=== PATIENT | female | born 1935 | race Caucasian/White ===

== ENCOUNTER 2018-08-05 08:24 | Observation (INO) ==
[2018-08-05] MEDS ORDERED: NITROGLYCERIN 2% OINT 1 INCH/GM PACK TOP STA (09:47)
[2018-08-05] MEDS ORDERED: ONDANSETRON 4 MG/2 ML VIAL IV PRN (09:47)
[2018-08-05] MEDS ORDERED: MORPHINE 4 MG/1 ML VIAL IV PRN (09:47)
[2018-08-05] MEDS ORDERED: ALUM/MAG/SIMETH/LIDO VISC 1:1 30 ML BOTTLE PO STA (09:47)
[2018-08-05] MEDS ORDERED: ENOXAPARIN 100 MG/ML SYRINGE SUBCUT STA (09:47)
[2018-08-05] MEDS ORDERED: METOPROLOL TARTRATE 5 MG/5 ML VIAL IV STA (09:47)
[2018-08-05] MEDS ORDERED: ASPIRIN 325 MG TABLET PO STA (09:47)
[2018-08-05] MEDS ORDERED: ENOXAPARIN 60 MG/0.6 ML SYRINGE ONE (10:07)
[2018-08-05 10:21] LABS: INR 0.9; Partial Thromboplastin Time 23.4 SECS (0-40)
[2018-08-05 10:30] LABS: Basophils # 0.1 10*3/uL (0.0-0.2); Basophils % 1.1 % (0.0-0.8); Eosinophils # 0.1 10*3/uL (0.0-0.87); Eosinophils % 0.8 % (0.00-10.9); Hematocrit 42.7 VOL% (35.7-47.0); Hemoglobin 12.9 GM/DL (12.0-16.0); Immature Granulocytes % 0.4 %; Immature Granulocytes Absolute 0.04 #; Lymphocytes # 1.8 10*3/uL (1.4-4.0); Lymphocytes % 18.1 % (21.3-54.2); Mean Corpuscular HGB Conc 30.2 GM/DL (32-36); Mean Corpuscular Hemoglobin 25 PG (27-34); Mean Corpuscular Volume 83.2 FL (87-102); Monocytes # 1.3 10*3/uL (0.11-0.8); Monocytes % 12.8 % (1.7-12.7); Neutrophils # 6.6 10*3/uL (1.4-7.4); Neutrophils % 66.8 % (38.7-73.9); Platelet Count 386 T/CUMM (130-400); Red Blood Count 5.13 MC/CUMM (3.8-5.5); Red Cell Distribution Width 16.2 % (9.3-17.3); White Blood Count 9.9 T/CUMM (4-12)
[2018-08-05 10:37] LABS: Alanine Aminotransferase 29 U/L (13-56); Albumin 3.7 G/DL (3.4-5.0); Alkaline Phosphatase 83 U/L (45-117); Aspartate Amino Transferase 23 U/L (0-37); Bilirubin,Total < 0.39 MG/DL (0.2-1.0); Blood Urea Nitrogen 16 MG/DL (7-18); Calcium 9.8 MG/DL (8.5-10.1); Glucose 116 MG/DL (74-106); Osmolality,Calculated 282.3 MOS/KG (273-304); Sodium 141 MMOL/L (136-145); Total Protein 7.6 G/DL (6.4-8.3)
[2018-08-05] MEDS ORDERED: ACETAMINOPHEN 325 MG TABLET ONE (11:59)
[2018-08-05] MEDS ORDERED: ACETAMINOPHEN 325 MG TABLET PO ONE (12:01)
[2018-08-05] MEDS ORDERED: MAGNESIUM SULF RIDER 4 GM in PREMIX 1 EACH IV PRN (12:26)
[2018-08-05] MEDS ORDERED: guaiFENesin/DM ER 600-30 MG TABLET PO PRN (12:26)
[2018-08-05] MEDS ORDERED: BISACODYL 5 MG TABLET PO PRN (12:26)
[2018-08-05] MEDS ORDERED: ZALEPLON 5 MG CAPSULE PO PRN (12:26)
[2018-08-05] MEDS ORDERED: MAGNESIUM SULF RIDER 2 GM in PREMIX 1 EACH IV PRN (12:26)
[2018-08-05] MEDS ORDERED: POTASSIUM CHLORIDE 20 MEQ TABLET PO PRN (12:26)
[2018-08-05] MEDS ORDERED: diphenhydrAMINE CAP 25 MG CAPSULE PO PRN (12:26)
[2018-08-05] MEDS ORDERED: DOCUSATE SODIUM 100 MG CAPSULE PO PRN (12:26)
[2018-08-05] MEDS ORDERED: PANTOPRAZOLE 40 MG TABLET PO SCH (12:30)
[2018-08-05] MEDS ORDERED: NITROGLYCERIN SL 0.4 MG TABLET SL PRN (13:02)
[2018-08-05] MEDS ORDERED: MECLIZINE 25 MG TABLET PO PRN (13:02)
[2018-08-05] MEDS ORDERED: CETIRIZINE 10 MG TABLET PO PRN (13:02)
[2018-08-05 14:05] LABS: Troponin I 0.069 NG/ML (0.00-0.045)
[2018-08-05 16:45] LABS: Troponin I 0.068 NG/ML (0.00-0.045)
[2018-08-05] MEDS: PYRIDOSTIGMINE 60 MG TABLET PO SCH ×2 (17:16→21:18)
[2018-08-05] MEDS: ATENOLOL 25 MG TABLET PO SCH (21:13)
[2018-08-05] MEDS: CARBIDOPA/LEVODOPA 25-100 MG TABLET PO SCH (21:14)
[2018-08-05] MEDS: TOPIRAMATE 100 MG TABLET PO SCH (21:14)
[2018-08-05] MEDS: predniSONE 5 MG TABLET PO SCH (21:14)
[2018-08-05] MEDS: PITAVASTATIN 2 MG TABLET PO SCH (21:14)
[2018-08-05] MEDS: AMITRIPTYLINE 75 MG TABLET PO SCH (21:14)
[2018-08-05] MEDS: TIMOLOL 0.25% OPH SOLN 5 ML BOTTLE BOTH EYES SCH (21:15)
[2018-08-05] MEDS: PANTOPRAZOLE 40 MG TABLET PO SCH (21:18)
[2018-08-06 04:43] LABS: Osmolality,Calculated 278.7 MOS/KG (273-304); Potassium 4.1 MMOL/L (3.5-5.1); Risk Ratio 5.19; VLDL CHOLESTEROL 30.8 MG/DL
[2018-08-06 05:12] LABS: Basophils # 0.1 10*3/uL (0.0-0.2); Basophils % 0.7 % (0.0-0.8); Eosinophils # 0.1 10*3/uL (0.0-0.87); Eosinophils % 1.2 % (0.00-10.9); Hematocrit 35.9 VOL% (35.7-47.0); Hemoglobin 10.6 GM/DL (12.0-16.0); Immature Granulocytes % 0.4 %; Immature Granulocytes Absolute 0.03 #; Lymphocytes # 1.1 10*3/uL (1.4-4.0); Lymphocytes % 16.2 % (21.3-54.2); Mean Corpuscular HGB Conc 29.5 GM/DL (32-36); Mean Corpuscular Hemoglobin 25 PG (27-34); Mean Corpuscular Volume 84.9 FL (87-102); Mean Platelet Volume 10.9 FL (9.6-12.0); Monocytes # 0.7 10*3/uL (0.11-0.8); Monocytes % 10.6 % (1.7-12.7); Neutrophils # 4.8 10*3/uL (1.4-7.4); Neutrophils % 70.9 % (38.7-73.9); Platelet Count 290 T/CUMM (130-400); Red Blood Count 4.23 MC/CUMM (3.8-5.5); White Blood Count 6.8 T/CUMM (4-12)
[2018-08-06] MEDS: CYANOCOBALAMIN 500 MCG TABLET PO SCH (08:50)
[2018-08-06] MEDS: ASPIRIN EC 81 MG TABLET PO SCH (08:51)
[2018-08-06] MEDS: ENOXAPARIN 40 MG/0.4 ML SYRINGE SUBCUT SCH (08:51)
[2018-08-06] MEDS: TOPIRAMATE 100 MG TABLET PO SCH ×2 (08:51→21:07)
[2018-08-06] MEDS: PANTOPRAZOLE 40 MG TABLET PO SCH ×2 (08:51→21:07)
[2018-08-06] MEDS: predniSONE 5 MG TABLET PO SCH ×2 (08:51→21:10)
[2018-08-06] MEDS: ATENOLOL 25 MG TABLET PO SCH ×2 (08:51→21:07)
[2018-08-06] MEDS: PYRIDOSTIGMINE 60 MG TABLET PO SCH ×3 (08:51→21:07)
[2018-08-06] MEDS ORDERED: ASPIRIN 325 MG TABLET PO ONE (15:11)
[2018-08-06] MEDS ORDERED: POTASSIUM CHLORIDE RIDER 10 MEQ in PREMIX 1 EACH IV PRN (15:11)
[2018-08-06] MEDS: CARBIDOPA/LEVODOPA 25-100 MG TABLET PO SCH (21:07)
[2018-08-06] MEDS: TIMOLOL 0.25% OPH SOLN 5 ML BOTTLE BOTH EYES SCH (21:07)
[2018-08-06] MEDS: PITAVASTATIN 2 MG TABLET PO SCH (21:10)
[2018-08-06] MEDS: AMITRIPTYLINE 75 MG TABLET PO SCH (21:13)
[2018-08-07 04:50] LABS: Calcium 8.7 MG/DL (8.5-10.1); Osmolality,Calculated 282.3 MOS/KG (273-304); Potassium 3.7 MMOL/L (3.5-5.1)
[2018-08-07 05:54] LABS: Basophils # 0.1 10*3/uL (0.0-0.2); Eosinophils # 0.2 10*3/uL (0.0-0.87); Eosinophils % 3.5 % (0.00-10.9); Hematocrit 35.6 VOL% (35.7-47.0); Hemoglobin 10.6 GM/DL (12.0-16.0); Immature Granulocytes % 0.5 %; Immature Granulocytes Absolute 0.03 #; Lymphocytes # 1.5 10*3/uL (1.4-4.0); Lymphocytes % 24.9 % (21.3-54.2); Mean Corpuscular HGB Conc 29.8 GM/DL (32-36); Mean Corpuscular Hemoglobin 25 PG (27-34); Mean Platelet Volume 10.6 FL (9.6-12.0); Monocytes # 0.7 10*3/uL (0.11-0.8); Monocytes % 11.9 % (1.7-12.7); Neutrophils # 3.5 10*3/uL (1.4-7.4); Neutrophils % 58.2 % (38.7-73.9); Platelet Count 281 T/CUMM (130-400); Red Blood Count 4.19 MC/CUMM (3.8-5.5); Red Cell Distribution Width 16.1 % (9.3-17.3)
[2018-08-07] MEDS ORDERED: DIAZEPAM 5 MG TABLET PO ONE (06:00)
[2018-08-07] MEDS ORDERED: diphenhydrAMINE CAP 25 MG CAPSULE PO ONE (06:00)
[2018-08-07] MEDS: CYANOCOBALAMIN 500 MCG TABLET PO SCH ×2 (07:41→09:56)
[2018-08-07] MEDS: PYRIDOSTIGMINE 60 MG TABLET PO SCH ×4 (07:42→20:41)
[2018-08-07] MEDS: ASPIRIN EC 81 MG TABLET PO SCH ×2 (07:42→09:55)
[2018-08-07] MEDS: PANTOPRAZOLE 40 MG TABLET PO SCH ×3 (07:42→20:41)
[2018-08-07] MEDS: ATENOLOL 25 MG TABLET PO SCH ×3 (07:42→20:42)
[2018-08-07] MEDS: TOPIRAMATE 100 MG TABLET PO SCH ×3 (07:42→20:42)
[2018-08-07] MEDS: SODIUM CHLORIDE 0.9% 1,000 ML IV SCH ×2 (07:43→15:11)
[2018-08-07] MEDS: ENOXAPARIN 40 MG/0.4 ML SYRINGE SUBCUT SCH ×2 (07:43→12:37)
[2018-08-07] MEDS ORDERED: LIDOCAINE 1% 20 ML VIAL ONE (08:04)
[2018-08-07] MEDS ORDERED: MIDAZOLAM 2 MG/2 ML VIAL ONE (08:31)
[2018-08-07] MEDS ORDERED: fentaNYL 100 MCG/2 ML VIAL ONE (08:31)
[2018-08-07] MEDS ORDERED: ENOXAPARIN 60 MG/0.6 ML SYRINGE ONE (08:56)
[2018-08-07] MEDS ORDERED: TIROFIBAN 5,000 MCG/100 ML PREMIX IV ONE (08:59)
[2018-08-07] MEDS ORDERED: TIROFIBAN 5,000 MCG/100 ML PREMIX IV SCH (09:06)
[2018-08-07] MEDS ORDERED: TICAGRELOR 90 MG TABLET ONE (09:30)
[2018-08-07] MEDS ORDERED: BENZONATATE 100 MG CAPSULE PO PRN (10:08)
[2018-08-07] MEDS: predniSONE 5 MG TABLET PO SCH ×2 (10:34→20:41)
[2018-08-07] MEDS: CARBIDOPA/LEVODOPA 25-100 MG TABLET PO SCH (20:41)
[2018-08-07] MEDS: TICAGRELOR 90 MG TABLET PO SCH (20:41)
[2018-08-07] MEDS: AMITRIPTYLINE 75 MG TABLET PO SCH (20:42)
[2018-08-07] MEDS: TIMOLOL 0.25% OPH SOLN 5 ML BOTTLE BOTH EYES SCH (20:42)
[2018-08-07] MEDS: PITAVASTATIN 2 MG TABLET PO SCH (23:30)
[2018-08-08] MEDS: SODIUM CHLORIDE 0.9% 1,000 ML IV SCH ×2 (00:14→06:34)
[2018-08-08 03:58] LABS: Basophils % 0.5 % (0.0-0.8); Eosinophils # 0.2 10*3/uL (0.0-0.87); Eosinophils % 1.9 % (0.00-10.9); Hematocrit 31.5 VOL% (35.7-47.0); Hemoglobin 9.2 GM/DL (12.0-16.0); Immature Granulocytes % 0.6 %; Immature Granulocytes Absolute 0.05 #; Lymphocytes # 0.9 10*3/uL (1.4-4.0); Lymphocytes % 11.4 % (21.3-54.2); Mean Corpuscular HGB Conc 29.2 GM/DL (32-36); Mean Corpuscular Hemoglobin 25 PG (27-34); Mean Corpuscular Volume 85.8 FL (87-102); Mean Platelet Volume 10.5 FL (9.6-12.0); Monocytes # 0.6 10*3/uL (0.11-0.8); Monocytes % 7.6 % (1.7-12.7); Neutrophils # 6.2 10*3/uL (1.4-7.4); Platelet Count 243 T/CUMM (130-400); Red Blood Count 3.67 MC/CUMM (3.8-5.5); White Blood Count 7.9 T/CUMM (4-12)
[2018-08-08 04:02] LABS: Calcium 8.2 MG/DL (8.5-10.1); Osmolality,Calculated 286.8 MOS/KG (273-304); Potassium 3.7 MMOL/L (3.5-5.1)
[2018-08-08 04:11] LABS: Blood Urea Nitrogen 12 MG/DL (7-18); Glucose 112 MG/DL (74-106); Osmolality,Calculated 286.8 MOS/KG (273-304); Potassium 4.1 MMOL/L (3.5-5.1); Sodium 144 MMOL/L (136-145)
[2018-08-08 04:14] LABS: Troponin I 0.299 NG/ML (0.00-0.045)
[2018-08-08 04:36] LABS: Platelet Estimate Adequate; Polychromasia Few
[2018-08-08 08:03] VITALS: BP 136/71
[2018-08-08] MEDS: CYANOCOBALAMIN 500 MCG TABLET PO SCH (08:12)
[2018-08-08] MEDS: predniSONE 5 MG TABLET PO SCH (08:13)
[2018-08-08] MEDS: ASPIRIN EC 81 MG TABLET PO SCH (08:13)
[2018-08-08] MEDS: PANTOPRAZOLE 40 MG TABLET PO SCH (08:13)
[2018-08-08] MEDS: PYRIDOSTIGMINE 60 MG TABLET PO SCH (08:13)
[2018-08-08] MEDS: TICAGRELOR 90 MG TABLET PO SCH (08:13)
[2018-08-08] MEDS: TOPIRAMATE 100 MG TABLET PO SCH (08:13)
[2018-08-08] MEDS: ATENOLOL 25 MG TABLET PO SCH (08:13)
== END 2018-08-08 10:52 | disposition home or self-care (01) ==
LOC: N.EDINP 08:24 → N.ED 08:24 → N.TELES 14:50
PROVIDERS: ADMIT Internal Medicine Cardiovascular Disease; ATTEND Internal Medicine Cardiovascular Disease
PROC: CLCCHCL (ICD-10-PCS; 2018-08-07 09:15)

== ENCOUNTER 2019-03-07 21:31 | Inpatient (IN) ==
[2019-03-07 23:29] LABS: Basophils # 0.1 10*3/uL (0.0-0.2); Basophils % 1.3 % (0.0-0.8); Eosinophils # 0.2 10*3/uL (0.0-0.87); Eosinophils % 2.4 % (0.00-10.9); Hemoglobin 10.6 GM/DL (12.0-16.0); Immature Granulocytes % 0.4 %; Immature Granulocytes Absolute 0.03 #; Lymphocytes # 2.6 10*3/uL (1.4-4.0); Lymphocytes % 34.2 % (21.3-54.2); Mean Corpuscular HGB Conc 28.6 GM/DL (32-36); Mean Corpuscular Volume 80.4 FL (87-102); Mean Platelet Volume 10.2 FL (9.6-12.0); Monocytes % 11.8 % (1.7-12.7); Neutrophils % 49.9 % (38.7-73.9); Platelet Count 354 T/CUMM (130-400); Red Cell Distribution Width 15.9 % (9.3-17.3); White Blood Count 7.6 T/CUMM (4-12)
[2019-03-07 23:52] LABS: Alanine Aminotransferase 17 U/L (13-56); Albumin 3.6 G/DL (3.4-5.0); Alkaline Phosphatase 98 U/L (45-117); Aspartate Amino Transferase 13 U/L (0-37); Bilirubin,Total < 0.39 MG/DL (0.2-1.0); Blood Urea Nitrogen 22 MG/DL (7-18); Calcium 9.3 MG/DL (8.5-10.1); Glucose 114 MG/DL (74-106); Osmolality,Calculated 286.1 MOS/KG (273-304); Total Protein 7.5 G/DL (6.4-8.3)
[2019-03-08] MEDS ORDERED: ENOXAPARIN 30 MG/0.3 ML SYRINGE SUBCUT STA (00:28)
[2019-03-08] MEDS ORDERED: ASPIRIN CHEW 81 MG TABLET PO STA (00:29)
[2019-03-08] MEDS ORDERED: ENOXAPARIN 40 MG/0.4 ML SYRINGE ONE (00:40)
[2019-03-08] MEDS ORDERED: MAGNESIUM SULF RIDER 4 GM in PREMIX 1 EACH IV PRN ×2 (02:40→05:37)
[2019-03-08] MEDS ORDERED: MAGNESIUM SULF RIDER 2 GM in PREMIX 1 EACH IV PRN (02:40)
[2019-03-08] MEDS ORDERED: POTASSIUM CHLORIDE 20 MEQ TABLET PO PRN ×3 (02:40→05:32)
[2019-03-08] MEDS ORDERED: DOCUSATE SODIUM 100 MG CAPSULE PO PRN (02:40)
[2019-03-08] MEDS ORDERED: CETIRIZINE 10 MG TABLET PO PRN (03:23)
[2019-03-08] MEDS: ACETAMINOPHEN 325 MG TABLET PO PRN ×3 (04:08→21:40)
[2019-03-08 05:20] LABS: Osmolality,Calculated 287.8 MOS/KG (273-304); Risk Ratio 3.56; VLDL CHOLESTEROL 43.2 MG/DL
[2019-03-08 05:26] LABS: Basophils # 0.1 10*3/uL (0.0-0.2); Basophils % 1.4 % (0.0-0.8); Eosinophils # 0.2 10*3/uL (0.0-0.87); Eosinophils % 2.6 % (0.00-10.9); Hematocrit 34.4 VOL% (35.7-47.0); Hemoglobin 9.9 GM/DL (12.0-16.0); Immature Granulocytes % 0.4 %; Immature Granulocytes Absolute 0.03 #; Lymphocytes # 2.1 10*3/uL (1.4-4.0); Lymphocytes % 29.5 % (21.3-54.2); Mean Corpuscular HGB Conc 28.8 GM/DL (32-36); Mean Corpuscular Volume 80.4 FL (87-102); Mean Platelet Volume 10.2 FL (9.6-12.0); Monocytes % 12.5 % (1.7-12.7); Neutrophils % 53.6 % (38.7-73.9); Platelet Count 320 T/CUMM (130-400); Red Blood Count 4.28 MC/CUMM (3.8-5.5); Red Cell Distribution Width 15.9 % (9.3-17.3)
[2019-03-08] MEDS ORDERED: ENOXAPARIN 30 MG/0.3 ML SYRINGE SUBCUT ONE (05:35)
[2019-03-08 05:56] LABS: Anisocytosis 1+; Platelet Estimate Adequate
[2019-03-08] MEDS ORDERED: TICAGRELOR 90 MG TABLET PO ONE (09:21)
[2019-03-08] MEDS ORDERED: DIAZEPAM 5 MG TABLET PO ONE (09:22)
[2019-03-08] MEDS ORDERED: diphenhydrAMINE CAP 25 MG CAPSULE PO ONE (09:22)
[2019-03-08] MEDS ORDERED: diphenhydrAMINE CAP 50 MG CAPSULE ONE (09:34)
[2019-03-08] MEDS ORDERED: HEPARIN/NACL 0.9% 2 UNITS/ML 1,000 ML IV ONE (09:48)
[2019-03-08] MEDS ORDERED: LIDOCAINE 1% 20 ML VIAL ONE (09:48)
[2019-03-08] MEDS ORDERED: fentaNYL 100 MCG/2 ML VIAL ONE (09:48)
[2019-03-08] MEDS ORDERED: MIDAZOLAM 2 MG/2 ML VIAL ONE ×2 (09:48→10:34)
[2019-03-08] MEDS ORDERED: ENOXAPARIN 60 MG/0.6 ML SYRINGE ONE (10:18)
[2019-03-08] MEDS: PYRIDOSTIGMINE 60 MG TABLET PO SCH ×3 (12:14→21:07)
[2019-03-08] MEDS: TICAGRELOR 90 MG TABLET PO SCH ×2 (12:14→21:07)
[2019-03-08] MEDS: ASPIRIN EC 81 MG TABLET PO SCH (12:14)
[2019-03-08] MEDS: PANTOPRAZOLE 40 MG TABLET PO SCH (12:15)
[2019-03-08] MEDS: SODIUM CHLORIDE 0.9% 1,000 ML IV SCH ×3 (12:15→22:44)
[2019-03-08] MEDS: ATENOLOL 25 MG TABLET PO SCH ×2 (12:15→21:07)
[2019-03-08] MEDS: predniSONE 5 MG TABLET PO SCH ×2 (12:15→21:06)
[2019-03-08] MEDS: TOPIRAMATE 100 MG TABLET PO SCH ×2 (12:18→21:06)
[2019-03-08] MEDS ORDERED: ALUM/MAG/SIMETH/LIDO VISC 1:1 30 ML BOTTLE PO ONE (12:46)
[2019-03-08 13:43] LABS: Apearance,Urine CLEAR (Clear); Bilirubin,Urine Negative (Negative); Blood, Urine Negative (Negative); Glucose,Urine (UA) Negative (Negative); Ketones,Urine Negative (Negative); Nitrite,Urine Negative (Negative); Protein,Urine Negative; RBC,Urine <1 /HPF (0-4); Squamous Epithelial Cell,Urine Occasional /HPF (0-10); Urine Color Straw (Yellow); Urine Specific Gravity 1.014 (1.001-1.035); Urine Urobilinogen < 2.0 EU/DL (0.2-1.0); WBC,Urine <1 /HPF (0-6)
[2019-03-08] MEDS ORDERED: ENOXAPARIN 60 MG/0.6 ML SYRINGE SUBCUT SCH (14:00)
[2019-03-08] MEDS: PITAVASTATIN 2 MG TABLET PO SCH (21:04)
[2019-03-08] MEDS: TIMOLOL 0.25% OPH SOLN 5 ML BOTTLE BOTH EYES SCH (21:04)
[2019-03-08] MEDS: CARBIDOPA/LEVODOPA 25-100 MG TABLET PO SCH (21:05)
[2019-03-08] MEDS: ONDANSETRON 4 MG/2 ML VIAL IV PRN (22:45)
[2019-03-09] MEDS: ACETAMINOPHEN 325 MG TABLET PO PRN ×2 (01:42→14:32)
[2019-03-09 05:54] LABS: Basophils # 0.1 10*3/uL (0.0-0.2); Basophils % 0.8 % (0.0-0.8); Eosinophils # 0.1 10*3/uL (0.0-0.87); Eosinophils % 1.5 % (0.00-10.9); Hematocrit 35.6 VOL% (35.7-47.0); Hemoglobin 10.3 GM/DL (12.0-16.0); Immature Granulocytes % 0.3 %; Immature Granulocytes Absolute 0.02 #; Lymphocytes # 1.1 10*3/uL (1.4-4.0); Mean Corpuscular HGB Conc 28.9 GM/DL (32-36); Mean Corpuscular Volume 81.1 FL (87-102); Mean Platelet Volume 10.4 FL (9.6-12.0); Monocytes % 13.7 % (1.7-12.7); Neutrophils % 68.7 % (38.7-73.9); Platelet Count 337 T/CUMM (130-400); Red Blood Count 4.39 MC/CUMM (3.8-5.5); Red Cell Distribution Width 15.8 % (9.3-17.3); White Blood Count 7.4 T/CUMM (4-12)
[2019-03-09 06:17] LABS: Calcium 8.3 MG/DL (8.5-10.1)
[2019-03-09] MEDS: TOPIRAMATE 100 MG TABLET PO SCH ×2 (08:52→21:21)
[2019-03-09] MEDS: PYRIDOSTIGMINE 60 MG TABLET PO SCH ×3 (08:52→21:20)
[2019-03-09] MEDS: PANTOPRAZOLE 40 MG TABLET PO SCH (08:52)
[2019-03-09] MEDS: LOSARTAN 25 MG TABLET PO SCH (08:52)
[2019-03-09] MEDS: TICAGRELOR 90 MG TABLET PO SCH ×2 (08:52→21:22)
[2019-03-09] MEDS: ATENOLOL 25 MG TABLET PO SCH ×2 (08:52→21:21)
[2019-03-09] MEDS: predniSONE 5 MG TABLET PO SCH ×2 (08:52→21:22)
[2019-03-09] MEDS: ASPIRIN EC 81 MG TABLET PO SCH (08:52)
[2019-03-09] MEDS: SODIUM CHLORIDE 0.9% 1,000 ML IV SCH (08:53)
[2019-03-09] MEDS ORDERED: traMADol 50 MG TABLET PO PRN (08:59)
[2019-03-09] MEDS: ONDANSETRON 4 MG/2 ML VIAL IV PRN ×3 (10:14→23:31)
[2019-03-09] MEDS: BUTALBITAL/ACETAMIN/CAFFEINE 50-325-40 MG TABLET PO PRN ×2 (14:35→23:31)
[2019-03-09] MEDS: TIMOLOL 0.25% OPH SOLN 5 ML BOTTLE BOTH EYES SCH (21:18)
[2019-03-09] MEDS: PITAVASTATIN 2 MG TABLET PO SCH (21:20)
[2019-03-09] MEDS: CARBIDOPA/LEVODOPA 25-100 MG TABLET PO SCH (21:20)
[2019-03-10] MEDS: LOPERAMIDE 2 MG CAPSULE PO PRN ×2 (05:39→09:35)
[2019-03-10 05:57] LABS: Calcium 9.1 MG/DL (8.5-10.1); Osmolality,Calculated 285.8 MOS/KG (273-304)
[2019-03-10 06:00] LABS: Basophils % 0.4 % (0.0-0.8); Eosinophils # 0.1 10*3/uL (0.0-0.87); Eosinophils % 0.6 % (0.00-10.9); Hematocrit 34.2 VOL% (35.7-47.0); Hemoglobin 10.1 GM/DL (12.0-16.0); Immature Granulocytes % 0.4 %; Immature Granulocytes Absolute 0.05 #; Lymphocytes # 1.2 10*3/uL (1.4-4.0); Lymphocytes % 10.2 % (21.3-54.2); Mean Corpuscular HGB Conc 29.5 GM/DL (32-36); Mean Corpuscular Volume 80.7 FL (87-102); Mean Platelet Volume 10.6 FL (9.6-12.0); Monocytes % 10.3 % (1.7-12.7); Neutrophils % 78.1 % (38.7-73.9); Platelet Count 333 T/CUMM (130-400); Red Blood Count 4.24 MC/CUMM (3.8-5.5); White Blood Count 11.2 T/CUMM (4-12)
[2019-03-10 06:06] LABS: Hypochromasia 1+; Ovalocytes Slight; Platelet Estimate Adequate
[2019-03-10] MEDS: PYRIDOSTIGMINE 60 MG TABLET PO SCH ×2 (09:34→15:15)
[2019-03-10] MEDS: ATENOLOL 25 MG TABLET PO SCH (09:34)
[2019-03-10] MEDS: LOSARTAN 25 MG TABLET PO SCH (09:34)
[2019-03-10] MEDS: TICAGRELOR 90 MG TABLET PO SCH (09:35)
[2019-03-10] MEDS: ASPIRIN EC 81 MG TABLET PO SCH (09:35)
[2019-03-10] MEDS: PANTOPRAZOLE 40 MG TABLET PO SCH (09:35)
[2019-03-10] MEDS: TOPIRAMATE 100 MG TABLET PO SCH (09:35)
[2019-03-10] MEDS: predniSONE 5 MG TABLET PO SCH (09:35)
[2019-03-10] MEDS: BUTALBITAL/ACETAMIN/CAFFEINE 50-325-40 MG TABLET PO PRN (11:35)
[2019-03-10 11:44] VITALS: BP 128/67
== END 2019-03-10 16:00 | disposition home or self-care (01) | DRG 247 ==
LOC: N.EDINP 21:31 → N.ED 21:31 → N.TELES 03-08 02:33 → SUATTDRO 03-08 08:23
PROVIDERS: ADMIT Internal Medicine Nephrology; ATTEND Internal Medicine
PROC: CLCCHCL (ICD-10-PCS; 2019-03-08 10:15)

== ENCOUNTER 2019-06-24 14:08 | Observation (INO) ==
[2019-06-24] MEDS ORDERED: ACETAMINOPHEN 500 MG TABLET ONE (15:04)
[2019-06-24 15:24] LABS: Albumin 3.1 G/DL (3.4-5.0); Bilirubin,Total 0.6 MG/DL (0.2-1.0); Calcium 9.1 MG/DL (8.5-10.1); Osmolality,Calculated 272.8 MOS/KG (273-304)
[2019-06-24 15:33] LABS: INR 0.9; PT Patient Result 10.2 SECS (9.6-12.2)
[2019-06-24] MEDS ORDERED: ACETAMINOPHEN 500 MG TABLET PO STA (15:53)
[2019-06-24 16:00] LABS: Basophils # 0.1 10*3/uL (0.0-0.2); Basophils % 1.4 % (0.0-0.8); Eosinophils # 0.1 10*3/uL (0.0-0.87); Eosinophils % 1.8 % (0.00-10.9); Immature Granulocytes % 0.3 %; Immature Granulocytes Absolute 0.02 #; Lymphocytes # 2.4 10*3/uL (1.4-4.0); Lymphocytes % 39.3 % (21.3-54.2); Mean Corpuscular HGB Conc 28.7 GM/DL (32-36); Mean Corpuscular Volume 77.7 FL (87-102); Mean Platelet Volume 10.3 FL (9.6-12.0); Monocytes % 11.6 % (1.7-12.7); Neutrophils % 45.6 % (38.7-73.9); Platelet Count 513 T/CUMM (130-400); Red Blood Count 4.67 MC/CUMM (3.8-5.5); Red Cell Distribution Width 17.2 % (9.3-17.3); White Blood Count 6.2 T/CUMM (4-12)
[2019-06-24 16:05] LABS: Hemoglobin 10.4 GM/DL (12.0-16.0)
[2019-06-24 16:06] LABS: Hematocrit 36.3 VOL% (35.7-47.0)
[2019-06-24 16:27] LABS: Apearance,Urine CLEAR (Clear); Bilirubin,Urine Negative (Negative); Blood, Urine Negative (Negative); Glucose,Urine (UA) Negative (Negative); Ketones,Urine 5 mg/dL (Negative); Mucus,Urine Occasional /LPF (Occasional); Nitrite,Urine Negative (Negative); Protein,Urine Negative; RBC,Urine 3 /HPF (0-4); Urine Color Yellow (Yellow); Urine Urobilinogen < 2.0 EU/DL (0.2-1.0); WBC,Urine <1 /HPF (0-6)
[2019-06-24] MEDS ORDERED: ONDANSETRON 4 MG/2 ML VIAL IV PRN (16:35)
[2019-06-24] MEDS ORDERED: NITROGLYCERIN SL 0.4 MG TABLET SL PRN (19:46)
[2019-06-24] MEDS: BUTALBITAL/ACETAMIN/CAFFEINE 50-325-40 MG TABLET PO PRN (21:24)
[2019-06-24] MEDS: SIMVASTATIN 40 MG TABLET PO SCH (21:24)
[2019-06-24] MEDS: TICAGRELOR 90 MG TABLET PO SCH (21:24)
[2019-06-24] MEDS: TOPIRAMATE 100 MG TABLET PO SCH (21:24)
[2019-06-24] MEDS: DOCUSATE SODIUM 100 MG CAPSULE PO SCH (21:24)
[2019-06-24] MEDS: PYRIDOSTIGMINE 60 MG TABLET PO SCH (21:24)
[2019-06-24] MEDS: ATENOLOL 25 MG TABLET PO SCH (21:25)
[2019-06-24] MEDS: traZODone 50 MG TABLET PO SCH (21:25)
[2019-06-24] MEDS: TIMOLOL 0.25% OPH SOLN 5 ML BOTTLE BOTH EYES SCH (21:25)
[2019-06-25] MEDS: LOSARTAN 25 MG TABLET PO SCH (08:52)
[2019-06-25] MEDS: ATENOLOL 25 MG TABLET PO SCH ×2 (08:53→20:34)
[2019-06-25] MEDS: CYANOCOBALAMIN 500 MCG TABLET PO SCH (08:53)
[2019-06-25] MEDS: PYRIDOSTIGMINE 60 MG TABLET PO SCH ×3 (08:53→20:34)
[2019-06-25] MEDS: PANTOPRAZOLE 40 MG TABLET PO SCH (08:53)
[2019-06-25] MEDS: ASPIRIN EC 81 MG TABLET PO SCH (08:54)
[2019-06-25] MEDS: TOPIRAMATE 100 MG TABLET PO SCH ×2 (08:54→20:34)
[2019-06-25] MEDS: TICAGRELOR 90 MG TABLET PO SCH ×2 (08:54→20:34)
[2019-06-25] MEDS: BUTALBITAL/ACETAMIN/CAFFEINE 50-325-40 MG TABLET PO PRN (09:01)
[2019-06-25] MEDS: DOCUSATE SODIUM 100 MG CAPSULE PO SCH ×2 (09:02→20:35)
[2019-06-25] MEDS: ACETAMINOPHEN 325 MG TABLET PO PRN ×2 (11:14→19:30)
[2019-06-25] MEDS: SIMVASTATIN 40 MG TABLET PO SCH (20:34)
[2019-06-25] MEDS: traZODone 50 MG TABLET PO SCH (20:34)
[2019-06-25] MEDS: TIMOLOL 0.25% OPH SOLN 5 ML BOTTLE BOTH EYES SCH (20:34)
[2019-06-26 08:01] VITALS: BP 119/61
[2019-06-26] MEDS: ATENOLOL 25 MG TABLET PO SCH (09:02)
[2019-06-26] MEDS: ACETAMINOPHEN 325 MG TABLET PO PRN (09:03)
[2019-06-26] MEDS: TICAGRELOR 90 MG TABLET PO SCH (09:05)
[2019-06-26] MEDS: PANTOPRAZOLE 40 MG TABLET PO SCH (09:05)
[2019-06-26] MEDS: CYANOCOBALAMIN 500 MCG TABLET PO SCH (09:05)
[2019-06-26] MEDS: TOPIRAMATE 100 MG TABLET PO SCH (09:06)
[2019-06-26] MEDS: PYRIDOSTIGMINE 60 MG TABLET PO SCH (09:06)
[2019-06-26] MEDS: ASPIRIN EC 81 MG TABLET PO SCH (09:06)
[2019-06-26] MEDS: LOSARTAN 25 MG TABLET PO SCH (09:07)
[2019-06-26] MEDS: DOCUSATE SODIUM 100 MG CAPSULE PO SCH (09:07)
== END 2019-06-26 10:31 | disposition home or self-care (01) ==
LOC: N.ED 14:08 → N.EDINP 14:08 → N.4E 17:19
PROVIDERS: ADMIT Family Medicine; ATTEND Family Medicine

== ENCOUNTER 2019-07-19 08:54 | Inpatient (IN) ==
[2019-07-19] MEDS ORDERED: ASPIRIN 325 MG TABLET PO STA (09:29)
[2019-07-19] MEDS ORDERED: NITROGLYCERIN SL 0.4 MG TABLET SL PRN ×2 (09:29→19:08)
[2019-07-19 11:00] LABS: Basophils # 0.1 10*3/uL (0.0-0.2); Basophils % 1.6 % (0.0-0.8); Eosinophils # 0.4 10*3/uL (0.0-0.87); Eosinophils % 5.8 % (0.00-10.9); Hematocrit 33.3 VOL% (35.7-47.0); Hemoglobin 9.6 GM/DL (12.0-16.0); Immature Granulocytes % 0.5 %; Immature Granulocytes Absolute 0.04 #; Lymphocytes # 1.4 10*3/uL (1.4-4.0); Lymphocytes % 18.7 % (21.3-54.2); Mean Corpuscular HGB Conc 28.8 GM/DL (32-36); Mean Corpuscular Volume 78.4 FL (87-102); Mean Platelet Volume 10.4 FL (9.6-12.0); Monocytes % 12.8 % (1.7-12.7); Neutrophils % 60.6 % (38.7-73.9); Platelet Count 361 T/CUMM (130-400); Red Blood Count 4.25 MC/CUMM (3.8-5.5); Red Cell Distribution Width 17.2 % (9.3-17.3); White Blood Count 7.6 T/CUMM (4-12)
[2019-07-19 11:01] LABS: Calcium 9.1 MG/DL (8.5-10.1); Osmolality,Calculated 279.4 MOS/KG (273-304)
[2019-07-19 11:24] LABS: Hypochromasia 1+; Ovalocytes Slight; Platelet Estimate Adequate
[2019-07-19 11:25] LABS: Microcytosis Slight
[2019-07-19] MEDS ORDERED: ONDANSETRON 4 MG/2 ML VIAL IV PRN (12:04)
[2019-07-19] MEDS ORDERED: MAGNESIUM SULF RIDER 4 GM in PREMIX 1 EACH IV PRN (12:04)
[2019-07-19] MEDS ORDERED: MAGNESIUM SULF RIDER 2 GM in PREMIX 1 EACH IV PRN (12:04)
[2019-07-19] MEDS ORDERED: MORPHINE 4 MG/1 ML VIAL IV PRN (12:04)
[2019-07-19] MEDS ORDERED: ACETAMINOPHEN 500 MG TABLET PO STA (12:10)
[2019-07-19] MEDS ORDERED: ACETAMINOPHEN 500 MG TABLET ONE (12:11)
[2019-07-19] MEDS: SODIUM CHLORIDE 0.45% 1,000 ML IV SCH (17:16)
[2019-07-19] MEDS ORDERED: ACETAMINOPHEN 500 MG TABLET PO PRN (19:10)
[2019-07-19] MEDS: ENOXAPARIN 40 MG/0.4 ML SYRINGE SUBCUT SCH (20:42)
[2019-07-19] MEDS: TICAGRELOR 90 MG TABLET PO SCH (20:42)
[2019-07-19] MEDS: BENZONATATE 100 MG CAPSULE PO PRN (20:43)
[2019-07-19] MEDS: ATENOLOL 25 MG TABLET PO SCH (20:43)
[2019-07-19] MEDS: traMADol 50 MG TABLET PO SCH (20:44)
[2019-07-19] MEDS: AMITRIPTYLINE 100 MG TABLET PO SCH (20:44)
[2019-07-19] MEDS: NITROGLYCERIN 2% OINT 1 INCH/GM PACK TOP SCH (20:45)
[2019-07-20] MEDS: SODIUM CHLORIDE 0.45% 1,000 ML IV SCH ×2 (05:06→14:55)
[2019-07-20 06:44] LABS: Risk Ratio 4.34
[2019-07-20] MEDS: ENOXAPARIN 40 MG/0.4 ML SYRINGE SUBCUT SCH ×2 (08:15→21:15)
[2019-07-20] MEDS: BENZONATATE 100 MG CAPSULE PO PRN (08:15)
[2019-07-20] MEDS: ATENOLOL 25 MG TABLET PO SCH ×2 (08:15→21:16)
[2019-07-20] MEDS: PANTOPRAZOLE 40 MG TABLET PO SCH (08:16)
[2019-07-20] MEDS: EZETIMIBE 10 MG TABLET PO SCH (08:16)
[2019-07-20] MEDS: FERROUS SULFATE 325 MG TABLET PO SCH (08:16)
[2019-07-20] MEDS: SIMVASTATIN 40 MG TABLET PO SCH (08:16)
[2019-07-20] MEDS: traMADol 50 MG TABLET PO SCH ×3 (08:16→21:16)
[2019-07-20] MEDS: TICAGRELOR 90 MG TABLET PO SCH ×2 (08:16→21:17)
[2019-07-20] MEDS: LOSARTAN 25 MG TABLET PO SCH (08:16)
[2019-07-20] MEDS: ISOSORBIDE MONONITRATE 30 MG TABLET PO SCH (08:16)
[2019-07-20] MEDS: ASPIRIN EC 81 MG TABLET PO SCH (08:23)
[2019-07-20] MEDS: NITROGLYCERIN 2% OINT 1 INCH/GM PACK TOP SCH ×2 (08:23→21:16)
[2019-07-20] MEDS: AMITRIPTYLINE 100 MG TABLET PO SCH (21:17)
[2019-07-21 05:39] LABS: Basophils # 0.1 10*3/uL (0.0-0.2); Basophils % 1.4 % (0.0-0.8); Eosinophils # 0.5 10*3/uL (0.0-0.87); Eosinophils % 7.6 % (0.00-10.9); Hemoglobin 8.1 GM/DL (12.0-16.0); Immature Granulocytes % 0.6 %; Immature Granulocytes Absolute 0.04 #; Lymphocytes # 1.7 10*3/uL (1.4-4.0); Lymphocytes % 26.3 % (21.3-54.2); Mean Corpuscular HGB Conc 28.9 GM/DL (32-36); Mean Corpuscular Volume 78.9 FL (87-102); Mean Platelet Volume 10.5 FL (9.6-12.0); Monocytes % 17.6 % (1.7-12.7); Neutrophils % 46.5 % (38.7-73.9); Platelet Count 300 T/CUMM (130-400); Red Blood Count 3.55 MC/CUMM (3.8-5.5); Red Cell Distribution Width 17.3 % (9.3-17.3); White Blood Count 6.3 T/CUMM (4-12)
[2019-07-21 05:47] LABS: Calcium 8.6 MG/DL (8.5-10.1); Osmolality,Calculated 280.3 MOS/KG (273-304)
[2019-07-21] MEDS: SODIUM CHLORIDE 0.45% 1,000 ML IV SCH ×2 (05:49→22:07)
[2019-07-21 05:54] LABS: Anisocytosis 2+; Band Neutrophils 2 % (0-10); Eosinophils 8 % (0-10); Lymphocytes 32 % (20-55); Microcytosis 2+; Ovalocytes 1+; Platelet Estimate Normal; Segmented Neutrophils 40 % (50-85); Total Cells Counted 100
[2019-07-21] MEDS: FERROUS SULFATE 325 MG TABLET PO SCH (08:53)
[2019-07-21] MEDS: LOSARTAN 25 MG TABLET PO SCH (08:54)
[2019-07-21] MEDS: traMADol 50 MG TABLET PO SCH ×3 (08:54→22:08)
[2019-07-21] MEDS: SIMVASTATIN 40 MG TABLET PO SCH (08:54)
[2019-07-21] MEDS: PANTOPRAZOLE 40 MG TABLET PO SCH (08:54)
[2019-07-21] MEDS: ATENOLOL 25 MG TABLET PO SCH ×2 (08:55→22:09)
[2019-07-21] MEDS: EZETIMIBE 10 MG TABLET PO SCH (08:55)
[2019-07-21] MEDS: NITROGLYCERIN 2% OINT 1 INCH/GM PACK TOP SCH ×2 (08:55→22:09)
[2019-07-21] MEDS: ISOSORBIDE MONONITRATE 30 MG TABLET PO SCH (08:55)
[2019-07-21] MEDS: ASPIRIN EC 81 MG TABLET PO SCH (08:55)
[2019-07-21] MEDS: ENOXAPARIN 40 MG/0.4 ML SYRINGE SUBCUT SCH ×2 (08:56→22:08)
[2019-07-21] MEDS: TICAGRELOR 90 MG TABLET PO SCH ×2 (08:56→22:08)
[2019-07-21] MEDS ORDERED: DIAZEPAM 5 MG TABLET PO ONE (13:40)
[2019-07-21] MEDS ORDERED: diphenhydrAMINE CAP 25 MG CAPSULE PO ONE (13:40)
[2019-07-21] MEDS ORDERED: MAGNESIUM SULF RIDER 2 GM in PREMIX 1 EACH IV PRN (13:40)
[2019-07-21] MEDS ORDERED: LIDOCAINE 1% 20 ML VIAL ONE (14:05)
[2019-07-21] MEDS ORDERED: fentaNYL 100 MCG/2 ML VIAL ONE (14:05)
[2019-07-21] MEDS ORDERED: MIDAZOLAM 2 MG/2 ML VIAL ONE (14:05)
[2019-07-21] MEDS ORDERED: ADENOSINE 90 MG/30 ML VIAL IV ONE (14:34)
[2019-07-21] MEDS ORDERED: ENOXAPARIN 60 MG/0.6 ML SYRINGE ONE (14:47)
[2019-07-21] MEDS ORDERED: TICAGRELOR 90 MG TABLET ONE (14:50)
[2019-07-21] MEDS: AMITRIPTYLINE 100 MG TABLET PO SCH (22:09)
[2019-07-22 04:42] LABS: Basophils # 0.1 10*3/uL (0.0-0.2); Basophils % 1.6 % (0.0-0.8); Eosinophils # 0.4 10*3/uL (0.0-0.87); Eosinophils % 6.7 % (0.00-10.9); Hematocrit 27.4 VOL% (35.7-47.0); Hemoglobin 7.9 GM/DL (12.0-16.0); Immature Granulocytes % 0.2 %; Immature Granulocytes Absolute 0.01 #; Lymphocytes # 1.6 10*3/uL (1.4-4.0); Lymphocytes % 28.5 % (21.3-54.2); Mean Corpuscular HGB Conc 28.8 GM/DL (32-36); Mean Corpuscular Volume 78.1 FL (87-102); Mean Platelet Volume 10.1 FL (9.6-12.0); Monocytes % 11.5 % (1.7-12.7); Neutrophils % 51.5 % (38.7-73.9); Platelet Count 270 T/CUMM (130-400); Red Blood Count 3.51 MC/CUMM (3.8-5.5); Red Cell Distribution Width 17.2 % (9.3-17.3); White Blood Count 5.6 T/CUMM (4-12)
[2019-07-22 05:05] LABS: Blood Urea Nitrogen 9 MG/DL (7-18); Calcium 8.1 MG/DL (8.5-10.1); Estimated Glom Filtration Rate 72 ML/MIN; Glucose 82 MG/DL (74-106); Osmolality,Calculated 280.1 MOS/KG (273-304)
[2019-07-22 05:06] LABS: Troponin I 0.463 NG/ML (0.00-0.045)
[2019-07-22 05:11] LABS: Hypochromasia 1+; Platelet Estimate Adequate
[2019-07-22 05:12] LABS: Microcytosis 1+
[2019-07-22] MEDS: POTASSIUM CHLORIDE RIDER 10 MEQ in PREMIX 1 EACH IV PRN ×2 (05:51→08:20)
[2019-07-22] MEDS ORDERED: ASPIRIN 325 MG TABLET PO SCH (09:00)
[2019-07-22] MEDS: PANTOPRAZOLE 40 MG TABLET PO SCH (09:23)
[2019-07-22] MEDS: SIMVASTATIN 40 MG TABLET PO SCH (09:27)
[2019-07-22] MEDS: FERROUS SULFATE 325 MG TABLET PO SCH (09:27)
[2019-07-22] MEDS: EZETIMIBE 10 MG TABLET PO SCH (09:28)
[2019-07-22] MEDS: traMADol 50 MG TABLET PO SCH (09:28)
[2019-07-22] MEDS: ENOXAPARIN 40 MG/0.4 ML SYRINGE SUBCUT SCH (09:28)
[2019-07-22] MEDS: TICAGRELOR 90 MG TABLET PO SCH (09:28)
[2019-07-22] MEDS: ISOSORBIDE MONONITRATE 30 MG TABLET PO SCH (09:28)
[2019-07-22] MEDS: LOSARTAN 25 MG TABLET PO SCH (09:28)
[2019-07-22] MEDS: ATENOLOL 25 MG TABLET PO SCH (09:28)
[2019-07-22] MEDS: NITROGLYCERIN 2% OINT 1 INCH/GM PACK TOP SCH (09:29)
[2019-07-22] MEDS ORDERED: ASPIRIN EC 81 MG TABLET PO SCH (09:30)
[2019-07-22] MEDS: SODIUM CHLORIDE 0.45% 1,000 ML IV SCH (10:21)
[2019-07-22 11:50] VITALS: BP 102/52
[2019-07-22] MEDS ORDERED: DEXTROMETHORPHAN ER 6 MG/ML 90 ML/BOTTLE PO PRN (12:47)
== END 2019-07-22 13:57 | disposition home health service (06) | DRG 247 ==
LOC: EDBD → EDUNIT# → N.ED 08:54 → N.EDINP 12:04 → N.TELES 13:23
PROVIDERS: ADMIT Family Medicine; ATTEND Family Medicine
PROC: CLCCHCL (ICD-10-PCS; 2019-07-21 14:15)

== ENCOUNTER 2019-07-25 12:09 | Inpatient (IN) ==
[2019-07-25] MEDS ORDERED: ASPIRIN 325 MG TABLET ONE (12:22)
[2019-07-25] MEDS ORDERED: ASPIRIN 325 MG TABLET PO STA (12:23)
[2019-07-25] MEDS ORDERED: ENOXAPARIN 30 MG/0.3 ML SYRINGE ONE (12:23)
[2019-07-25] MEDS ORDERED: TICAGRELOR 90 MG TABLET ONE ×2 (12:23→12:25)
[2019-07-25] MEDS ORDERED: TICAGRELOR 90 MG TABLET PO STA (12:25)
[2019-07-25] MEDS ORDERED: ENOXAPARIN 80 MG/0.8 ML SYRINGE SUBCUT ONE (12:25)
[2019-07-25] MEDS ORDERED: ENOXAPARIN 60 MG/0.6 ML SYRINGE IV ONE (12:25)
[2019-07-25] MEDS ORDERED: ENOXAPARIN 80 MG/0.8 ML SYRINGE SUBCUT STA (12:27)
[2019-07-25] MEDS ORDERED: LIDOCAINE 1% 20 ML VIAL ONE (12:28)
[2019-07-25] MEDS ORDERED: HYDROmorphone 2 MG/1 ML VIAL ONE (12:28)
[2019-07-25] MEDS ORDERED: MIDAZOLAM 2 MG/2 ML VIAL ONE (12:29)
[2019-07-25] MEDS ORDERED: TIROFIBAN 5,000 MCG/100 ML PREMIX IV ONE (12:47)
[2019-07-25] MEDS ORDERED: METOPROLOL TARTRATE 5 MG/5 ML VIAL IV ONE (13:11)
[2019-07-25] MEDS ORDERED: FUROSEMIDE 40 MG/4 ML VIAL ONE (13:22)
[2019-07-25] MEDS ORDERED: NITROGLYCERIN SL 0.4 MG TABLET SL PRN (13:38)
[2019-07-25 14:08] LABS: Alanine Aminotransferase 16 U/L (13-56); Albumin 3.4 G/DL (3.4-5.0); Alkaline Phosphatase 93 U/L (45-117); Aspartate Amino Transferase 16 U/L (0-37); Bilirubin,Total < 0.39 MG/DL (0.2-1.0); Blood Urea Nitrogen 9 MG/DL (7-18); Calcium 8.6 MG/DL (8.5-10.1); Estimated Glom Filtration Rate 0 ML/MIN; Glucose 138 MG/DL (74-106); Osmolality,Calculated 281.3 MOS/KG (273-304); Total Protein 6.7 G/DL (6.4-8.3)
[2019-07-25 14:40] LABS: Apearance,Urine CLEAR (Clear); Bacteria,Urine Occasional /HPF (Few); Bilirubin,Urine Negative (Negative); Blood, Urine Negative (Negative); Glucose,Urine (UA) Negative (Negative); Ketones,Urine Negative (Negative); Mucus,Urine Occasional /LPF (Occasional); Nitrite,Urine Negative (Negative); Protein,Urine Negative; RBC,Urine 2 /HPF (0-4); Squamous Epithelial Cell,Urine Occasional /HPF (0-10); Urine Color Yellow (Yellow); Urine Specific Gravity 1.038 (1.001-1.035); Urine Urobilinogen < 2.0 EU/DL (0.2-1.0); WBC,Urine 1 /HPF (0-6)
[2019-07-25 14:52] LABS: Basophils # 0.1 10*3/uL (0.0-0.2); Basophils % 1.3 % (0.0-0.8); Eosinophils # 0.4 10*3/uL (0.0-0.87); Eosinophils % 4.5 % (0.00-10.9); Hematocrit 31.1 VOL% (35.7-47.0); Hemoglobin 8.8 GM/DL (12.0-16.0); Immature Granulocytes % 0.3 %; Immature Granulocytes Absolute 0.03 #; Lymphocytes # 2.8 10*3/uL (1.4-4.0); Lymphocytes % 30.1 % (21.3-54.2); Mean Corpuscular HGB Conc 28.3 GM/DL (32-36); Mean Corpuscular Volume 80.4 FL (87-102); Mean Platelet Volume 10.8 FL (9.6-12.0); Monocytes % 11.2 % (1.7-12.7); Neutrophils % 52.6 % (38.7-73.9); Platelet Count 322 T/CUMM (130-400); Red Blood Count 3.87 MC/CUMM (3.8-5.5); Red Cell Distribution Width 17.8 % (9.3-17.3); White Blood Count 9.2 T/CUMM (4-12)
[2019-07-25] MEDS: PYRIDOSTIGMINE 60 MG TABLET PO SCH ×2 (14:55→20:50)
[2019-07-25] MEDS: SIMVASTATIN 40 MG TABLET PO SCH (14:55)
[2019-07-25] MEDS: EZETIMIBE 10 MG TABLET PO SCH (14:56)
[2019-07-25 14:57] LABS: CKMB % 17.2 %
[2019-07-25 14:59] LABS: Troponin I 8.55 NG/ML (0.00-0.045)
[2019-07-25] MEDS: traMADol 50 MG TABLET PO SCH ×2 (14:59→20:50)
[2019-07-25 16:17] LABS: Elliptocytes 1+; Microcytosis 2+; Polychromasia Few
[2019-07-25 16:18] LABS: Hypochromasia 1+; Platelet Estimate Adequate
[2019-07-25] MEDS: TICAGRELOR 90 MG TABLET PO SCH (20:50)
[2019-07-25] MEDS: traZODone 50 MG TABLET PO SCH (20:50)
[2019-07-26 06:19] LABS: Basophils # 0.1 10*3/uL (0.0-0.2); Basophils % 1.5 % (0.0-0.8); Eosinophils # 0.2 10*3/uL (0.0-0.87); Eosinophils % 2.3 % (0.00-10.9); Hematocrit 30.6 VOL% (35.7-47.0); Hemoglobin 8.9 GM/DL (12.0-16.0); Immature Granulocytes % 0.7 %; Immature Granulocytes Absolute 0.05 #; Lymphocytes # 0.9 10*3/uL (1.4-4.0); Lymphocytes % 11.8 % (21.3-54.2); Mean Corpuscular HGB Conc 29.1 GM/DL (32-36); Mean Corpuscular Volume 77.5 FL (87-102); Mean Platelet Volume 10.5 FL (9.6-12.0); Monocytes % 11.3 % (1.7-12.7); Neutrophils % 72.4 % (38.7-73.9); Platelet Count 308 T/CUMM (130-400); Red Blood Count 3.95 MC/CUMM (3.8-5.5); Red Cell Distribution Width 17.5 % (9.3-17.3); White Blood Count 7.5 T/CUMM (4-12)
[2019-07-26 06:50] LABS: CKMB % 16.9 %; Calcium 8.6 MG/DL (8.5-10.1); Osmolality,Calculated 280.3 MOS/KG (273-304)
[2019-07-26 06:52] LABS: Troponin I 38.3 NG/ML (0.00-0.045)
[2019-07-26] MEDS: PYRIDOSTIGMINE 60 MG TABLET PO SCH ×3 (09:23→20:52)
[2019-07-26] MEDS: traMADol 50 MG TABLET PO SCH ×3 (09:23→20:51)
[2019-07-26] MEDS: SIMVASTATIN 40 MG TABLET PO SCH (09:23)
[2019-07-26] MEDS: ASPIRIN EC 81 MG TABLET PO SCH (09:23)
[2019-07-26] MEDS: TICAGRELOR 90 MG TABLET PO SCH ×2 (09:24→20:51)
[2019-07-26] MEDS: EZETIMIBE 10 MG TABLET PO SCH (09:24)
[2019-07-26] MEDS: FUROSEMIDE 40 MG/4 ML VIAL IV SCH ×2 (09:42→15:42)
[2019-07-26] MEDS: SPIRONOLACTONE 25 MG TABLET PO SCH (09:42)
[2019-07-26] MEDS: TIMOLOL 0.25% OPH SOLN 5 ML BOTTLE BOTH EYES SCH (09:42)
[2019-07-26] MEDS: METOPROLOL TARTRATE 25 MG TABLET PO SCH ×2 (09:43→20:51)
[2019-07-26] MEDS: ACETAMINOPHEN 500 MG TABLET PO SCH (17:54)
[2019-07-26] MEDS: traZODone 50 MG TABLET PO SCH (20:52)
[2019-07-26] MEDS ORDERED: SODIUM CHLORIDE 0.9% 500 ML IV ONE (22:22)
[2019-07-26] MEDS: SODIUM CHLORIDE 0.9% 1,000 ML IV SCH (22:46)
[2019-07-27] MEDS: ACETAMINOPHEN 500 MG TABLET PO SCH ×5 (00:42→23:55)
[2019-07-27] MEDS: SODIUM CHLORIDE 0.9% 1,000 ML IV SCH ×2 (01:45→12:58)
[2019-07-27] MEDS: METOPROLOL TARTRATE 25 MG TABLET PO SCH (08:58)
[2019-07-27] MEDS: ASPIRIN EC 81 MG TABLET PO SCH (08:58)
[2019-07-27] MEDS: FUROSEMIDE 40 MG/4 ML VIAL IV SCH (08:58)
[2019-07-27] MEDS: EZETIMIBE 10 MG TABLET PO SCH (08:58)
[2019-07-27] MEDS: TIMOLOL 0.25% OPH SOLN 5 ML BOTTLE BOTH EYES SCH (08:59)
[2019-07-27] MEDS: TICAGRELOR 90 MG TABLET PO SCH ×2 (08:59→20:04)
[2019-07-27] MEDS: traMADol 50 MG TABLET PO SCH ×3 (08:59→20:04)
[2019-07-27] MEDS: SIMVASTATIN 40 MG TABLET PO SCH (08:59)
[2019-07-27] MEDS: SPIRONOLACTONE 25 MG TABLET PO SCH (08:59)
[2019-07-27] MEDS: PYRIDOSTIGMINE 60 MG TABLET PO SCH ×3 (08:59→20:04)
[2019-07-27 09:46] LABS: Basophils # 0.1 10*3/uL (0.0-0.2); Basophils % 1.1 % (0.0-0.8); Eosinophils # 0.3 10*3/uL (0.0-0.87); Hematocrit 32.8 VOL% (35.7-47.0); Hemoglobin 9.6 GM/DL (12.0-16.0); Immature Granulocytes % 0.5 %; Immature Granulocytes Absolute 0.03 #; Lymphocytes # 0.8 10*3/uL (1.4-4.0); Lymphocytes % 14.2 % (21.3-54.2); Mean Corpuscular HGB Conc 29.3 GM/DL (32-36); Mean Corpuscular Volume 78.1 FL (87-102); Mean Platelet Volume 10.4 FL (9.6-12.0); Monocytes % 11.7 % (1.7-12.7); Neutrophils % 66.5 % (38.7-73.9); Platelet Count 306 T/CUMM (130-400); Red Cell Distribution Width 17.6 % (9.3-17.3); White Blood Count 5.5 T/CUMM (4-12)
[2019-07-27 10:01] LABS: Calcium 8.4 MG/DL (8.5-10.1); Osmolality,Calculated 269.1 MOS/KG (273-304)
[2019-07-27] MEDS: POTASSIUM CHLORIDE 20 MEQ TABLET PO PRN ×3 (10:33→14:56)
[2019-07-27] MEDS ORDERED: ONDANSETRON ODT 4 MG TABLET PO PRN (17:52)
[2019-07-27] MEDS ORDERED: DIPHENOXYLATE/ATROPINE 2.5-0.025 MG TABLET PO PRN (17:52)
[2019-07-27] MEDS: traZODone 50 MG TABLET PO SCH (20:04)
[2019-07-27] MEDS: METOPROLOL SUCCINATE XL 25 MG TABLET PO SCH (20:08)
[2019-07-28] MEDS: ACETAMINOPHEN 500 MG TABLET PO SCH ×3 (06:54→18:28)
[2019-07-28] MEDS: SPIRONOLACTONE 25 MG TABLET PO SCH (10:00)
[2019-07-28] MEDS: ASPIRIN EC 81 MG TABLET PO SCH (10:01)
[2019-07-28] MEDS: TICAGRELOR 90 MG TABLET PO SCH ×2 (10:01→20:59)
[2019-07-28] MEDS: PYRIDOSTIGMINE 60 MG TABLET PO SCH ×3 (10:01→20:59)
[2019-07-28] MEDS: TIMOLOL 0.25% OPH SOLN 5 ML BOTTLE BOTH EYES SCH (10:02)
[2019-07-28] MEDS: METOPROLOL SUCCINATE XL 25 MG TABLET PO SCH ×2 (10:02→20:59)
[2019-07-28] MEDS: traMADol 50 MG TABLET PO SCH ×3 (10:02→20:59)
[2019-07-28] MEDS: SIMVASTATIN 40 MG TABLET PO SCH (10:03)
[2019-07-28] MEDS: EZETIMIBE 10 MG TABLET PO SCH (10:03)
[2019-07-28] MEDS: FUROSEMIDE 40 MG/4 ML VIAL IV SCH (10:05)
[2019-07-28] MEDS: traZODone 50 MG TABLET PO SCH (20:59)
[2019-07-29] MEDS: ACETAMINOPHEN 500 MG TABLET PO SCH ×2 (00:39→05:28)
[2019-07-29 08:03] VITALS: BP 122/66
[2019-07-29] MEDS: EZETIMIBE 10 MG TABLET PO SCH (08:39)
[2019-07-29] MEDS: ASPIRIN EC 81 MG TABLET PO SCH (08:39)
[2019-07-29] MEDS: FUROSEMIDE 40 MG/4 ML VIAL IV SCH (08:39)
[2019-07-29] MEDS: SPIRONOLACTONE 25 MG TABLET PO SCH (08:40)
[2019-07-29] MEDS: PYRIDOSTIGMINE 60 MG TABLET PO SCH (08:40)
[2019-07-29] MEDS: TICAGRELOR 90 MG TABLET PO SCH (08:40)
[2019-07-29] MEDS: traMADol 50 MG TABLET PO SCH (08:40)
[2019-07-29] MEDS: SIMVASTATIN 40 MG TABLET PO SCH (08:40)
[2019-07-29] MEDS: TIMOLOL 0.25% OPH SOLN 5 ML BOTTLE BOTH EYES SCH (08:46)
[2019-07-29] MEDS ORDERED: LEVOFLOXACIN 500 MG TABLET PO SCH (09:00)
[2019-07-29] MEDS ORDERED: METOPROLOL SUCCINATE XL 25 MG TABLET PO SCH (09:00)
== END 2019-07-29 09:35 | disposition home health service (06) | DRG 250 ==
LOC: N.ED 12:09 → N.CC 12:29 → N.EDINP 12:39 → N.CC 14:02 → N.TELES 07-27 12:02
PROVIDERS: ADMIT Internal Medicine Cardiovascular Disease; ATTEND Internal Medicine Cardiovascular Disease
PROC: CLCCHCL (ICD-10-PCS; 2019-07-25 12:45)

== ENCOUNTER 2020-01-02 10:20 | Observation (INO) ==
[2020-01-02] MEDS ORDERED: NITROGLYCERIN SL 0.4 MG TABLET SL PRN (11:53)
[2020-01-02] MEDS ORDERED: ACETAMINOPHEN 500 MG TABLET PO STA (12:02)
[2020-01-02 12:53] LABS: Basophils # 0.1 10*3/uL (0.0-0.2); Basophils % 0.7 % (0.0-0.8); Eosinophils # 0.1 10*3/uL (0.0-0.87); Eosinophils % 0.4 % (0.00-10.9); Hematocrit 42.9 VOL% (35.7-47.0); Hemoglobin 13.2 GM/DL (12.0-16.0); Immature Granulocytes % 0.6 %; Immature Granulocytes Absolute 0.07 #; Lymphocytes # 0.9 10*3/uL (1.4-4.0); Lymphocytes % 7.9 % (21.3-54.2); Mean Corpuscular HGB Conc 30.8 GM/DL (32-36); Mean Corpuscular Volume 86.8 FL (87-102); Mean Platelet Volume 10.2 FL (9.6-12.0); Monocytes % 10.5 % (1.7-12.7); Neutrophils % 79.9 % (38.7-73.9); Platelet Count 296 T/CUMM (130-400); Red Blood Count 4.94 MC/CUMM (3.8-5.5); Red Cell Distribution Width 14.9 % (9.3-17.3); White Blood Count 11.7 T/CUMM (4-12)
[2020-01-02 12:59] LABS: PT Patient Result 10.3 SECS (9.8-11.9); Partial Thromboplastin Time 25.1 SECS (23.9-33.8)
[2020-01-02] MEDS ORDERED: POTASSIUM CHLORIDE 20 MEQ TABLET PO PRN (13:22)
[2020-01-02] MEDS ORDERED: MAGNESIUM SULF RIDER 2 GM in PREMIX 1 EACH IV PRN ×2 (13:22→13:23)
[2020-01-02] MEDS ORDERED: ONDANSETRON 4 MG/2 ML VIAL IV PRN (13:23)
[2020-01-02] MEDS ORDERED: MAGNESIUM SULF RIDER 4 GM in PREMIX 1 EACH IV PRN (13:23)
[2020-01-02] MEDS ORDERED: ENOXAPARIN 100 MG/ML SYRINGE SUBCUT ONE (13:24)
[2020-01-02] MEDS ORDERED: BUTALBITAL/ACETAMIN/CAFFEINE 50-325-40 MG TABLET PO PRN (13:26)
[2020-01-02] MEDS ORDERED: MECLIZINE 25 MG TABLET PO PRN (13:26)
[2020-01-02] MEDS ORDERED: ALUM/MAG/SIMETH/LIDO VISC 1:1 30 ML BOTTLE PO STA (13:28)
[2020-01-02 13:29] LABS: Calcium 9.5 MG/DL (8.5-10.1); Osmolality,Calculated 271.1 MOS/KG (273-304)
[2020-01-02] MEDS ORDERED: ENOXAPARIN 30 MG/0.3 ML SYRINGE SUBCUT SCH (13:30)
[2020-01-02] MEDS ORDERED: NON-FORMULARY MEDICATION (Omeprazole 20 MG) PO SCH (13:30)
[2020-01-02] MEDS: SPIRONOLACTONE 25 MG TABLET PO SCH (15:36)
[2020-01-02] MEDS: SODIUM CHLORIDE 0.45% 1,000 ML IV SCH (15:36)
[2020-01-02] MEDS: predniSONE 10 MG TABLET PO SCH ×2 (15:36→21:42)
[2020-01-02] MEDS: PANTOPRAZOLE 40 MG TABLET PO SCH ×2 (15:37→21:42)
[2020-01-02] MEDS: traMADol 50 MG TABLET PO SCH ×2 (15:37→21:42)
[2020-01-02] MEDS: EZETIMIBE 10 MG TABLET PO SCH (15:37)
[2020-01-02] MEDS: SIMVASTATIN 20 MG TABLET PO SCH (15:37)
[2020-01-02] MEDS: FERROUS SULFATE 325 MG TABLET PO SCH (15:37)
[2020-01-02] MEDS: ESTROGENS (CONJ) 0.625 MG TABLET PO SCH (15:37)
[2020-01-02] MEDS: METOPROLOL SUCCINATE XL 25 MG TABLET PO SCH ×2 (15:37→21:42)
[2020-01-02] MEDS: ISOSORBIDE MONONITRATE 30 MG TABLET PO SCH (15:37)
[2020-01-02] MEDS: TOPIRAMATE 100 MG TABLET PO SCH ×2 (15:46→21:45)
[2020-01-02] MEDS: PYRIDOSTIGMINE 60 MG TABLET PO SCH ×2 (15:46→21:41)
[2020-01-02] MEDS: TIMOLOL 0.25% OPH SOLN 5 ML BOTTLE BOTH EYES SCH (17:09)
[2020-01-02] MEDS: TICAGRELOR 90 MG TABLET PO SCH (21:41)
[2020-01-02] MEDS: AMITRIPTYLINE 100 MG TABLET PO SCH (21:42)
[2020-01-02] MEDS: CALCIUM (CARBONATE)/VITAMIN D 600 MG-400 UNIT TABLET PO SCH (21:42)
[2020-01-03] MEDS: SODIUM CHLORIDE 0.45% 1,000 ML IV SCH ×2 (04:08→18:36)
[2020-01-03 06:10] LABS: Basophils % 0.3 % (0.0-0.8); Eosinophils % 0.2 % (0.00-10.9); Hematocrit 33.7 VOL% (35.7-47.0); Hemoglobin 10.2 GM/DL (12.0-16.0); Immature Granulocytes % 0.8 %; Immature Granulocytes Absolute 0.05 #; Lymphocytes # 0.5 10*3/uL (1.4-4.0); Lymphocytes % 7.3 % (21.3-54.2); Mean Corpuscular HGB Conc 30.3 GM/DL (32-36); Mean Corpuscular Volume 89.2 FL (87-102); Monocytes % 7.6 % (1.7-12.7); Neutrophils % 83.8 % (38.7-73.9); Platelet Count 225 T/CUMM (130-400); Red Blood Count 3.78 MC/CUMM (3.8-5.5); Red Cell Distribution Width 14.7 % (9.3-17.3); White Blood Count 6.2 T/CUMM (4-12)
[2020-01-03 06:32] LABS: Risk Ratio 3.58
[2020-01-03 06:38] LABS: Albumin 2.6 G/DL (3.4-5.0); Bilirubin,Total 0.4 MG/DL (0.2-1.0); Calcium 8.4 MG/DL (8.5-10.1); Osmolality,Calculated 268.2 MOS/KG (273-304); Total Protein 5.5 G/DL (6.4-8.3)
[2020-01-03] MEDS: SIMVASTATIN 20 MG TABLET PO SCH (08:52)
[2020-01-03] MEDS: FERROUS SULFATE 325 MG TABLET PO SCH (08:52)
[2020-01-03] MEDS: METOPROLOL SUCCINATE XL 25 MG TABLET PO SCH ×2 (08:52→21:02)
[2020-01-03] MEDS: PYRIDOSTIGMINE 60 MG TABLET PO SCH ×3 (08:52→21:01)
[2020-01-03] MEDS: ESTROGENS (CONJ) 0.625 MG TABLET PO SCH (08:52)
[2020-01-03] MEDS: ASPIRIN EC 81 MG TABLET PO SCH (08:52)
[2020-01-03] MEDS: TOPIRAMATE 100 MG TABLET PO SCH ×2 (08:52→21:02)
[2020-01-03] MEDS: PANTOPRAZOLE 40 MG TABLET PO SCH ×2 (08:52→21:02)
[2020-01-03] MEDS: SPIRONOLACTONE 25 MG TABLET PO SCH (08:52)
[2020-01-03] MEDS: traMADol 50 MG TABLET PO SCH ×3 (08:53→21:03)
[2020-01-03] MEDS: ISOSORBIDE MONONITRATE 30 MG TABLET PO SCH (08:53)
[2020-01-03] MEDS: predniSONE 10 MG TABLET PO SCH ×2 (08:53→21:02)
[2020-01-03] MEDS: CALCIUM (CARBONATE)/VITAMIN D 600 MG-400 UNIT TABLET PO SCH ×2 (08:53→21:01)
[2020-01-03] MEDS: TICAGRELOR 90 MG TABLET PO SCH ×2 (08:53→21:02)
[2020-01-03] MEDS: EZETIMIBE 10 MG TABLET PO SCH ×2 (08:57→09:04)
[2020-01-03] MEDS ORDERED: PANTOPRAZOLE 40 MG TABLET PO SCH (09:00)
[2020-01-03] MEDS: CYANOCOBALAMIN 500 MCG TABLET PO SCH (11:01)
[2020-01-03] MEDS: TIMOLOL 0.25% OPH SOLN 5 ML BOTTLE BOTH EYES SCH (11:15)
[2020-01-03] MEDS ORDERED: ACETAMINOPHEN 500 MG TABLET PO PRN (17:45)
[2020-01-03] MEDS ORDERED: TIMOLOL 0.25% OPH SOLN 5 ML BOTTLE BOTH EYES SCH (21:00)
[2020-01-03] MEDS: AMITRIPTYLINE 100 MG TABLET PO SCH (21:01)
[2020-01-04] MEDS: SODIUM CHLORIDE 0.45% 1,000 ML IV SCH (07:52)
[2020-01-04] MEDS: CALCIUM (CARBONATE)/VITAMIN D 600 MG-400 UNIT TABLET PO SCH (08:28)
[2020-01-04] MEDS: PYRIDOSTIGMINE 60 MG TABLET PO SCH (08:28)
[2020-01-04] MEDS: FERROUS SULFATE 325 MG TABLET PO SCH (08:29)
[2020-01-04] MEDS: SIMVASTATIN 20 MG TABLET PO SCH (08:29)
[2020-01-04] MEDS: METOPROLOL SUCCINATE XL 25 MG TABLET PO SCH (08:29)
[2020-01-04] MEDS: ISOSORBIDE MONONITRATE 30 MG TABLET PO SCH (08:29)
[2020-01-04] MEDS: TOPIRAMATE 100 MG TABLET PO SCH (08:29)
[2020-01-04] MEDS: PANTOPRAZOLE 40 MG TABLET PO SCH (08:29)
[2020-01-04] MEDS: SPIRONOLACTONE 25 MG TABLET PO SCH (08:29)
[2020-01-04] MEDS: ASPIRIN EC 81 MG TABLET PO SCH (08:29)
[2020-01-04] MEDS: ESTROGENS (CONJ) 0.625 MG TABLET PO SCH (08:29)
[2020-01-04] MEDS: traMADol 50 MG TABLET PO SCH (08:29)
[2020-01-04] MEDS: TICAGRELOR 90 MG TABLET PO SCH (08:30)
[2020-01-04] MEDS: predniSONE 10 MG TABLET PO SCH (08:30)
[2020-01-04] MEDS: EZETIMIBE 10 MG TABLET PO SCH (08:30)
[2020-01-04] MEDS: CYANOCOBALAMIN 500 MCG TABLET PO SCH (08:30)
[2020-01-04 09:38] VITALS: BP 130/67
== END 2020-01-04 14:07 | disposition home or self-care (01) ==
LOC: N.ED 10:20 → N.EDINP 10:20 → N.TELEN 13:46
PROVIDERS: ADMIT Internal Medicine Cardiovascular Disease; ATTEND Internal Medicine Cardiovascular Disease

== ENCOUNTER 2020-07-13 05:43 | Inpatient (IN) ==
[2020-07-12 15:56] LABS: Bacteria,Urine Occasional /HPF (Few); Bilirubin,Urine Negative (Negative); Blood, Urine Negative (Negative); Glucose,Urine (UA) Negative (Negative); Hyaline Casts,Urine 4 /LPF (0-3); Ketones,Urine 5 mg/dL (Negative); Mucus,Urine Moderate /LPF (Occasional); Nitrite,Urine Negative (Negative); Protein,Urine 30 MG/DL; RBC,Urine 5 /HPF (0-4); Squamous Epithelial Cell,Urine Occasional /HPF (0-10); Urine Appearance Slightly Hazy (Clear); Urine Color Yellow (Yellow); Urine Specific Gravity 1.028 (1.001-1.035); Urine Urobilinogen < 2.0 EU/DL (0.2-1.0); WBC,Urine 79 /HPF (0-6)
[2020-07-12 16:08] LABS: PT Patient Result 10.9 SECS (9.8-11.9); Partial Thromboplastin Time 28.2 SECS (23.9-33.8)
[2020-07-13] MEDS ORDERED: VANCOMYCIN INJ 1,000 MG in SODIUM CHLORIDE 0.9% 250 ML IV ONE (06:00)
[2020-07-13] MEDS ORDERED: ceFAZolin 1,000 MG in SYRINGE 1 EACH IV ONE (06:00)
[2020-07-13 06:33] LABS: Basophils # 0.1 10*3/uL (0.0-0.2); Basophils % 1.5 % (0.0-0.8); Eosinophils # 0.1 10*3/uL (0.0-0.87); Eosinophils % 2.5 % (0.00-10.9); Hematocrit 29.4 VOL% (35.7-47.0); Hemoglobin 8.7 GM/DL (12.0-16.0); Immature Granulocytes % 0.2 %; Immature Granulocytes Absolute 0.01 #; Lymphocytes # 0.8 10*3/uL (1.4-4.0); Lymphocytes % 20.6 % (21.3-54.2); Mean Corpuscular HGB Conc 29.6 GM/DL (32-36); Mean Corpuscular Volume 73.3 FL (87-102); Monocytes % 16.9 % (1.7-12.7); Neutrophils % 58.3 % (38.7-73.9); Platelet Count 421 T/CUMM (130-400); Red Blood Count 4.01 MC/CUMM (3.8-5.5); Red Cell Distribution Width 17.4 % (9.3-17.3)
[2020-07-13] MEDS ORDERED: fentaNYL 100 MCG/2 ML VIAL ONE (06:35)
[2020-07-13 06:52] LABS: Hypochromasia 2+; Lymphocytes 23 % (20-55); Microcytosis 1+; Platelet Estimate Adequate; Segmented Neutrophils 64 % (50-85); Total Cells Counted 100
[2020-07-13] MEDS ORDERED: SODIUM CHLORIDE 0.9% 1,000 ML IV PRN ×2 (06:54→09:27)
[2020-07-13] MEDS ORDERED: FAMOTIDINE 20 MG TABLET PO ONE (06:59)
[2020-07-13] MEDS ORDERED: ACETAMINOPHEN 500 MG TABLET PO ONE (06:59)
[2020-07-13] MEDS ORDERED: GABAPENTIN 400 MG CAPSULE PO ONE (06:59)
[2020-07-13 07:00] LABS: Alanine Aminotransferase 11 U/L (13-56); Albumin 2.9 G/DL (3.4-5.0); Alkaline Phosphatase 132 U/L (45-117); Aspartate Amino Transferase 17 U/L (0-37); Bilirubin,Total < 0.39 MG/DL (0.2-1.0); Blood Urea Nitrogen 14 MG/DL (7-18); Calcium 9.4 MG/DL (8.5-10.1); Estimated Glom Filtration Rate 62 ML/MIN; Glucose 97 MG/DL (74-106); Osmolality,Calculated 279.4 MOS/KG (273-304)
[2020-07-13] MEDS ORDERED: LACTATED RINGERS 1,000 ML IV SCH (07:00)
[2020-07-13] MEDS ORDERED: ROCURONIUM 50 MG/5 ML VIAL IV ONE (07:44)
[2020-07-13] MEDS ORDERED: LIDOCAINE 2% 5 ML VIAL ONE (07:44)
[2020-07-13] MEDS ORDERED: ONDANSETRON 4 MG/2 ML VIAL ONE (07:44)
[2020-07-13] MEDS ORDERED: METOPROLOL TARTRATE 5 MG/5 ML VIAL IV ONE (07:44)
[2020-07-13] MEDS ORDERED: methylPREDNISolone SOD SUC 125 MG/2 ML VIAL ONE (07:44)
[2020-07-13] MEDS ORDERED: propofoL 200 MG/20 ML VIAL IV ONE (07:44)
[2020-07-13] MEDS ORDERED: DEXAMETHASONE 4 MG/1 ML VIAL ONE (07:44)
[2020-07-13] MEDS ORDERED: TRANEXAMIC ACID 1,000 MG/10 ML VIAL ONE ×2 (07:49→08:24)
[2020-07-13] MEDS ORDERED: BACITRACIN OINT 0.9 GM PACK TOP ONE (08:04)
[2020-07-13 08:18] LABS: Bilirubin,Urine Negative (Negative); Blood, Urine Negative (Negative); Glucose,Urine (UA) Negative (Negative); Ketones,Urine Negative (Negative); Mucus,Urine Occasional /LPF (Occasional); Nitrite,Urine Negative (Negative); Protein,Urine Negative; RBC,Urine <1 /HPF (0-4); Squamous Epithelial Cell,Urine Occasional /HPF (0-10); Urine Appearance CLEAR (Clear); Urine Color Yellow (Yellow); Urine Urobilinogen < 2.0 EU/DL (0.2-1.0); WBC,Urine 1 /HPF (0-6)
[2020-07-13] MEDS ORDERED: SODIUM CHLORIDE 0.9% 1,000 ML IV ONE (08:24)
[2020-07-13] MEDS ORDERED: ACETAMINOPHEN 1,000 MG/100 ML VIAL IV ONE (08:24)
[2020-07-13] MEDS ORDERED: ROPIVACAINE 0.5% 30 ML VIAL ONE (08:35)
[2020-07-13] MEDS ORDERED: SUGAMMADEX 200 MG/2 ML VIAL IV ONE (08:38)
[2020-07-13] MEDS ORDERED: TISSUE ADHESIVE 1 EACH APPLICATOR TOP ONE (09:13)
[2020-07-13] MEDS: LACTATED RINGERS 1,000 ML IV SCH ×3 (09:15→19:56)
[2020-07-13] MEDS ORDERED: MECLIZINE 25 MG TABLET PO PRN (09:19)
[2020-07-13] MEDS ORDERED: NITROGLYCERIN SL 0.4 MG TABLET SL PRN (09:19)
[2020-07-13] MEDS ORDERED: HYDROmorphone 2 MG/1 ML VIAL ONE (09:20)
[2020-07-13] MEDS ORDERED: MAGNESIUM HYDROXIDE SUSP 30 ML UDCUP PO PRN (09:23)
[2020-07-13] MEDS ORDERED: ONDANSETRON 4 MG/2 ML VIAL IV PRN (09:23)
[2020-07-13] MEDS ORDERED: MORPHINE 4 MG/1 ML VIAL IV PRN (09:23)
[2020-07-13] MEDS: HYDROmorphone 2 MG/1 ML VIAL IV PRN ×3 (09:25→09:35)
[2020-07-13] MEDS ORDERED: SEVOFLURANE 1 UNIT/15 MINUTE INH ONE (09:26)
[2020-07-13] MEDS ORDERED: KETOROLAC 30 MG/1 ML VIAL ONE (09:39)
[2020-07-13] MEDS ORDERED: KETOROLAC 15 MG/1 ML VIAL IV ONE (09:40)
[2020-07-13] MEDS: ceFAZolin 1,000 MG in SYRINGE 1 EACH IV SCH ×2 (13:29→20:34)
[2020-07-13] MEDS: MORPHINE 4 MG/1 ML VIAL IV PRN (13:30)
[2020-07-13] MEDS: PYRIDOSTIGMINE 60 MG TABLET PO SCH ×2 (14:46→20:36)
[2020-07-13] MEDS ORDERED: LOSARTAN 25 MG TABLET PO ONE (15:00)
[2020-07-13] MEDS ORDERED: atenoloL 25 MG TABLET PO ONE (15:00)
[2020-07-13] MEDS: PANTOPRAZOLE 40 MG TABLET PO SCH (15:43)
[2020-07-13] MEDS: TIMOLOL 0.25% OPH SOLN 5 ML BOTTLE BOTH EYES SCH (20:36)
[2020-07-13] MEDS: TOPIRAMATE 100 MG TABLET PO SCH (20:36)
[2020-07-13] MEDS: DOCUSATE SODIUM 100 MG CAPSULE PO SCH (20:44)
[2020-07-13] MEDS: AMITRIPTYLINE 100 MG TABLET PO SCH (20:45)
[2020-07-13] MEDS: predniSONE 5 MG TABLET PO SCH (20:46)
[2020-07-14] MEDS: LACTATED RINGERS 1,000 ML IV SCH ×2 (03:37→21:54)
[2020-07-14 05:55] LABS: Basophils % 0.1 % (0.0-0.8); Hematocrit 31.1 VOL% (35.7-47.0); Hemoglobin 9.5 GM/DL (12.0-16.0); Immature Granulocytes % 0.5 %; Immature Granulocytes Absolute 0.04 #; Lymphocytes # 0.8 10*3/uL (1.4-4.0); Lymphocytes % 8.6 % (21.3-54.2); Mean Corpuscular HGB Conc 30.5 GM/DL (32-36); Mean Corpuscular Volume 77.6 FL (87-102); Monocytes % 11.2 % (1.7-12.7); Neutrophils % 79.6 % (38.7-73.9); Platelet Count 309 T/CUMM (130-400); Red Blood Count 4.01 MC/CUMM (3.8-5.5); White Blood Count 8.8 T/CUMM (4-12)
[2020-07-14 06:19] LABS: Calcium 8.6 MG/DL (8.5-10.1)
[2020-07-14] MEDS: CYANOCOBALAMIN 500 MCG TABLET PO SCH (08:11)
[2020-07-14] MEDS: predniSONE 5 MG TABLET PO SCH ×2 (08:11→20:53)
[2020-07-14] MEDS: PANTOPRAZOLE 40 MG TABLET PO SCH ×2 (08:12→17:00)
[2020-07-14] MEDS: SPIRONOLACTONE 25 MG TABLET PO SCH (08:12)
[2020-07-14] MEDS: atenoloL 25 MG TABLET PO SCH (08:12)
[2020-07-14] MEDS: TICAGRELOR 90 MG TABLET PO SCH ×2 (08:12→20:52)
[2020-07-14] MEDS: DOCUSATE SODIUM 100 MG CAPSULE PO SCH ×2 (08:12→20:52)
[2020-07-14] MEDS: ASPIRIN EC 81 MG TABLET PO SCH (08:12)
[2020-07-14] MEDS: ISOSORBIDE MONONITRATE 30 MG TABLET PO SCH (08:12)
[2020-07-14] MEDS: LOSARTAN 25 MG TABLET PO SCH (08:12)
[2020-07-14] MEDS: PYRIDOSTIGMINE 60 MG TABLET PO SCH ×3 (08:14→20:52)
[2020-07-14] MEDS: TOPIRAMATE 100 MG TABLET PO SCH ×2 (08:14→20:52)
[2020-07-14] MEDS ORDERED: TICAGRELOR 90 MG TABLET PO SCH (09:00)
[2020-07-14] MEDS: MORPHINE 4 MG/1 ML VIAL IV PRN ×3 (10:40→20:50)
[2020-07-14] MEDS ORDERED: PHENOL 1.4% THROAT SPRAY 177 ML BOTTLE PO PRN (17:57)
[2020-07-14] MEDS: AMITRIPTYLINE 100 MG TABLET PO SCH (20:52)
[2020-07-14] MEDS: TIMOLOL 0.25% OPH SOLN 5 ML BOTTLE BOTH EYES SCH (20:53)
[2020-07-15 06:21] LABS: Basophils # 0.1 10*3/uL (0.0-0.2); Basophils % 0.5 % (0.0-0.8); Eosinophils # 0.1 10*3/uL (0.0-0.87); Eosinophils % 0.9 % (0.00-10.9); Hematocrit 30.9 VOL% (35.7-47.0); Hemoglobin 9.5 GM/DL (12.0-16.0); Immature Granulocytes % 0.4 %; Immature Granulocytes Absolute 0.04 #; Lymphocytes # 1.1 10*3/uL (1.4-4.0); Lymphocytes % 11.9 % (21.3-54.2); Mean Corpuscular HGB Conc 30.7 GM/DL (32-36); Mean Corpuscular Volume 77.8 FL (87-102); Mean Platelet Volume 9.9 FL (9.6-12.0); Monocytes % 10.5 % (1.7-12.7); Neutrophils % 75.8 % (38.7-73.9); Platelet Count 275 T/CUMM (130-400); Red Blood Count 3.97 MC/CUMM (3.8-5.5); Red Cell Distribution Width 17.6 % (9.3-17.3); White Blood Count 9.2 T/CUMM (4-12)
[2020-07-15] MEDS: SPIRONOLACTONE 25 MG TABLET PO SCH (08:11)
[2020-07-15] MEDS: TOPIRAMATE 100 MG TABLET PO SCH ×2 (08:11→20:34)
[2020-07-15] MEDS: atenoloL 25 MG TABLET PO SCH (08:11)
[2020-07-15] MEDS: PANTOPRAZOLE 40 MG TABLET PO SCH ×2 (08:11→17:02)
[2020-07-15] MEDS: TICAGRELOR 90 MG TABLET PO SCH ×2 (08:11→20:34)
[2020-07-15] MEDS: PYRIDOSTIGMINE 60 MG TABLET PO SCH ×3 (08:11→20:34)
[2020-07-15] MEDS: DOCUSATE SODIUM 100 MG CAPSULE PO SCH ×2 (08:11→20:34)
[2020-07-15] MEDS: ASPIRIN EC 81 MG TABLET PO SCH (08:11)
[2020-07-15] MEDS: CYANOCOBALAMIN 500 MCG TABLET PO SCH (08:12)
[2020-07-15] MEDS: ISOSORBIDE MONONITRATE 30 MG TABLET PO SCH (08:12)
[2020-07-15] MEDS: predniSONE 5 MG TABLET PO SCH ×2 (08:12→20:34)
[2020-07-15] MEDS: LOSARTAN 25 MG TABLET PO SCH (08:12)
[2020-07-15] MEDS: AMITRIPTYLINE 100 MG TABLET PO SCH (20:34)
[2020-07-15] MEDS: TIMOLOL 0.25% OPH SOLN 5 ML BOTTLE BOTH EYES SCH (20:50)
[2020-07-16 06:23] LABS: Basophils # 0.1 10*3/uL (0.0-0.2); Basophils % 0.5 % (0.0-0.8); Eosinophils # 0.1 10*3/uL (0.0-0.87); Eosinophils % 1.4 % (0.00-10.9); Hematocrit 30.1 VOL% (35.7-47.0); Immature Granulocytes % 0.5 %; Immature Granulocytes Absolute 0.05 #; Lymphocytes % 10.5 % (21.3-54.2); Mean Corpuscular HGB Conc 29.9 GM/DL (32-36); Mean Corpuscular Volume 78.6 FL (87-102); Mean Platelet Volume 9.9 FL (9.6-12.0); Monocytes % 9.8 % (1.7-12.7); Neutrophils % 77.3 % (38.7-73.9); Platelet Count 287 T/CUMM (130-400); Red Blood Count 3.83 MC/CUMM (3.8-5.5); Red Cell Distribution Width 17.8 % (9.3-17.3); White Blood Count 9.6 T/CUMM (4-12)
[2020-07-16] MEDS: atenoloL 25 MG TABLET PO SCH (10:22)
[2020-07-16] MEDS: PYRIDOSTIGMINE 60 MG TABLET PO SCH (10:22)
[2020-07-16] MEDS: LOSARTAN 25 MG TABLET PO SCH (10:23)
[2020-07-16] MEDS: TOPIRAMATE 100 MG TABLET PO SCH (10:23)
[2020-07-16] MEDS: ASPIRIN EC 81 MG TABLET PO SCH (10:23)
[2020-07-16] MEDS: TICAGRELOR 90 MG TABLET PO SCH (10:23)
[2020-07-16] MEDS: CYANOCOBALAMIN 500 MCG TABLET PO SCH (10:23)
[2020-07-16] MEDS: predniSONE 5 MG TABLET PO SCH (10:24)
[2020-07-16] MEDS: ISOSORBIDE MONONITRATE 30 MG TABLET PO SCH (10:24)
[2020-07-16] MEDS: DOCUSATE SODIUM 100 MG CAPSULE PO SCH (10:24)
[2020-07-16] MEDS: SPIRONOLACTONE 25 MG TABLET PO SCH (10:24)
[2020-07-16 11:38] VITALS: BP 101/46
[2020-07-16] MEDS: PANTOPRAZOLE 40 MG TABLET PO SCH (12:58)
== END 2020-07-16 15:43 | disposition home health service (06) | DRG 522 ==
LOC: N.OR 05:43 → N.SDSINP 05:46 → EDSTATUS 08:30 → N.SDSINP 09:24 → N.3E 12:45
PROVIDERS: ADMIT Orthopaedic Surgery; ATTEND Orthopaedic Surgery

== ENCOUNTER 2021-03-07 12:52 | Observation (INO) ==
[2021-03-07] MEDS ORDERED: diphenhydrAMINE CAP 25 MG CAPSULE PO PRN (12:55)
[2021-03-07] MEDS ORDERED: BISACODYL 5 MG TABLET PO PRN (12:55)
[2021-03-07] MEDS ORDERED: hydrALAZINE 20 MG/1 ML VIAL IV PRN (12:55)
[2021-03-07] MEDS ORDERED: ONDANSETRON 4 MG/2 ML VIAL IV PRN (12:55)
[2021-03-07] MEDS ORDERED: SIMETHICONE CHEW 125 MG TABLET PO PRN (12:55)
[2021-03-07] MEDS ORDERED: POTASSIUM CHLORIDE 20 MEQ TABLET PO PRN (12:55)
[2021-03-07] MEDS ORDERED: ALUMINUM/MAGNES/SIMETH MAX STR 30 ML UDCUP PO PRN (12:55)
[2021-03-07] MEDS ORDERED: MORPHINE 2 MG/1 ML SYRINGE IV PRN (12:55)
[2021-03-07] MEDS ORDERED: MAGNESIUM SULF RIDER 2 GM/50 ML PREMIX IV PRN ×2 (12:55→13:17)
[2021-03-07] MEDS ORDERED: CALCIUM CARBONATE CHEW 500 MG TABLET PO PRN (12:55)
[2021-03-07] MEDS ORDERED: LACTULOSE 20 GM/30 ML UDCUP PO PRN (12:55)
[2021-03-07] MEDS ORDERED: guaiFENesin/DM ER 600-30 MG TABLET PO PRN (12:55)
[2021-03-07] MEDS ORDERED: ZALEPLON 5 MG CAPSULE PO PRN (12:55)
[2021-03-07] MEDS ORDERED: MAGNESIUM SULF RIDER 4 GM/100 ML PREMIX IV PRN (12:55)
[2021-03-07] MEDS ORDERED: ACETAMINOPHEN 325 MG TABLET PO PRN (12:55)
[2021-03-07] MEDS ORDERED: POTASSIUM CHLORIDE RIDER 10 MEQ/100 ML PREMIX IV PRN (13:17)
[2021-03-07 14:38] LABS: Bacteria,Urine Occasional /HPF (Few); Bilirubin,Urine Negative (Negative); Blood, Urine Negative (Negative); Glucose,Urine (UA) Negative (Negative); Ketones,Urine Negative (Negative); Mucus,Urine Occasional /LPF (Occasional); Nitrite,Urine Negative (Negative); Protein,Urine Negative; RBC,Urine 2 /HPF (0-4); Squamous Epithelial Cell,Urine Occasional /HPF (0-10); Urine Appearance CLEAR (Clear); Urine Color Yellow (Yellow); Urine Specific Gravity 1.011 (1.001-1.035); Urine Urobilinogen < 2.0 EU/DL (0.2-1.0)
[2021-03-07 15:39] LABS: Basophils # 0.1 10*3/uL (0.0-0.2); Basophils % 0.4 % (0.0-0.8); Eosinophils % 0.1 % (0.00-10.9); Hematocrit 33.2 VOL% (35.7-47.0); Hemoglobin 9.7 GM/DL (12.0-16.0); Immature Granulocytes % 0.6 %; Immature Granulocytes Absolute 0.08 #; Lymphocytes # 0.7 10*3/uL (1.4-4.0); Lymphocytes % 4.9 % (21.3-54.2); Mean Corpuscular HGB Conc 29.2 GM/DL (32-36); Mean Corpuscular Volume 76.1 FL (87-102); Mean Platelet Volume 9.8 FL (9.6-12.0); Monocytes % 3.7 % (1.7-12.7); Neutrophils % 90.3 % (38.7-73.9); Platelet Count 346 T/CUMM (130-400); Red Blood Count 4.36 MC/CUMM (3.8-5.5); Red Cell Distribution Width 17.2 % (9.3-17.3); White Blood Count 13.9 T/CUMM (4-12)
[2021-03-07 15:45] LABS: Alanine Aminotransferase 14 U/L (13-56); Albumin 3.5 G/DL (3.4-5.0); Alkaline Phosphatase 85 U/L (45-117); Aspartate Amino Transferase 13 U/L (0-37); Bilirubin,Total < 0.39 MG/DL (0.20-1.00); Blood Urea Nitrogen 14 MG/DL (7-18); Carbon Dioxide 20 MMOL/L (21-32); Estimated Glom Filtration Rate 51 ML/MIN; Glucose 158 MG/DL (74-106); Osmolality,Calculated 278.7 MOS/KG (273-304); Potassium 3.8 MMOL/L (3.5-5.1); Sodium 138 MMOL/L (136-145)
[2021-03-07 16:45] LABS: Lymphocytes 3 % (20-55); Segmented Neutrophils 95 % (50-85); Total Cells Counted 100
[2021-03-07 16:46] LABS: Microcytosis Slight; Ovalocytes Slight; Platelet Estimate Increased
[2021-03-07] MEDS: ENOXAPARIN 40 MG/0.4 ML SYRINGE SUBCUT SCH (20:50)
[2021-03-08 05:15] LABS: Osmolality,Calculated 278.4 MOS/KG (273-304); Potassium 3.3 MMOL/L (3.5-5.1); Risk Ratio 4.49; VLDL Cholesterol 27.8 MG/DL
[2021-03-08] MEDS: SODIUM CHLORIDE 0.45% 1,000 ML IV SCH ×2 (05:33→15:38)
[2021-03-08 05:49] LABS: Basophils # 0.1 10*3/uL (0.0-0.2); Basophils % 0.9 % (0.0-0.8); Eosinophils # 0.2 10*3/uL (0.0-0.87); Eosinophils % 2.1 % (0.00-10.9); Hematocrit 31.2 VOL% (35.7-47.0); Hemoglobin 9.1 GM/DL (12.0-16.0); Immature Granulocytes % 0.4 %; Immature Granulocytes Absolute 0.03 #; Lymphocytes # 2.8 10*3/uL (1.4-4.0); Lymphocytes % 35.9 % (21.3-54.2); Mean Corpuscular HGB Conc 29.2 GM/DL (32-36); Mean Corpuscular Volume 76.7 FL (87-102); Mean Platelet Volume 10.2 FL (9.6-12.0); Monocytes % 9.5 % (1.7-12.7); Neutrophils % 51.2 % (38.7-73.9); Platelet Count 319 T/CUMM (130-400); Red Blood Count 4.07 MC/CUMM (3.8-5.5); Red Cell Distribution Width 17.2 % (9.3-17.3); White Blood Count 7.9 T/CUMM (4-12)
[2021-03-08 06:01] LABS: Eosinophils 3 % (0-10); Hypochromasia 1+; Lymphocytes 38 % (20-55); Microcytosis 1+; Segmented Neutrophils 54 % (50-85); Total Cells Counted 100
[2021-03-08 06:02] LABS: Elliptocytes Few; Platelet Estimate Normal
[2021-03-08] MEDS ORDERED: DIAZEPAM 5 MG TABLET ONE (07:59)
[2021-03-08] MEDS: PANTOPRAZOLE 40 MG TABLET PO SCH (08:07)
[2021-03-08] MEDS ORDERED: LIDOCAINE 1% 20 ML VIAL ONE (08:20)
[2021-03-08] MEDS ORDERED: fentaNYL 100 MCG/2 ML VIAL ONE (08:24)
[2021-03-08] MEDS ORDERED: MIDAZOLAM 2 MG/2 ML VIAL ONE (08:24)
[2021-03-08] MEDS ORDERED: BIVALIRUDIN 250 MG VIAL IV ONE (08:50)
[2021-03-08] MEDS ORDERED: diphenhydrAMINE CAP 25 MG CAPSULE PO ONE (09:00)
[2021-03-08] MEDS ORDERED: DIAZEPAM 5 MG TABLET PO ONE (09:00)
[2021-03-08] MEDS ORDERED: TICAGRELOR 90 MG TABLET ONE (09:17)
[2021-03-08] MEDS ORDERED: MECLIZINE 25 MG TABLET PO PRN (09:21)
[2021-03-08] MEDS ORDERED: traMADol 50 MG TABLET PO PRN (09:21)
[2021-03-08] MEDS ORDERED: ACETAMINOPHEN 325 MG TABLET PO PRN (09:21)
[2021-03-08] MEDS ORDERED: NITROGLYCERIN SL 0.4 MG TABLET SL PRN (09:21)
[2021-03-08] MEDS ORDERED: SPIRONOLACTONE 25 MG TABLET PO PRN (09:21)
[2021-03-08] MEDS ORDERED: BUTALBITAL/ACETAMIN/CAFFEINE 50-325-40 MG TABLET PO PRN (09:21)
[2021-03-08] MEDS ORDERED: NON-FORMULARY MEDICATION (Esomeprazole Magnesium [Nexium] 40 mg Capsule,Delayed Release(Dr PO SCH (09:30)
[2021-03-08] MEDS: BIVALIRUDIN 250 MG in SODIUM CHLORIDE 0.9% 50 ML IV SCH ×4 (09:33→17:47)
[2021-03-08] MEDS: TOPIRAMATE 100 MG TABLET PO SCH ×2 (10:18→21:00)
[2021-03-08] MEDS: ISOSORBIDE MONONITRATE 30 MG TABLET PO SCH (10:18)
[2021-03-08] MEDS: predniSONE 10 MG TABLET PO SCH (10:18)
[2021-03-08] MEDS: EZETIMIBE 10 MG TABLET PO SCH (10:18)
[2021-03-08] MEDS: ASPIRIN EC 81 MG TABLET PO SCH (10:18)
[2021-03-08] MEDS: LOSARTAN 25 MG TABLET PO SCH (10:18)
[2021-03-08] MEDS: PYRIDOSTIGMINE 60 MG TABLET PO SCH ×2 (15:38→21:00)
[2021-03-08] MEDS ORDERED: TIMOLOL 0.25% OPH SOLN 5 ML BOTTLE BOTH EYES SCH (21:00)
[2021-03-08] MEDS: TICAGRELOR 90 MG TABLET PO SCH (21:00)
[2021-03-08] MEDS ORDERED: AMITRIPTYLINE 100 MG TABLET PO SCH (21:00)
[2021-03-08] MEDS ORDERED: METHOCARBAMOL 750 MG TABLET PO SCH (21:00)
[2021-03-08] MEDS: ENOXAPARIN 40 MG/0.4 ML SYRINGE SUBCUT SCH (21:02)
[2021-03-09] MEDS: BIVALIRUDIN 250 MG in SODIUM CHLORIDE 0.9% 50 ML IV SCH (00:11)
[2021-03-09 05:58] LABS: Calcium 9.1 MG/DL (8.5-10.1); Osmolality,Calculated 282.1 MOS/KG (273-304); Potassium 3.5 MMOL/L (3.5-5.1)
[2021-03-09 08:22] VITALS: BP 144/67
[2021-03-09] MEDS: EZETIMIBE 10 MG TABLET PO SCH (08:24)
[2021-03-09] MEDS: ISOSORBIDE MONONITRATE 30 MG TABLET PO SCH (08:24)
[2021-03-09] MEDS: ASPIRIN EC 81 MG TABLET PO SCH (08:25)
[2021-03-09] MEDS: LOSARTAN 25 MG TABLET PO SCH (08:25)
[2021-03-09] MEDS: TOPIRAMATE 100 MG TABLET PO SCH (08:25)
[2021-03-09] MEDS: PYRIDOSTIGMINE 60 MG TABLET PO SCH (08:26)
[2021-03-09] MEDS: PANTOPRAZOLE 40 MG TABLET PO SCH (08:26)
[2021-03-09] MEDS: predniSONE 10 MG TABLET PO SCH (08:27)
[2021-03-09] MEDS: TICAGRELOR 90 MG TABLET PO SCH (08:27)
[2021-03-09] MEDS ORDERED: CYANOCOBALAMIN 500 MCG TABLET PO SCH (09:00)
[2021-03-09] MEDS ORDERED: SIMVASTATIN 40 MG TABLET PO SCH (09:00)
[2021-03-09] MEDS ORDERED: POTASSIUM CHLORIDE 20 MEQ TABLET PO ONE (09:03)
[2021-03-09] MEDS ORDERED: METOPROLOL SUCCINATE XL 50 MG TABLET PO SCH (09:30)
== END 2021-03-09 10:26 | disposition home or self-care (01) ==
LOC: N.TELEN
PROVIDERS: ADMIT Internal Medicine Cardiovascular Disease; ATTEND Internal Medicine Cardiovascular Disease
PROC: CLCCHCL (ICD-10-PCS; 2021-03-08 09:15)

== ENCOUNTER 2021-03-25 18:52 | Inpatient (IN) ==
[2021-03-25 19:40] LABS: Hematocrit 33.8 VOL% (35.7-47.0); Red Cell Distribution Width 16.8 % (9.3-17.3)
[2021-03-25 19:59] LABS: Albumin 3.5 G/DL (3.4-5.0); Bilirubin,Total 0.4 MG/DL (0.20-1.00); Calcium 9.2 MG/DL (8.5-10.1); Osmolality,Calculated 286.1 MOS/KG (273-304); Total Protein 6.6 G/DL (6.4-8.2)
[2021-03-25 20:01] LABS: Basophils # 0.1 10*3/uL (0.0-0.2); Basophils % 0.7 % (0.0-0.8); Eosinophils # 0.1 10*3/uL (0.0-0.87); Hemoglobin 9.7 GM/DL (12.0-16.0); Immature Granulocytes % 0.8 %; Immature Granulocytes Absolute 0.09 #; Lymphocytes % 8.9 % (21.3-54.2); Mean Corpuscular HGB Conc 28.7 GM/DL (32-36); Mean Corpuscular Volume 78.1 FL (87-102); Mean Platelet Volume 10.5 FL (9.6-12.0); Monocytes % 10.6 % (1.7-12.7); Platelet Count 358 T/CUMM (130-400); Red Blood Count 4.33 MC/CUMM (3.8-5.5); White Blood Count 11.4 T/CUMM (4-12)
[2021-03-25 20:04] LABS: Anisocytosis Slight; Elliptocytes Few; Hypochromasia 1+; Microcytosis 1+; Platelet Estimate Adequate; Polychromasia Few
[2021-03-25] MEDS ORDERED: ONDANSETRON 4 MG/2 ML VIAL IV ONE (20:06)
[2021-03-25] MEDS ORDERED: MORPHINE 2 MG/1 ML SYRINGE IV STA (20:06)
[2021-03-25] MEDS ORDERED: MORPHINE 2 MG/1 ML SYRINGE ONE (20:10)
[2021-03-25] MEDS ORDERED: hydrALAZINE 20 MG/1 ML VIAL IV PRN (20:25)
[2021-03-25] MEDS ORDERED: BISACODYL 5 MG TABLET PO PRN (20:25)
[2021-03-25] MEDS ORDERED: diphenhydrAMINE CAP 25 MG CAPSULE PO PRN (20:25)
[2021-03-25] MEDS ORDERED: guaiFENesin/DM ER 600-30 MG TABLET PO PRN (20:25)
[2021-03-25] MEDS ORDERED: GLUCAGON 1 MG VIAL IM PRN (20:25)
[2021-03-25] MEDS ORDERED: ZALEPLON 5 MG CAPSULE PO PRN (20:25)
[2021-03-25] MEDS ORDERED: NICOTINE 21 MG/24 HR PATCH TRANSDERM PRN (20:25)
[2021-03-25] MEDS ORDERED: DEXTROSE 50% 25 GM/50 ML VIAL IV PRN (20:25)
[2021-03-25] MEDS ORDERED: ONDANSETRON 4 MG/2 ML VIAL IV PRN (20:25)
[2021-03-25] MEDS: ENOXAPARIN 100 MG/ML SYRINGE SUBCUT SCH (22:59)
[2021-03-25] MEDS: MORPHINE 2 MG/1 ML SYRINGE IV PRN (23:02)
[2021-03-26] MEDS: NITROGLYCERIN SL 0.4 MG TABLET SL PRN (02:36)
[2021-03-26 06:50] LABS: Basophils # 0.1 10*3/uL (0.0-0.2); Basophils % 0.5 % (0.0-0.8); Eosinophils # 0.1 10*3/uL (0.0-0.87); Eosinophils % 0.6 % (0.00-10.9); Hematocrit 30.4 VOL% (35.7-47.0); Hemoglobin 8.9 GM/DL (12.0-16.0); Immature Granulocytes % 0.4 %; Immature Granulocytes Absolute 0.04 #; Lymphocytes # 1.1 10*3/uL (1.4-4.0); Lymphocytes % 10.4 % (21.3-54.2); Mean Corpuscular HGB Conc 29.3 GM/DL (32-36); Mean Corpuscular Volume 77.4 FL (87-102); Mean Platelet Volume 10.3 FL (9.6-12.0); Monocytes % 12.9 % (1.7-12.7); Neutrophils % 75.2 % (38.7-73.9); Platelet Count 296 T/CUMM (130-400); Red Blood Count 3.93 MC/CUMM (3.8-5.5); Red Cell Distribution Width 16.8 % (9.3-17.3); White Blood Count 10.6 T/CUMM (4-12)
[2021-03-26 06:52] LABS: Calcium 8.9 MG/DL (8.5-10.1); Osmolality,Calculated 276.7 MOS/KG (273-304); Potassium 3.6 MMOL/L (3.5-5.1)
[2021-03-26] MEDS: EZETIMIBE 10 MG TABLET PO SCH (09:01)
[2021-03-26] MEDS: METOPROLOL SUCCINATE XL 50 MG TABLET PO SCH (09:01)
[2021-03-26] MEDS: TICAGRELOR 90 MG TABLET PO SCH ×2 (09:01→20:38)
[2021-03-26] MEDS: PANTOPRAZOLE 40 MG TABLET PO SCH (09:02)
[2021-03-26] MEDS: ENOXAPARIN 100 MG/ML SYRINGE SUBCUT SCH ×2 (09:02→20:38)
[2021-03-26] MEDS: ACETAMINOPHEN 325 MG TABLET PO PRN ×2 (09:02→16:41)
[2021-03-26] MEDS: ASPIRIN EC 81 MG TABLET PO SCH (12:21)
[2021-03-27 08:57] LABS: Basophils # 0.1 10*3/uL (0.0-0.2); Basophils % 0.6 % (0.0-0.8); Eosinophils # 0.1 10*3/uL (0.0-0.87); Eosinophils % 1.4 % (0.00-10.9); Hematocrit 31.8 VOL% (35.7-47.0); Hemoglobin 9.4 GM/DL (12.0-16.0); Immature Granulocytes % 0.5 %; Immature Granulocytes Absolute 0.04 #; Lymphocytes % 13.1 % (21.3-54.2); Mean Corpuscular HGB Conc 29.6 GM/DL (32-36); Mean Corpuscular Volume 76.6 FL (87-102); Mean Platelet Volume 10.4 FL (9.6-12.0); Neutrophils % 71.4 % (38.7-73.9); Platelet Count 294 T/CUMM (130-400); Red Blood Count 4.15 MC/CUMM (3.8-5.5); Red Cell Distribution Width 16.7 % (9.3-17.3); White Blood Count 7.8 T/CUMM (4-12)
[2021-03-27 09:16] LABS: Osmolality,Calculated 274.7 MOS/KG (273-304); Potassium 3.6 MMOL/L (3.5-5.1)
[2021-03-27] MEDS: METOPROLOL SUCCINATE XL 50 MG TABLET PO SCH (10:37)
[2021-03-27] MEDS: EZETIMIBE 10 MG TABLET PO SCH (10:37)
[2021-03-27] MEDS: ENOXAPARIN 100 MG/ML SYRINGE SUBCUT SCH ×2 (10:37→20:59)
[2021-03-27] MEDS: PANTOPRAZOLE 40 MG TABLET PO SCH (10:37)
[2021-03-27] MEDS: ASPIRIN EC 81 MG TABLET PO SCH (10:37)
[2021-03-27] MEDS: TICAGRELOR 90 MG TABLET PO SCH ×2 (10:37→20:58)
[2021-03-27] MEDS ORDERED: POTASSIUM CHLORIDE 10 MEQ TABLET PO ONE (11:26)
[2021-03-28] MEDS: NITROGLYCERIN SL 0.4 MG TABLET SL PRN (00:24)
[2021-03-28] MEDS: MORPHINE 2 MG/1 ML SYRINGE IV PRN ×2 (00:25→18:32)
[2021-03-28] MEDS: METOPROLOL TARTRATE 5 MG/5 ML VIAL IV SCH ×3 (01:07→01:41)
[2021-03-28 05:27] LABS: Basophils # 0.1 10*3/uL (0.0-0.2); Basophils % 1.4 % (0.0-0.8); Eosinophils # 0.2 10*3/uL (0.0-0.87); Hematocrit 30.9 VOL% (35.7-47.0); Hemoglobin 9.1 GM/DL (12.0-16.0); Immature Granulocytes % 0.4 %; Immature Granulocytes Absolute 0.02 #; Lymphocytes % 19.4 % (21.3-54.2); Mean Corpuscular HGB Conc 29.4 GM/DL (32-36); Mean Corpuscular Volume 77.3 FL (87-102); Mean Platelet Volume 10.4 FL (9.6-12.0); Monocytes % 18.3 % (1.7-12.7); Neutrophils % 57.5 % (38.7-73.9); Platelet Count 307 T/CUMM (130-400); Red Cell Distribution Width 16.5 % (9.3-17.3)
[2021-03-28 05:50] LABS: Eosinophils 6 % (0-10); Hypochromasia 1+; Lymphocytes 17 % (20-55); Microcytosis 1+; Ovalocytes Slight; Platelet Estimate Adequate; Segmented Neutrophils 62 % (50-85); Total Cells Counted 100
[2021-03-28 05:55] LABS: Osmolality,Calculated 275.5 MOS/KG (273-304); Potassium 3.8 MMOL/L (3.5-5.1)
[2021-03-28] MEDS: ASPIRIN EC 81 MG TABLET PO SCH (11:28)
[2021-03-28] MEDS: ENOXAPARIN 100 MG/ML SYRINGE SUBCUT SCH ×2 (11:28→21:17)
[2021-03-28] MEDS: PANTOPRAZOLE 40 MG TABLET PO SCH (11:28)
[2021-03-28] MEDS: TICAGRELOR 90 MG TABLET PO SCH ×2 (11:28→21:17)
[2021-03-28] MEDS: METOPROLOL SUCCINATE XL 50 MG TABLET PO SCH (11:28)
[2021-03-28] MEDS: EZETIMIBE 10 MG TABLET PO SCH (11:28)
[2021-03-28] MEDS ORDERED: SPIRONOLACTONE 25 MG TABLET PO PRN (12:41)
[2021-03-28] MEDS ORDERED: ISOSORBIDE MONONITRATE 30 MG TABLET PO SCH (13:53)
[2021-03-28] MEDS: ACETAMINOPHEN 325 MG TABLET PO PRN (14:39)
[2021-03-28] MEDS ORDERED: traMADol 50 MG TABLET PO PRN (15:51)
[2021-03-28] MEDS ORDERED: MECLIZINE 25 MG TABLET PO PRN (15:51)
[2021-03-28] MEDS ORDERED: DOXEPIN PO SCH (21:00)
[2021-03-28] MEDS ORDERED: AMITRIPTYLINE 100 MG TABLET PO SCH (21:00)
[2021-03-28] MEDS ORDERED: TIMOLOL 0.25% OPH SOLN 5 ML BOTTLE BOTH EYES SCH (21:00)
[2021-03-28] MEDS ORDERED: SIMVASTATIN 40 MG TABLET PO SCH (21:00)
[2021-03-28] MEDS: TOPIRAMATE 100 MG TABLET PO SCH (21:16)
[2021-03-28] MEDS: PYRIDOSTIGMINE 60 MG TABLET PO SCH (21:21)
[2021-03-29 08:23] VITALS: BP 142/54
[2021-03-29] MEDS: ENOXAPARIN 100 MG/ML SYRINGE SUBCUT SCH (08:51)
[2021-03-29] MEDS: EZETIMIBE 10 MG TABLET PO SCH (08:52)
[2021-03-29] MEDS: ASPIRIN EC 81 MG TABLET PO SCH (08:52)
[2021-03-29] MEDS: METOPROLOL SUCCINATE XL 50 MG TABLET PO SCH (08:52)
[2021-03-29] MEDS: TICAGRELOR 90 MG TABLET PO SCH (08:52)
[2021-03-29] MEDS: PANTOPRAZOLE 40 MG TABLET PO SCH (08:53)
[2021-03-29] MEDS: PYRIDOSTIGMINE 60 MG TABLET PO SCH (08:53)
[2021-03-29] MEDS: TOPIRAMATE 100 MG TABLET PO SCH (08:56)
[2021-03-29] MEDS ORDERED: predniSONE 10 MG TABLET PO SCH (09:00)
[2021-03-29] MEDS ORDERED: CYANOCOBALAMIN 500 MCG TABLET PO SCH (09:00)
[2021-03-29] MEDS ORDERED: ISOSORBIDE MONONITRATE 30 MG TABLET PO SCH (09:00)
[2021-03-29] MEDS ORDERED: ISOSORBIDE MONONITRATE 60 MG TABLET PO SCH (09:00)
== END 2021-03-29 12:05 | disposition home or self-care (01) | DRG 313 ==
LOC: EDUNIT# → EDBD → N.ED 18:52 → SUATTDRO 20:25 → N.EDINP 20:25 → N.TELEN 21:21
PROVIDERS: ADMIT Internal Medicine; ATTEND Internal Medicine

== ENCOUNTER 2021-04-05 11:39 | Inpatient (IN) ==
[2021-04-05] MEDS ORDERED: ENOXAPARIN 100 MG/ML SYRINGE SUBCUT STA (12:03)
[2021-04-05] MEDS ORDERED: ONDANSETRON 4 MG/2 ML VIAL IV STA (12:03)
[2021-04-05] MEDS ORDERED: ASPIRIN 325 MG TABLET PO STA (12:03)
[2021-04-05] MEDS ORDERED: NITROGLYCERIN 2% OINT 1 INCH/GM PACK TOP STA (12:03)
[2021-04-05] MEDS ORDERED: MORPHINE 2 MG/1 ML SYRINGE IV STA (12:03)
[2021-04-05 13:08] LABS: Basophils # 0.1 10*3/uL (0.0-0.2); Basophils % 0.9 % (0.0-0.8); Eosinophils # 0.1 10*3/uL (0.0-0.87); Eosinophils % 1.5 % (0.00-10.9); Hematocrit 31.4 VOL% (35.7-47.0); Hemoglobin 9.2 GM/DL (12.0-16.0); Immature Granulocytes % 0.6 %; Immature Granulocytes Absolute 0.04 #; Lymphocytes # 1.3 10*3/uL (1.4-4.0); Lymphocytes % 19.6 % (21.3-54.2); Mean Corpuscular HGB Conc 29.3 GM/DL (32-36); Mean Corpuscular Volume 76.6 FL (87-102); Mean Platelet Volume 10.1 FL (9.6-12.0); Monocytes % 13.6 % (1.7-12.7); Neutrophils % 63.8 % (38.7-73.9); Platelet Count 437 T/CUMM (130-400); Red Cell Distribution Width 16.7 % (9.3-17.3); White Blood Count 6.5 T/CUMM (4-12)
[2021-04-05 13:16] LABS: PT Patient Result 11.2 SECS (10.5-12.0); Partial Thromboplastin Time 22.2 SECS (23.9-33.8)
[2021-04-05 13:22] LABS: Alanine Aminotransferase 15 U/L (13-56); Albumin 3.2 G/DL (3.4-5.0); Alkaline Phosphatase 89 U/L (45-117); Aspartate Amino Transferase 17 U/L (0-37); Bilirubin,Total < 0.39 MG/DL (0.20-1.00); Blood Urea Nitrogen 11 MG/DL (7-18); Calcium 8.6 MG/DL (8.5-10.1); Carbon Dioxide 18 MMOL/L (21-32); Estimated Glom Filtration Rate 60 ML/MIN; Glucose 101 MG/DL (74-106); Osmolality,Calculated 275.5 MOS/KG (273-304); Potassium 4.3 MMOL/L (3.5-5.1); Sodium 139 MMOL/L (136-145); Total Protein 6.5 G/DL (6.4-8.2)
[2021-04-05] MEDS ORDERED: ENOXAPARIN 60 MG/0.6 ML SYRINGE SUBCUT STA (14:07)
[2021-04-05] MEDS ORDERED: GLUCAGON 1 MG VIAL IM PRN (15:18)
[2021-04-05] MEDS ORDERED: MORPHINE 2 MG/1 ML SYRINGE IV PRN (15:18)
[2021-04-05] MEDS ORDERED: DOCUSATE SODIUM 100 MG CAPSULE PO PRN (15:18)
[2021-04-05] MEDS ORDERED: DEXTROSE 50% 25 GM/50 ML VIAL IV PRN (15:18)
[2021-04-05] MEDS ORDERED: ONDANSETRON 4 MG/2 ML VIAL IV PRN (15:18)
[2021-04-05] MEDS ORDERED: hydrALAZINE 20 MG/1 ML VIAL IV PRN (15:18)
[2021-04-05] MEDS ORDERED: ALBUTEROL/IPRATROPIUM 3 ML NEB RESP TX PRN (15:18)
[2021-04-05] MEDS: TIMOLOL 0.25% OPH SOLN 5 ML BOTTLE BOTH EYES SCH (20:48)
[2021-04-05] MEDS: TOPIRAMATE 25 MG TABLET PO SCH (20:48)
[2021-04-05] MEDS: TICAGRELOR 90 MG TABLET PO SCH (20:48)
[2021-04-05] MEDS: METHOCARBAMOL 750 MG TABLET PO SCH (20:48)
[2021-04-05] MEDS: PYRIDOSTIGMINE 60 MG TABLET PO SCH (20:48)
[2021-04-05] MEDS: AMITRIPTYLINE 100 MG TABLET PO SCH (20:48)
[2021-04-06] MEDS: ENOXAPARIN 100 MG/ML SYRINGE SUBCUT SCH ×3 (00:16→23:48)
[2021-04-06 05:39] LABS: Basophils # 0.1 10*3/uL (0.0-0.2); Basophils % 1.4 % (0.0-0.8); Eosinophils # 0.3 10*3/uL (0.0-0.87); Eosinophils % 4.6 % (0.00-10.9); Hematocrit 31.3 VOL% (35.7-47.0); Hemoglobin 9.2 GM/DL (12.0-16.0); Immature Granulocytes % 0.6 %; Immature Granulocytes Absolute 0.04 #; Lymphocytes % 31.8 % (21.3-54.2); Mean Corpuscular HGB Conc 29.4 GM/DL (32-36); Mean Corpuscular Volume 77.5 FL (87-102); Mean Platelet Volume 9.7 FL (9.6-12.0); Neutrophils % 48.6 % (38.7-73.9); Platelet Count 423 T/CUMM (130-400); Red Blood Count 4.04 MC/CUMM (3.8-5.5); Red Cell Distribution Width 16.7 % (9.3-17.3); White Blood Count 6.3 T/CUMM (4-12)
[2021-04-06 05:57] LABS: Calcium 8.8 MG/DL (8.5-10.1); Osmolality,Calculated 278.4 MOS/KG (273-304); Potassium 4.1 MMOL/L (3.5-5.1)
[2021-04-06] MEDS ORDERED: POTASSIUM CHLORIDE RIDER 10 MEQ/100 ML PREMIX IV PRN (07:42)
[2021-04-06] MEDS ORDERED: MAGNESIUM SULF RIDER 2 GM/50 ML PREMIX IV PRN (07:42)
[2021-04-06] MEDS ORDERED: METOPROLOL SUCCINATE XL 50 MG TABLET PO SCH (09:00)
[2021-04-06] MEDS: CYANOCOBALAMIN 500 MCG TABLET PO SCH (09:55)
[2021-04-06] MEDS: PYRIDOSTIGMINE 60 MG TABLET PO SCH ×3 (09:56→21:07)
[2021-04-06] MEDS: TICAGRELOR 90 MG TABLET PO SCH ×2 (09:56→21:07)
[2021-04-06] MEDS: PANTOPRAZOLE 40 MG TABLET PO SCH (09:56)
[2021-04-06] MEDS: TOPIRAMATE 25 MG TABLET PO SCH ×2 (09:56→21:05)
[2021-04-06] MEDS: ASPIRIN EC 81 MG TABLET PO SCH (09:56)
[2021-04-06] MEDS: ACETAMINOPHEN 325 MG TABLET PO PRN (10:14)
[2021-04-06] MEDS: cefTRIAXone 1,000 MG in SODIUM CHLORIDE 0.9% 100 ML IV SCH (18:38)
[2021-04-06] MEDS ORDERED: SIMVASTATIN 40 MG TABLET PO SCH (21:00)
[2021-04-06] MEDS: TIMOLOL 0.25% OPH SOLN 5 ML BOTTLE BOTH EYES SCH (21:05)
[2021-04-06] MEDS: AMITRIPTYLINE 100 MG TABLET PO SCH (21:06)
[2021-04-06] MEDS: METHOCARBAMOL 750 MG TABLET PO SCH (21:06)
[2021-04-06] MEDS: EZETIMIBE 10 MG TABLET PO SCH (21:07)
[2021-04-07 06:37] LABS: Basophils # 0.1 10*3/uL (0.0-0.2); Basophils % 1.1 % (0.0-0.8); Eosinophils # 0.3 10*3/uL (0.0-0.87); Eosinophils % 5.2 % (0.00-10.9); Hematocrit 30.7 VOL% (35.7-47.0); Hemoglobin 8.8 GM/DL (12.0-16.0); Immature Granulocytes % 0.7 %; Immature Granulocytes Absolute 0.04 #; Lymphocytes # 1.9 10*3/uL (1.4-4.0); Lymphocytes % 33.3 % (21.3-54.2); Mean Corpuscular HGB Conc 28.7 GM/DL (32-36); Mean Corpuscular Volume 77.3 FL (87-102); Mean Platelet Volume 9.9 FL (9.6-12.0); Monocytes % 10.8 % (1.7-12.7); Neutrophils % 48.9 % (38.7-73.9); Platelet Count 392 T/CUMM (130-400); Red Blood Count 3.97 MC/CUMM (3.8-5.5); Red Cell Distribution Width 16.8 % (9.3-17.3); White Blood Count 5.6 T/CUMM (4-12)
[2021-04-07 06:45] LABS: Calcium 8.6 MG/DL (8.5-10.1); Osmolality,Calculated 278.3 MOS/KG (273-304)
[2021-04-07] MEDS ORDERED: DIAZEPAM 5 MG TABLET PO ONE (08:30)
[2021-04-07] MEDS ORDERED: diphenhydrAMINE CAP 50 MG CAPSULE PO ONE (08:30)
[2021-04-07] MEDS: TICAGRELOR 90 MG TABLET PO SCH (08:53)
[2021-04-07] MEDS: PANTOPRAZOLE 40 MG TABLET PO SCH (08:53)
[2021-04-07] MEDS: ASPIRIN EC 81 MG TABLET PO SCH (08:55)
[2021-04-07] MEDS: PYRIDOSTIGMINE 60 MG TABLET PO SCH ×3 (09:00→21:50)
[2021-04-07] MEDS ORDERED: METOPROLOL SUCCINATE XL 25 MG TABLET PO SCH (09:00)
[2021-04-07] MEDS ORDERED: ROSUVASTATIN 20 MG TABLET PO SCH (09:00)
[2021-04-07] MEDS: TOPIRAMATE 25 MG TABLET PO SCH ×2 (09:01→21:51)
[2021-04-07] MEDS: CYANOCOBALAMIN 500 MCG TABLET PO SCH (09:01)
[2021-04-07] MEDS ORDERED: LIDOCAINE 1% 20 ML VIAL ONE (09:51)
[2021-04-07] MEDS ORDERED: MIDAZOLAM 2 MG/2 ML VIAL ONE (09:59)
[2021-04-07] MEDS ORDERED: fentaNYL 100 MCG/2 ML VIAL ONE (09:59)
[2021-04-07] MEDS ORDERED: ENOXAPARIN 30 MG/0.3 ML SYRINGE ONE (10:22)
[2021-04-07] MEDS ORDERED: CLOPIDOGREL 300 MG TABLET ONE (10:40)
[2021-04-07] MEDS ORDERED: SODIUM CHLORIDE 0.9% 1,000 ML IV SCH (11:30)
[2021-04-07] MEDS: AZITHROMYCIN INJ 500 MG in SODIUM CHLORIDE 0.9% 250 ML IV SCH (14:00)
[2021-04-07] MEDS: cefTRIAXone 1,000 MG in SODIUM CHLORIDE 0.9% 100 ML IV SCH (17:13)
[2021-04-07] MEDS: AMITRIPTYLINE 100 MG TABLET PO SCH (21:50)
[2021-04-07] MEDS: EZETIMIBE 10 MG TABLET PO SCH (21:50)
[2021-04-07] MEDS: METHOCARBAMOL 750 MG TABLET PO SCH (21:50)
[2021-04-07] MEDS: TIMOLOL 0.25% OPH SOLN 5 ML BOTTLE BOTH EYES SCH (21:52)
[2021-04-08 06:53] LABS: Basophils # 0.1 10*3/uL (0.0-0.2); Basophils % 1.4 % (0.0-0.8); Eosinophils # 0.3 10*3/uL (0.0-0.87); Eosinophils % 4.8 % (0.00-10.9); Hematocrit 28.4 VOL% (35.7-47.0); Hemoglobin 8.3 GM/DL (12.0-16.0); Immature Granulocytes % 0.8 %; Immature Granulocytes Absolute 0.05 #; Lymphocytes # 1.7 10*3/uL (1.4-4.0); Lymphocytes % 26.5 % (21.3-54.2); Mean Corpuscular HGB Conc 29.2 GM/DL (32-36); Mean Corpuscular Volume 77.4 FL (87-102); Mean Platelet Volume 9.9 FL (9.6-12.0); Monocytes % 11.7 % (1.7-12.7); Neutrophils % 54.8 % (38.7-73.9); Platelet Count 382 T/CUMM (130-400); Red Blood Count 3.67 MC/CUMM (3.8-5.5); Red Cell Distribution Width 16.7 % (9.3-17.3); White Blood Count 6.3 T/CUMM (4-12)
[2021-04-08 06:58] LABS: Hypochromasia 1+; Microcytosis 1+; Ovalocytes Slight; Platelet Estimate Adequate
[2021-04-08 07:00] LABS: Calcium 8.7 MG/DL (8.5-10.1); Osmolality,Calculated 279.1 MOS/KG (273-304); Potassium 4.1 MMOL/L (3.5-5.1)
[2021-04-08 07:13] LABS: Blood Urea Nitrogen 8 MG/DL (7-18); Calcium 8.6 MG/DL (8.5-10.1); Carbon Dioxide 20 MMOL/L (21-32); Estimated Glom Filtration Rate 51 ML/MIN; Glucose 82 MG/DL (74-106); Osmolality,Calculated 277.3 MOS/KG (273-304); Potassium 4.1 MMOL/L (3.5-5.1); Sodium 141 MMOL/L (136-145)
[2021-04-08] MEDS ORDERED: CLOPIDOGREL 75 MG TABLET PO SCH (09:00)
[2021-04-08] MEDS ORDERED: METOPROLOL SUCCINATE XL 50 MG TABLET PO SCH (09:00)
[2021-04-08] MEDS ORDERED: SIMVASTATIN 40 MG TABLET PO SCH (09:00)
[2021-04-08] MEDS: CYANOCOBALAMIN 500 MCG TABLET PO SCH (09:58)
[2021-04-08] MEDS: ASPIRIN EC 81 MG TABLET PO SCH (09:59)
[2021-04-08] MEDS: AZITHROMYCIN INJ 500 MG in SODIUM CHLORIDE 0.9% 250 ML IV SCH (10:00)
[2021-04-08] MEDS: TOPIRAMATE 25 MG TABLET PO SCH (10:01)
[2021-04-08] MEDS: PYRIDOSTIGMINE 60 MG TABLET PO SCH ×2 (10:03→15:56)
[2021-04-08] MEDS: PANTOPRAZOLE 40 MG TABLET PO SCH (10:03)
[2021-04-08 12:27] VITALS: BP 121/55
[2021-04-08] MEDS: ACETAMINOPHEN 325 MG TABLET PO PRN (12:43)
== END 2021-04-08 15:58 | disposition home or self-care (01) | DRG 981 ==
LOC: N.ED 11:39 → N.EDINP 15:18 → SUATTDRO 15:18 → N.TELEN 17:43
PROVIDERS: ADMIT Internal Medicine; ATTEND Internal Medicine
PROC: CLCCHCL (ICD-10-PCS; 2021-04-07 09:15)

== ENCOUNTER 2021-04-10 04:10 | Inpatient (IN) ==
[2021-04-10] MEDS ORDERED: ASPIRIN 325 MG TABLET PO STA ×3 (04:17→06:14)
[2021-04-10] MEDS ORDERED: NITROGLYCERIN SL 0.4 MG TABLET SL STA (04:29)
[2021-04-10] MEDS ORDERED: MORPHINE 2 MG/1 ML SYRINGE IV STA ×2 (04:29→05:00)
[2021-04-10] MEDS ORDERED: ONDANSETRON 4 MG/2 ML VIAL IV ONE (04:29)
[2021-04-10] MEDS ORDERED: ONDANSETRON 4 MG/2 ML VIAL ONE (04:30)
[2021-04-10] MEDS ORDERED: HEPARIN 1,000 UNIT/1 ML VIAL IV STA (04:30)
[2021-04-10] MEDS ORDERED: MORPHINE 2 MG/1 ML SYRINGE ONE (04:31)
[2021-04-10] MEDS ORDERED: NITROGLYCERIN SL 0.4 MG TABLET SL ONE (04:31)
[2021-04-10] MEDS ORDERED: HEPARIN 5,000 UNIT/1 ML VIAL ONE ×2 (04:34→05:27)
[2021-04-10] MEDS ORDERED: TICAGRELOR 90 MG TABLET PO STA (04:35)
[2021-04-10 04:54] LABS: PT Patient Result 11.1 SECS (10.5-12.0)
[2021-04-10] MEDS ORDERED: NITROGLYCERIN DRIP 50 MG/250 ML BOTTLE IV ONE (05:00)
[2021-04-10] MEDS ORDERED: NITROGLYCERIN DRIP 50 MG/250 ML BOTTLE IV PRN (05:00)
[2021-04-10] MEDS ORDERED: MIDAZOLAM 2 MG/2 ML VIAL ONE (05:06)
[2021-04-10] MEDS ORDERED: fentaNYL 100 MCG/2 ML VIAL ONE (05:06)
[2021-04-10 05:09] LABS: Basophils # 0.1 10*3/uL (0.0-0.2); Basophils % 0.8 % (0.0-0.8); Eosinophils # 0.3 10*3/uL (0.0-0.87); Eosinophils % 2.4 % (0.00-10.9); Hematocrit 33.6 VOL% (35.7-47.0); Immature Granulocytes % 0.4 %; Immature Granulocytes Absolute 0.06 #; Lymphocytes # 2.9 10*3/uL (1.4-4.0); Lymphocytes % 20.3 % (21.3-54.2); Mean Corpuscular HGB Conc 28.9 GM/DL (32-36); Mean Corpuscular Volume 78.3 FL (87-102); Mean Platelet Volume 10.1 FL (9.6-12.0); Monocytes % 7.4 % (1.7-12.7); Neutrophils % 68.7 % (38.7-73.9); Platelet Count 488 T/CUMM (130-400); Red Blood Count 4.29 MC/CUMM (3.8-5.5); White Blood Count 14.1 T/CUMM (4-12)
[2021-04-10 05:13] LABS: Hemoglobin 9.7 GM/DL (12.0-16.0)
[2021-04-10 05:14] LABS: Alanine Aminotransferase 15 U/L (13-56); Albumin 3.2 G/DL (3.4-5.0); Alkaline Phosphatase 84 U/L (45-117); Aspartate Amino Transferase 16 U/L (0-37); Bilirubin,Total < 0.39 MG/DL (0.20-1.00); Blood Urea Nitrogen 12 MG/DL (7-18); Calcium 8.8 MG/DL (8.5-10.1); Carbon Dioxide 19 MMOL/L (21-32); Estimated Glom Filtration Rate 45 ML/MIN; Glucose 149 MG/DL (74-106); Osmolality,Calculated 283.3 MOS/KG (273-304); Potassium 3.6 MMOL/L (3.5-5.1); Sodium 141 MMOL/L (136-145); Total Protein 6.9 G/DL (6.4-8.2)
[2021-04-10] MEDS ORDERED: EPTIFIBATIDE 75 MG/100 ML BOTTLE IV SCH (05:32)
[2021-04-10] MEDS ORDERED: NOREPINEPHRINE 4 MG/4 ML VIAL IV ONE (05:53)
[2021-04-10] MEDS ORDERED: MORPHINE 10 MG/1 ML VIAL ONE (06:05)
[2021-04-10] MEDS ORDERED: AMIODARONE 150 MG/3 ML VIAL ONE (06:05)
[2021-04-10] MEDS ORDERED: ASPIRIN CHEW 81 MG TABLET PO STA (06:18)
[2021-04-10] MEDS ORDERED: AMIODARONE 450 MG/9 ML VIAL IV ONE ×2 (06:19→06:23)
[2021-04-10] MEDS ORDERED: EPTIFIBATIDE 75 MG/100 ML BOTTLE IV ONE (06:30)
[2021-04-10] MEDS ORDERED: EPTIFIBATIDE 20,000 MCG/10 ML VIAL ONE (06:30)
[2021-04-10] MEDS ORDERED: AMIODARONE INJ 450 MG in DEXTROSE 5% 241 ML IV SCH (06:34)
[2021-04-10] MEDS ORDERED: ACETAMINOPHEN 325 MG TABLET PO PRN (08:08)
[2021-04-10] MEDS: TICAGRELOR 90 MG TABLET PO SCH ×2 (08:31→21:30)
[2021-04-10] MEDS: SIMVASTATIN 40 MG TABLET PO SCH (08:31)
[2021-04-10 09:41] LABS: Basophils # 0.1 10*3/uL (0.0-0.2); Basophils % 0.5 % (0.0-0.8); Eosinophils # 0.1 10*3/uL (0.0-0.87); Eosinophils % 0.3 % (0.00-10.9); Hematocrit 29.5 VOL% (35.7-47.0); Hemoglobin 8.5 GM/DL (12.0-16.0); Immature Granulocytes % 0.5 %; Immature Granulocytes Absolute 0.08 #; Lymphocytes # 1.7 10*3/uL (1.4-4.0); Lymphocytes % 10.5 % (21.3-54.2); Mean Corpuscular HGB Conc 28.8 GM/DL (32-36); Mean Corpuscular Volume 78.2 FL (87-102); Mean Platelet Volume 10.1 FL (9.6-12.0); Monocytes % 8.8 % (1.7-12.7); Neutrophils % 79.4 % (38.7-73.9); Platelet Count 434 T/CUMM (130-400); Red Blood Count 3.77 MC/CUMM (3.8-5.5); Red Cell Distribution Width 16.9 % (9.3-17.3); White Blood Count 15.7 T/CUMM (4-12)
[2021-04-10 10:01] LABS: Hypochromasia 1+; Microcytosis 1+; Ovalocytes Few; Platelet Estimate Increased
[2021-04-10 10:06] LABS: Calcium 8.5 MG/DL (8.5-10.1); Osmolality,Calculated 272.8 MOS/KG (273-304); Potassium 4.5 MMOL/L (3.5-5.1)
[2021-04-10 10:09] LABS: Risk Ratio 3.82; VLDL Cholesterol 25.8 MG/DL
[2021-04-10] MEDS: ACETAMINOPHEN 325 MG TABLET PO PRN ×2 (13:40→17:43)
[2021-04-10] MEDS ORDERED: FUROSEMIDE 40 MG/4 ML VIAL IV ONE (13:57)
[2021-04-10] MEDS: ONDANSETRON 4 MG/2 ML VIAL IV PRN (23:39)
[2021-04-11] MEDS ORDERED: MORPHINE 2 MG/1 ML SYRINGE IV PRN (02:14)
[2021-04-11] MEDS ORDERED: NITROGLYCERIN SL 0.4 MG TABLET SL PRN (02:15)
[2021-04-11] MEDS: ONDANSETRON 4 MG/2 ML VIAL IV PRN ×2 (04:07→13:05)
[2021-04-11] MEDS: MORPHINE 2 MG/1 ML SYRINGE IV PRN ×6 (04:36→20:48)
[2021-04-11] MEDS ORDERED: DILTIAZEM 25 MG/5 ML VIAL IV ONE ×2 (05:02→05:04)
[2021-04-11] MEDS ORDERED: DILTIAZEM INJ 100 MG in SODIUM CHLORIDE 0.9% 100 ML IV SCH (07:00)
[2021-04-11 08:23] LABS: Basophils # 0.1 10*3/uL (0.0-0.2); Basophils % 0.7 % (0.0-0.8); Eosinophils # 0.1 10*3/uL (0.0-0.87); Eosinophils % 0.5 % (0.00-10.9); Hematocrit 30.6 VOL% (35.7-47.0); Hemoglobin 9.1 GM/DL (12.0-16.0); Immature Granulocytes % 0.4 %; Immature Granulocytes Absolute 0.05 #; Lymphocytes # 1.2 10*3/uL (1.4-4.0); Lymphocytes % 8.8 % (21.3-54.2); Mean Corpuscular HGB Conc 29.7 GM/DL (32-36); Mean Corpuscular Volume 77.7 FL (87-102); Mean Platelet Volume 10.4 FL (9.6-12.0); Monocytes % 8.6 % (1.7-12.7); Platelet Count 426 T/CUMM (130-400); Red Blood Count 3.94 MC/CUMM (3.8-5.5); White Blood Count 13.1 T/CUMM (4-12)
[2021-04-11 08:31] LABS: Alanine Aminotransferase 56 U/L (13-56); Albumin 2.9 G/DL (3.4-5.0); Alkaline Phosphatase 87 U/L (45-117); Aspartate Amino Transferase 413 U/L (0-37); Bilirubin,Total < 0.39 MG/DL (0.20-1.00); Blood Urea Nitrogen 11 MG/DL (7-18); Calcium 8.5 MG/DL (8.5-10.1); Carbon Dioxide 21 MMOL/L (21-32); Estimated Glom Filtration Rate 53 ML/MIN; Glucose 105 MG/DL (74-106); Osmolality,Calculated 273.7 MOS/KG (273-304); Potassium 3.4 MMOL/L (3.5-5.1); Sodium 138 MMOL/L (136-145); Total Protein 6.8 G/DL (6.4-8.2)
[2021-04-11 08:44] LABS: Anisocytosis 1+; Ovalocytes Few; Platelet Estimate Normal
[2021-04-11 08:45] LABS: Burr Cells Few; Poikilocytosis 1+
[2021-04-11 08:46] LABS: Tear Drop Cells Few
[2021-04-11] MEDS: SIMVASTATIN 40 MG TABLET PO SCH (09:52)
[2021-04-11] MEDS: TICAGRELOR 90 MG TABLET PO SCH ×2 (09:52→23:26)
[2021-04-11] MEDS ORDERED: ASPIRIN EC 81 MG TABLET PO SCH (11:50)
[2021-04-11] MEDS ORDERED: POTASSIUM CHLORIDE 20 MEQ TABLET PO ONE (12:06)
[2021-04-11] MEDS ORDERED: MECLIZINE 25 MG TABLET PO PRN (12:10)
[2021-04-11] MEDS ORDERED: SPIRONOLACTONE 25 MG TABLET PO PRN (12:18)
[2021-04-11] MEDS ORDERED: POTASSIUM CHLORIDE 20 MEQ TABLET PO SCH (12:30)
[2021-04-11] MEDS ORDERED: ATROPINE 1 MG/10 ML SYRINGE ONE (13:23)
[2021-04-11] MEDS ORDERED: METOPROLOL SUCCINATE XL 50 MG TABLET PO SCH (15:00)
[2021-04-11] MEDS ORDERED: AZITHROMYCIN 250 MG TABLET PO SCH (15:00)
[2021-04-11] MEDS ORDERED: ALUM/MAG/SIMETH/LIDO VISC 1:1 30 ML BOTTLE PO ONE ×2 (16:43→16:48)
[2021-04-11] MEDS: PYRIDOSTIGMINE 60 MG TABLET PO SCH ×2 (16:51→23:27)
[2021-04-11] MEDS: predniSONE 10 MG TABLET PO SCH (16:51)
[2021-04-11] MEDS: CEFUROXIME 500 MG TABLET PO SCH (16:51)
[2021-04-11] MEDS ORDERED: KETOROLAC 30 MG/1 ML VIAL IV ONE (17:17)
[2021-04-11] MEDS ORDERED: KETOROLAC 15 MG/1 ML VIAL IV PRN (17:17)
[2021-04-11] MEDS ORDERED: NOREPINEPHRINE 4 MG/4 ML VIAL IV ONE (17:18)
[2021-04-11] MEDS: NOREPINEPHRINE 8 MG in SODIUM CHLORIDE 0.9% 242 ML IV PRN (17:20)
[2021-04-11 17:59] LABS: High Sensitive Troponin I* 75094.4 ng/L (0-54)
[2021-04-11] MEDS ORDERED: LIDOCAINE 1% 20 ML VIAL ONE (18:36)
[2021-04-11] MEDS ORDERED: HEPARIN/NACL 0.9% 2 UNITS/ML 3,000 UNIT/1,500 ML BAG IV ONE (18:36)
[2021-04-11] MEDS ORDERED: MIDAZOLAM 2 MG/2 ML VIAL IV ONE (19:00)
[2021-04-11] MEDS ORDERED: fentaNYL 100 MCG/2 ML VIAL IV ONE (19:00)
[2021-04-11 19:20] LABS: ABG Base Excess -24.7 MMOL/L (-2.5-2.5); ABG HCO3 6.6 MMOL/L (20-26); ABG Oxygen Saturation 87.1 % (95-100); ABG PO2 81.5 MM HG (80-95); ABG TCO2 4.6 MMOL/L (23-27)
[2021-04-11 19:23] LABS: ABG PCO2 16.9 MM HG (35-48); ABG PH 7.043 (7.35-7.45)
[2021-04-11] MEDS ORDERED: SODIUM BICARBONATE 50 MEQ/50 ML VIAL IV ONE ×2 (19:26)
[2021-04-11] MEDS ORDERED: SODIUM BICARBONATE 50 MEQ/50 ML SYRINGE IV ONE (19:26)
[2021-04-11] MEDS ORDERED: LACTATED RINGERS 1,000 ML IV ONE (19:27)
[2021-04-11] MEDS: SODIUM BICARB INJ 150 MEQ in DEXTROSE 5% 1,000 ML IV SCH (19:54)
[2021-04-11 19:55] LABS: Basophils # 0.1 10*3/uL (0.0-0.2); Basophils % 0.3 % (0.0-0.8); Eosinophils # 0.1 10*3/uL (0.0-0.87); Eosinophils % 0.3 % (0.00-10.9); Hematocrit 23.7 VOL% (35.7-47.0); Hemoglobin 6.6 GM/DL (12.0-16.0); Immature Granulocytes % 3.2 %; Immature Granulocytes Absolute 0.75 #; Lymphocytes # 3.3 10*3/uL (1.4-4.0); Lymphocytes % 14.3 % (21.3-54.2); Mean Corpuscular HGB Conc 27.8 GM/DL (32-36); Mean Corpuscular Volume 80.3 FL (87-102); Mean Platelet Volume 10.6 FL (9.6-12.0); Monocytes % 5.9 % (1.7-12.7); NRBC # 0.03 10*3/uL; Platelet Count 449 T/CUMM (130-400); Red Blood Count 2.95 MC/CUMM (3.8-5.5); Red Cell Distribution Width 17.2 % (9.3-17.3); White Blood Count 23.4 T/CUMM (4-12)
[2021-04-11 20:15] LABS: Anisocytosis 2+; Band Neutrophils 1 % (0-10); Lymphocytes 12 % (20-55); Macrocytosis Slight; Metamyelocytes 2 %; Microcytosis 2+; Segmented Neutrophils 83 % (50-85); Total Cells Counted 100
[2021-04-11 20:16] LABS: Elliptocytes Few; Hypochromasia 1+; Platelet Estimate Increased; Poikilocytosis 1+; Polychromasia 1+; Schistocytes 1+
[2021-04-11 20:27] LABS: Alanine Aminotransferase 30 U/L (13-56); Albumin 1.9 G/DL (3.4-5.0); Alkaline Phosphatase 60 U/L (45-117); Aspartate Amino Transferase 138 U/L (0-37); Bilirubin,Total < 0.39 MG/DL (0.20-1.00); Blood Urea Nitrogen 17 MG/DL (7-18); Calcium 7.1 MG/DL (8.5-10.1); Carbon Dioxide 16 MMOL/L (21-32); Estimated Glom Filtration Rate 15 ML/MIN; Glucose 305 MG/DL (74-106); Osmolality,Calculated 298.8 MOS/KG (273-304); Potassium 3.7 MMOL/L (3.5-5.1); Sodium 144 MMOL/L (136-145); Total Protein 4.9 G/DL (6.4-8.2)
[2021-04-11] MEDS: HYDROmorphone 2 MG/1 ML VIAL IV PRN (21:32)
[2021-04-11] MEDS ORDERED: PANTOPRAZOLE INJ 80 MG in SODIUM CHLORIDE 0.9% 100 ML IV ONE (21:53)
[2021-04-11] MEDS ORDERED: ETOMIDATE 20 MG/10 ML VIAL IV ONE (22:14)
[2021-04-11] MEDS ORDERED: SUCCINYLCHOLINE 200 MG/10 ML VIAL ONE (22:15)
[2021-04-11] MEDS ORDERED: PANTOPRAZOLE INJ 200 MG in SODIUM CHLORIDE 0.9% 250 ML IV SCH (23:00)
[2021-04-11] MEDS: MIDAZOLAM 100 MG in SODIUM CHLORIDE 0.9% 80 ML IV PRN (23:17)
[2021-04-11] MEDS: TIMOLOL 0.25% OPH SOLN 5 ML BOTTLE BOTH EYES SCH (23:26)
[2021-04-11] MEDS: TOPIRAMATE 100 MG TABLET PO SCH (23:26)
[2021-04-11] MEDS: METHOCARBAMOL 750 MG TABLET PO SCH (23:26)
[2021-04-11] MEDS: AMITRIPTYLINE 100 MG TABLET PO SCH (23:27)
[2021-04-11] MEDS ORDERED: SODIUM CHLORIDE 0.9% 1,000 ML IV PRN (23:47)
[2021-04-11] MEDS: MEROPENEM 500 MG in SODIUM CHLORIDE 0.9% 100 ML IV SCH (23:51)
[2021-04-11 23:52] LABS: ABG Base Excess -16.3 MMOL/L (-2.5-2.5); ABG Oxygen Saturation 99.8 % (95-100); ABG PH 7.294 (7.35-7.45); ABG TCO2 8.4 MMOL/L (23-27)
[2021-04-11 23:54] LABS: ABG PCO2 18.6 MM HG (35-48)
[2021-04-12] MEDS: CEFUROXIME 500 MG TABLET PO SCH (00:03)
[2021-04-12] MEDS ORDERED: SODIUM BICARBONATE 50 MEQ/50 ML VIAL IV ONE (00:05)
[2021-04-12] MEDS ORDERED: SODIUM BICARBONATE 50 MEQ/50 ML SYRINGE IV ONE (00:17)
[2021-04-12] MEDS: NOREPINEPHRINE 8 MG in SODIUM CHLORIDE 0.9% 242 ML IV PRN (03:52)
[2021-04-12 03:55] LABS: ABG Base Excess 0.5 MMOL/L (-2.5-2.5); ABG HCO3 24.9 MMOL/L (20-26); ABG TCO2 16.3 MMOL/L (23-27)
[2021-04-12 04:15] LABS: ABG PCO2 14.9 MM HG (35-48); ABG PH 7.699 (7.35-7.45)
[2021-04-12 06:22] LABS: ABG Base Excess 5.2 MMOL/L (-2.5-2.5); ABG HCO3 29.1 MMOL/L (20-26); ABG Oxygen Saturation 99.8 % (95-100); ABG PCO2 21.3 MM HG (35-48); ABG TCO2 20.9 MMOL/L (23-27)
[2021-04-12] MEDS ORDERED: ETOMIDATE 20 MG/10 ML VIAL IV ONE (06:24)
[2021-04-12 06:25] LABS: ABG PH 7.663 (7.35-7.45)
[2021-04-12] MEDS ORDERED: SUCCINYLCHOLINE 200 MG/10 ML VIAL IV ONE (06:25)
[2021-04-12 06:28] LABS: Calcium 7.6 MG/DL (8.5-10.1)
[2021-04-12 06:32] LABS: Potassium 2.4 MMOL/L (3.5-5.1)
[2021-04-12] MEDS ORDERED: POTASSIUM BICARB EFFERVESCENT 20 MEQ TAB.EFF PO ONE (06:36)
[2021-04-12] MEDS: SODIUM BICARB INJ 150 MEQ in DEXTROSE 5% 1,000 ML IV SCH (07:38)
[2021-04-12 08:09] LABS: Basophils % 0.2 % (0.0-0.8); Hematocrit 40.4 VOL% (35.7-47.0); Immature Granulocytes % 0.8 %; Immature Granulocytes Absolute 0.13 #; Lymphocytes # 1.6 10*3/uL (1.4-4.0); Lymphocytes % 10.2 % (21.3-54.2); Mean Corpuscular HGB Conc 32.9 GM/DL (32-36); Mean Corpuscular Volume 76.4 FL (87-102); Mean Platelet Volume 10.3 FL (9.6-12.0); Monocytes % 5.9 % (1.7-12.7); NRBC # 0.02 10*3/uL; Neutrophils % 82.9 % (38.7-73.9); Red Blood Count 5.29 MC/CUMM (3.8-5.5); Red Cell Distribution Width 18.1 % (9.3-17.3)
[2021-04-12 08:22] LABS: Hemoglobin 13.3 GM/DL (12.0-16.0); Platelet Count 285 T/CUMM (130-400); White Blood Count 15.5 T/CUMM (4-12)
[2021-04-12 09:21] LABS: INR 1.3; PT Patient Result 14.6 SECS (10.5-12.0)
[2021-04-12] MEDS: MEROPENEM 500 MG in SODIUM CHLORIDE 0.9% 100 ML IV SCH ×2 (10:03→23:24)
[2021-04-12] MEDS: SIMVASTATIN 40 MG TABLET PO SCH (10:12)
[2021-04-12] MEDS: TOPIRAMATE 100 MG TABLET PO SCH ×2 (10:12→21:06)
[2021-04-12] MEDS: CYANOCOBALAMIN 500 MCG TABLET PO SCH (10:12)
[2021-04-12] MEDS: EZETIMIBE 10 MG TABLET PO SCH (10:12)
[2021-04-12] MEDS: PYRIDOSTIGMINE 60 MG TABLET PO SCH ×3 (10:12→21:06)
[2021-04-12] MEDS: predniSONE 10 MG TABLET PO SCH (10:12)
[2021-04-12] MEDS: POTASSIUM BICARB EFFERVESCENT 20 MEQ TAB.EFF PER TUBE PRN ×4 (10:13→18:04)
[2021-04-12] MEDS: MIDAZOLAM 100 MG in SODIUM CHLORIDE 0.9% 80 ML IV PRN (10:34)
[2021-04-12] MEDS: ASPIRIN CHEW 81 MG TABLET PO SCH (11:44)
[2021-04-12] MEDS: TICAGRELOR 90 MG TABLET PO SCH ×2 (11:44→21:06)
[2021-04-12] MEDS: methylPREDNISolone SOD SUC 40 MG/1 ML VIAL IV SCH ×2 (11:55→20:41)
[2021-04-12 13:22] LABS: Basophils % 0.2 % (0.0-0.8); Hematocrit 41.9 VOL% (35.7-47.0); Hemoglobin 13.8 GM/DL (12.0-16.0); Immature Granulocytes % 0.8 %; Immature Granulocytes Absolute 0.11 #; Lymphocytes # 0.7 10*3/uL (1.4-4.0); Lymphocytes % 4.5 % (21.3-54.2); Mean Corpuscular HGB Conc 32.9 GM/DL (32-36); Mean Corpuscular Volume 77.3 FL (87-102); Mean Platelet Volume 10.2 FL (9.6-12.0); Monocytes % 4.4 % (1.7-12.7); Neutrophils % 90.1 % (38.7-73.9); Platelet Count 284 T/CUMM (130-400); Red Blood Count 5.42 MC/CUMM (3.8-5.5); Red Cell Distribution Width 18.5 % (9.3-17.3); White Blood Count 14.5 T/CUMM (4-12)
[2021-04-12 13:23] LABS: ABG Base Excess 8.5 MMOL/L (-2.5-2.5); ABG HCO3 32.3 MMOL/L (20-26); ABG Oxygen Saturation 99.4 % (95-100); ABG PCO2 32.9 MM HG (35-48); ABG PH 7.575 (7.35-7.45); ABG TCO2 26.1 MMOL/L (23-27)
[2021-04-12 13:44] LABS: Band Neutrophils 10 % (0-10); Eosinophils 1 % (0-10); Lymphocytes 3 % (20-55); Nucleated Red Blood Cells 1 (0-5); Platelet Estimate Normal; Segmented Neutrophils 82 % (50-85); Total Cells Counted 100
[2021-04-12 13:45] LABS: Anisocytosis 1+; Ovalocytes Few
[2021-04-12 13:59] LABS: Bilirubin,Total 0.5 MG/DL (0.20-1.00); Calcium 7.4 MG/DL (8.5-10.1); Total Protein 5.3 G/DL (6.4-8.2)
[2021-04-12] MEDS: AMITRIPTYLINE 100 MG TABLET PO SCH (21:06)
[2021-04-12] MEDS: METHOCARBAMOL 750 MG TABLET PO SCH (21:06)
[2021-04-12] MEDS: MORPHINE 2 MG/1 ML SYRINGE IV PRN (21:06)
[2021-04-12] MEDS: TIMOLOL 0.25% OPH SOLN 5 ML BOTTLE BOTH EYES SCH (21:07)
[2021-04-13] MEDS: HYDROmorphone 2 MG/1 ML VIAL IV PRN (01:21)
[2021-04-13] MEDS: MEROPENEM 500 MG in SODIUM CHLORIDE 0.9% 100 ML IV SCH ×2 (02:16→10:00)
[2021-04-13] MEDS: MIDAZOLAM 100 MG in SODIUM CHLORIDE 0.9% 80 ML IV PRN (02:39)
[2021-04-13] MEDS: methylPREDNISolone SOD SUC 40 MG/1 ML VIAL IV SCH ×3 (02:46→20:30)
[2021-04-13 04:08] LABS: ABG Base Excess 5.8 MMOL/L (-2.5-2.5); ABG HCO3 27.5 MMOL/L (20-26); ABG Oxygen Saturation 98.4 % (95-100); ABG PCO2 31.3 MM HG (35-48); ABG PH 7.562 (7.35-7.45); ABG TCO2 28.5 MMOL/L (23-27)
[2021-04-13 04:09] LABS: Basophils % 0.1 % (0.0-0.8); Hematocrit 41.6 VOL% (35.7-47.0); Hemoglobin 13.5 GM/DL (12.0-16.0); Immature Granulocytes % 0.9 %; Immature Granulocytes Absolute 0.15 #; Lymphocytes # 0.4 10*3/uL (1.4-4.0); Lymphocytes % 2.8 % (21.3-54.2); Mean Corpuscular HGB Conc 32.5 GM/DL (32-36); Mean Corpuscular Volume 78.8 FL (87-102); Mean Platelet Volume 10.8 FL (9.6-12.0); Monocytes % 4.4 % (1.7-12.7); Neutrophils % 91.8 % (38.7-73.9); Platelet Count 281 T/CUMM (130-400); Red Blood Count 5.28 MC/CUMM (3.8-5.5); White Blood Count 15.9 T/CUMM (4-12)
[2021-04-13 04:39] LABS: Albumin 2.2 G/DL (3.4-5.0); Bilirubin,Direct 0.11 MG/DL (0.0-0.20); Bilirubin,Indirect 0.4 MG/DL (0.0-1.0); Bilirubin,Total 0.5 MG/DL (0.20-1.00); Total Protein 5.6 G/DL (6.4-8.2)
[2021-04-13 04:40] LABS: Lymphocytes 2 % (20-55); Segmented Neutrophils 96 % (50-85); Total Cells Counted 100
[2021-04-13 04:41] LABS: Hypochromasia Slight; Microcytosis Slight; Ovalocytes Slight; Platelet Estimate Adequate
[2021-04-13 05:09] LABS: Calcium 7.6 MG/DL (8.5-10.1); Osmolality,Calculated 285.3 MOS/KG (273-304); Potassium 3.2 MMOL/L (3.5-5.1)
[2021-04-13] MEDS ORDERED: POTASSIUM CHLORIDE RIDER 10 MEQ/100 ML PREMIX IV PRN (05:16)
[2021-04-13] MEDS: POTASSIUM CHLORIDE RIDER 20 MEQ/100 ML PREMIX IV PRN ×2 (05:28→07:25)
[2021-04-13] MEDS ORDERED: PROPRANOLOL 10 MG TABLET PO SCH (10:00)
[2021-04-13] MEDS: LACTATED RINGERS 1,000 ML IV SCH (10:20)
[2021-04-13] MEDS ORDERED: propofoL 200 MG/20 ML VIAL IV ONE (11:22)
[2021-04-13] MEDS ORDERED: ROCURONIUM 50 MG/5 ML VIAL IV ONE (11:22)
[2021-04-13] MEDS ORDERED: LIDOCAINE 2% 5 ML VIAL ONE (11:22)
[2021-04-13] MEDS: CYANOCOBALAMIN 500 MCG TABLET PO SCH (11:45)
[2021-04-13] MEDS: SIMVASTATIN 40 MG TABLET PO SCH (11:45)
[2021-04-13] MEDS: TOPIRAMATE 100 MG TABLET PO SCH ×2 (11:45→21:07)
[2021-04-13] MEDS: TICAGRELOR 90 MG TABLET PO SCH ×2 (11:45→21:07)
[2021-04-13] MEDS: PYRIDOSTIGMINE 60 MG TABLET PO SCH ×3 (11:45→21:07)
[2021-04-13] MEDS: LEVOFLOXACIN 750 MG TABLET PO SCH (11:45)
[2021-04-13] MEDS: EZETIMIBE 10 MG TABLET PO SCH (11:45)
[2021-04-13] MEDS: ASPIRIN CHEW 81 MG TABLET PO SCH (11:45)
[2021-04-13] MEDS: METHOCARBAMOL 750 MG TABLET PO SCH (21:06)
[2021-04-13] MEDS: TIMOLOL 0.25% OPH SOLN 5 ML BOTTLE BOTH EYES SCH (21:07)
[2021-04-13] MEDS: AMITRIPTYLINE 100 MG TABLET PO SCH (21:07)
[2021-04-14] MEDS: MIDAZOLAM 100 MG in SODIUM CHLORIDE 0.9% 80 ML IV PRN (00:49)
[2021-04-14] MEDS: methylPREDNISolone SOD SUC 40 MG/1 ML VIAL IV SCH ×3 (02:57→21:00)
[2021-04-14 03:58] LABS: Basophils % 0.2 % (0.0-0.8); Hematocrit 41.9 VOL% (35.7-47.0); Hemoglobin 13.3 GM/DL (12.0-16.0); Immature Granulocytes % 0.7 %; Immature Granulocytes Absolute 0.09 #; Lymphocytes # 0.6 10*3/uL (1.4-4.0); Lymphocytes % 4.4 % (21.3-54.2); Mean Corpuscular HGB Conc 31.7 GM/DL (32-36); Mean Corpuscular Volume 80.9 FL (87-102); Mean Platelet Volume 10.8 FL (9.6-12.0); Monocytes % 6.3 % (1.7-12.7); Neutrophils % 88.4 % (38.7-73.9); Platelet Count 228 T/CUMM (130-400); Red Blood Count 5.18 MC/CUMM (3.8-5.5); Red Cell Distribution Width 18.3 % (9.3-17.3); White Blood Count 13.3 T/CUMM (4-12)
[2021-04-14 04:02] LABS: ABG HCO3 25.3 MMOL/L (20-26); ABG Oxygen Saturation 98.9 % (95-100); ABG PH 7.487 (7.35-7.45); ABG TCO2 20.3 MMOL/L (23-27)
[2021-04-14 04:17] LABS: Osmolality,Calculated 290.3 MOS/KG (273-304); Potassium 3.5 MMOL/L (3.5-5.1)
[2021-04-14 04:18] LABS: Lymphocytes 7 % (20-55); Segmented Neutrophils 88 % (50-85); Total Cells Counted 100
[2021-04-14 04:19] LABS: Platelet Estimate Normal
[2021-04-14 04:48] LABS: Albumin 2.2 G/DL (3.4-5.0); Bilirubin,Direct 0.13 MG/DL (0.0-0.20); Bilirubin,Indirect 0.4 MG/DL (0.0-1.0); Bilirubin,Total 0.5 MG/DL (0.20-1.00); Total Protein 5.6 G/DL (6.4-8.2)
[2021-04-14] MEDS: POTASSIUM BICARB EFFERVESCENT 20 MEQ TAB.EFF PER TUBE PRN (05:06)
[2021-04-14] MEDS: LACTATED RINGERS 1,000 ML IV SCH ×3 (08:00→21:22)
[2021-04-14] MEDS: ASPIRIN CHEW 81 MG TABLET PO SCH (08:10)
[2021-04-14] MEDS: TICAGRELOR 90 MG TABLET PO SCH ×2 (08:10→21:03)
[2021-04-14] MEDS: TOPIRAMATE 100 MG TABLET PO SCH ×2 (08:10→21:03)
[2021-04-14] MEDS: CYANOCOBALAMIN 500 MCG TABLET PO SCH (08:10)
[2021-04-14] MEDS: SIMVASTATIN 40 MG TABLET PO SCH (08:10)
[2021-04-14] MEDS: LEVOFLOXACIN 750 MG TABLET PO SCH (08:10)
[2021-04-14] MEDS: PYRIDOSTIGMINE 60 MG TABLET PO SCH ×3 (08:10→21:03)
[2021-04-14] MEDS: EZETIMIBE 10 MG TABLET PO SCH (08:10)
[2021-04-14] MEDS ORDERED: METOPROLOL TARTRATE 5 MG/5 ML VIAL IV ONE ×2 (13:35→13:40)
[2021-04-14] MEDS: METOPROLOL TARTRATE 25 MG TABLET PO SCH (21:03)
[2021-04-14] MEDS: METHOCARBAMOL 750 MG TABLET PO SCH (21:03)
[2021-04-14] MEDS: TIMOLOL 0.25% OPH SOLN 5 ML BOTTLE BOTH EYES SCH (21:03)
[2021-04-14] MEDS: AMITRIPTYLINE 100 MG TABLET PO SCH (21:03)
[2021-04-14] MEDS: ONDANSETRON 4 MG/2 ML VIAL IV PRN (21:34)
[2021-04-14] MEDS: MORPHINE 2 MG/1 ML SYRINGE IV PRN (21:34)
[2021-04-15] MEDS: methylPREDNISolone SOD SUC 40 MG/1 ML VIAL IV SCH (05:45)
[2021-04-15 06:08] LABS: Basophils % 0.2 % (0.0-0.8); Hematocrit 41.4 VOL% (35.7-47.0); Hemoglobin 12.7 GM/DL (12.0-16.0); Immature Granulocytes % 0.7 %; Immature Granulocytes Absolute 0.09 #; Lymphocytes # 0.8 10*3/uL (1.4-4.0); Lymphocytes % 6.8 % (21.3-54.2); Mean Corpuscular HGB Conc 30.7 GM/DL (32-36); Mean Corpuscular Volume 81.8 FL (87-102); Mean Platelet Volume 10.5 FL (9.6-12.0); Monocytes % 10.4 % (1.7-12.7); Neutrophils % 81.9 % (38.7-73.9); Platelet Count 212 T/CUMM (130-400); Red Blood Count 5.06 MC/CUMM (3.8-5.5); Red Cell Distribution Width 18.5 % (9.3-17.3); White Blood Count 12.3 T/CUMM (4-12)
[2021-04-15 06:42] LABS: Calcium 8.1 MG/DL (8.5-10.1); Osmolality,Calculated 286.5 MOS/KG (273-304); Potassium 3.3 MMOL/L (3.5-5.1)
[2021-04-15 06:54] LABS: Alanine Aminotransferase 22 U/L (13-56); Albumin 2.2 G/DL (3.4-5.0); Alkaline Phosphatase 68 U/L (45-117); Aspartate Amino Transferase 27 U/L (0-37); Bilirubin,Direct < 0.100 MG/DL (0.0-0.20); Bilirubin,Indirect 0.3 MG/DL (0.0-1.0); Total Protein 5.3 G/DL (6.4-8.2)
[2021-04-15] MEDS ORDERED: predniSONE 20 MG TABLET PO SCH (09:00)
[2021-04-15] MEDS: METOPROLOL TARTRATE 25 MG TABLET PO SCH ×2 (09:15→21:19)
[2021-04-15] MEDS: EZETIMIBE 10 MG TABLET PO SCH (09:15)
[2021-04-15] MEDS: ASPIRIN CHEW 81 MG TABLET PO SCH (09:16)
[2021-04-15] MEDS: LEVOFLOXACIN 750 MG TABLET PO SCH (09:16)
[2021-04-15] MEDS: SIMVASTATIN 40 MG TABLET PO SCH (09:17)
[2021-04-15] MEDS: CYANOCOBALAMIN 500 MCG TABLET PO SCH (09:17)
[2021-04-15] MEDS: PANTOPRAZOLE 40 MG TABLET PO SCH ×2 (09:18→21:20)
[2021-04-15] MEDS: TOPIRAMATE 100 MG TABLET PO SCH ×2 (09:18→21:19)
[2021-04-15] MEDS: PYRIDOSTIGMINE 60 MG TABLET PO SCH ×3 (09:18→21:19)
[2021-04-15] MEDS: TICAGRELOR 90 MG TABLET PO SCH ×2 (09:18→21:20)
[2021-04-15] MEDS: POTASSIUM CHLORIDE RIDER 20 MEQ/100 ML PREMIX IV PRN (09:20)
[2021-04-15] MEDS: LACTATED RINGERS 1,000 ML IV SCH ×3 (10:10→17:04)
[2021-04-15] MEDS: ONDANSETRON 4 MG/2 ML VIAL IV PRN ×2 (11:06→22:15)
[2021-04-15] MEDS: MORPHINE 2 MG/1 ML SYRINGE IV PRN (11:45)
[2021-04-15] MEDS: ACETAMINOPHEN 325 MG TABLET PO PRN (16:29)
[2021-04-15] MEDS: AMITRIPTYLINE 100 MG TABLET PO SCH (21:19)
[2021-04-15] MEDS: POTASSIUM CHLORIDE 20 MEQ TABLET PO SCH (21:20)
[2021-04-15] MEDS: ROSUVASTATIN 20 MG TABLET PO SCH (21:20)
[2021-04-15] MEDS: METHOCARBAMOL 750 MG TABLET PO SCH (21:20)
[2021-04-15] MEDS: TIMOLOL 0.25% OPH SOLN 5 ML BOTTLE BOTH EYES SCH (22:16)
[2021-04-16] MEDS: MORPHINE 2 MG/1 ML SYRINGE IV PRN (00:20)
[2021-04-16] MEDS: LACTATED RINGERS 1,000 ML IV SCH (01:17)
[2021-04-16 01:53] LABS: Basophils % 0.1 % (0.0-0.8); Eosinophils # 0.1 10*3/uL (0.0-0.87); Eosinophils % 0.5 % (0.00-10.9); Hematocrit 43.3 VOL% (35.7-47.0); Hemoglobin 13.3 GM/DL (12.0-16.0); Immature Granulocytes % 0.6 %; Immature Granulocytes Absolute 0.07 #; Lymphocytes # 1.2 10*3/uL (1.4-4.0); Mean Corpuscular HGB Conc 30.7 GM/DL (32-36); Mean Corpuscular Volume 82.2 FL (87-102); Monocytes % 11.8 % (1.7-12.7); Platelet Count 206 T/CUMM (130-400); Red Blood Count 5.27 MC/CUMM (3.8-5.5); Red Cell Distribution Width 18.9 % (9.3-17.3); White Blood Count 11.1 T/CUMM (4-12)
[2021-04-16 02:17] LABS: Calcium 8.3 MG/DL (8.5-10.1); Osmolality,Calculated 287.4 MOS/KG (273-304); Potassium 3.2 MMOL/L (3.5-5.1)
[2021-04-16] MEDS: POTASSIUM CHLORIDE RIDER 10 MEQ/100 ML PREMIX IV PRN ×3 (04:12→08:40)
[2021-04-16] MEDS: ONDANSETRON 4 MG/2 ML VIAL IV PRN (08:40)
[2021-04-16] MEDS: PANTOPRAZOLE 40 MG TABLET PO SCH ×2 (08:41→21:48)
[2021-04-16] MEDS: CYANOCOBALAMIN 500 MCG TABLET PO SCH (08:41)
[2021-04-16] MEDS: PYRIDOSTIGMINE 60 MG TABLET PO SCH ×3 (08:41→21:47)
[2021-04-16] MEDS: TOPIRAMATE 100 MG TABLET PO SCH ×2 (08:41→21:46)
[2021-04-16] MEDS: POTASSIUM CHLORIDE 20 MEQ TABLET PO SCH ×2 (08:41→21:46)
[2021-04-16] MEDS: METOPROLOL TARTRATE 25 MG TABLET PO SCH ×2 (08:41→21:47)
[2021-04-16] MEDS: LEVOFLOXACIN 750 MG TABLET PO SCH (08:41)
[2021-04-16] MEDS: ASPIRIN CHEW 81 MG TABLET PO SCH (08:41)
[2021-04-16] MEDS: TICAGRELOR 90 MG TABLET PO SCH ×2 (08:41→21:46)
[2021-04-16] MEDS: EZETIMIBE 10 MG TABLET PO SCH (08:41)
[2021-04-16] MEDS ORDERED: predniSONE 20 MG TABLET PO SCH ×2 (09:00→21:00)
[2021-04-16] MEDS ORDERED: ALBUTEROL/IPRATROPIUM 3 ML NEB RESP TX ONE (09:08)
[2021-04-16] MEDS ORDERED: FUROSEMIDE 40 MG/4 ML VIAL IV ONE (09:54)
[2021-04-16] MEDS: METOCLOPRAMIDE 10 MG/2 ML VIAL IV PRN (10:10)
[2021-04-16] MEDS ORDERED: MORPHINE 2 MG/1 ML SYRINGE IV ONE (10:13)
[2021-04-16] MEDS: ALBUTEROL/IPRATROPIUM 3 ML NEB RESP TX SCH ×3 (10:45→19:07)
[2021-04-16] MEDS: ARFORMOTEROL 15 MCG/2 ML NEB RESP TX SCH ×2 (10:45→19:07)
[2021-04-16] MEDS: BUDESONIDE 0.5 MG/2 ML NEB RESP TX SCH ×2 (10:45→19:07)
[2021-04-16] MEDS: methylPREDNISolone SOD SUC 40 MG/1 ML VIAL IV SCH ×2 (10:56→17:44)
[2021-04-16] MEDS ORDERED: NITROGLYCERIN DRIP 50 MG/250 ML BOTTLE IV PRN (11:00)
[2021-04-16 11:41] LABS: ABG Base Excess -5.4 MMOL/L (-2.5-2.5); ABG Oxygen Saturation 99.3 % (95-100); ABG PCO2 34.1 MM HG (35-48); ABG PH 7.359 (7.35-7.45); ABG TCO2 16.7 MMOL/L (23-27)
[2021-04-16] MEDS: FUROSEMIDE 40 MG/4 ML VIAL IV SCH (17:11)
[2021-04-16] MEDS: AMITRIPTYLINE 100 MG TABLET PO SCH (21:48)
[2021-04-16] MEDS: ROSUVASTATIN 20 MG TABLET PO SCH (21:48)
[2021-04-16] MEDS: TIMOLOL 0.25% OPH SOLN 5 ML BOTTLE BOTH EYES SCH (22:16)
[2021-04-17] MEDS: methylPREDNISolone SOD SUC 40 MG/1 ML VIAL IV SCH ×5 (00:28→20:54)
[2021-04-17] MEDS: ALBUTEROL/IPRATROPIUM 3 ML NEB RESP TX SCH ×6 (01:09→20:32)
[2021-04-17] MEDS: ARFORMOTEROL 15 MCG/2 ML NEB RESP TX SCH ×2 (07:34→20:32)
[2021-04-17] MEDS: BUDESONIDE 0.5 MG/2 ML NEB RESP TX SCH ×2 (07:34→20:32)
[2021-04-17] MEDS ORDERED: POTASSIUM CHLORIDE 20 MEQ PACK PO ONE (09:37)
[2021-04-17] MEDS: FUROSEMIDE 40 MG/4 ML VIAL IV SCH ×2 (09:42→16:00)
[2021-04-17] MEDS: ASPIRIN CHEW 81 MG TABLET PO SCH (09:42)
[2021-04-17] MEDS: TOPIRAMATE 100 MG TABLET PO SCH ×2 (09:43→20:53)
[2021-04-17] MEDS: CYANOCOBALAMIN 500 MCG TABLET PO SCH (09:44)
[2021-04-17] MEDS: METOPROLOL TARTRATE 25 MG TABLET PO SCH ×3 (09:44→20:53)
[2021-04-17] MEDS: POTASSIUM CHLORIDE 20 MEQ TABLET PO SCH ×2 (09:44→20:52)
[2021-04-17] MEDS: PANTOPRAZOLE 40 MG TABLET PO SCH ×2 (09:44→20:53)
[2021-04-17] MEDS: LEVOFLOXACIN 750 MG TABLET PO SCH (09:44)
[2021-04-17] MEDS: TICAGRELOR 90 MG TABLET PO SCH ×2 (09:44→20:52)
[2021-04-17] MEDS: PYRIDOSTIGMINE 60 MG TABLET PO SCH ×3 (09:44→20:52)
[2021-04-17] MEDS: EZETIMIBE 10 MG TABLET PO SCH (09:45)
[2021-04-17] MEDS ORDERED: BISOPROLOL 5 MG TABLET PO SCH (10:00)
[2021-04-17 12:02] LABS: Basophils % 0.1 % (0.0-0.8); Hematocrit 41.7 VOL% (35.7-47.0); Hemoglobin 12.7 GM/DL (12.0-16.0); Immature Granulocytes % 0.8 %; Immature Granulocytes Absolute 0.11 #; Lymphocytes # 0.3 10*3/uL (1.4-4.0); Mean Corpuscular HGB Conc 30.5 GM/DL (32-36); Mean Corpuscular Volume 81.3 FL (87-102); Mean Platelet Volume 10.4 FL (9.6-12.0); Monocytes % 5.9 % (1.7-12.7); Neutrophils % 91.2 % (38.7-73.9); Platelet Count 235 T/CUMM (130-400); Red Blood Count 5.13 MC/CUMM (3.8-5.5); Red Cell Distribution Width 18.8 % (9.3-17.3); White Blood Count 14.7 T/CUMM (4-12)
[2021-04-17 12:33] LABS: Calcium 8.3 MG/DL (8.5-10.1); Osmolality,Calculated 286.8 MOS/KG (273-304); Potassium 3.5 MMOL/L (3.5-5.1)
[2021-04-17] MEDS: ONDANSETRON 4 MG/2 ML VIAL IV PRN (12:40)
[2021-04-17 12:44] LABS: Anisocytosis 1+; Lymphocytes 1 % (20-55); Platelet Estimate Normal; Segmented Neutrophils 91 % (50-85); Total Cells Counted 100
[2021-04-17 12:45] LABS: Burr Cells Few; Ovalocytes Few
[2021-04-17] MEDS: ROSUVASTATIN 20 MG TABLET PO SCH (20:52)
[2021-04-17] MEDS: AMITRIPTYLINE 100 MG TABLET PO SCH (21:49)
[2021-04-17] MEDS: TIMOLOL 0.25% OPH SOLN 5 ML BOTTLE BOTH EYES SCH (21:50)
[2021-04-18] MEDS: ALBUTEROL/IPRATROPIUM 3 ML NEB RESP TX SCH ×6 (00:14→20:44)
[2021-04-18] MEDS: methylPREDNISolone SOD SUC 40 MG/1 ML VIAL IV SCH ×2 (01:47→09:40)
[2021-04-18 05:50] LABS: Basophils % 0.1 % (0.0-0.8); Hematocrit 39.3 VOL% (35.7-47.0); Hemoglobin 12.3 GM/DL (12.0-16.0); Immature Granulocytes % 1.1 %; Immature Granulocytes Absolute 0.14 #; Lymphocytes # 0.2 10*3/uL (1.4-4.0); Lymphocytes % 1.8 % (21.3-54.2); Mean Corpuscular HGB Conc 31.3 GM/DL (32-36); Mean Corpuscular Volume 80.9 FL (87-102); Mean Platelet Volume 10.7 FL (9.6-12.0); Monocytes % 5.6 % (1.7-12.7); Neutrophils % 91.4 % (38.7-73.9); Platelet Count 247 T/CUMM (130-400); Red Blood Count 4.86 MC/CUMM (3.8-5.5); Red Cell Distribution Width 18.8 % (9.3-17.3); White Blood Count 12.8 T/CUMM (4-12)
[2021-04-18 06:06] LABS: Calcium 8.3 MG/DL (8.5-10.1); Osmolality,Calculated 285.7 MOS/KG (273-304); Potassium 3.7 MMOL/L (3.5-5.1)
[2021-04-18 06:14] LABS: Hypochromasia 1+; Lymphocytes 1 % (20-55); Segmented Neutrophils 95 % (50-85); Total Cells Counted 100
[2021-04-18 06:15] LABS: Microcytosis 1+; Ovalocytes Slight; Platelet Estimate Normal; Polychromasia Slight
[2021-04-18] MEDS: BUDESONIDE 0.5 MG/2 ML NEB RESP TX SCH ×2 (06:58→20:44)
[2021-04-18] MEDS: ARFORMOTEROL 15 MCG/2 ML NEB RESP TX SCH ×2 (06:58→20:43)
[2021-04-18] MEDS: CYANOCOBALAMIN 500 MCG TABLET PO SCH (09:38)
[2021-04-18] MEDS: METOPROLOL TARTRATE 25 MG TABLET PO SCH ×2 (09:39→22:00)
[2021-04-18] MEDS: ASPIRIN CHEW 81 MG TABLET PO SCH (09:39)
[2021-04-18] MEDS: POTASSIUM CHLORIDE 20 MEQ TABLET PO SCH (09:39)
[2021-04-18] MEDS: TICAGRELOR 90 MG TABLET PO SCH ×2 (09:39→22:01)
[2021-04-18] MEDS: EZETIMIBE 10 MG TABLET PO SCH (09:39)
[2021-04-18] MEDS: PYRIDOSTIGMINE 60 MG TABLET PO SCH ×3 (09:39→22:00)
[2021-04-18] MEDS: PANTOPRAZOLE 40 MG TABLET PO SCH ×2 (09:39→22:00)
[2021-04-18] MEDS: FUROSEMIDE 40 MG/4 ML VIAL IV SCH (09:42)
[2021-04-18] MEDS: TOPIRAMATE 100 MG TABLET PO SCH ×2 (09:44→22:00)
[2021-04-18] MEDS: ONDANSETRON 4 MG/2 ML VIAL IV PRN (19:33)
[2021-04-18] MEDS: ROSUVASTATIN 20 MG TABLET PO SCH (22:00)
[2021-04-18] MEDS: AMITRIPTYLINE 100 MG TABLET PO SCH (22:00)
[2021-04-18] MEDS: TIMOLOL 0.25% OPH SOLN 5 ML BOTTLE BOTH EYES SCH (23:08)
[2021-04-19] MEDS: ALBUTEROL/IPRATROPIUM 3 ML NEB RESP TX SCH ×3 (01:10→07:15)
[2021-04-19] MEDS: MORPHINE 2 MG/1 ML SYRINGE IV PRN ×3 (03:22→19:48)
[2021-04-19 07:05] LABS: Basophils % 0.1 % (0.0-0.8); Eosinophils # 0.4 10*3/uL (0.0-0.87); Eosinophils % 2.4 % (0.00-10.9); Hematocrit 40.4 VOL% (35.7-47.0); Hemoglobin 12.6 GM/DL (12.0-16.0); Immature Granulocytes % 1.6 %; Immature Granulocytes Absolute 0.24 #; Lymphocytes # 1.7 10*3/uL (1.4-4.0); Lymphocytes % 11.6 % (21.3-54.2); Mean Corpuscular HGB Conc 31.2 GM/DL (32-36); Mean Corpuscular Volume 81.8 FL (87-102); Mean Platelet Volume 10.7 FL (9.6-12.0); Monocytes % 12.3 % (1.7-12.7); Platelet Count 257 T/CUMM (130-400); Red Blood Count 4.94 MC/CUMM (3.8-5.5); White Blood Count 14.9 T/CUMM (4-12)
[2021-04-19] MEDS: ARFORMOTEROL 15 MCG/2 ML NEB RESP TX SCH ×2 (07:15→21:26)
[2021-04-19] MEDS: BUDESONIDE 0.5 MG/2 ML NEB RESP TX SCH ×2 (07:15→21:27)
[2021-04-19 07:17] LABS: Calcium 8.3 MG/DL (8.5-10.1); Osmolality,Calculated 285.4 MOS/KG (273-304)
[2021-04-19] MEDS: CYANOCOBALAMIN 500 MCG TABLET PO SCH (09:52)
[2021-04-19] MEDS: METOPROLOL TARTRATE 25 MG TABLET PO SCH ×2 (09:52→21:31)
[2021-04-19] MEDS: PANTOPRAZOLE 40 MG TABLET PO SCH ×2 (09:52→21:31)
[2021-04-19] MEDS: SPIRONOLACTONE 25 MG TABLET PO SCH (09:52)
[2021-04-19] MEDS: ASPIRIN CHEW 81 MG TABLET PO SCH (09:52)
[2021-04-19] MEDS: TOPIRAMATE 100 MG TABLET PO SCH ×2 (09:52→21:31)
[2021-04-19] MEDS: EZETIMIBE 10 MG TABLET PO SCH (09:52)
[2021-04-19] MEDS: PYRIDOSTIGMINE 60 MG TABLET PO SCH ×3 (09:53→21:31)
[2021-04-19] MEDS: FUROSEMIDE 40 MG TABLET PO SCH (09:53)
[2021-04-19] MEDS: TICAGRELOR 90 MG TABLET PO SCH ×2 (09:53→21:31)
[2021-04-19] MEDS: predniSONE 20 MG TABLET PO SCH (09:54)
[2021-04-19] MEDS ORDERED: ALBUTEROL/IPRATROPIUM 3 ML NEB RESP TX PRN (10:10)
[2021-04-19] MEDS ORDERED: DEXTROMETHORPHAN ER 6 MG/ML 90 ML/BOTTLE PO PRN (10:10)
[2021-04-19] MEDS: ONDANSETRON 4 MG/2 ML VIAL IV PRN ×2 (10:26→19:57)
[2021-04-19] MEDS ORDERED: ENOXAPARIN 60 MG/0.6 ML SYRINGE SUBCUT ONE (11:01)
[2021-04-19] MEDS: SODIUM CHLORIDE 0.9% 1,000 ML IV SCH (11:18)
[2021-04-19] MEDS: NITROGLYCERIN 2% OINT 1 INCH/GM PACK TOP SCH ×2 (11:41→17:04)
[2021-04-19] MEDS ORDERED: MORPHINE 2 MG/1 ML SYRINGE IV ONE (11:54)
[2021-04-19] MEDS ORDERED: POTASSIUM CHLORIDE 20 MEQ PACK PO ONE ×3 (14:44→18:00)
[2021-04-19] MEDS: AMITRIPTYLINE 100 MG TABLET PO SCH (21:30)
[2021-04-19] MEDS: ROSUVASTATIN 20 MG TABLET PO SCH (21:31)
[2021-04-20] MEDS ORDERED: SODIUM CHLORIDE 0.9% 1,000 ML IV SCH (00:30)
[2021-04-20 00:55] LABS: Basophils % 0.2 % (0.0-0.8); Eosinophils # 0.5 10*3/uL (0.0-0.87); Eosinophils % 4.4 % (0.00-10.9); Hematocrit 41.3 VOL% (35.7-47.0); Hemoglobin 12.7 GM/DL (12.0-16.0); Immature Granulocytes Absolute 0.11 #; Lymphocytes # 1.5 10*3/uL (1.4-4.0); Lymphocytes % 13.2 % (21.3-54.2); Mean Corpuscular HGB Conc 30.8 GM/DL (32-36); Mean Corpuscular Volume 82.6 FL (87-102); Monocytes % 13.9 % (1.7-12.7); Neutrophils % 67.3 % (38.7-73.9); Platelet Count 249 T/CUMM (130-400); Red Cell Distribution Width 18.9 % (9.3-17.3); White Blood Count 11.1 T/CUMM (4-12)
[2021-04-20] MEDS: NITROGLYCERIN 2% OINT 1 INCH/GM PACK TOP SCH ×4 (01:11→18:14)
[2021-04-20 01:12] LABS: INR 1.1; PT Patient Result 12.1 SECS (10.5-12.0); Partial Thromboplastin Time 28.1 SECS (23.9-33.8)
[2021-04-20 01:14] LABS: Albumin 2.5 G/DL (3.4-5.0); Bilirubin,Total 0.5 MG/DL (0.20-1.00); Calcium 8.1 MG/DL (8.5-10.1); Osmolality,Calculated 280.7 MOS/KG (273-304); Potassium 3.8 MMOL/L (3.5-5.1); Total Protein 5.5 G/DL (6.4-8.2)
[2021-04-20 01:16] LABS: Lactic Acid 1.2 MMOL/L (0.4-2.0)
[2021-04-20 01:16] LABS: CKMB % 26.6 %
[2021-04-20 01:40] LABS: High Sensitive Troponin I* 10674.3 ng/L (0-54)
[2021-04-20] MEDS: TIMOLOL 0.25% OPH SOLN 5 ML BOTTLE BOTH EYES SCH ×2 (02:58→22:33)
[2021-04-20 05:56] LABS: Calcium 8.1 MG/DL (8.5-10.1); Osmolality,Calculated 287.1 MOS/KG (273-304); Potassium 3.7 MMOL/L (3.5-5.1)
[2021-04-20 06:27] LABS: Basophils % 0.1 % (0.0-0.8); Eosinophils # 0.6 10*3/uL (0.0-0.87); Eosinophils % 5.1 % (0.00-10.9); Hematocrit 41.8 VOL% (35.7-47.0); Hemoglobin 12.3 GM/DL (12.0-16.0); Immature Granulocytes % 1.2 %; Immature Granulocytes Absolute 0.13 #; Lymphocytes # 1.4 10*3/uL (1.4-4.0); Lymphocytes % 12.8 % (21.3-54.2); Mean Corpuscular HGB Conc 29.4 GM/DL (32-36); Mean Corpuscular Volume 83.1 FL (87-102); Mean Platelet Volume 10.5 FL (9.6-12.0); Monocytes % 13.6 % (1.7-12.7); Neutrophils % 67.2 % (38.7-73.9); Platelet Count 243 T/CUMM (130-400); Red Blood Count 5.03 MC/CUMM (3.8-5.5); Red Cell Distribution Width 19.3 % (9.3-17.3); White Blood Count 10.9 T/CUMM (4-12)
[2021-04-20] MEDS: ARFORMOTEROL 15 MCG/2 ML NEB RESP TX SCH ×2 (07:02→19:36)
[2021-04-20] MEDS: BUDESONIDE 0.5 MG/2 ML NEB RESP TX SCH ×2 (07:02→19:36)
[2021-04-20] MEDS: TICAGRELOR 90 MG TABLET PO SCH ×2 (10:28→21:35)
[2021-04-20] MEDS: predniSONE 20 MG TABLET PO SCH (10:28)
[2021-04-20] MEDS: FUROSEMIDE 40 MG TABLET PO SCH (10:28)
[2021-04-20] MEDS: PANTOPRAZOLE 40 MG TABLET PO SCH ×2 (10:28→21:34)
[2021-04-20] MEDS: CYANOCOBALAMIN 500 MCG TABLET PO SCH (10:28)
[2021-04-20] MEDS: METOPROLOL TARTRATE 25 MG TABLET PO SCH ×2 (10:29→21:34)
[2021-04-20] MEDS: ASPIRIN CHEW 81 MG TABLET PO SCH (10:29)
[2021-04-20] MEDS: TOPIRAMATE 100 MG TABLET PO SCH ×2 (10:29→21:41)
[2021-04-20] MEDS: EZETIMIBE 10 MG TABLET PO SCH (10:29)
[2021-04-20] MEDS: SPIRONOLACTONE 25 MG TABLET PO SCH (10:29)
[2021-04-20] MEDS: PYRIDOSTIGMINE 60 MG TABLET PO SCH ×3 (10:29→21:35)
[2021-04-20] MEDS: ONDANSETRON 4 MG/2 ML VIAL IV PRN (10:30)
[2021-04-20] MEDS: RIVAROXABAN 2.5 MG TABLET PO SCH ×2 (10:44→21:41)
[2021-04-20] MEDS ORDERED: NITROGLYCERIN 2% OINT 1 INCH/GM PACK TOP ONE (11:32)
[2021-04-20] MEDS: METOCLOPRAMIDE 10 MG/2 ML VIAL IV PRN (13:02)
[2021-04-20] MEDS: ASCORBIC ACID 500 MG TABLET PO SCH ×2 (13:20→21:34)
[2021-04-20] MEDS: ACETAMINOPHEN 325 MG TABLET PO PRN (15:26)
[2021-04-20] MEDS: ROSUVASTATIN 20 MG TABLET PO SCH (21:34)
[2021-04-20] MEDS: AMITRIPTYLINE 100 MG TABLET PO SCH (21:35)
[2021-04-21] MEDS: SODIUM CHLORIDE 0.9% 1,000 ML IV SCH (03:15)
[2021-04-21] MEDS: NITROGLYCERIN 2% OINT 1 INCH/GM PACK TOP SCH ×4 (05:38→21:53)
[2021-04-21 06:00] LABS: Basophils % 0.2 % (0.0-0.8); Eosinophils # 0.3 10*3/uL (0.0-0.87); Eosinophils % 1.5 % (0.00-10.9); Hematocrit 39.4 VOL% (35.7-47.0); Hemoglobin 11.9 GM/DL (12.0-16.0); Immature Granulocytes % 1.6 %; Immature Granulocytes Absolute 0.26 #; Lymphocytes # 1.3 10*3/uL (1.4-4.0); Lymphocytes % 8.1 % (21.3-54.2); Mean Corpuscular HGB Conc 30.2 GM/DL (32-36); Mean Corpuscular Volume 82.1 FL (87-102); Mean Platelet Volume 11.1 FL (9.6-12.0); Monocytes % 12.6 % (1.7-12.7); Platelet Count 263 T/CUMM (130-400); Red Cell Distribution Width 18.8 % (9.3-17.3); White Blood Count 16.6 T/CUMM (4-12)
[2021-04-21 06:21] LABS: Calcium 8.2 MG/DL (8.5-10.1); Osmolality,Calculated 279.5 MOS/KG (273-304); Potassium 3.3 MMOL/L (3.5-5.1)
[2021-04-21 06:24] LABS: Hypochromasia 1+; Microcytosis 1+
[2021-04-21 06:25] LABS: Ovalocytes Few; Platelet Estimate Normal
[2021-04-21 06:31] LABS: High Sensitive Troponin I* 15385.6 ng/L (0-54)
[2021-04-21] MEDS: ARFORMOTEROL 15 MCG/2 ML NEB RESP TX SCH ×2 (07:05→20:23)
[2021-04-21] MEDS: BUDESONIDE 0.5 MG/2 ML NEB RESP TX SCH ×2 (07:05→20:23)
[2021-04-21] MEDS ORDERED: POTASSIUM CHLORIDE 20 MEQ TABLET PO ONE ×2 (09:00→13:28)
[2021-04-21] MEDS ORDERED: POTASSIUM CHLORIDE 20 MEQ TABLET PO SCH (09:00)
[2021-04-21] MEDS: FUROSEMIDE 40 MG TABLET PO SCH ×2 (09:07→15:04)
[2021-04-21] MEDS: CYANOCOBALAMIN 500 MCG TABLET PO SCH (09:07)
[2021-04-21] MEDS: TICAGRELOR 90 MG TABLET PO SCH ×2 (09:07→21:36)
[2021-04-21] MEDS: ASCORBIC ACID 500 MG TABLET PO SCH ×2 (09:07→21:36)
[2021-04-21] MEDS: SPIRONOLACTONE 25 MG TABLET PO SCH (09:08)
[2021-04-21] MEDS: METOPROLOL TARTRATE 25 MG TABLET PO SCH ×2 (09:08→21:36)
[2021-04-21] MEDS: EZETIMIBE 10 MG TABLET PO SCH (09:08)
[2021-04-21] MEDS: PANTOPRAZOLE 40 MG TABLET PO SCH ×2 (09:08→21:36)
[2021-04-21] MEDS: TOPIRAMATE 100 MG TABLET PO SCH ×2 (09:08→21:36)
[2021-04-21] MEDS: ASPIRIN CHEW 81 MG TABLET PO SCH (09:08)
[2021-04-21] MEDS: PYRIDOSTIGMINE 60 MG TABLET PO SCH ×3 (09:08→21:36)
[2021-04-21] MEDS: RIVAROXABAN 2.5 MG TABLET PO SCH ×2 (09:08→21:37)
[2021-04-21] MEDS: predniSONE 20 MG TABLET PO SCH (09:36)
[2021-04-21] MEDS: ACETAMINOPHEN 325 MG TABLET PO PRN ×2 (11:32→23:50)
[2021-04-21] MEDS: cefTRIAXone 1,000 MG in SODIUM CHLORIDE 0.9% 100 ML IV SCH (11:39)
[2021-04-21] MEDS: ONDANSETRON 4 MG/2 ML VIAL IV PRN ×2 (13:09→23:49)
[2021-04-21] MEDS: AMITRIPTYLINE 100 MG TABLET PO SCH (21:36)
[2021-04-21] MEDS: ROSUVASTATIN 20 MG TABLET PO SCH (21:36)
[2021-04-21] MEDS: TIMOLOL 0.25% OPH SOLN 5 ML BOTTLE BOTH EYES SCH (22:15)
[2021-04-22 06:50] LABS: Basophils % 0.2 % (0.0-0.8); Eosinophils # 0.5 10*3/uL (0.0-0.87); Eosinophils % 2.7 % (0.00-10.9); Hematocrit 39.6 VOL% (35.7-47.0); Hemoglobin 12.1 GM/DL (12.0-16.0); Immature Granulocytes % 2.3 %; Lymphocytes % 11.3 % (21.3-54.2); Mean Corpuscular HGB Conc 30.6 GM/DL (32-36); Mean Corpuscular Volume 81.1 FL (87-102); Mean Platelet Volume 10.7 FL (9.6-12.0); Monocytes % 11.1 % (1.7-12.7); Neutrophils % 72.4 % (38.7-73.9); Platelet Count 287 T/CUMM (130-400); Red Blood Count 4.88 MC/CUMM (3.8-5.5); Red Cell Distribution Width 18.9 % (9.3-17.3); White Blood Count 17.3 T/CUMM (4-12)
[2021-04-22 07:12] LABS: Calcium 8.2 MG/DL (8.5-10.1); Osmolality,Calculated 282.3 MOS/KG (273-304); Potassium 3.2 MMOL/L (3.5-5.1)
[2021-04-22] MEDS ORDERED: POTASSIUM CHLORIDE RIDER 10 MEQ/100 ML PREMIX IV PRN (07:43)
[2021-04-22] MEDS ORDERED: FUROSEMIDE 40 MG/4 ML VIAL IV ONE ×2 (07:45→07:47)
[2021-04-22] MEDS: BUDESONIDE 0.5 MG/2 ML NEB RESP TX SCH ×2 (07:50→20:05)
[2021-04-22] MEDS: ARFORMOTEROL 15 MCG/2 ML NEB RESP TX SCH ×2 (07:50→20:05)
[2021-04-22 07:58] LABS: Vitamin B12 > 2000 PG/ML (211-911)
[2021-04-22] MEDS ORDERED: AZITHROMYCIN INJ 500 MG in SODIUM CHLORIDE 0.9% 250 ML IV SCH (09:00)
[2021-04-22] MEDS ORDERED: POTASSIUM CHLORIDE 20 MEQ TABLET PO SCH (09:00)
[2021-04-22] MEDS: CYANOCOBALAMIN 500 MCG TABLET PO SCH (10:03)
[2021-04-22] MEDS: EZETIMIBE 10 MG TABLET PO SCH (10:11)
[2021-04-22] MEDS: POTASSIUM CHLORIDE 20 MEQ TABLET PO SCH ×2 (10:11→21:31)
[2021-04-22] MEDS: METOPROLOL TARTRATE 25 MG TABLET PO SCH ×2 (10:11→21:31)
[2021-04-22] MEDS: ASPIRIN CHEW 81 MG TABLET PO SCH (10:11)
[2021-04-22] MEDS: ASCORBIC ACID 500 MG TABLET PO SCH ×2 (10:12→21:42)
[2021-04-22] MEDS: TICAGRELOR 90 MG TABLET PO SCH ×2 (10:12→21:32)
[2021-04-22] MEDS: ISOSORBIDE MONONITRATE 30 MG TABLET PO SCH (10:12)
[2021-04-22] MEDS: predniSONE 20 MG TABLET PO SCH (10:12)
[2021-04-22] MEDS: TOPIRAMATE 100 MG TABLET PO SCH ×2 (10:13→21:31)
[2021-04-22] MEDS: RIVAROXABAN 2.5 MG TABLET PO SCH ×2 (10:13→21:31)
[2021-04-22] MEDS: PANTOPRAZOLE 40 MG TABLET PO SCH ×2 (10:19→11:39)
[2021-04-22] MEDS: PYRIDOSTIGMINE 60 MG TABLET PO SCH ×3 (10:19→21:32)
[2021-04-22] MEDS: SPIRONOLACTONE 25 MG TABLET PO SCH (10:19)
[2021-04-22] MEDS: CHOLECALCIFEROL 400 UNIT TABLET PO SCH ×2 (10:29→21:31)
[2021-04-22] MEDS: DESITIN 4OZ/NYSTATIN 15 GRAM MIXTURE PASTE TOP SCH (12:30)
[2021-04-22 13:36] LABS: Bilirubin,Urine Negative (Negative); Blood, Urine Negative (Negative); Glucose,Urine (UA) Negative (Negative); Hyaline Casts,Urine 4 /LPF (0-3); Ketones,Urine Negative (Negative); Mucus,Urine Occasional /LPF (Occasional); Nitrite,Urine Negative (Negative); Protein,Urine Negative; RBC,Urine 2 /HPF (0-4); Urine Appearance CLEAR (Clear); Urine Color Straw (Yellow); Urine Specific Gravity 1.006 (1.001-1.035); Urine Urobilinogen < 2.0 EU/DL (0.2-1.0)
[2021-04-22] MEDS ORDERED: CEFEPIME 1,000 MG VIAL IM SCH (14:30)
[2021-04-22] MEDS: cefTRIAXone 1,000 MG in SODIUM CHLORIDE 0.9% 100 ML IV SCH (14:39)
[2021-04-22] MEDS ORDERED: CEFEPIME 1,000 MG VIAL IV SCH (14:58)
[2021-04-22] MEDS: VANCOMYCIN INJ 1,000 MG in SODIUM CHLORIDE 0.9% 250 ML IV SCH (15:23)
[2021-04-22] MEDS: CEFEPIME 1,000 MG in SODIUM CHLORIDE 0.9% 100 ML IV SCH ×2 (16:35→23:37)
[2021-04-22] MEDS: FUROSEMIDE 40 MG/4 ML VIAL IV SCH (16:39)
[2021-04-22] MEDS: ONDANSETRON 4 MG/2 ML VIAL IV PRN ×2 (16:41→23:37)
[2021-04-22] MEDS: AMITRIPTYLINE 100 MG TABLET PO SCH (21:30)
[2021-04-22] MEDS: ROSUVASTATIN 20 MG TABLET PO SCH (21:31)
[2021-04-23] MEDS: DESITIN 4OZ/NYSTATIN 15 GRAM MIXTURE PASTE TOP SCH ×3 (00:06→22:08)
[2021-04-23] MEDS: TIMOLOL 0.25% OPH SOLN 5 ML BOTTLE BOTH EYES SCH (00:06)
[2021-04-23 05:51] LABS: Basophils # 0.1 10*3/uL (0.0-0.2); Basophils % 0.3 % (0.0-0.8); Eosinophils # 0.3 10*3/uL (0.0-0.87); Eosinophils % 1.7 % (0.00-10.9); Hematocrit 39.5 VOL% (35.7-47.0); Hemoglobin 11.9 GM/DL (12.0-16.0); Immature Granulocytes % 2.5 %; Immature Granulocytes Absolute 0.41 #; Lymphocytes # 1.9 10*3/uL (1.4-4.0); Lymphocytes % 11.8 % (21.3-54.2); Mean Corpuscular HGB Conc 30.1 GM/DL (32-36); Mean Corpuscular Volume 83.2 FL (87-102); Mean Platelet Volume 10.9 FL (9.6-12.0); Monocytes % 10.2 % (1.7-12.7); Neutrophils % 73.5 % (38.7-73.9); Platelet Count 321 T/CUMM (130-400); Red Blood Count 4.75 MC/CUMM (3.8-5.5); Red Cell Distribution Width 19.3 % (9.3-17.3); White Blood Count 16.3 T/CUMM (4-12)
[2021-04-23 06:05] LABS: Calcium 8.4 MG/DL (8.5-10.1); Osmolality,Calculated 273.8 MOS/KG (273-304); Potassium 3.6 MMOL/L (3.5-5.1)
[2021-04-23 06:23] LABS: Albumin 2.4 G/DL (3.4-5.0); Bilirubin,Total 0.5 MG/DL (0.20-1.00); Calcium 8.4 MG/DL (8.5-10.1); Osmolality,Calculated 273.8 MOS/KG (273-304); Potassium 3.6 MMOL/L (3.5-5.1)
[2021-04-23] MEDS: CEFEPIME 1,000 MG in SODIUM CHLORIDE 0.9% 100 ML IV SCH ×2 (06:50→17:36)
[2021-04-23 07:07] LABS: Eosinophils 3 % (0-10); Hypochromasia 1+; Lymphocytes 12 % (20-55); Microcytosis 1+; Platelet Estimate Adequate; Segmented Neutrophils 78 % (50-85); Total Cells Counted 100
[2021-04-23] MEDS: BUDESONIDE 0.5 MG/2 ML NEB RESP TX SCH ×2 (07:37→19:50)
[2021-04-23] MEDS: ARFORMOTEROL 15 MCG/2 ML NEB RESP TX SCH ×2 (07:37→19:40)
[2021-04-23] MEDS: METOPROLOL TARTRATE 25 MG TABLET PO SCH ×2 (09:47→21:56)
[2021-04-23] MEDS: RIVAROXABAN 2.5 MG TABLET PO SCH ×2 (09:47→21:57)
[2021-04-23] MEDS: ISOSORBIDE MONONITRATE 30 MG TABLET PO SCH (09:47)
[2021-04-23] MEDS: TOPIRAMATE 100 MG TABLET PO SCH ×2 (09:47→21:57)
[2021-04-23] MEDS: ASPIRIN CHEW 81 MG TABLET PO SCH (09:48)
[2021-04-23] MEDS: POTASSIUM CHLORIDE 20 MEQ TABLET PO SCH (09:48)
[2021-04-23] MEDS: EZETIMIBE 10 MG TABLET PO SCH (09:48)
[2021-04-23] MEDS: CHOLECALCIFEROL 400 UNIT TABLET PO SCH ×2 (09:48→21:57)
[2021-04-23] MEDS: ASCORBIC ACID 500 MG TABLET PO SCH ×2 (09:49→21:57)
[2021-04-23] MEDS: CYANOCOBALAMIN 500 MCG TABLET PO SCH (09:50)
[2021-04-23] MEDS: TICAGRELOR 90 MG TABLET PO SCH ×2 (09:52→21:56)
[2021-04-23] MEDS: SPIRONOLACTONE 50 MG TABLET PO SCH (09:52)
[2021-04-23] MEDS: PYRIDOSTIGMINE 60 MG TABLET PO SCH ×3 (09:52→21:57)
[2021-04-23] MEDS: PANTOPRAZOLE 40 MG TABLET PO SCH (09:52)
[2021-04-23] MEDS: predniSONE 20 MG TABLET PO SCH (09:55)
[2021-04-23] MEDS: VANCOMYCIN INJ 1,000 MG in SODIUM CHLORIDE 0.9% 250 ML IV SCH (09:57)
[2021-04-23] MEDS: FUROSEMIDE 40 MG/4 ML VIAL IV SCH ×2 (09:57→17:40)
[2021-04-23] MEDS: ROSUVASTATIN 20 MG TABLET PO SCH (21:57)
[2021-04-23] MEDS: AMITRIPTYLINE 100 MG TABLET PO SCH (21:57)
[2021-04-24] MEDS: CEFEPIME 1,000 MG in SODIUM CHLORIDE 0.9% 100 ML IV SCH ×3 (00:16→14:00)
[2021-04-24 04:59] LABS: Basophils % 0.2 % (0.0-0.8); Eosinophils # 0.2 10*3/uL (0.0-0.87); Eosinophils % 1.5 % (0.00-10.9); Hematocrit 36.3 VOL% (35.7-47.0); Hemoglobin 11.1 GM/DL (12.0-16.0); Immature Granulocytes % 3.3 %; Immature Granulocytes Absolute 0.52 #; Lymphocytes % 12.8 % (21.3-54.2); Mean Corpuscular HGB Conc 30.6 GM/DL (32-36); Mean Corpuscular Volume 81.4 FL (87-102); Mean Platelet Volume 10.2 FL (9.6-12.0); Monocytes % 11.6 % (1.7-12.7); Neutrophils % 70.6 % (38.7-73.9); Platelet Count 313 T/CUMM (130-400); Red Blood Count 4.46 MC/CUMM (3.8-5.5); Red Cell Distribution Width 19.1 % (9.3-17.3); White Blood Count 15.8 T/CUMM (4-12)
[2021-04-24 05:19] LABS: Albumin 2.4 G/DL (3.4-5.0); Bilirubin,Total 0.5 MG/DL (0.20-1.00); Calcium 8.5 MG/DL (8.5-10.1); Osmolality,Calculated 276.7 MOS/KG (273-304); Potassium 3.1 MMOL/L (3.5-5.1); Total Protein 6.1 G/DL (6.4-8.2)
[2021-04-24 05:22] LABS: Eosinophils 1 % (0-10); Hypochromasia 1+; Lymphocytes 16 % (20-55); Microcytosis 1+; Platelet Estimate Adequate; Segmented Neutrophils 81 % (50-85); Total Cells Counted 100
[2021-04-24] MEDS: ARFORMOTEROL 15 MCG/2 ML NEB RESP TX SCH ×2 (07:23→20:05)
[2021-04-24] MEDS: BUDESONIDE 0.5 MG/2 ML NEB RESP TX SCH ×2 (07:23→20:05)
[2021-04-24] MEDS: DESITIN 4OZ/NYSTATIN 15 GRAM MIXTURE PASTE TOP SCH ×2 (09:04→21:40)
[2021-04-24] MEDS: VANCOMYCIN INJ 1,000 MG in SODIUM CHLORIDE 0.9% 250 ML IV SCH (09:05)
[2021-04-24] MEDS: predniSONE 20 MG TABLET PO SCH (09:16)
[2021-04-24] MEDS: ISOSORBIDE MONONITRATE 30 MG TABLET PO SCH (09:17)
[2021-04-24] MEDS: POTASSIUM CHLORIDE 20 MEQ TABLET PO SCH (09:17)
[2021-04-24] MEDS: TICAGRELOR 90 MG TABLET PO SCH ×2 (09:17→21:30)
[2021-04-24] MEDS: CHOLECALCIFEROL 400 UNIT TABLET PO SCH ×2 (09:17→21:30)
[2021-04-24] MEDS: ASCORBIC ACID 500 MG TABLET PO SCH ×2 (09:18→21:30)
[2021-04-24] MEDS: RIVAROXABAN 2.5 MG TABLET PO SCH ×2 (09:19→21:30)
[2021-04-24] MEDS: ASPIRIN CHEW 81 MG TABLET PO SCH (09:19)
[2021-04-24] MEDS: TOPIRAMATE 100 MG TABLET PO SCH ×2 (09:19→21:30)
[2021-04-24] MEDS: METOPROLOL TARTRATE 25 MG TABLET PO SCH ×2 (09:19→21:30)
[2021-04-24] MEDS: PYRIDOSTIGMINE 60 MG TABLET PO SCH ×3 (09:20→21:30)
[2021-04-24] MEDS: CYANOCOBALAMIN 500 MCG TABLET PO SCH (09:20)
[2021-04-24] MEDS: SPIRONOLACTONE 50 MG TABLET PO SCH (09:21)
[2021-04-24] MEDS: EZETIMIBE 10 MG TABLET PO SCH (09:21)
[2021-04-24] MEDS: PANTOPRAZOLE 40 MG TABLET PO SCH (09:21)
[2021-04-24] MEDS: FUROSEMIDE 40 MG/4 ML VIAL IV SCH (09:24)
[2021-04-24] MEDS ORDERED: POTASSIUM CHLORIDE 20 MEQ TABLET PO ONE (10:28)
[2021-04-24] MEDS: ONDANSETRON 4 MG/2 ML VIAL IV PRN (15:30)
[2021-04-24] MEDS: ROSUVASTATIN 20 MG TABLET PO SCH (21:30)
[2021-04-24] MEDS: AMITRIPTYLINE 100 MG TABLET PO SCH (21:30)
[2021-04-25] MEDS: ONDANSETRON 4 MG/2 ML VIAL IV PRN ×3 (00:47→11:17)
[2021-04-25] MEDS: CEFEPIME 1,000 MG in SODIUM CHLORIDE 0.9% 100 ML IV SCH ×2 (00:50→06:59)
[2021-04-25 05:08] LABS: Basophils # 0.1 10*3/uL (0.0-0.2); Basophils % 0.4 % (0.0-0.8); Eosinophils # 0.3 10*3/uL (0.0-0.87); Eosinophils % 1.5 % (0.00-10.9); Hemoglobin 11.8 GM/DL (12.0-16.0); Immature Granulocytes % 3.4 %; Immature Granulocytes Absolute 0.57 #; Lymphocytes % 11.6 % (21.3-54.2); Mean Corpuscular HGB Conc 30.3 GM/DL (32-36); Mean Corpuscular Volume 82.6 FL (87-102); Mean Platelet Volume 10.5 FL (9.6-12.0); Monocytes % 10.6 % (1.7-12.7); Neutrophils % 72.5 % (38.7-73.9); Platelet Count 352 T/CUMM (130-400); Red Blood Count 4.72 MC/CUMM (3.8-5.5); Red Cell Distribution Width 19.1 % (9.3-17.3); White Blood Count 16.8 T/CUMM (4-12)
[2021-04-25 05:34] LABS: Albumin 2.5 G/DL (3.4-5.0); Bilirubin,Total 0.5 MG/DL (0.20-1.00); Calcium 8.8 MG/DL (8.5-10.1); Osmolality,Calculated 283.3 MOS/KG (273-304); Total Protein 6.3 G/DL (6.4-8.2)
[2021-04-25 05:40] LABS: Eosinophils 4 % (0-10); Hypochromasia Slight; Lymphocytes 7 % (20-55); Microcytosis Slight; Ovalocytes Slight; Platelet Estimate Adequate; Segmented Neutrophils 81 % (50-85); Total Cells Counted 100
[2021-04-25] MEDS: ARFORMOTEROL 15 MCG/2 ML NEB RESP TX SCH (07:16)
[2021-04-25] MEDS: BUDESONIDE 0.5 MG/2 ML NEB RESP TX SCH (07:16)
[2021-04-25] MEDS: TIMOLOL 0.25% OPH SOLN 5 ML BOTTLE BOTH EYES SCH (07:45)
[2021-04-25] MEDS ORDERED: DAPAGLIFLOZIN 10 MG TABLET PO SCH (09:00)
[2021-04-25] MEDS ORDERED: FUROSEMIDE 40 MG/4 ML VIAL IV SCH (09:30)
[2021-04-25] MEDS: CYANOCOBALAMIN 500 MCG TABLET PO SCH (10:02)
[2021-04-25] MEDS: EZETIMIBE 10 MG TABLET PO SCH (10:04)
[2021-04-25] MEDS: ASCORBIC ACID 500 MG TABLET PO SCH (10:04)
[2021-04-25] MEDS: PANTOPRAZOLE 40 MG TABLET PO SCH (10:06)
[2021-04-25] MEDS: SPIRONOLACTONE 50 MG TABLET PO SCH (10:06)
[2021-04-25] MEDS: ISOSORBIDE MONONITRATE 30 MG TABLET PO SCH (10:07)
[2021-04-25] MEDS: ASPIRIN CHEW 81 MG TABLET PO SCH (10:07)
[2021-04-25] MEDS: TICAGRELOR 90 MG TABLET PO SCH (10:08)
[2021-04-25] MEDS: RIVAROXABAN 2.5 MG TABLET PO SCH (10:08)
[2021-04-25] MEDS: PYRIDOSTIGMINE 60 MG TABLET PO SCH (10:08)
[2021-04-25] MEDS: METOPROLOL TARTRATE 25 MG TABLET PO SCH (10:09)
[2021-04-25] MEDS: CHOLECALCIFEROL 400 UNIT TABLET PO SCH (10:10)
[2021-04-25] MEDS: TOPIRAMATE 100 MG TABLET PO SCH (10:10)
[2021-04-25] MEDS: DESITIN 4OZ/NYSTATIN 15 GRAM MIXTURE PASTE TOP SCH (10:11)
[2021-04-25] MEDS: POTASSIUM CHLORIDE 20 MEQ TABLET PO SCH (10:14)
[2021-04-25] MEDS ORDERED: LACTOBACILLUS ACIDOPHILUS/BULGARICUS CHEW TABLET PO SCH (10:30)
[2021-04-25] MEDS: VANCOMYCIN INJ 1,000 MG in SODIUM CHLORIDE 0.9% 250 ML IV SCH (11:04)
[2021-04-25 11:37] VITALS: BP 99/60
[2021-04-25] MEDS: NYSTATIN 500,000 UNIT/5 ML UDCUP SWISH/SWAL SCH ×2 (11:49→15:46)
== END 2021-04-25 13:50 | DRG 246 ==
LOC: EDUNIT# → EDBD → N.ED 04:10 → N.ICU 05:08 → N.EDINP 05:46 → N.ICU 05:47 → N.TELES 04-15 14:00 → N.ICU 04-16 10:30 → N.TELEN 04-16 18:45
PROVIDERS: ADMIT Internal Medicine Cardiovascular Disease; ATTEND Internal Medicine Cardiovascular Disease
PROC: CLCCHCL (ICD-10-PCS; 2021-04-10 05:30)

== ENCOUNTER 2021-06-05 22:03 | Inpatient (IN) ==
[2021-06-05] MEDS ORDERED: SODIUM CHLORIDE 0.9% 1,000 ML IV STA (22:45)
[2021-06-05] MEDS ORDERED: NOREPINEPHRINE 4 MG/4 ML VIAL IV ONE (23:18)
[2021-06-05] MEDS ORDERED: SUCCINYLCHOLINE 200 MG/10 ML VIAL ONE (23:20)
[2021-06-05 23:21] LABS: ABG Base Excess -25.8 MMOL/L (-2.5-2.5); ABG HCO3 7.5 MMOL/L (20-26); ABG TCO2 3.7 MMOL/L (23-27); Allen Test Positive
[2021-06-05 23:22] LABS: ABG PCO2 13.4 MM HG (35-48); ABG PH 7.087 (7.35-7.45)
[2021-06-05] MEDS: NOREPINEPHRINE 8 MG in SODIUM CHLORIDE 0.9% 242 ML IV PRN (23:23)
[2021-06-05] MEDS ORDERED: VECURONIUM 10 MG VIAL IV STA (23:33)
[2021-06-05] MEDS ORDERED: NOREPINEPHRINE 16 MG in SODIUM CHLORIDE 0.9% 234 ML IV PRN (23:33)
[2021-06-05] MEDS ORDERED: ETOMIDATE 20 MG/10 ML VIAL IV STA (23:33)
[2021-06-05] MEDS ORDERED: PIPERACILLIN/TAZOBACTAM 3,375 MG in SODIUM CHLORIDE 0.9% 100 ML IV STA (23:33)
[2021-06-05] MEDS ORDERED: SODIUM BICARBONATE 50 MEQ/50 ML VIAL IV STA (23:38)
[2021-06-05] MEDS ORDERED: SUCCINYLCHOLINE 200 MG/10 ML VIAL IV STA (23:53)
[2021-06-06] MEDS ORDERED: LORazepam 2 MG/1 ML VIAL ONE (00:13)
[2021-06-06] MEDS ORDERED: LORazepam 2 MG/1 ML VIAL IV STA (00:15)
[2021-06-06] MEDS ORDERED: SODIUM CHLORIDE 0.9% 1,000 ML IV STA (00:30)
[2021-06-06 00:31] LABS: Alanine Aminotransferase 18 U/L (13-56); Albumin 2.4 G/DL (3.4-5.0); Alkaline Phosphatase 132 U/L (45-117); Aspartate Amino Transferase 30 U/L (0-37); Bilirubin,Total < 0.39 MG/DL (0.20-1.00); Blood Urea Nitrogen 43 MG/DL (7-18); Carbon Dioxide 9 MMOL/L (21-32); Estimated Glom Filtration Rate 16 ML/MIN; Glucose 166 MG/DL (74-106); Osmolality,Calculated 326.9 MOS/KG (273-304); Potassium 4.1 MMOL/L (3.5-5.1); Sodium 158 MMOL/L (136-145); Total Protein 5.4 G/DL (6.4-8.2)
[2021-06-06 00:48] LABS: Basophils # 0.1 10*3/uL (0.0-0.2); Basophils % 0.4 % (0.0-0.8); Eosinophils % 0.2 % (0.00-10.9); Hematocrit 42.1 VOL% (35.7-47.0); Hemoglobin 12.2 GM/DL (12.0-16.0); Immature Granulocytes % 2.2 %; Immature Granulocytes Absolute 0.59 #; Lymphocytes # 1.9 10*3/uL (1.4-4.0); Lymphocytes % 7.3 % (21.3-54.2); Mean Corpuscular Volume 90.1 FL (87-102); Mean Platelet Volume 11.5 FL (9.6-12.0); Monocytes % 5.4 % (1.7-12.7); NRBC # 0.06 10*3/uL; Neutrophils % 84.5 % (38.7-73.9); Platelet Count 200 T/CUMM (130-400); Red Blood Count 4.67 MC/CUMM (3.8-5.5); Red Cell Distribution Width 21.2 % (9.3-17.3); White Blood Count 26.4 T/CUMM (4-12)
[2021-06-06] MEDS ORDERED: VANCOMYCIN INJ 1,000 MG in SODIUM CHLORIDE 0.9% 250 ML IV STA (01:09)
[2021-06-06 01:45] LABS: ABG Base Excess -16.5 MMOL/L (-2.5-2.5); ABG Oxygen Saturation 99.9 % (95-100); ABG PH 7.264 (7.35-7.45); ABG TCO2 8.5 MMOL/L (23-27); Allen Test Positive; Pt O2 Delivery Device Ventilator
[2021-06-06 01:46] LABS: ABG PCO2 20.5 MM HG (35-48)
[2021-06-06] MEDS ORDERED: SODIUM BICARBONATE 50 MEQ/50 ML VIAL IV STA (02:03)
[2021-06-06] MEDS ORDERED: ALBUTEROL 2.5 MG/3 ML NEB RESP TX PRN (02:22)
[2021-06-06 02:38] LABS: Bacteria,Urine Few /HPF (Few); Bilirubin,Urine Negative (Negative); Blood, Urine Large mg/dL (Negative); Glucose,Urine (UA) 50 mg/dL (Negative); Granular Casts,Urine 148 /LPF (0-1); Hyaline Casts,Urine 212 /LPF (0-3); Ketones,Urine Negative (Negative); Mucus,Urine Many /LPF (Occasional); Nitrite,Urine Negative (Negative); Protein,Urine 100 MG/DL; RBC,Urine 168 /HPF (0-4); Squamous Epithelial Cell,Urine Few /HPF (0-10); Urine Appearance CLOUDY (Clear); Urine Color Amber (Yellow); Urine Specific Gravity 1.015 (1.001-1.035); Urine Urobilinogen < 2.0 EU/DL (0.2-1.0)
[2021-06-06] MEDS ORDERED: SODIUM BICARB INJ 150 MEQ in DEXTROSE 5% 850 ML IV SCH (03:00)
[2021-06-06 03:12] LABS: Band Neutrophils 1 % (0-10); Lymphocytes 9 % (20-55); Segmented Neutrophils 87 % (50-85); Total Cells Counted 100
[2021-06-06 03:14] LABS: Atypical Lymphocytes Few; Hypochromasia Slight; Ovalocytes 1+; Platelet Estimate Normal; Reactive Lymphocytes 1+
[2021-06-06 04:50] LABS: Allen Test Positive; Pt O2 Delivery Device Ventilator
[2021-06-06 04:51] LABS: ABG Base Excess -14.4 MMOL/L (-2.5-2.5); ABG HCO3 13.6 MMOL/L (20-26); ABG Oxygen Saturation 99.7 % (95-100); ABG PCO2 21.6 MM HG (35-48); ABG PH 7.301 (7.35-7.45); ABG TCO2 9.6 MMOL/L (23-27)
[2021-06-06 05:22] LABS: Albumin 2.4 G/DL (3.4-5.0); Bilirubin,Total 0.6 MG/DL (0.20-1.00); Calcium 8.7 MG/DL (8.5-10.1); Osmolality,Calculated 328.5 MOS/KG (273-304); Potassium 3.4 MMOL/L (3.5-5.1); Total Protein 5.2 G/DL (6.4-8.2)
[2021-06-06] MEDS ORDERED: PHENYLEPHRINE DRIP 40 MG/250 ML PREMIX IV ONE (07:32)
[2021-06-06] MEDS ORDERED: PHENYLEPHRINE DRIP 40 MG/250 ML PREMIX IV PRN (07:36)
[2021-06-06] MEDS: NOREPINEPHRINE 8 MG in SODIUM CHLORIDE 0.9% 242 ML IV PRN ×4 (07:40→21:31)
[2021-06-06] MEDS ORDERED: ENOXAPARIN 30 MG/0.3 ML SYRINGE SUBCUT SCH (09:00)
[2021-06-06] MEDS ORDERED: ISOSORBIDE MONONITRATE 30 MG TABLET PO SCH (09:00)
[2021-06-06] MEDS ORDERED: NOREPINEPHRINE 4 MG/4 ML VIAL IV ONE (09:34)
[2021-06-06] MEDS: EZETIMIBE 10 MG TABLET PO SCH (10:10)
[2021-06-06] MEDS: CALCIUM (CARBONATE) 500 MG TABLET PO SCH (10:10)
[2021-06-06] MEDS: NYSTATIN POWDER 15 GM BOTTLE TOP SCH ×2 (10:11→20:09)
[2021-06-06] MEDS: PIPERACILLIN/TAZOBACTAM 3,375 MG in SODIUM CHLORIDE 0.9% 100 ML IV SCH (10:23)
[2021-06-06] MEDS: SODIUM BICARB INJ 150 MEQ in DEXTROSE 5% 1,000 ML IV SCH ×3 (14:17→22:05)
[2021-06-06] MEDS: PYRIDOSTIGMINE 60 MG TABLET PO SCH ×3 (14:24→20:09)
[2021-06-06] MEDS: TICAGRELOR 90 MG TABLET PO SCH ×2 (14:24→20:09)
[2021-06-06] MEDS: ASPIRIN CHEW 81 MG TABLET PO SCH (14:24)
[2021-06-06] MEDS: TOPIRAMATE 100 MG TABLET PO SCH ×2 (14:25→20:09)
[2021-06-06 16:11] LABS: Hematocrit 34.7 VOL% (35.7-47.0); Hemoglobin 10.8 GM/DL (12.0-16.0)
[2021-06-06 16:35] LABS: ABG Base Excess -3.3 MMOL/L (-2.5-2.5); ABG HCO3 21.7 MMOL/L (20-26); ABG Oxygen Saturation 99.6 % (95-100); ABG PCO2 23.1 MM HG (35-48); ABG PH 7.507 (7.35-7.45); ABG TCO2 16.3 MMOL/L (23-27); Allen Test Positive; Pt O2 Delivery Device Ventilator
[2021-06-06] MEDS: MORPHINE 2 MG/1 ML SYRINGE IV PRN (17:11)
[2021-06-06 18:05] LABS: Calcium 7.9 MG/DL (8.5-10.1); Osmolality,Calculated 315.9 MOS/KG (273-304)
[2021-06-06 18:08] LABS: Potassium 2.2 MMOL/L (3.5-5.1)
[2021-06-06] MEDS: POTASSIUM CHLORIDE RIDER 20 MEQ/100 ML PREMIX IV SCH ×5 (18:39→22:45)
[2021-06-06] MEDS: TIMOLOL 0.25% OPH SOLN 5 ML BOTTLE BOTH EYES SCH ×2 (20:09→21:37)
[2021-06-06] MEDS: ATORVASTATIN 40 MG TABLET PO SCH (20:09)
[2021-06-07] MEDS: SODIUM BICARB INJ 150 MEQ in DEXTROSE 5% 1,000 ML IV SCH ×3 (00:51→09:07)
[2021-06-07] MEDS: PIPERACILLIN/TAZOBACTAM 3,375 MG in SODIUM CHLORIDE 0.9% 100 ML IV SCH ×2 (01:15→15:53)
[2021-06-07] MEDS: NOREPINEPHRINE 8 MG in SODIUM CHLORIDE 0.9% 242 ML IV PRN ×3 (03:25→21:37)
[2021-06-07 04:20] LABS: ABG Base Excess 0.8 MMOL/L (-2.5-2.5); ABG HCO3 23.2 MMOL/L (20-26); ABG Oxygen Saturation 98.6 % (95-100); ABG PCO2 29.3 MM HG (35-48); ABG PH 7.516 (7.35-7.45); ABG PO2 202.4 MM HG (80-95); ABG TCO2 24.1 MMOL/L (23-27); Allen Test Positive; Pt O2 Delivery Device Ventilator
[2021-06-07 05:07] LABS: Basophils # 0.1 10*3/uL (0.0-0.2); Basophils % 0.2 % (0.0-0.8); Eosinophils # 0.2 10*3/uL (0.0-0.87); Eosinophils % 0.6 % (0.00-10.9); Hematocrit 29.7 VOL% (35.7-47.0); Hemoglobin 9.5 GM/DL (12.0-16.0); Immature Granulocytes % 1.4 %; Immature Granulocytes Absolute 0.46 #; Lymphocytes # 2.2 10*3/uL (1.4-4.0); Lymphocytes % 6.6 % (21.3-54.2); Mean Corpuscular Volume 82.5 FL (87-102); Mean Platelet Volume 12.1 FL (9.6-12.0); Monocytes % 3.6 % (1.7-12.7); NRBC # 0.14 10*3/uL; Neutrophils % 87.6 % (38.7-73.9); Platelet Count 139 T/CUMM (130-400); Red Cell Distribution Width 20.8 % (9.3-17.3)
[2021-06-07 05:26] LABS: Band Neutrophils 1 % (0-10); Eosinophils 1 % (0-10); Hypochromasia 1+; Lymphocytes 4 % (20-55); Microcytosis 1+; Platelet Estimate Normal; Segmented Neutrophils 92 % (50-85); Total Cells Counted 100
[2021-06-07 05:30] LABS: Albumin 1.6 G/DL (3.4-5.0); Bilirubin,Total 0.4 MG/DL (0.20-1.00); Calcium 7.2 MG/DL (8.5-10.1); Osmolality,Calculated 305.4 MOS/KG (273-304); Potassium 3.3 MMOL/L (3.5-5.1); Total Protein 4.1 G/DL (6.4-8.2)
[2021-06-07] MEDS: MORPHINE 2 MG/1 ML SYRINGE IV PRN ×3 (09:29→23:02)
[2021-06-07] MEDS: HYDROCORTISONE 100 MG VIAL IV SCH ×2 (09:29→20:11)
[2021-06-07] MEDS: TICAGRELOR 90 MG TABLET PO SCH ×2 (09:30→20:11)
[2021-06-07] MEDS: TOPIRAMATE 100 MG TABLET PO SCH ×2 (09:30→20:12)
[2021-06-07] MEDS: CALCIUM (CARBONATE) 500 MG TABLET PO SCH (09:30)
[2021-06-07] MEDS: ASPIRIN CHEW 81 MG TABLET PO SCH (09:30)
[2021-06-07] MEDS: POTASSIUM CHLORIDE 20 MEQ TABLET PO PRN ×3 (09:30→15:55)
[2021-06-07] MEDS: PYRIDOSTIGMINE 60 MG TABLET PO SCH ×3 (09:30→20:12)
[2021-06-07] MEDS: NYSTATIN POWDER 15 GM BOTTLE TOP SCH ×2 (09:30→20:12)
[2021-06-07] MEDS: EZETIMIBE 10 MG TABLET PO SCH (09:30)
[2021-06-07] MEDS ORDERED: DEXTROSE 50% 25 GM/50 ML VIAL IV PRN (10:58)
[2021-06-07] MEDS ORDERED: GLUCAGON 1 MG VIAL IM PRN (10:58)
[2021-06-07] MEDS: DEXT 5% NACL 0.45% KCL 20 MEQ 20 MEQ/1,000 ML BAG IV SCH ×3 (11:59→21:28)
[2021-06-07] MEDS ORDERED: INSULIN ASPART PROTAMINE/ASPART 70/30 100 UNIT/ML SUBCUT SCH (12:00)
[2021-06-07] MEDS ORDERED: INSULIN REGULAR 100 UNIT/ML SUBCUT SCH (12:00)
[2021-06-07] MEDS: PANTOPRAZOLE 40 MG VIAL IV SCH (12:01)
[2021-06-07] MEDS: AMIODARONE 200 MG TABLET PO SCH ×2 (12:01→20:12)
[2021-06-07] MEDS: INSULIN LISPRO 100 UNIT/ML SUBCUT SCH ×2 (12:01→18:38)
[2021-06-07] MEDS ORDERED: SODIUM CHLORIDE 0.9% 1,000 ML IV ONE (15:06)
[2021-06-07] MEDS ORDERED: hydrALAZINE 20 MG/1 ML VIAL ONE (18:23)
[2021-06-07] MEDS: TIMOLOL 0.25% OPH SOLN 5 ML BOTTLE BOTH EYES SCH (20:12)
[2021-06-07] MEDS: ATORVASTATIN 40 MG TABLET PO SCH (20:12)
[2021-06-07] MEDS: DESITIN 4OZ/NYSTATIN 15 GRAM MIXTURE PASTE TOP SCH (20:12)
[2021-06-08] MEDS: INSULIN LISPRO 100 UNIT/ML SUBCUT SCH ×4 (00:20→17:55)
[2021-06-08] MEDS: DEXT 5% NACL 0.45% KCL 20 MEQ 20 MEQ/1,000 ML BAG IV SCH ×3 (01:38→17:25)
[2021-06-08] MEDS: PIPERACILLIN/TAZOBACTAM 3,375 MG in SODIUM CHLORIDE 0.9% 100 ML IV SCH (03:00)
[2021-06-08] MEDS: HYDROCORTISONE 100 MG VIAL IV SCH ×3 (03:01→21:24)
[2021-06-08] MEDS: MORPHINE 2 MG/1 ML SYRINGE IV PRN (03:03)
[2021-06-08 04:31] LABS: ABG Base Excess 0.8 MMOL/L (-2.5-2.5); ABG HCO3 25.2 MMOL/L (20-26); ABG Oxygen Saturation 99.8 % (95-100); ABG PCO2 36.8 MM HG (35-48); ABG PH 7.437 (7.35-7.45); ABG TCO2 22.9 MMOL/L (23-27)
[2021-06-08 04:34] LABS: Basophils # 0.1 10*3/uL (0.0-0.2); Basophils % 0.2 % (0.0-0.8); Hematocrit 28.7 VOL% (35.7-47.0); Hemoglobin 8.7 GM/DL (12.0-16.0); Immature Granulocytes % 3.6 %; Immature Granulocytes Absolute 1.34 #; Lymphocytes # 0.5 10*3/uL (1.4-4.0); Lymphocytes % 1.3 % (21.3-54.2); Mean Corpuscular HGB Conc 30.3 GM/DL (32-36); Mean Corpuscular Volume 85.4 FL (87-102); Mean Platelet Volume 11.8 FL (9.6-12.0); Monocytes % 2.6 % (1.7-12.7); NRBC # 0.04 10*3/uL; Neutrophils % 92.3 % (38.7-73.9); Platelet Count 120 T/CUMM (130-400); Red Blood Count 3.36 MC/CUMM (3.8-5.5); Red Cell Distribution Width 20.9 % (9.3-17.3); White Blood Count 37.2 T/CUMM (4-12)
[2021-06-08 04:53] LABS: Alanine Aminotransferase 39 U/L (13-56); Albumin 1.4 G/DL (3.4-5.0); Alkaline Phosphatase 129 U/L (45-117); Aspartate Amino Transferase 42 U/L (0-37); Bilirubin,Total < 0.39 MG/DL (0.20-1.00); Blood Urea Nitrogen 26 MG/DL (7-18); Calcium 6.6 MG/DL (8.5-10.1); Carbon Dioxide 27 MMOL/L (21-32); Estimated Glom Filtration Rate 31 ML/MIN; Glucose 197 MG/DL (74-106); Osmolality,Calculated 292.1 MOS/KG (273-304); Potassium 4.3 MMOL/L (3.5-5.1); Sodium 142 MMOL/L (136-145)
[2021-06-08 04:55] LABS: Eosinophils 1 % (0-10); Lymphocytes 3 % (20-55); Nucleated Red Blood Cells 1 (0-5); Platelet Estimate Normal; Segmented Neutrophils 94 % (50-85); Total Cells Counted 100
[2021-06-08 04:56] LABS: Hypochromasia 1+; Microcytosis 1+
[2021-06-08] MEDS ORDERED: MAGNESIUM SULF RIDER 2 GM/50 ML PREMIX IV ONE (08:00)
[2021-06-08] MEDS: EZETIMIBE 10 MG TABLET PO SCH (08:50)
[2021-06-08] MEDS: TOPIRAMATE 100 MG TABLET PO SCH ×2 (08:50→21:27)
[2021-06-08] MEDS: TICAGRELOR 90 MG TABLET PO SCH ×2 (08:50→21:27)
[2021-06-08] MEDS: PYRIDOSTIGMINE 60 MG TABLET PO SCH ×3 (08:50→21:26)
[2021-06-08] MEDS: AMIODARONE 200 MG TABLET PO SCH ×2 (08:50→21:27)
[2021-06-08] MEDS: ASPIRIN CHEW 81 MG TABLET PO SCH (08:50)
[2021-06-08] MEDS: CALCIUM (CARBONATE) 500 MG TABLET PO SCH (08:50)
[2021-06-08] MEDS: PANTOPRAZOLE 40 MG VIAL IV SCH (08:50)
[2021-06-08] MEDS ORDERED: POTASSIUM PHOSPHATE 20 MMOL in SODIUM CHLORIDE 0.9% 250 ML IV ONE (10:00)
[2021-06-08] MEDS: NYSTATIN POWDER 15 GM BOTTLE TOP SCH ×2 (13:15→21:35)
[2021-06-08] MEDS: DESITIN 4OZ/NYSTATIN 15 GRAM MIXTURE PASTE TOP SCH ×2 (13:15→21:37)
[2021-06-08] MEDS: MEROPENEM 500 MG in SODIUM CHLORIDE 0.9% 100 ML IV SCH ×2 (14:15→18:20)
[2021-06-08] MEDS: ENOXAPARIN 40 MG/0.4 ML SYRINGE SUBCUT SCH (15:15)
[2021-06-08] MEDS: NOREPINEPHRINE 8 MG in SODIUM CHLORIDE 0.9% 242 ML IV PRN (17:50)
[2021-06-08] MEDS: ATORVASTATIN 40 MG TABLET PO SCH (21:26)
[2021-06-08] MEDS: TIMOLOL 0.25% OPH SOLN 5 ML BOTTLE BOTH EYES SCH (21:38)
[2021-06-09] MEDS: INSULIN LISPRO 100 UNIT/ML SUBCUT SCH ×4 (00:24→18:49)
[2021-06-09] MEDS: MEROPENEM 500 MG in SODIUM CHLORIDE 0.9% 100 ML IV SCH ×4 (00:25→21:23)
[2021-06-09] MEDS: MORPHINE 2 MG/1 ML SYRINGE IV PRN ×2 (03:34→10:25)
[2021-06-09 04:16] LABS: ABG HCO3 22.7 MMOL/L (20-26); ABG Oxygen Saturation 99.6 % (95-100); ABG PCO2 32.1 MM HG (35-48); ABG PH 7.437 (7.35-7.45); ABG TCO2 20.1 MMOL/L (23-27)
[2021-06-09] MEDS: HYDROCORTISONE 100 MG VIAL IV SCH ×3 (06:00→21:25)
[2021-06-09] MEDS: DEXT 5% NACL 0.45% KCL 20 MEQ 20 MEQ/1,000 ML BAG IV SCH ×2 (06:17→19:40)
[2021-06-09 06:18] LABS: Alanine Aminotransferase 25 U/L (13-56); Albumin 1.3 G/DL (3.4-5.0); Alkaline Phosphatase 122 U/L (45-117); Aspartate Amino Transferase 23 U/L (0-37); Bilirubin,Total < 0.39 MG/DL (0.20-1.00); Blood Urea Nitrogen 23 MG/DL (7-18); Calcium 6.7 MG/DL (8.5-10.1); Carbon Dioxide 24 MMOL/L (21-32); Estimated Glom Filtration Rate 38 ML/MIN; Glucose 133 MG/DL (74-106); Potassium 4.5 MMOL/L (3.5-5.1); Sodium 143 MMOL/L (136-145)
[2021-06-09 06:50] LABS: PT Patient Result 11.1 SECS (10.5-12.0)
[2021-06-09 06:54] LABS: Basophils % 0.1 % (0.0-0.8); Hematocrit 26.4 VOL% (35.7-47.0); Immature Granulocytes % 1.8 %; Immature Granulocytes Absolute 0.53 #; Lymphocytes # 0.5 10*3/uL (1.4-4.0); Lymphocytes % 1.8 % (21.3-54.2); Mean Corpuscular HGB Conc 30.3 GM/DL (32-36); Mean Corpuscular Volume 86.3 FL (87-102); NRBC # 0.04 10*3/uL; Neutrophils % 93.3 % (38.7-73.9); Platelet Count 126 T/CUMM (130-400); Red Blood Count 3.06 MC/CUMM (3.8-5.5); Red Cell Distribution Width 21.1 % (9.3-17.3); White Blood Count 28.7 T/CUMM (4-12)
[2021-06-09 06:57] LABS: Hypochromasia 1+; Lymphocytes 1 % (20-55); Microcytosis 1+; Platelet Estimate Normal; Segmented Neutrophils 97 % (50-85); Total Cells Counted 100
[2021-06-09] MEDS: AMIODARONE 200 MG TABLET PO SCH ×2 (09:20→21:24)
[2021-06-09] MEDS: CALCIUM (CARBONATE) 500 MG TABLET PO SCH (09:20)
[2021-06-09] MEDS: TOPIRAMATE 100 MG TABLET PO SCH ×2 (09:20→21:25)
[2021-06-09] MEDS: TICAGRELOR 90 MG TABLET PO SCH ×2 (09:20→21:24)
[2021-06-09] MEDS: PYRIDOSTIGMINE 60 MG TABLET PO SCH ×3 (09:20→21:24)
[2021-06-09] MEDS: ASPIRIN CHEW 81 MG TABLET PO SCH (09:20)
[2021-06-09] MEDS: PANTOPRAZOLE 40 MG VIAL IV SCH (09:20)
[2021-06-09] MEDS: EZETIMIBE 10 MG TABLET PO SCH (09:20)
[2021-06-09] MEDS: DESITIN 4OZ/NYSTATIN 15 GRAM MIXTURE PASTE TOP SCH ×2 (15:10→21:27)
[2021-06-09] MEDS: NYSTATIN POWDER 15 GM BOTTLE TOP SCH ×2 (15:10→21:25)
[2021-06-09] MEDS: ENOXAPARIN 40 MG/0.4 ML SYRINGE SUBCUT SCH (15:30)
[2021-06-09] MEDS: ATORVASTATIN 40 MG TABLET PO SCH (21:24)
[2021-06-09] MEDS: TIMOLOL 0.25% OPH SOLN 5 ML BOTTLE BOTH EYES SCH (21:25)
[2021-06-10] MEDS: INSULIN LISPRO 100 UNIT/ML SUBCUT SCH ×4 (00:40→18:46)
[2021-06-10] MEDS: MEROPENEM 500 MG in SODIUM CHLORIDE 0.9% 100 ML IV SCH ×4 (02:45→18:38)
[2021-06-10 04:11] LABS: ABG Base Excess -3.8 MMOL/L (-2.5-2.5); ABG HCO3 19.5 MMOL/L (20-26); ABG Oxygen Saturation 98.7 % (95-100); ABG PCO2 28.6 MM HG (35-48); ABG PH 7.452 (7.35-7.45); ABG TCO2 20.4 MMOL/L (23-27)
[2021-06-10] MEDS: HYDROCORTISONE 100 MG VIAL IV SCH ×3 (05:22→21:46)
[2021-06-10 05:26] LABS: Basophils % 0.1 % (0.0-0.8); Hematocrit 27.1 VOL% (35.7-47.0); Immature Granulocytes % 1.6 %; Immature Granulocytes Absolute 0.34 #; Lymphocytes # 0.4 10*3/uL (1.4-4.0); Lymphocytes % 2.1 % (21.3-54.2); Mean Corpuscular HGB Conc 29.5 GM/DL (32-36); Mean Corpuscular Volume 88.3 FL (87-102); Mean Platelet Volume 11.8 FL (9.6-12.0); Monocytes % 3.7 % (1.7-12.7); NRBC # 0.02 10*3/uL; Neutrophils % 92.5 % (38.7-73.9); Platelet Count 149 T/CUMM (130-400); Red Blood Count 3.07 MC/CUMM (3.8-5.5); Red Cell Distribution Width 20.9 % (9.3-17.3); White Blood Count 20.9 T/CUMM (4-12)
[2021-06-10 05:47] LABS: Band Neutrophils 1 % (0-10); Hypochromasia 1+; Lymphocytes 1 % (20-55); Microcytosis 1+; Platelet Estimate Adequate; Segmented Neutrophils 94 % (50-85); Total Cells Counted 100
[2021-06-10 05:54] LABS: Albumin 1.4 G/DL (3.4-5.0); Bilirubin,Total 0.4 MG/DL (0.20-1.00); Calcium 7.1 MG/DL (8.5-10.1); Osmolality,Calculated 292.8 MOS/KG (273-304); Potassium 4.6 MMOL/L (3.5-5.1); Total Protein 4.2 G/DL (6.4-8.2)
[2021-06-10] MEDS: ASPIRIN CHEW 81 MG TABLET PO SCH (08:32)
[2021-06-10] MEDS: EZETIMIBE 10 MG TABLET PO SCH (08:32)
[2021-06-10] MEDS: PYRIDOSTIGMINE 60 MG TABLET PO SCH ×3 (08:32→21:49)
[2021-06-10] MEDS: TOPIRAMATE 100 MG TABLET PO SCH ×2 (08:32→21:49)
[2021-06-10] MEDS: TICAGRELOR 90 MG TABLET PO SCH ×2 (08:33→21:49)
[2021-06-10] MEDS: CALCIUM (CARBONATE) 500 MG TABLET PO SCH (08:33)
[2021-06-10] MEDS: AMIODARONE 200 MG TABLET PO SCH ×2 (08:33→21:49)
[2021-06-10] MEDS: PANTOPRAZOLE 40 MG VIAL IV SCH (08:34)
[2021-06-10] MEDS: DEXT 5% NACL 0.45% KCL 20 MEQ 20 MEQ/1,000 ML BAG IV SCH (08:34)
[2021-06-10] MEDS: NYSTATIN POWDER 15 GM BOTTLE TOP SCH ×2 (08:35→21:50)
[2021-06-10] MEDS: DESITIN 4OZ/NYSTATIN 15 GRAM MIXTURE PASTE TOP SCH ×2 (08:35→21:50)
[2021-06-10] MEDS: ENOXAPARIN 60 MG/0.6 ML SYRINGE SUBCUT SCH (21:46)
[2021-06-10] MEDS: ATORVASTATIN 40 MG TABLET PO SCH (21:49)
[2021-06-10] MEDS: TIMOLOL 0.25% OPH SOLN 5 ML BOTTLE BOTH EYES SCH (21:50)
[2021-06-11] MEDS: MEROPENEM 500 MG in SODIUM CHLORIDE 0.9% 100 ML IV SCH ×4 (00:21→18:32)
[2021-06-11] MEDS: INSULIN LISPRO 100 UNIT/ML SUBCUT SCH ×4 (00:22→17:59)
[2021-06-11 03:20] LABS: ABG Base Excess -3.4 MMOL/L (-2.5-2.5); ABG HCO3 21.6 MMOL/L (20-26); ABG Oxygen Saturation 99.5 % (95-100); ABG PCO2 27.8 MM HG (35-48); ABG PH 7.457 (7.35-7.45); ABG TCO2 18.2 MMOL/L (23-27)
[2021-06-11 04:41] LABS: Basophils % 0.1 % (0.0-0.8); Eosinophils # 0.1 10*3/uL (0.0-0.87); Eosinophils % 0.4 % (0.00-10.9); Hematocrit 26.1 VOL% (35.7-47.0); Hemoglobin 7.8 GM/DL (12.0-16.0); Immature Granulocytes % 2.5 %; Immature Granulocytes Absolute 0.37 #; Lymphocytes # 1.7 10*3/uL (1.4-4.0); Lymphocytes % 11.5 % (21.3-54.2); Mean Corpuscular HGB Conc 29.9 GM/DL (32-36); Mean Corpuscular Volume 86.4 FL (87-102); Mean Platelet Volume 11.9 FL (9.6-12.0); Monocytes % 10.7 % (1.7-12.7); Neutrophils % 74.8 % (38.7-73.9); Platelet Count 150 T/CUMM (130-400); Red Blood Count 3.02 MC/CUMM (3.8-5.5); Red Cell Distribution Width 20.7 % (9.3-17.3)
[2021-06-11 05:00] LABS: Calcium 7.4 MG/DL (8.5-10.1); Osmolality,Calculated 294.7 MOS/KG (273-304); Potassium 3.6 MMOL/L (3.5-5.1)
[2021-06-11] MEDS: HYDROCORTISONE 100 MG VIAL IV SCH ×3 (05:48→21:02)
[2021-06-11] MEDS: ENOXAPARIN 60 MG/0.6 ML SYRINGE SUBCUT SCH ×2 (08:45→21:03)
[2021-06-11] MEDS: EZETIMIBE 10 MG TABLET PO SCH (08:46)
[2021-06-11] MEDS: TICAGRELOR 90 MG TABLET PO SCH ×2 (08:46→21:03)
[2021-06-11] MEDS: ASPIRIN EC 81 MG TABLET PO SCH (08:46)
[2021-06-11] MEDS: CALCIUM (CARBONATE) 500 MG TABLET PO SCH (08:46)
[2021-06-11] MEDS: PANTOPRAZOLE 40 MG VIAL IV SCH (08:46)
[2021-06-11] MEDS: PYRIDOSTIGMINE 60 MG TABLET PO SCH ×3 (08:47→21:03)
[2021-06-11] MEDS: AMIODARONE 200 MG TABLET PO SCH ×2 (08:47→21:04)
[2021-06-11] MEDS: TOPIRAMATE 100 MG TABLET PO SCH ×2 (08:47→21:03)
[2021-06-11] MEDS: NYSTATIN POWDER 15 GM BOTTLE TOP SCH ×2 (08:48→21:04)
[2021-06-11] MEDS: DESITIN 4OZ/NYSTATIN 15 GRAM MIXTURE PASTE TOP SCH ×2 (08:48→21:04)
[2021-06-11] MEDS: POTASSIUM CHLORIDE 20 MEQ TABLET PO PRN ×2 (09:21→15:37)
[2021-06-11] MEDS: ONDANSETRON 4 MG/2 ML VIAL IV PRN (18:32)
[2021-06-11] MEDS: ATORVASTATIN 40 MG TABLET PO SCH (21:03)
[2021-06-11] MEDS: TIMOLOL 0.25% OPH SOLN 5 ML BOTTLE BOTH EYES SCH (21:05)
[2021-06-12] MEDS: INSULIN LISPRO 100 UNIT/ML SUBCUT SCH ×4 (00:33→18:02)
[2021-06-12] MEDS: ONDANSETRON 4 MG/2 ML VIAL IV PRN ×3 (00:36→21:14)
[2021-06-12] MEDS: MEROPENEM 500 MG in SODIUM CHLORIDE 0.9% 100 ML IV SCH ×4 (01:38→18:11)
[2021-06-12 04:05] LABS: ABG Base Excess -5.3 MMOL/L (-2.5-2.5); ABG HCO3 17.7 MMOL/L (20-26); ABG Oxygen Saturation 98.2 % (95-100); ABG PCO2 25.7 MM HG (35-48); ABG PH 7.457 (7.35-7.45); ABG PO2 120.1 MM HG (80-95); ABG TCO2 18.5 MMOL/L (23-27)
[2021-06-12 04:07] LABS: Calcium 7.4 MG/DL (8.5-10.1); Osmolality,Calculated 293.8 MOS/KG (273-304); Potassium 3.6 MMOL/L (3.5-5.1)
[2021-06-12 04:22] LABS: Basophils % 0.1 % (0.0-0.8); Eosinophils % 0.1 % (0.00-10.9); Hematocrit 25.2 VOL% (35.7-47.0); Hemoglobin 7.7 GM/DL (12.0-16.0); Immature Granulocytes Absolute 0.42 #; Lymphocytes # 0.8 10*3/uL (1.4-4.0); Lymphocytes % 5.7 % (21.3-54.2); Mean Corpuscular HGB Conc 30.6 GM/DL (32-36); Mean Corpuscular Volume 85.4 FL (87-102); Mean Platelet Volume 12.6 FL (9.6-12.0); Monocytes % 10.5 % (1.7-12.7); NRBC # 0.02 10*3/uL; Neutrophils % 80.6 % (38.7-73.9); Platelet Count 189 T/CUMM (130-400); Red Blood Count 2.95 MC/CUMM (3.8-5.5); Red Cell Distribution Width 20.7 % (9.3-17.3); White Blood Count 14.1 T/CUMM (4-12)
[2021-06-12] MEDS: HYDROCORTISONE 100 MG VIAL IV SCH ×3 (04:55→21:14)
[2021-06-12] MEDS: PYRIDOSTIGMINE 60 MG TABLET PO SCH ×3 (09:02→21:16)
[2021-06-12] MEDS: TOPIRAMATE 100 MG TABLET PO SCH ×2 (09:02→21:15)
[2021-06-12] MEDS: AMIODARONE 200 MG TABLET PO SCH ×2 (09:02→21:15)
[2021-06-12] MEDS: CALCIUM (CARBONATE) 500 MG TABLET PO SCH (09:02)
[2021-06-12] MEDS: EZETIMIBE 10 MG TABLET PO SCH (09:03)
[2021-06-12] MEDS: ASPIRIN EC 81 MG TABLET PO SCH (09:03)
[2021-06-12] MEDS: POTASSIUM CHLORIDE 20 MEQ TABLET PO PRN (09:03)
[2021-06-12] MEDS: TICAGRELOR 90 MG TABLET PO SCH ×2 (09:03→21:15)
[2021-06-12] MEDS: NYSTATIN POWDER 15 GM BOTTLE TOP SCH ×2 (09:04→21:17)
[2021-06-12] MEDS: DESITIN 4OZ/NYSTATIN 15 GRAM MIXTURE PASTE TOP SCH ×2 (09:04→21:17)
[2021-06-12] MEDS: PANTOPRAZOLE 40 MG VIAL IV SCH (09:04)
[2021-06-12] MEDS: ENOXAPARIN 60 MG/0.6 ML SYRINGE SUBCUT SCH ×2 (09:04→21:14)
[2021-06-12] MEDS ORDERED: SODIUM CHLORIDE 0.9% 1,000 ML IV PRN (10:12)
[2021-06-12] MEDS: ACETAMINOPHEN 325 MG TABLET PO PRN (21:16)
[2021-06-12] MEDS: ATORVASTATIN 40 MG TABLET PO SCH (21:16)
[2021-06-12] MEDS: TIMOLOL 0.25% OPH SOLN 5 ML BOTTLE BOTH EYES SCH (21:17)
[2021-06-13] MEDS ORDERED: SODIUM CHLORIDE 0.9% 100 ML IV ONE (00:11)
[2021-06-13] MEDS: INSULIN LISPRO 100 UNIT/ML SUBCUT SCH ×5 (00:46→21:33)
[2021-06-13] MEDS: ONDANSETRON 4 MG/2 ML VIAL IV PRN ×4 (00:47→20:54)
[2021-06-13] MEDS: MEROPENEM 500 MG in SODIUM CHLORIDE 0.9% 100 ML IV SCH ×4 (00:47→20:55)
[2021-06-13 04:06] LABS: Basophils % 0.1 % (0.0-0.8); Eosinophils % 0.2 % (0.00-10.9); Hematocrit 34.4 VOL% (35.7-47.0); Hemoglobin 10.4 GM/DL (12.0-16.0); Immature Granulocytes % 5.2 %; Immature Granulocytes Absolute 0.66 #; Lymphocytes # 0.8 10*3/uL (1.4-4.0); Lymphocytes % 6.4 % (21.3-54.2); Mean Corpuscular HGB Conc 30.2 GM/DL (32-36); Mean Corpuscular Volume 85.1 FL (87-102); Mean Platelet Volume 11.8 FL (9.6-12.0); Monocytes % 10.8 % (1.7-12.7); Neutrophils % 77.3 % (38.7-73.9); Platelet Count 221 T/CUMM (130-400); Red Blood Count 4.04 MC/CUMM (3.8-5.5); White Blood Count 12.7 T/CUMM (4-12)
[2021-06-13 04:27] LABS: Calcium 7.3 MG/DL (8.5-10.1); Potassium 3.3 MMOL/L (3.5-5.1)
[2021-06-13] MEDS: HYDROCORTISONE 100 MG VIAL IV SCH ×3 (04:40→20:54)
[2021-06-13 04:42] LABS: Lymphocytes 6 % (20-55); Platelet Estimate Adequate; Segmented Neutrophils 85 % (50-85); Total Cells Counted 100
[2021-06-13 04:43] LABS: Hypochromasia 1+; Microcytosis 1+
[2021-06-13 04:48] LABS: ABG HCO3 20.3 MMOL/L (20-26); ABG PCO2 23.8 MM HG (35-48); ABG PH 7.468 (7.35-7.45); ABG TCO2 15.5 MMOL/L (23-27)
[2021-06-13] MEDS: POTASSIUM CHLORIDE 20 MEQ TABLET PO PRN (05:53)
[2021-06-13] MEDS ORDERED: MAGNESIUM SULF RIDER 2 GM/50 ML PREMIX IV ONE (06:58)
[2021-06-13] MEDS ORDERED: POTASSIUM CHLORIDE 20 MEQ TABLET PO ONE (06:58)
[2021-06-13] MEDS: PANTOPRAZOLE 40 MG VIAL IV SCH (08:50)
[2021-06-13] MEDS: TOPIRAMATE 100 MG TABLET PO SCH ×2 (08:50→20:55)
[2021-06-13] MEDS: EZETIMIBE 10 MG TABLET PO SCH (08:50)
[2021-06-13] MEDS: PYRIDOSTIGMINE 60 MG TABLET PO SCH ×3 (08:50→20:54)
[2021-06-13] MEDS: AMIODARONE 200 MG TABLET PO SCH ×2 (08:50→20:55)
[2021-06-13] MEDS: ASPIRIN EC 81 MG TABLET PO SCH (08:50)
[2021-06-13] MEDS: CALCIUM (CARBONATE) 500 MG TABLET PO SCH (08:50)
[2021-06-13] MEDS: ENOXAPARIN 60 MG/0.6 ML SYRINGE SUBCUT SCH ×2 (08:50→20:54)
[2021-06-13] MEDS: POTASSIUM CHLORIDE 20 MEQ PACK NG SCH ×3 (08:50→16:00)
[2021-06-13] MEDS: TICAGRELOR 90 MG TABLET PO SCH ×2 (08:50→20:54)
[2021-06-13] MEDS: NYSTATIN POWDER 15 GM BOTTLE TOP SCH ×2 (11:40→20:55)
[2021-06-13] MEDS: DESITIN 4OZ/NYSTATIN 15 GRAM MIXTURE PASTE TOP SCH ×2 (11:40→20:56)
[2021-06-13] MEDS: TIMOLOL 0.25% OPH SOLN 5 ML BOTTLE BOTH EYES SCH (20:54)
[2021-06-13] MEDS: ATORVASTATIN 40 MG TABLET PO SCH (20:55)
[2021-06-14] MEDS: MEROPENEM 500 MG in SODIUM CHLORIDE 0.9% 100 ML IV SCH ×4 (01:38→18:20)
[2021-06-14 04:46] LABS: Basophils % 0.2 % (0.0-0.8); Eosinophils % 0.1 % (0.00-10.9); Hematocrit 33.9 VOL% (35.7-47.0); Hemoglobin 10.4 GM/DL (12.0-16.0); Immature Granulocytes % 3.5 %; Immature Granulocytes Absolute 0.46 #; Lymphocytes # 0.8 10*3/uL (1.4-4.0); Lymphocytes % 5.9 % (21.3-54.2); Mean Corpuscular HGB Conc 30.7 GM/DL (32-36); Mean Corpuscular Volume 85.4 FL (87-102); Mean Platelet Volume 11.7 FL (9.6-12.0); Monocytes % 7.6 % (1.7-12.7); Neutrophils % 82.7 % (38.7-73.9); Platelet Count 270 T/CUMM (130-400); Red Blood Count 3.97 MC/CUMM (3.8-5.5); Red Cell Distribution Width 19.6 % (9.3-17.3); White Blood Count 13.1 T/CUMM (4-12)
[2021-06-14 05:10] LABS: Calcium 7.6 MG/DL (8.5-10.1); Osmolality,Calculated 292.8 MOS/KG (273-304); Potassium 3.6 MMOL/L (3.5-5.1)
[2021-06-14 05:12] LABS: High Sensitive Troponin I* 324.3 ng/L (0-54)
[2021-06-14] MEDS: HYDROCORTISONE 100 MG VIAL IV SCH (05:39)
[2021-06-14] MEDS: POTASSIUM BICARB EFFERVESCENT 20 MEQ TAB.EFF PO PRN ×2 (06:28→08:50)
[2021-06-14] MEDS: INSULIN LISPRO 100 UNIT/ML SUBCUT SCH ×4 (07:50→22:55)
[2021-06-14] MEDS: ENOXAPARIN 60 MG/0.6 ML SYRINGE SUBCUT SCH ×2 (08:45→22:53)
[2021-06-14] MEDS: AMIODARONE 200 MG TABLET PO SCH ×2 (08:50→22:52)
[2021-06-14] MEDS: TOPIRAMATE 100 MG TABLET PO SCH ×2 (08:50→22:52)
[2021-06-14] MEDS: PANTOPRAZOLE 40 MG TABLET PO SCH (08:50)
[2021-06-14] MEDS: CALCIUM (CARBONATE) 500 MG TABLET PO SCH (08:50)
[2021-06-14] MEDS: ASPIRIN EC 81 MG TABLET PO SCH (08:50)
[2021-06-14] MEDS: TICAGRELOR 90 MG TABLET PO SCH ×2 (08:50→22:52)
[2021-06-14] MEDS: EZETIMIBE 10 MG TABLET PO SCH (08:50)
[2021-06-14] MEDS: PYRIDOSTIGMINE 60 MG TABLET PO SCH ×3 (08:50→22:52)
[2021-06-14] MEDS: predniSONE 10 MG TABLET PO SCH (08:50)
[2021-06-14] MEDS: ACETAMINOPHEN 325 MG TABLET PO PRN (10:35)
[2021-06-14] MEDS: DESITIN 4OZ/NYSTATIN 15 GRAM MIXTURE PASTE TOP SCH ×2 (13:35→22:53)
[2021-06-14] MEDS: NYSTATIN POWDER 15 GM BOTTLE TOP SCH ×2 (13:35→22:53)
[2021-06-14] MEDS: ATORVASTATIN 40 MG TABLET PO SCH (22:52)
[2021-06-14] MEDS: TIMOLOL 0.25% OPH SOLN 5 ML BOTTLE BOTH EYES SCH (22:54)
[2021-06-15] MEDS: TICAGRELOR 90 MG TABLET PO SCH ×3 (00:47→22:31)
[2021-06-15] MEDS: AMIODARONE 200 MG TABLET PO SCH ×3 (01:02→22:30)
[2021-06-15] MEDS: PYRIDOSTIGMINE 60 MG TABLET PO SCH ×4 (01:03→22:31)
[2021-06-15] MEDS: TOPIRAMATE 100 MG TABLET PO SCH ×3 (01:03→22:31)
[2021-06-15] MEDS: MEROPENEM 500 MG in SODIUM CHLORIDE 0.9% 100 ML IV SCH ×4 (02:03→22:31)
[2021-06-15 05:57] LABS: Calcium 7.7 MG/DL (8.5-10.1); Osmolality,Calculated 294.6 MOS/KG (273-304); Potassium 3.1 MMOL/L (3.5-5.1)
[2021-06-15] MEDS: INSULIN LISPRO 100 UNIT/ML SUBCUT SCH ×4 (08:46→22:33)
[2021-06-15 09:14] LABS: Basophils % 0.3 % (0.0-0.8); Eosinophils # 0.5 10*3/uL (0.0-0.87); Eosinophils % 3.3 % (0.00-10.9); Hematocrit 38.5 VOL% (35.7-47.0); Hemoglobin 11.6 GM/DL (12.0-16.0); Immature Granulocytes % 2.6 %; Immature Granulocytes Absolute 0.38 #; Lymphocytes # 3.1 10*3/uL (1.4-4.0); Lymphocytes % 21.3 % (21.3-54.2); Mean Corpuscular HGB Conc 30.1 GM/DL (32-36); Mean Corpuscular Volume 87.9 FL (87-102); Mean Platelet Volume 11.7 FL (9.6-12.0); Monocytes % 12.5 % (1.7-12.7); Platelet Count 347 T/CUMM (130-400); Red Blood Count 4.38 MC/CUMM (3.8-5.5); White Blood Count 14.5 T/CUMM (4-12)
[2021-06-15] MEDS: PANTOPRAZOLE 40 MG TABLET PO SCH (09:32)
[2021-06-15] MEDS: predniSONE 10 MG TABLET PO SCH (09:32)
[2021-06-15] MEDS: POTASSIUM CHLORIDE 20 MEQ PACK PO SCH (09:32)
[2021-06-15] MEDS: CALCIUM (CARBONATE) 500 MG TABLET PO SCH (09:32)
[2021-06-15] MEDS: ASPIRIN EC 81 MG TABLET PO SCH (09:32)
[2021-06-15] MEDS: EZETIMIBE 10 MG TABLET PO SCH (09:32)
[2021-06-15] MEDS: ENOXAPARIN 60 MG/0.6 ML SYRINGE SUBCUT SCH ×2 (09:33→22:32)
[2021-06-15] MEDS: NYSTATIN POWDER 15 GM BOTTLE TOP SCH ×2 (09:34→22:32)
[2021-06-15] MEDS: DESITIN 4OZ/NYSTATIN 15 GRAM MIXTURE PASTE TOP SCH ×2 (09:34→22:32)
[2021-06-15] MEDS ORDERED: POTASSIUM CHLORIDE 20 MEQ TABLET PO ONE (14:37)
[2021-06-15] MEDS ORDERED: FUROSEMIDE 20 MG/2 ML VIAL IV ONE (14:37)
[2021-06-15] MEDS: ATORVASTATIN 40 MG TABLET PO SCH (22:30)
[2021-06-15] MEDS: TIMOLOL 0.25% OPH SOLN 5 ML BOTTLE BOTH EYES SCH (22:32)
[2021-06-16] MEDS: MEROPENEM 500 MG in SODIUM CHLORIDE 0.9% 100 ML IV SCH ×2 (03:52→10:43)
[2021-06-16 05:44] LABS: Basophils % 0.1 % (0.0-0.8); Eosinophils # 0.6 10*3/uL (0.0-0.87); Eosinophils % 3.3 % (0.00-10.9); Hematocrit 33.1 VOL% (35.7-47.0); Hemoglobin 10.1 GM/DL (12.0-16.0); Immature Granulocytes % 2.3 %; Immature Granulocytes Absolute 0.38 #; Lymphocytes # 1.8 10*3/uL (1.4-4.0); Lymphocytes % 10.6 % (21.3-54.2); Mean Corpuscular HGB Conc 30.5 GM/DL (32-36); Mean Platelet Volume 11.5 FL (9.6-12.0); Monocytes % 7.3 % (1.7-12.7); Neutrophils % 76.4 % (38.7-73.9); Platelet Count 346 T/CUMM (130-400); Red Blood Count 3.85 MC/CUMM (3.8-5.5); White Blood Count 16.7 T/CUMM (4-12)
[2021-06-16 06:03] LABS: Calcium 7.3 MG/DL (8.5-10.1); Osmolality,Calculated 296.3 MOS/KG (273-304)
[2021-06-16 06:09] LABS: Potassium 2.5 MMOL/L (3.5-5.1)
[2021-06-16] MEDS: POTASSIUM BICARB EFFERVESCENT 20 MEQ TAB.EFF PO PRN (06:17)
[2021-06-16] MEDS: INSULIN LISPRO 100 UNIT/ML SUBCUT SCH ×4 (07:50→21:37)
[2021-06-16] MEDS: ONDANSETRON 4 MG/2 ML VIAL IV PRN (08:41)
[2021-06-16] MEDS ORDERED: POTASSIUM CHLORIDE 20 MEQ TABLET PO ONE (09:06)
[2021-06-16] MEDS: EZETIMIBE 10 MG TABLET PO SCH (10:11)
[2021-06-16] MEDS: predniSONE 10 MG TABLET PO SCH (10:12)
[2021-06-16] MEDS: PANTOPRAZOLE 40 MG TABLET PO SCH (10:12)
[2021-06-16] MEDS: TICAGRELOR 90 MG TABLET PO SCH ×2 (10:12→21:37)
[2021-06-16] MEDS: TOPIRAMATE 100 MG TABLET PO SCH ×2 (10:12→21:37)
[2021-06-16] MEDS: POTASSIUM CHLORIDE 20 MEQ TABLET PO PRN ×2 (10:12→21:36)
[2021-06-16] MEDS: PYRIDOSTIGMINE 60 MG TABLET PO SCH ×3 (10:12→21:36)
[2021-06-16] MEDS: CALCIUM (CARBONATE) 500 MG TABLET PO SCH (10:12)
[2021-06-16] MEDS: ASPIRIN EC 81 MG TABLET PO SCH (10:13)
[2021-06-16] MEDS: ENOXAPARIN 60 MG/0.6 ML SYRINGE SUBCUT SCH ×2 (10:13→21:36)
[2021-06-16] MEDS: AMIODARONE 200 MG TABLET PO SCH ×2 (10:13→21:36)
[2021-06-16] MEDS: POTASSIUM CHLORIDE 20 MEQ PACK PO SCH (10:16)
[2021-06-16] MEDS: NYSTATIN POWDER 15 GM BOTTLE TOP SCH ×2 (10:20→21:37)
[2021-06-16] MEDS: DESITIN 4OZ/NYSTATIN 15 GRAM MIXTURE PASTE TOP SCH ×2 (10:21→21:38)
[2021-06-16] MEDS: ATORVASTATIN 40 MG TABLET PO SCH (21:37)
[2021-06-16] MEDS: TIMOLOL 0.25% OPH SOLN 5 ML BOTTLE BOTH EYES SCH (21:38)
[2021-06-17 05:33] LABS: Basophils % 0.1 % (0.0-0.8); Eosinophils # 0.4 10*3/uL (0.0-0.87); Eosinophils % 2.4 % (0.00-10.9); Hematocrit 31.7 VOL% (35.7-47.0); Hemoglobin 9.8 GM/DL (12.0-16.0); Immature Granulocytes % 1.7 %; Immature Granulocytes Absolute 0.27 #; Lymphocytes # 2.1 10*3/uL (1.4-4.0); Lymphocytes % 13.1 % (21.3-54.2); Mean Corpuscular HGB Conc 30.9 GM/DL (32-36); Mean Corpuscular Volume 87.1 FL (87-102); Mean Platelet Volume 11.8 FL (9.6-12.0); Monocytes % 8.3 % (1.7-12.7); Neutrophils % 74.4 % (38.7-73.9); Platelet Count 353 T/CUMM (130-400); Red Blood Count 3.64 MC/CUMM (3.8-5.5); Red Cell Distribution Width 20.1 % (9.3-17.3); White Blood Count 16.1 T/CUMM (4-12)
[2021-06-17 05:48] LABS: Calcium 7.3 MG/DL (8.5-10.1); Osmolality,Calculated 297.1 MOS/KG (273-304)
[2021-06-17] MEDS: POTASSIUM CHLORIDE 20 MEQ TABLET PO PRN ×3 (06:22→21:55)
[2021-06-17] MEDS: INSULIN LISPRO 100 UNIT/ML SUBCUT SCH ×4 (08:13→21:56)
[2021-06-17] MEDS: PANTOPRAZOLE 40 MG TABLET PO SCH (08:32)
[2021-06-17] MEDS: AMIODARONE 200 MG TABLET PO SCH ×2 (08:32→21:55)
[2021-06-17] MEDS: CALCIUM (CARBONATE) 500 MG TABLET PO SCH (08:32)
[2021-06-17] MEDS: POTASSIUM CHLORIDE 20 MEQ TABLET PO SCH (08:32)
[2021-06-17] MEDS: EZETIMIBE 10 MG TABLET PO SCH (08:32)
[2021-06-17] MEDS: TICAGRELOR 90 MG TABLET PO SCH ×2 (08:32→21:54)
[2021-06-17] MEDS: PYRIDOSTIGMINE 60 MG TABLET PO SCH ×3 (08:32→21:55)
[2021-06-17] MEDS: TOPIRAMATE 100 MG TABLET PO SCH ×2 (08:32→21:55)
[2021-06-17] MEDS: NYSTATIN POWDER 15 GM BOTTLE TOP SCH ×2 (08:33→21:56)
[2021-06-17] MEDS: ENOXAPARIN 60 MG/0.6 ML SYRINGE SUBCUT SCH ×2 (08:33→21:55)
[2021-06-17] MEDS: DESITIN 4OZ/NYSTATIN 15 GRAM MIXTURE PASTE TOP SCH ×2 (08:33→21:55)
[2021-06-17] MEDS: ASPIRIN EC 81 MG TABLET PO SCH (08:33)
[2021-06-17 09:47] LABS: Basophils % 0.2 % (0.0-0.8); Eosinophils # 0.4 10*3/uL (0.0-0.87); Eosinophils % 1.9 % (0.00-10.9); Hematocrit 32.4 VOL% (35.7-47.0); Hemoglobin 9.6 GM/DL (12.0-16.0); Immature Granulocytes % 1.6 %; Immature Granulocytes Absolute 0.29 #; Lymphocytes # 2.1 10*3/uL (1.4-4.0); Lymphocytes % 11.5 % (21.3-54.2); Mean Corpuscular HGB Conc 29.6 GM/DL (32-36); Mean Corpuscular Volume 87.8 FL (87-102); Mean Platelet Volume 11.3 FL (9.6-12.0); Monocytes % 7.9 % (1.7-12.7); Neutrophils % 76.9 % (38.7-73.9); Platelet Count 364 T/CUMM (130-400); Red Blood Count 3.69 MC/CUMM (3.8-5.5); White Blood Count 18.3 T/CUMM (4-12)
[2021-06-17 10:05] LABS: Calcium 7.4 MG/DL (8.5-10.1); Osmolality,Calculated 297.4 MOS/KG (273-304)
[2021-06-17] MEDS ORDERED: POTASSIUM CHLORIDE 20 MEQ PACK PO PRN (11:05)
[2021-06-17 17:18] LABS: Bilirubin,Urine Negative (Negative); Blood, Urine Negative (Negative); Glucose,Urine (UA) Negative (Negative); Hyaline Casts,Urine 7 /LPF (0-3); Ketones,Urine Negative (Negative); Mucus,Urine Many /LPF (Occasional); Nitrite,Urine Negative (Negative); Protein,Urine 30 MG/DL; RBC,Urine 2 /HPF (0-4); Urine Appearance Slightly Hazy (Clear); Urine Color Yellow (Yellow); Urine Specific Gravity 1.021 (1.001-1.035); Urine Urobilinogen < 2.0 EU/DL (0.2-1.0)
[2021-06-17] MEDS: ATORVASTATIN 40 MG TABLET PO SCH (21:54)
[2021-06-17] MEDS: CYPROHEPTADINE 4 MG TABLET PO SCH (21:55)
[2021-06-17] MEDS: TIMOLOL 0.25% OPH SOLN 5 ML BOTTLE BOTH EYES SCH (21:57)
[2021-06-18 05:54] LABS: Basophils % 0.1 % (0.0-0.8); Eosinophils # 0.5 10*3/uL (0.0-0.87); Eosinophils % 2.4 % (0.00-10.9); Hematocrit 30.8 VOL% (35.7-47.0); Hemoglobin 9.3 GM/DL (12.0-16.0); Immature Granulocytes % 1.1 %; Immature Granulocytes Absolute 0.22 #; Lymphocytes # 2.2 10*3/uL (1.4-4.0); Lymphocytes % 11.6 % (21.3-54.2); Mean Corpuscular HGB Conc 30.2 GM/DL (32-36); Mean Corpuscular Volume 88.3 FL (87-102); Mean Platelet Volume 11.8 FL (9.6-12.0); Monocytes % 7.6 % (1.7-12.7); Neutrophils % 77.2 % (38.7-73.9); Platelet Count 361 T/CUMM (130-400); Red Blood Count 3.49 MC/CUMM (3.8-5.5); White Blood Count 19.2 T/CUMM (4-12)
[2021-06-18 06:12] LABS: Calcium 7.3 MG/DL (8.5-10.1); Osmolality,Calculated 296.1 MOS/KG (273-304); Potassium 3.2 MMOL/L (3.5-5.1)
[2021-06-18] MEDS ORDERED: POTASSIUM CHLORIDE 20 MEQ TABLET PO ONE (09:20)
[2021-06-18] MEDS ORDERED: DEXTROSE 5% 1,000 ML IV SCH (09:30)
[2021-06-18] MEDS: ENOXAPARIN 60 MG/0.6 ML SYRINGE SUBCUT SCH ×2 (10:01→21:11)
[2021-06-18] MEDS: INSULIN LISPRO 100 UNIT/ML SUBCUT SCH ×4 (10:04→21:13)
[2021-06-18] MEDS: ONDANSETRON 4 MG/2 ML VIAL IV PRN (10:14)
[2021-06-18] MEDS: DESITIN 4OZ/NYSTATIN 15 GRAM MIXTURE PASTE TOP SCH ×2 (10:26→21:12)
[2021-06-18] MEDS: NYSTATIN POWDER 15 GM BOTTLE TOP SCH ×2 (10:26→21:12)
[2021-06-18] MEDS: POTASSIUM CHLORIDE 20 MEQ TABLET PO SCH (10:50)
[2021-06-18] MEDS: CYPROHEPTADINE 4 MG TABLET PO SCH ×2 (10:50→21:13)
[2021-06-18] MEDS: EZETIMIBE 10 MG TABLET PO SCH (10:50)
[2021-06-18] MEDS: ASPIRIN EC 81 MG TABLET PO SCH (10:51)
[2021-06-18] MEDS: PANTOPRAZOLE 40 MG TABLET PO SCH (10:51)
[2021-06-18] MEDS: AMIODARONE 200 MG TABLET PO SCH ×2 (10:51→21:11)
[2021-06-18] MEDS: TICAGRELOR 90 MG TABLET PO SCH ×2 (10:51→21:11)
[2021-06-18] MEDS: CALCIUM (CARBONATE) 500 MG TABLET PO SCH (10:51)
[2021-06-18] MEDS: PYRIDOSTIGMINE 60 MG TABLET PO SCH ×3 (10:51→21:11)
[2021-06-18] MEDS: TOPIRAMATE 100 MG TABLET PO SCH ×2 (10:51→21:11)
[2021-06-18] MEDS: SODIUM BICARB INJ 150 MEQ in DEXTROSE 5% 1,000 ML IV SCH (11:20)
[2021-06-18] MEDS: POTASSIUM CHLORIDE 20 MEQ TABLET PO PRN ×3 (14:00→21:11)
[2021-06-18] MEDS: ATORVASTATIN 40 MG TABLET PO SCH (21:10)
[2021-06-18] MEDS: TIMOLOL 0.25% OPH SOLN 5 ML BOTTLE BOTH EYES SCH (21:10)
[2021-06-19] MEDS: SODIUM BICARB INJ 150 MEQ in DEXTROSE 5% 1,000 ML IV SCH (00:28)
[2021-06-19 04:26] LABS: Basophils % 0.1 % (0.0-0.8); Eosinophils # 0.6 10*3/uL (0.0-0.87); Eosinophils % 3.4 % (0.00-10.9); Hematocrit 31.9 VOL% (35.7-47.0); Hemoglobin 9.4 GM/DL (12.0-16.0); Immature Granulocytes % 1.3 %; Immature Granulocytes Absolute 0.23 #; Lymphocytes # 2.3 10*3/uL (1.4-4.0); Lymphocytes % 13.6 % (21.3-54.2); Mean Corpuscular HGB Conc 29.5 GM/DL (32-36); Mean Corpuscular Volume 89.4 FL (87-102); Mean Platelet Volume 11.9 FL (9.6-12.0); Monocytes % 8.2 % (1.7-12.7); Neutrophils % 73.4 % (38.7-73.9); Platelet Count 374 T/CUMM (130-400); Red Blood Count 3.57 MC/CUMM (3.8-5.5); Red Cell Distribution Width 20.1 % (9.3-17.3); White Blood Count 17.1 T/CUMM (4-12)
[2021-06-19 04:49] LABS: Calcium 7.1 MG/DL (8.5-10.1); Osmolality,Calculated 294.3 MOS/KG (273-304); Potassium 2.7 MMOL/L (3.5-5.1)
[2021-06-19] MEDS: POTASSIUM CHLORIDE 20 MEQ TABLET PO PRN ×2 (06:20→22:16)
[2021-06-19] MEDS ORDERED: MAGNESIUM SULF RIDER 2 GM/50 ML PREMIX IV PRN (08:36)
[2021-06-19] MEDS ORDERED: MAGNESIUM SULF RIDER 4 GM/100 ML PREMIX IV PRN (08:36)
[2021-06-19] MEDS ORDERED: POTASSIUM CHLORIDE 20 MEQ TABLET PO ONE (09:19)
[2021-06-19] MEDS ORDERED: MAGNESIUM SULF RIDER 2 GM/50 ML PREMIX IV ONE (09:24)
[2021-06-19] MEDS: PANTOPRAZOLE 40 MG TABLET PO SCH (09:59)
[2021-06-19] MEDS: CYPROHEPTADINE 4 MG TABLET PO SCH ×2 (09:59→22:16)
[2021-06-19] MEDS: TOPIRAMATE 100 MG TABLET PO SCH ×2 (10:00→22:17)
[2021-06-19] MEDS: CALCIUM (CARBONATE) 500 MG TABLET PO SCH (10:00)
[2021-06-19] MEDS: AMIODARONE 200 MG TABLET PO SCH ×2 (10:00→22:16)
[2021-06-19] MEDS: PYRIDOSTIGMINE 60 MG TABLET PO SCH ×3 (10:00→22:17)
[2021-06-19] MEDS: TICAGRELOR 90 MG TABLET PO SCH ×2 (10:00→22:17)
[2021-06-19] MEDS: ASPIRIN EC 81 MG TABLET PO SCH (10:00)
[2021-06-19] MEDS: POTASSIUM CHLORIDE 20 MEQ TABLET PO SCH (10:00)
[2021-06-19] MEDS: INSULIN LISPRO 100 UNIT/ML SUBCUT SCH ×3 (10:01→23:44)
[2021-06-19] MEDS: EZETIMIBE 10 MG TABLET PO SCH (10:01)
[2021-06-19] MEDS: ENOXAPARIN 60 MG/0.6 ML SYRINGE SUBCUT SCH ×2 (10:01→22:16)
[2021-06-19] MEDS: DESITIN 4OZ/NYSTATIN 15 GRAM MIXTURE PASTE TOP SCH ×2 (10:02→22:17)
[2021-06-19] MEDS: NYSTATIN POWDER 15 GM BOTTLE TOP SCH ×2 (10:02→22:17)
[2021-06-19] MEDS: ACETAMINOPHEN 325 MG TABLET PO PRN (13:22)
[2021-06-19] MEDS: ATORVASTATIN 40 MG TABLET PO SCH (22:17)
[2021-06-19] MEDS: TIMOLOL 0.25% OPH SOLN 5 ML BOTTLE BOTH EYES SCH (22:17)
[2021-06-19] MEDS: ONDANSETRON 4 MG/2 ML VIAL IV PRN (22:48)
[2021-06-20 04:44] LABS: Basophils % 0.2 % (0.0-0.8); Eosinophils # 0.5 10*3/uL (0.0-0.87); Eosinophils % 2.7 % (0.00-10.9); Hematocrit 29.8 VOL% (35.7-47.0); Immature Granulocytes % 0.8 %; Immature Granulocytes Absolute 0.15 #; Lymphocytes # 2.2 10*3/uL (1.4-4.0); Lymphocytes % 12.1 % (21.3-54.2); Mean Corpuscular HGB Conc 30.2 GM/DL (32-36); Mean Corpuscular Volume 87.1 FL (87-102); Mean Platelet Volume 11.6 FL (9.6-12.0); Monocytes % 6.7 % (1.7-12.7); Neutrophils % 77.5 % (38.7-73.9); Platelet Count 358 T/CUMM (130-400); Red Blood Count 3.42 MC/CUMM (3.8-5.5); Red Cell Distribution Width 19.8 % (9.3-17.3); White Blood Count 17.9 T/CUMM (4-12)
[2021-06-20 07:14] LABS: Calcium 7.2 MG/DL (8.5-10.1); Osmolality,Calculated 295.1 MOS/KG (273-304); Potassium 2.8 MMOL/L (3.5-5.1)
[2021-06-20] MEDS: POTASSIUM CHLORIDE 20 MEQ TABLET PO PRN (09:39)
[2021-06-20] MEDS: EZETIMIBE 10 MG TABLET PO SCH (09:39)
[2021-06-20] MEDS: TICAGRELOR 90 MG TABLET PO SCH ×2 (09:39→20:42)
[2021-06-20] MEDS: TOPIRAMATE 100 MG TABLET PO SCH ×2 (09:39→20:42)
[2021-06-20] MEDS: POTASSIUM CHLORIDE 20 MEQ TABLET PO SCH ×3 (09:39→16:36)
[2021-06-20] MEDS: ASPIRIN EC 81 MG TABLET PO SCH (09:40)
[2021-06-20] MEDS: PANTOPRAZOLE 40 MG TABLET PO SCH (09:40)
[2021-06-20] MEDS: PYRIDOSTIGMINE 60 MG TABLET PO SCH ×3 (09:40→20:42)
[2021-06-20] MEDS: AMIODARONE 200 MG TABLET PO SCH ×2 (09:40→20:42)
[2021-06-20] MEDS: CALCIUM (CARBONATE) 500 MG TABLET PO SCH (09:40)
[2021-06-20] MEDS: CYPROHEPTADINE 4 MG TABLET PO SCH ×2 (09:40→20:42)
[2021-06-20] MEDS: INSULIN LISPRO 100 UNIT/ML SUBCUT SCH ×4 (09:41→20:43)
[2021-06-20] MEDS: ENOXAPARIN 60 MG/0.6 ML SYRINGE SUBCUT SCH ×2 (09:48→20:43)
[2021-06-20] MEDS: DESITIN 4OZ/NYSTATIN 15 GRAM MIXTURE PASTE TOP SCH ×2 (10:00→20:48)
[2021-06-20] MEDS: NYSTATIN POWDER 15 GM BOTTLE TOP SCH ×2 (10:01→20:47)
[2021-06-20] MEDS: ACETAMINOPHEN 325 MG TABLET PO PRN (12:40)
[2021-06-20] MEDS: MENTHOL/ZINC OXIDE OINT 71 GM JAR TOP PRN ×3 (16:41→20:47)
[2021-06-20] MEDS: ATORVASTATIN 40 MG TABLET PO SCH (20:42)
[2021-06-20] MEDS: TIMOLOL 0.25% OPH SOLN 5 ML BOTTLE BOTH EYES SCH (20:47)
[2021-06-21 06:22] LABS: Calcium 7.1 MG/DL (8.5-10.1); Osmolality,Calculated 295.1 MOS/KG (273-304); Potassium 2.7 MMOL/L (3.5-5.1)
[2021-06-21 06:26] LABS: Basophils % 0.4 % (0.0-0.8); Eosinophils # 0.5 10*3/uL (0.0-0.87); Eosinophils % 4.6 % (0.00-10.9); Hematocrit 25.6 VOL% (35.7-47.0); Hemoglobin 7.9 GM/DL (12.0-16.0); Immature Granulocytes % 0.7 %; Immature Granulocytes Absolute 0.07 #; Lymphocytes # 2.1 10*3/uL (1.4-4.0); Lymphocytes % 19.8 % (21.3-54.2); Mean Corpuscular HGB Conc 30.9 GM/DL (32-36); Mean Corpuscular Volume 88.3 FL (87-102); Mean Platelet Volume 12.2 FL (9.6-12.0); Monocytes % 9.2 % (1.7-12.7); Neutrophils % 65.3 % (38.7-73.9); Platelet Count 308 T/CUMM (130-400); Red Cell Distribution Width 19.5 % (9.3-17.3); White Blood Count 10.5 T/CUMM (4-12)
[2021-06-21] MEDS: INSULIN LISPRO 100 UNIT/ML SUBCUT SCH ×2 (08:08→12:22)
[2021-06-21] MEDS: AMIODARONE 200 MG TABLET PO SCH (09:19)
[2021-06-21] MEDS: EZETIMIBE 10 MG TABLET PO SCH (09:19)
[2021-06-21] MEDS: CYPROHEPTADINE 4 MG TABLET PO SCH (09:19)
[2021-06-21] MEDS: PYRIDOSTIGMINE 60 MG TABLET PO SCH (09:19)
[2021-06-21] MEDS: CALCIUM (CARBONATE) 500 MG TABLET PO SCH (09:19)
[2021-06-21] MEDS: ASPIRIN EC 81 MG TABLET PO SCH (09:20)
[2021-06-21] MEDS: PANTOPRAZOLE 40 MG TABLET PO SCH (09:20)
[2021-06-21] MEDS: POTASSIUM CHLORIDE 20 MEQ TABLET PO SCH ×2 (09:21→12:22)
[2021-06-21] MEDS: DESITIN 4OZ/NYSTATIN 15 GRAM MIXTURE PASTE TOP SCH (09:29)
[2021-06-21] MEDS: TOPIRAMATE 100 MG TABLET PO SCH (09:41)
[2021-06-21] MEDS ORDERED: POTASSIUM CHLORIDE 20 MEQ PACK PO ONE (09:47)
[2021-06-21] MEDS: TICAGRELOR 90 MG TABLET PO SCH (09:56)
[2021-06-21] MEDS: ENOXAPARIN 60 MG/0.6 ML SYRINGE SUBCUT SCH (09:56)
[2021-06-21] MEDS: NYSTATIN POWDER 15 GM BOTTLE TOP SCH (10:11)
[2021-06-21] MEDS ORDERED: POTASSIUM CHLORIDE 20 MEQ TABLET PO ONE (10:17)
[2021-06-21 11:33] VITALS: BP 105/51
[2021-06-21 14:00] LABS: Hematocrit 29.4 VOL% (35.7-47.0); Hemoglobin 8.8 GM/DL (12.0-16.0)
== END 2021-06-21 16:24 | disposition home health service (06) | DRG 870 ==
LOC: N.ED 22:03 → SUATTDRO 06-06 02:22 → N.EDINP 06-06 02:22 → N.ICU 06-06 03:19 → N.TELEN 06-14 19:58
PROVIDERS: ADMIT Family Medicine; ATTEND Internal Medicine

== ENCOUNTER 2021-06-24 14:25 | Inpatient (IN) ==
[2021-06-24 16:17] LABS: Basophils # 0.1 10*3/uL (0.0-0.2); Basophils % 0.7 % (0.0-0.8); Eosinophils # 0.3 10*3/uL (0.0-0.87); Eosinophils % 3.3 % (0.00-10.9); Hemoglobin 8.3 GM/DL (12.0-16.0); Immature Granulocytes % 0.7 %; Immature Granulocytes Absolute 0.06 #; Lymphocytes # 1.5 10*3/uL (1.4-4.0); Lymphocytes % 17.4 % (21.3-54.2); Mean Corpuscular HGB Conc 29.6 GM/DL (32-36); Mean Corpuscular Volume 90.6 FL (87-102); Mean Platelet Volume 11.7 FL (9.6-12.0); Monocytes % 7.2 % (1.7-12.7); Neutrophils % 70.7 % (38.7-73.9); Platelet Count 283 T/CUMM (130-400); Red Blood Count 3.09 MC/CUMM (3.8-5.5); White Blood Count 8.7 T/CUMM (4-12)
[2021-06-24 16:38] LABS: Alanine Aminotransferase 9 U/L (13-56); Albumin 1.4 G/DL (3.4-5.0); Alkaline Phosphatase 73 U/L (45-117); Aspartate Amino Transferase 13 U/L (0-37); Bilirubin,Total < 0.39 MG/DL (0.20-1.00); Blood Urea Nitrogen 16 MG/DL (7-18); Calcium 7.7 MG/DL (8.5-10.1); Carbon Dioxide 21 MMOL/L (21-32); Estimated Glom Filtration Rate 2102 ML/MIN; Glucose 66 MG/DL (74-106); Osmolality,Calculated 288.6 MOS/KG (273-304); Potassium 3.1 MMOL/L (3.5-5.1); Sodium 146 MMOL/L (136-145); Total Protein 4.1 G/DL (6.4-8.2)
[2021-06-24] MEDS ORDERED: SIMETHICONE CHEW 125 MG TABLET PO PRN (18:31)
[2021-06-24] MEDS ORDERED: DOCUSATE SODIUM 100 MG CAPSULE PO PRN (18:31)
[2021-06-24] MEDS ORDERED: GLUCAGON 1 MG VIAL IM PRN (18:31)
[2021-06-24] MEDS ORDERED: DEXTROSE 50% 25 GM/50 ML SYRINGE IV PRN (18:51)
[2021-06-24] MEDS: LACTATED RINGERS 1,000 ML IV SCH (19:57)
[2021-06-24] MEDS: FLUCONAZOLE INJ 100 MG/50 ML PREMIX IV SCH (20:35)
[2021-06-24] MEDS ORDERED: NYSTATIN CREAM 15 GM TUBE TOP SCH (21:00)
[2021-06-25] MEDS: AMIODARONE 200 MG TABLET PO SCH ×3 (00:25→20:28)
[2021-06-25] MEDS: TICAGRELOR 90 MG TABLET PO SCH ×3 (00:25→20:21)
[2021-06-25] MEDS: PYRIDOSTIGMINE 60 MG TABLET PO SCH ×4 (00:26→20:21)
[2021-06-25] MEDS: PANTOPRAZOLE 40 MG TABLET PO SCH ×2 (00:27→09:11)
[2021-06-25 06:20] LABS: Basophils # 0.1 10*3/uL (0.0-0.2); Basophils % 0.7 % (0.0-0.8); Eosinophils # 0.3 10*3/uL (0.0-0.87); Eosinophils % 3.6 % (0.00-10.9); Hematocrit 25.7 VOL% (35.7-47.0); Hemoglobin 7.8 GM/DL (12.0-16.0); Immature Granulocytes % 0.5 %; Immature Granulocytes Absolute 0.04 #; Lymphocytes # 1.3 10*3/uL (1.4-4.0); Lymphocytes % 15.5 % (21.3-54.2); Mean Corpuscular HGB Conc 30.4 GM/DL (32-36); Mean Corpuscular Volume 90.5 FL (87-102); Mean Platelet Volume 11.6 FL (9.6-12.0); Neutrophils % 71.7 % (38.7-73.9); Platelet Count 254 T/CUMM (130-400); Red Blood Count 2.84 MC/CUMM (3.8-5.5); Red Cell Distribution Width 19.1 % (9.3-17.3); White Blood Count 8.5 T/CUMM (4-12)
[2021-06-25] MEDS: ENOXAPARIN 60 MG/0.6 ML SYRINGE SUBCUT SCH ×2 (09:20→20:20)
[2021-06-25] MEDS: NYSTATIN OINT 15 GM TUBE TOP SCH ×3 (09:22→20:20)
[2021-06-25 09:31] LABS: Alanine Aminotransferase 9 U/L (13-56); Albumin 1.4 G/DL (3.4-5.0); Alkaline Phosphatase 66 U/L (45-117); Aspartate Amino Transferase 13 U/L (0-37); Bilirubin,Total < 0.39 MG/DL (0.20-1.00); Blood Urea Nitrogen 14 MG/DL (7-18); Calcium 7.4 MG/DL (8.5-10.1); Carbon Dioxide 23 MMOL/L (21-32); Estimated Glom Filtration Rate 74 ML/MIN; Glucose 71 MG/DL (74-106); Osmolality,Calculated 292.3 MOS/KG (273-304); Potassium 3.2 MMOL/L (3.5-5.1); Sodium 148 MMOL/L (136-145); Total Protein 3.8 G/DL (6.4-8.2)
[2021-06-25] MEDS ORDERED: KETOROLAC 15 MG/1 ML VIAL IV ONE (11:27)
[2021-06-25] MEDS ORDERED: MAGNESIUM SULF RIDER 4 GM/100 ML PREMIX IV PRN (14:24)
[2021-06-25] MEDS ORDERED: MAGNESIUM SULF RIDER 2 GM/50 ML PREMIX IV PRN (14:24)
[2021-06-25] MEDS: LACTATED RINGERS 1,000 ML IV SCH (16:04)
[2021-06-25] MEDS: FLUCONAZOLE INJ 100 MG/50 ML PREMIX IV SCH (21:06)
[2021-06-26] MEDS: ONDANSETRON 4 MG/2 ML VIAL IV PRN (03:46)
[2021-06-26 09:50] LABS: Basophils # 0.1 10*3/uL (0.0-0.2); Basophils % 1.1 % (0.0-0.8); Eosinophils # 0.2 10*3/uL (0.0-0.87); Eosinophils % 2.6 % (0.00-10.9); Hematocrit 25.3 VOL% (35.7-47.0); Hemoglobin 7.7 GM/DL (12.0-16.0); Immature Granulocytes % 0.7 %; Immature Granulocytes Absolute 0.05 #; Mean Corpuscular HGB Conc 30.4 GM/DL (32-36); Mean Corpuscular Volume 89.1 FL (87-102); Mean Platelet Volume 11.4 FL (9.6-12.0); Neutrophils % 73.6 % (38.7-73.9); Platelet Count 270 T/CUMM (130-400); Red Blood Count 2.84 MC/CUMM (3.8-5.5); Red Cell Distribution Width 18.7 % (9.3-17.3); White Blood Count 7.3 T/CUMM (4-12)
[2021-06-26 10:10] LABS: Calcium 7.7 MG/DL (8.5-10.1); Osmolality,Calculated 289.6 MOS/KG (273-304); Potassium 2.6 MMOL/L (3.5-5.1)
[2021-06-26] MEDS: AMIODARONE 200 MG TABLET PO SCH ×2 (10:20→21:00)
[2021-06-26] MEDS: PYRIDOSTIGMINE 60 MG TABLET PO SCH ×3 (10:20→20:52)
[2021-06-26] MEDS: PANTOPRAZOLE 40 MG TABLET PO SCH (10:20)
[2021-06-26] MEDS: TICAGRELOR 90 MG TABLET PO SCH ×2 (10:21→20:59)
[2021-06-26] MEDS: ENOXAPARIN 60 MG/0.6 ML SYRINGE SUBCUT SCH ×2 (10:26→20:59)
[2021-06-26] MEDS: NYSTATIN OINT 15 GM TUBE TOP SCH ×3 (11:40→22:13)
[2021-06-26] MEDS: POTASSIUM CHLORIDE RIDER 10 MEQ/100 ML PREMIX IV PRN (15:00)
[2021-06-26] MEDS: POTASSIUM CHLORIDE 20 MEQ TABLET PO PRN ×3 (15:55→21:16)
[2021-06-26] MEDS: FLUCONAZOLE INJ 100 MG/50 ML PREMIX IV SCH (20:59)
[2021-06-27 05:25] LABS: Basophils % 1.1 % (0.0-0.8); Eosinophils % 5.3 % (0.00-10.9); Hematocrit 23.1 VOL% (35.7-47.0); Immature Granulocytes % 0.5 %; Lymphocytes # 1.1 10*3/uL (1.4-4.0); Lymphocytes % 20.8 % (21.3-54.2); Mean Corpuscular HGB Conc 30.3 GM/DL (32-36); Mean Corpuscular Volume 89.5 FL (87-102); Mean Platelet Volume 11.3 FL (9.6-12.0); Monocytes % 11.3 % (1.7-12.7); Platelet Count 254 T/CUMM (130-400); Red Blood Count 2.58 MC/CUMM (3.8-5.5); Red Cell Distribution Width 18.7 % (9.3-17.3); White Blood Count 5.5 T/CUMM (4-12)
[2021-06-27 05:26] LABS: Basophils # 0.1 10*3/uL (0.0-0.2); Eosinophils # 0.3 10*3/uL (0.0-0.87); Immature Granulocytes Absolute 0.03 #
[2021-06-27 05:44] LABS: Calcium 7.5 MG/DL (8.5-10.1); Potassium 2.6 MMOL/L (3.5-5.1)
[2021-06-27] MEDS ORDERED: POTASSIUM CHLORIDE 20 MEQ TABLET PO ONE (07:10)
[2021-06-27] MEDS ORDERED: NITROGLYCERIN SL 0.4 MG TABLET SL PRN (08:45)
[2021-06-27] MEDS: TICAGRELOR 90 MG TABLET PO SCH ×2 (08:56→21:38)
[2021-06-27] MEDS: AMIODARONE 200 MG TABLET PO SCH ×2 (08:56→21:38)
[2021-06-27] MEDS: PANTOPRAZOLE 40 MG TABLET PO SCH (08:56)
[2021-06-27] MEDS: PYRIDOSTIGMINE 60 MG TABLET PO SCH ×3 (08:56→21:38)
[2021-06-27] MEDS ORDERED: SODIUM CHLORIDE 0.9% 1,000 ML IV PRN (09:01)
[2021-06-27] MEDS ORDERED: MAGNESIUM SULF RIDER 2 GM/50 ML PREMIX IV ONE (09:30)
[2021-06-27] MEDS: NYSTATIN OINT 15 GM TUBE TOP SCH ×3 (10:20→21:38)
[2021-06-27] MEDS: DEXTROSE 5% 1,000 ML IV SCH (10:45)
[2021-06-27] MEDS: ASPIRIN EC 81 MG TABLET PO SCH (10:47)
[2021-06-27] MEDS: EZETIMIBE 10 MG TABLET PO SCH (10:47)
[2021-06-27] MEDS: ASCORBIC ACID 500 MG TABLET PO SCH ×2 (10:47→21:38)
[2021-06-27] MEDS ORDERED: FUROSEMIDE 20 MG/2 ML VIAL IV ONE ×2 (13:15→15:00)
[2021-06-27] MEDS: ENOXAPARIN 60 MG/0.6 ML SYRINGE SUBCUT SCH (16:57)
[2021-06-27] MEDS: ZINC OXIDE 16% PASTE 57 GM TUBE TOP SCH ×2 (18:24→22:00)
[2021-06-27] MEDS: FLUCONAZOLE INJ 100 MG/50 ML PREMIX IV SCH (21:37)
[2021-06-27] MEDS: CYPROHEPTADINE 4 MG TABLET PO SCH (21:38)
[2021-06-27] MEDS: ATORVASTATIN 40 MG TABLET PO SCH (21:38)
[2021-06-28] MEDS: POTASSIUM CHLORIDE RIDER 10 MEQ/100 ML PREMIX IV PRN ×3 (02:05→05:31)
[2021-06-28] MEDS: ENOXAPARIN 60 MG/0.6 ML SYRINGE SUBCUT SCH (04:54)
[2021-06-28 05:02] LABS: Basophils # 0.1 10*3/uL (0.0-0.2); Basophils % 1.5 % (0.0-0.8); Eosinophils # 0.3 10*3/uL (0.0-0.87); Eosinophils % 3.8 % (0.00-10.9); Hematocrit 38.9 VOL% (35.7-47.0); Hemoglobin 12.1 GM/DL (12.0-16.0); Immature Granulocytes % 0.7 %; Immature Granulocytes Absolute 0.05 #; Lymphocytes # 1.4 10*3/uL (1.4-4.0); Lymphocytes % 20.6 % (21.3-54.2); Mean Corpuscular HGB Conc 31.1 GM/DL (32-36); Mean Corpuscular Volume 88.8 FL (87-102); Mean Platelet Volume 10.7 FL (9.6-12.0); Neutrophils % 62.4 % (38.7-73.9); Platelet Count 231 T/CUMM (130-400); Red Cell Distribution Width 16.2 % (9.3-17.3); White Blood Count 6.8 T/CUMM (4-12)
[2021-06-28] MEDS: DEXTROSE 5% 1,000 ML IV SCH ×2 (05:03→21:36)
[2021-06-28 05:07] LABS: Red Blood Count 4.38 MC/CUMM (3.8-5.5)
[2021-06-28 05:25] LABS: Calcium 7.4 MG/DL (8.5-10.1); Osmolality,Calculated 287.6 MOS/KG (273-304); Potassium 2.7 MMOL/L (3.5-5.1)
[2021-06-28] MEDS ORDERED: POTASSIUM CHLORIDE 20 MEQ TABLET PO ONE (08:15)
[2021-06-28] MEDS ORDERED: MAGNESIUM SULF RIDER 2 GM/50 ML PREMIX IV ONE (08:15)
[2021-06-28] MEDS: EZETIMIBE 10 MG TABLET PO SCH (08:34)
[2021-06-28] MEDS: TICAGRELOR 90 MG TABLET PO SCH ×2 (08:34→21:38)
[2021-06-28] MEDS: AMIODARONE 200 MG TABLET PO SCH ×2 (08:34→21:38)
[2021-06-28] MEDS: CYPROHEPTADINE 4 MG TABLET PO SCH ×3 (08:34→21:38)
[2021-06-28] MEDS: PYRIDOSTIGMINE 60 MG TABLET PO SCH ×3 (08:34→21:38)
[2021-06-28] MEDS: NYSTATIN OINT 15 GM TUBE TOP SCH ×3 (08:34→21:42)
[2021-06-28] MEDS: PANTOPRAZOLE 40 MG TABLET PO SCH ×2 (08:34→15:29)
[2021-06-28] MEDS: ASPIRIN EC 81 MG TABLET PO SCH (08:34)
[2021-06-28] MEDS: ZINC OXIDE 16% PASTE 57 GM TUBE TOP SCH ×2 (08:34→21:38)
[2021-06-28] MEDS: ASCORBIC ACID 500 MG TABLET PO SCH ×2 (08:34→21:46)
[2021-06-28] MEDS: ONDANSETRON 4 MG/2 ML VIAL IV PRN (10:08)
[2021-06-28] MEDS: DIPHENOXYLATE/ATROPINE 2.5-0.025 MG TABLET PO PRN ×2 (15:29→21:38)
[2021-06-28] MEDS: POTASSIUM CHLORIDE 20 MEQ TABLET PO PRN ×4 (16:02→17:52)
[2021-06-28] MEDS: ATORVASTATIN 40 MG TABLET PO SCH (21:38)
[2021-06-28] MEDS: APIXABAN 2.5 MG TABLET PO SCH (21:38)
[2021-06-28] MEDS: FLUCONAZOLE INJ 100 MG/50 ML PREMIX IV SCH (21:53)
[2021-06-29] MEDS: POTASSIUM CHLORIDE RIDER 10 MEQ/100 ML PREMIX IV PRN (01:22)
[2021-06-29] MEDS: DEXTROSE 5% 1,000 ML IV SCH (06:36)
[2021-06-29 06:49] LABS: Basophils # 0.1 10*3/uL (0.0-0.2); Basophils % 1.7 % (0.0-0.8); Eosinophils # 0.5 10*3/uL (0.0-0.87); Eosinophils % 8.3 % (0.00-10.9); Hematocrit 41.3 VOL% (35.7-47.0); Hemoglobin 12.6 GM/DL (12.0-16.0); Immature Granulocytes % 0.7 %; Immature Granulocytes Absolute 0.04 #; Lymphocytes # 1.5 10*3/uL (1.4-4.0); Lymphocytes % 25.4 % (21.3-54.2); Mean Corpuscular HGB Conc 30.5 GM/DL (32-36); Mean Corpuscular Volume 92.8 FL (87-102); Mean Platelet Volume 11.2 FL (9.6-12.0); Monocytes % 10.7 % (1.7-12.7); Neutrophils % 53.2 % (38.7-73.9); Platelet Count 254 T/CUMM (130-400); Red Blood Count 4.45 MC/CUMM (3.8-5.5); Red Cell Distribution Width 16.7 % (9.3-17.3); White Blood Count 5.9 T/CUMM (4-12)
[2021-06-29 06:54] LABS: Calcium 8.1 MG/DL (8.5-10.1); Osmolality,Calculated 278.3 MOS/KG (273-304); Potassium 3.7 MMOL/L (3.5-5.1)
[2021-06-29] MEDS: ASCORBIC ACID 500 MG TABLET PO SCH (09:10)
[2021-06-29] MEDS: CYPROHEPTADINE 4 MG TABLET PO SCH ×2 (09:10→16:30)
[2021-06-29] MEDS: NYSTATIN OINT 15 GM TUBE TOP SCH ×2 (09:11→16:31)
[2021-06-29] MEDS: AMIODARONE 200 MG TABLET PO SCH (09:11)
[2021-06-29] MEDS: TICAGRELOR 90 MG TABLET PO SCH (09:11)
[2021-06-29] MEDS: EZETIMIBE 10 MG TABLET PO SCH (09:11)
[2021-06-29] MEDS: APIXABAN 2.5 MG TABLET PO SCH (09:11)
[2021-06-29] MEDS: POTASSIUM CHLORIDE 20 MEQ TABLET PO PRN (09:11)
[2021-06-29] MEDS: ASPIRIN EC 81 MG TABLET PO SCH (09:11)
[2021-06-29] MEDS: PYRIDOSTIGMINE 60 MG TABLET PO SCH ×2 (09:11→16:30)
[2021-06-29] MEDS: PANTOPRAZOLE 40 MG TABLET PO SCH (09:11)
[2021-06-29] MEDS: ZINC OXIDE 16% PASTE 57 GM TUBE TOP SCH (09:12)
[2021-06-29 17:37] VITALS: BP 98/55
== END 2021-06-29 17:00 | disposition home health service (06) | DRG 640 ==
LOC: EDUNIT# → EDBD → N.ED 14:25 → SUATTDRO 18:31 → N.EDINP 18:31 → N.3E 23:28
PROVIDERS: ADMIT Phlebology; ATTEND Internal Medicine

== ENCOUNTER 2021-07-15 08:01 | Inpatient (IN) ==
[2021-07-15] MEDS ORDERED: SODIUM CHLORIDE 0.9% 1,000 ML IV STA (08:27)
[2021-07-15] MEDS ORDERED: MEROPENEM 500 MG in SODIUM CHLORIDE 0.9% 100 ML IV ONE (08:30)
[2021-07-15 09:01] LABS: INR 1.1; PT Patient Result 12.5 SECS (10.5-12.0); Partial Thromboplastin Time 31.4 SECS (23.8-32.1)
[2021-07-15 09:02] LABS: Albumin 1.5 G/DL (3.4-5.0); Bilirubin,Total 1.3 MG/DL (0.20-1.00); Calcium 8.5 MG/DL (8.5-10.1); Potassium 4.1 MMOL/L (3.5-5.1); Total Protein 4.4 G/DL (6.4-8.2)
[2021-07-15 09:03] LABS: Bilirubin,Urine Negative (Negative); Blood, Urine Negative (Negative); Glucose,Urine (UA) Negative (Negative); Ketones,Urine 20 mg/dL (Negative); Mucus,Urine Many /LPF (Occasional); Nitrite,Urine Negative (Negative); Protein,Urine 100 MG/DL; RBC,Urine 6 /HPF (0-4); Urine Appearance CLOUDY (Clear); Urine Color Amber (Yellow); Urine Specific Gravity 1.016 (1.001-1.035); Urine Urobilinogen < 2.0 EU/DL (0.2-1.0)
[2021-07-15 09:12] LABS: Basophils # 0.1 10*3/uL (0.0-0.2); Basophils % 0.7 % (0.0-0.8); Eosinophils % 0.3 % (0.00-10.9); Hematocrit 39.9 VOL% (35.7-47.0); Hemoglobin 11.9 GM/DL (12.0-16.0); Immature Granulocytes % 1.1 %; Immature Granulocytes Absolute 0.08 #; Lymphocytes # 1.4 10*3/uL (1.4-4.0); Lymphocytes % 18.6 % (21.3-54.2); Mean Corpuscular HGB Conc 29.8 GM/DL (32-36); Mean Corpuscular Volume 92.8 FL (87-102); Mean Platelet Volume 10.9 FL (9.6-12.0); Monocytes % 5.7 % (1.7-12.7); Neutrophils % 73.6 % (38.7-73.9); Platelet Count 499 T/CUMM (130-400); Red Cell Distribution Width 17.3 % (9.3-17.3); White Blood Count 7.4 T/CUMM (4-12)
[2021-07-15 09:24] LABS: Anisocytosis 1+; Band Neutrophils 9 % (0-10); Burr Cells 1+; Eosinophils 1 % (0-10); Lymphocytes 21 % (20-55); Macrocytosis 1+; Platelet Estimate Normal; Segmented Neutrophils 65 % (50-85); Total Cells Counted 100
[2021-07-15 09:25] LABS: Ovalocytes Few
[2021-07-15] MEDS ORDERED: ONDANSETRON 4 MG/2 ML VIAL ONE (09:25)
[2021-07-15] MEDS ORDERED: ONDANSETRON 4 MG/2 ML VIAL IV STA ×2 (09:33→11:27)
[2021-07-15 11:58] LABS: ABG Base Excess -20.1 MMOL/L (-2.5-2.5); ABG HCO3 9.8 MMOL/L (20-26); ABG Oxygen Saturation 98.1 % (95-100); ABG PH 7.235 (7.35-7.45); ABG TCO2 5.8 MMOL/L (23-27)
[2021-07-15] MEDS ORDERED: GLUCAGON 1 MG VIAL IM PRN (11:59)
[2021-07-15] MEDS ORDERED: DEXTROSE 50% 25 GM/50 ML SYRINGE IV PRN (11:59)
[2021-07-15 12:04] LABS: ABG PCO2 14.9 MM HG (35-48)
[2021-07-15] MEDS ORDERED: SODIUM BICARBONATE 50 MEQ/50 ML VIAL IV ONE (12:13)
[2021-07-15] MEDS ORDERED: MEROPENEM 1,000 MG in SODIUM CHLORIDE 0.9% 100 ML IV SCH (12:30)
[2021-07-15] MEDS: PANTOPRAZOLE 40 MG VIAL IV SCH ×2 (14:12→23:55)
[2021-07-15] MEDS: SODIUM BICARB INJ 150 MEQ in DEXTROSE 5% 1,000 ML IV SCH (14:37)
[2021-07-15] MEDS: MEROPENEM 500 MG in SODIUM CHLORIDE 0.9% 100 ML IV SCH ×2 (14:37→23:57)
[2021-07-15] MEDS: VANCOMYCIN 50 MG/ML 60 ML/BOTTLE PO SCH (17:29)
[2021-07-16] MEDS: VANCOMYCIN 50 MG/ML 60 ML/BOTTLE PO SCH ×5 (00:21→23:38)
[2021-07-16] MEDS: SODIUM BICARB INJ 150 MEQ in DEXTROSE 5% 1,000 ML IV SCH ×2 (04:30→23:30)
[2021-07-16] MEDS: MEROPENEM 500 MG in SODIUM CHLORIDE 0.9% 100 ML IV SCH ×3 (06:18→22:17)
[2021-07-16] MEDS: ONDANSETRON 4 MG/2 ML VIAL IV PRN ×2 (06:25→15:10)
[2021-07-16 07:24] LABS: Basophils % 0.2 % (0.0-0.8); Hematocrit 32.9 VOL% (35.7-47.0); Hemoglobin 10.3 GM/DL (12.0-16.0); Immature Granulocytes Absolute 0.16 #; Lymphocytes # 1.1 10*3/uL (1.4-4.0); Lymphocytes % 6.8 % (21.3-54.2); Mean Corpuscular HGB Conc 31.3 GM/DL (32-36); Mean Corpuscular Volume 87.7 FL (87-102); Mean Platelet Volume 10.7 FL (9.6-12.0); Monocytes % 8.1 % (1.7-12.7); Neutrophils % 83.9 % (38.7-73.9); Platelet Count 426 T/CUMM (130-400); Red Blood Count 3.75 MC/CUMM (3.8-5.5); Red Cell Distribution Width 17.4 % (9.3-17.3); White Blood Count 15.8 T/CUMM (4-12)
[2021-07-16 07:45] LABS: Albumin 1.3 G/DL (3.4-5.0); Bilirubin,Total 0.4 MG/DL (0.20-1.00); Calcium 8.1 MG/DL (8.5-10.1); Potassium 2.7 MMOL/L (3.5-5.1); Total Protein 4.2 G/DL (6.4-8.2)
[2021-07-16] MEDS: PANTOPRAZOLE 40 MG VIAL IV SCH ×2 (10:18→22:12)
[2021-07-16] MEDS ORDERED: MAGNESIUM SULF RIDER 2 GM/50 ML PREMIX IV PRN (12:10)
[2021-07-16] MEDS ORDERED: MAGNESIUM SULF RIDER 4 GM/100 ML PREMIX IV PRN (12:10)
[2021-07-16] MEDS ORDERED: POTASSIUM CHLORIDE 20 MEQ TABLET PO ONE (12:11)
[2021-07-16] MEDS: CYPROHEPTADINE 4 MG TABLET PO SCH ×2 (13:43→22:18)
[2021-07-16 13:45] LABS: % Iron Saturation 16.4 % (18-50)
[2021-07-16 13:52] LABS: Folate 4.41 NG/ML (5.38-24.0); Vitamin B12 > 2000 PG/ML (211-911)
[2021-07-16] MEDS ORDERED: NITROGLYCERIN SL 0.4 MG TABLET SL PRN (14:03)
[2021-07-16] MEDS ORDERED: ONDANSETRON 4 MG TABLET PO PRN (14:03)
[2021-07-16] MEDS ORDERED: ACETAMINOPHEN 325 MG TABLET PO PRN (14:03)
[2021-07-16] MEDS: PYRIDOSTIGMINE 60 MG TABLET PO SCH ×2 (15:10→22:18)
[2021-07-16] MEDS: NYSTATIN OINT 15 GM TUBE TOP SCH ×2 (16:29→22:21)
[2021-07-16] MEDS: POTASSIUM CHLORIDE 20 MEQ TABLET PO PRN (18:13)
[2021-07-16] MEDS ORDERED: SIMVASTATIN 40 MG TABLET PO SCH (21:00)
[2021-07-16] MEDS: ZINC OXIDE 16% PASTE 57 GM TUBE TOP SCH (22:12)
[2021-07-16] MEDS: ASCORBIC ACID 500 MG TABLET PO SCH (22:17)
[2021-07-16] MEDS: ATORVASTATIN 40 MG TABLET PO SCH (22:18)
[2021-07-16] MEDS: TOPIRAMATE 100 MG TABLET PO SCH (22:18)
[2021-07-16] MEDS: AMIODARONE 200 MG TABLET PO SCH (22:19)
[2021-07-17] MEDS: VANCOMYCIN 50 MG/ML 60 ML/BOTTLE PO SCH ×3 (05:46→17:34)
[2021-07-17] MEDS: MEROPENEM 500 MG in SODIUM CHLORIDE 0.9% 100 ML IV SCH ×3 (05:46→22:48)
[2021-07-17] MEDS: SODIUM BICARB INJ 150 MEQ in DEXTROSE 5% 1,000 ML IV SCH ×2 (05:50→22:30)
[2021-07-17 08:50] LABS: Basophils % 0.1 % (0.0-0.8); Eosinophils % 0.1 % (0.00-10.9); Hematocrit 30.3 VOL% (35.7-47.0); Hemoglobin 9.7 GM/DL (12.0-16.0); Immature Granulocytes % 1.3 %; Immature Granulocytes Absolute 0.18 #; Lymphocytes # 1.2 10*3/uL (1.4-4.0); Lymphocytes % 8.6 % (21.3-54.2); Mean Corpuscular Volume 84.4 FL (87-102); Mean Platelet Volume 10.4 FL (9.6-12.0); Monocytes % 8.2 % (1.7-12.7); Neutrophils % 81.7 % (38.7-73.9); Platelet Count 338 T/CUMM (130-400); Red Blood Count 3.59 MC/CUMM (3.8-5.5); Red Cell Distribution Width 16.9 % (9.3-17.3); White Blood Count 13.7 T/CUMM (4-12)
[2021-07-17 09:05] LABS: Calcium 7.8 MG/DL (8.5-10.1); Osmolality,Calculated 290.6 MOS/KG (273-304); Potassium 2.6 MMOL/L (3.5-5.1)
[2021-07-17] MEDS: POTASSIUM CHLORIDE RIDER 10 MEQ/100 ML PREMIX IV SCH ×3 (12:40→15:39)
[2021-07-17] MEDS: NYSTATIN OINT 15 GM TUBE TOP SCH ×3 (12:40→22:57)
[2021-07-17] MEDS: AMIODARONE 200 MG TABLET PO SCH ×2 (12:49→22:52)
[2021-07-17] MEDS: PYRIDOSTIGMINE 60 MG TABLET PO SCH ×3 (12:49→22:52)
[2021-07-17] MEDS: EZETIMIBE 10 MG TABLET PO SCH (12:49)
[2021-07-17] MEDS: CYPROHEPTADINE 4 MG TABLET PO SCH ×2 (12:49→22:53)
[2021-07-17] MEDS: APIXABAN 2.5 MG TABLET PO SCH ×2 (12:50→22:52)
[2021-07-17] MEDS: ASPIRIN EC 81 MG TABLET PO SCH (12:50)
[2021-07-17] MEDS: ASCORBIC ACID 500 MG TABLET PO SCH ×2 (12:50→22:51)
[2021-07-17] MEDS: TICAGRELOR 90 MG TABLET PO SCH ×2 (12:50→22:51)
[2021-07-17] MEDS: TOPIRAMATE 100 MG TABLET PO SCH ×2 (12:50→22:52)
[2021-07-17] MEDS: PANTOPRAZOLE 40 MG VIAL IV SCH ×2 (12:51→22:45)
[2021-07-17] MEDS: ZINC OXIDE 16% PASTE 57 GM TUBE TOP SCH ×2 (12:51→22:57)
[2021-07-17] MEDS: ONDANSETRON 4 MG/2 ML VIAL IV PRN (14:28)
[2021-07-17] MEDS: ATORVASTATIN 40 MG TABLET PO SCH (22:52)
[2021-07-18] MEDS: VANCOMYCIN 50 MG/ML 60 ML/BOTTLE PO SCH ×4 (00:31→17:30)
[2021-07-18] MEDS: SODIUM BICARB INJ 150 MEQ in DEXTROSE 5% 1,000 ML IV SCH ×2 (00:35→11:17)
[2021-07-18] MEDS: ACETAMINOPHEN 325 MG TABLET PO PRN (04:56)
[2021-07-18] MEDS: ONDANSETRON 4 MG/2 ML VIAL IV PRN (05:10)
[2021-07-18 06:06] LABS: Basophils # 0.1 10*3/uL (0.0-0.2); Basophils % 0.5 % (0.0-0.8); Eosinophils # 0.1 10*3/uL (0.0-0.87); Eosinophils % 0.6 % (0.00-10.9); Hematocrit 29.8 VOL% (35.7-47.0); Hemoglobin 9.5 GM/DL (12.0-16.0); Immature Granulocytes % 2.1 %; Immature Granulocytes Absolute 0.26 #; Lymphocytes # 2.4 10*3/uL (1.4-4.0); Lymphocytes % 19.6 % (21.3-54.2); Mean Corpuscular HGB Conc 31.9 GM/DL (32-36); Mean Corpuscular Volume 86.4 FL (87-102); Monocytes % 8.6 % (1.7-12.7); Neutrophils % 68.6 % (38.7-73.9); Platelet Count 322 T/CUMM (130-400); Red Blood Count 3.45 MC/CUMM (3.8-5.5); Red Cell Distribution Width 17.1 % (9.3-17.3); White Blood Count 12.3 T/CUMM (4-12)
[2021-07-18 06:20] LABS: Calcium 7.6 MG/DL (8.5-10.1); Osmolality,Calculated 291.4 MOS/KG (273-304); Potassium 2.6 MMOL/L (3.5-5.1)
[2021-07-18] MEDS: MEROPENEM 500 MG in SODIUM CHLORIDE 0.9% 100 ML IV SCH (06:28)
[2021-07-18 06:33] LABS: Band Neutrophils 1 % (0-10); Hypochromia 1+; Lymphocytes 15 % (20-55); Microcytosis 1+; Ovalocytes Slight; Segmented Neutrophils 77 % (50-85); Total Cells Counted 100
[2021-07-18 06:34] LABS: Platelet Estimate Normal
[2021-07-18] MEDS: POTASSIUM CHLORIDE RIDER 10 MEQ/100 ML PREMIX IV SCH ×5 (10:14→17:56)
[2021-07-18] MEDS: FOLIC ACID INJ 1 MG in SYRINGE 1 EACH IV SCH (10:14)
[2021-07-18] MEDS: PANTOPRAZOLE 40 MG VIAL IV SCH ×2 (10:15→22:10)
[2021-07-18] MEDS: PYRIDOSTIGMINE 60 MG TABLET PO SCH ×3 (10:18→22:10)
[2021-07-18] MEDS: ASCORBIC ACID 500 MG TABLET PO SCH ×2 (10:18→22:09)
[2021-07-18] MEDS: CYPROHEPTADINE 4 MG TABLET PO SCH (10:18)
[2021-07-18] MEDS: AMIODARONE 200 MG TABLET PO SCH ×2 (10:18→22:10)
[2021-07-18] MEDS: POTASSIUM CHLORIDE 20 MEQ TABLET PO PRN ×3 (10:18→15:01)
[2021-07-18] MEDS: TOPIRAMATE 100 MG TABLET PO SCH ×2 (10:18→22:10)
[2021-07-18] MEDS: ASPIRIN EC 81 MG TABLET PO SCH (10:18)
[2021-07-18] MEDS: ZINC OXIDE 16% PASTE 57 GM TUBE TOP SCH ×2 (10:19→22:08)
[2021-07-18] MEDS: APIXABAN 2.5 MG TABLET PO SCH ×2 (10:19→22:10)
[2021-07-18] MEDS: TICAGRELOR 90 MG TABLET PO SCH ×2 (10:19→22:10)
[2021-07-18] MEDS: EZETIMIBE 10 MG TABLET PO SCH (10:20)
[2021-07-18] MEDS: NYSTATIN OINT 15 GM TUBE TOP SCH ×3 (10:20→22:09)
[2021-07-18] MEDS: FERRIC GLUCONATE COMPLEX 125 MG in SODIUM CHLORIDE 0.9% 100 ML IV SCH (11:17)
[2021-07-18] MEDS: DEXTROSE 5% 1,000 ML IV SCH (15:54)
[2021-07-18] MEDS: ATORVASTATIN 40 MG TABLET PO SCH (22:10)
[2021-07-19] MEDS: VANCOMYCIN 50 MG/ML 60 ML/BOTTLE PO SCH ×4 (01:29→18:10)
[2021-07-19 06:15] LABS: Basophils # 0.1 10*3/uL (0.0-0.2); Basophils % 0.6 % (0.0-0.8); Eosinophils # 0.1 10*3/uL (0.0-0.87); Eosinophils % 1.1 % (0.00-10.9); Hematocrit 30.4 VOL% (35.7-47.0); Hemoglobin 9.6 GM/DL (12.0-16.0); Lymphocytes % 20.6 % (21.3-54.2); Mean Corpuscular HGB Conc 31.6 GM/DL (32-36); Mean Corpuscular Volume 88.9 FL (87-102); Mean Platelet Volume 10.7 FL (9.6-12.0); Neutrophils % 68.7 % (38.7-73.9); Platelet Count 281 T/CUMM (130-400); Red Blood Count 3.42 MC/CUMM (3.8-5.5); Red Cell Distribution Width 17.2 % (9.3-17.3); White Blood Count 9.6 T/CUMM (4-12)
[2021-07-19 06:34] LABS: Calcium 7.5 MG/DL (8.5-10.1); Osmolality,Calculated 275.7 MOS/KG (273-304); Potassium 3.5 MMOL/L (3.5-5.1)
[2021-07-19 06:45] LABS: Eosinophils 3 % (0-10); Hypochromia 1+; Lymphocytes 23 % (20-55); Microcytosis 1+; Platelet Estimate Adequate; Segmented Neutrophils 68 % (50-85); Total Cells Counted 100
[2021-07-19] MEDS: DEXTROSE 5% 1,000 ML IV SCH ×2 (09:48→16:34)
[2021-07-19] MEDS: FERRIC GLUCONATE COMPLEX 125 MG in SODIUM CHLORIDE 0.9% 100 ML IV SCH (09:48)
[2021-07-19] MEDS: ASCORBIC ACID 500 MG TABLET PO SCH ×2 (09:50→22:30)
[2021-07-19] MEDS: TICAGRELOR 90 MG TABLET PO SCH ×2 (09:50→22:28)
[2021-07-19] MEDS: ASPIRIN EC 81 MG TABLET PO SCH (09:50)
[2021-07-19] MEDS: PYRIDOSTIGMINE 60 MG TABLET PO SCH ×3 (09:50→22:29)
[2021-07-19] MEDS: TOPIRAMATE 100 MG TABLET PO SCH ×2 (09:50→22:29)
[2021-07-19] MEDS: NYSTATIN OINT 15 GM TUBE TOP SCH ×3 (09:50→22:31)
[2021-07-19] MEDS: AMIODARONE 200 MG TABLET PO SCH ×2 (09:50→22:28)
[2021-07-19] MEDS: EZETIMIBE 10 MG TABLET PO SCH (09:50)
[2021-07-19] MEDS: ZINC OXIDE 16% PASTE 57 GM TUBE TOP SCH ×2 (09:50→22:30)
[2021-07-19] MEDS: APIXABAN 2.5 MG TABLET PO SCH ×2 (09:50→22:29)
[2021-07-19] MEDS: PANTOPRAZOLE 40 MG VIAL IV SCH (10:03)
[2021-07-19] MEDS: FOLIC ACID INJ 1 MG in SYRINGE 1 EACH IV SCH (10:03)
[2021-07-19] MEDS ORDERED: POTASSIUM PHOSPHATE 15 MMOL in SODIUM CHLORIDE 0.9% 100 ML IV ONE (11:00)
[2021-07-19] MEDS: ONDANSETRON 4 MG/2 ML VIAL IV PRN (14:33)
[2021-07-19] MEDS: PANTOPRAZOLE 40 MG TABLET PO SCH (22:29)
[2021-07-19] MEDS: ATORVASTATIN 40 MG TABLET PO SCH (22:29)
[2021-07-20] MEDS: VANCOMYCIN 50 MG/ML 60 ML/BOTTLE PO SCH ×4 (00:12→17:02)
[2021-07-20] MEDS: ONDANSETRON 4 MG/2 ML VIAL IV PRN ×4 (01:19→22:16)
[2021-07-20] MEDS: DEXTROSE 5% 1,000 ML IV SCH (04:50)
[2021-07-20 05:51] LABS: Basophils % 0.3 % (0.0-0.8); Eosinophils # 0.1 10*3/uL (0.0-0.87); Eosinophils % 1.3 % (0.00-10.9); Hematocrit 28.9 VOL% (35.7-47.0); Hemoglobin 9.1 GM/DL (12.0-16.0); Immature Granulocytes % 0.8 %; Immature Granulocytes Absolute 0.08 #; Lymphocytes # 1.2 10*3/uL (1.4-4.0); Lymphocytes % 12.7 % (21.3-54.2); Mean Corpuscular HGB Conc 31.5 GM/DL (32-36); Mean Corpuscular Volume 87.6 FL (87-102); Mean Platelet Volume 10.8 FL (9.6-12.0); Monocytes % 9.4 % (1.7-12.7); Neutrophils % 75.5 % (38.7-73.9); Platelet Count 246 T/CUMM (130-400); Red Cell Distribution Width 16.6 % (9.3-17.3); White Blood Count 9.6 T/CUMM (4-12)
[2021-07-20 06:09] LABS: Calcium 7.5 MG/DL (8.5-10.1); Osmolality,Calculated 268.2 MOS/KG (273-304); Potassium 3.4 MMOL/L (3.5-5.1)
[2021-07-20 06:13] LABS: Calcium 7.3 MG/DL (8.5-10.1); Osmolality,Calculated 270.1 MOS/KG (273-304); Potassium 3.4 MMOL/L (3.5-5.1)
[2021-07-20 06:47] LABS: Eosinophils 2 % (0-10); Hypochromia 1+; Lymphocytes 13 % (20-55); Microcytosis 1+; Segmented Neutrophils 72 % (50-85); Total Cells Counted 100
[2021-07-20 06:48] LABS: Ovalocytes Slight; Platelet Estimate Normal
[2021-07-20] MEDS: ZINC OXIDE 16% PASTE 57 GM TUBE TOP SCH ×2 (10:26→22:18)
[2021-07-20] MEDS: PYRIDOSTIGMINE 60 MG TABLET PO SCH ×3 (10:26→22:20)
[2021-07-20] MEDS: NYSTATIN OINT 15 GM TUBE TOP SCH ×3 (10:26→22:18)
[2021-07-20] MEDS: PANTOPRAZOLE 40 MG TABLET PO SCH ×2 (10:26→22:21)
[2021-07-20] MEDS: TOPIRAMATE 100 MG TABLET PO SCH ×2 (10:26→22:21)
[2021-07-20] MEDS: FOLIC ACID 1 MG TABLET PO SCH (10:26)
[2021-07-20] MEDS: AMIODARONE 200 MG TABLET PO SCH ×2 (10:26→22:20)
[2021-07-20] MEDS: ASCORBIC ACID 500 MG TABLET PO SCH ×2 (10:26→22:20)
[2021-07-20] MEDS: EZETIMIBE 10 MG TABLET PO SCH (10:26)
[2021-07-20] MEDS: TICAGRELOR 90 MG TABLET PO SCH ×2 (10:26→22:19)
[2021-07-20] MEDS ORDERED: TUBERCULIN SKIN TEST 0.1 ML SYRINGE INTRADERM ONE (11:00)
[2021-07-20] MEDS ORDERED: POTASSIUM CHLORIDE 20 MEQ TABLET PO ONE (11:30)
[2021-07-20] MEDS: APIXABAN 2.5 MG TABLET PO SCH ×2 (11:55→22:21)
[2021-07-20] MEDS: ASPIRIN EC 81 MG TABLET PO SCH (11:55)
[2021-07-20] MEDS: POTASSIUM PHOS/SOD PHOS POWDER 250 MG PACK PO SCH ×2 (11:55→16:45)
[2021-07-20] MEDS: FERRIC GLUCONATE COMPLEX 125 MG in SODIUM CHLORIDE 0.9% 100 ML IV SCH (11:55)
[2021-07-20] MEDS: DEXTROSE 5% NACL 0.45% 1,000 ML IV SCH (13:10)
[2021-07-20] MEDS: ATORVASTATIN 40 MG TABLET PO SCH (22:20)
[2021-07-21] MEDS: VANCOMYCIN 50 MG/ML 60 ML/BOTTLE PO SCH ×4 (00:52→17:20)
[2021-07-21 05:02] LABS: Basophils % 0.3 % (0.0-0.8); Eosinophils # 0.1 10*3/uL (0.0-0.87); Eosinophils % 1.4 % (0.00-10.9); Hematocrit 27.1 VOL% (35.7-47.0); Hemoglobin 8.4 GM/DL (12.0-16.0); Immature Granulocytes % 1.2 %; Immature Granulocytes Absolute 0.11 #; Lymphocytes # 1.2 10*3/uL (1.4-4.0); Lymphocytes % 13.2 % (21.3-54.2); Mean Corpuscular Volume 87.7 FL (87-102); Mean Platelet Volume 11.4 FL (9.6-12.0); Monocytes % 12.9 % (1.7-12.7); Platelet Count 200 T/CUMM (130-400); Red Blood Count 3.09 MC/CUMM (3.8-5.5); Red Cell Distribution Width 16.4 % (9.3-17.3); White Blood Count 9.4 T/CUMM (4-12)
[2021-07-21 05:30] LABS: Calcium 6.7 MG/DL (8.5-10.1); Osmolality,Calculated 274.8 MOS/KG (273-304); Potassium 3.8 MMOL/L (3.5-5.1)
[2021-07-21 05:31] LABS: Calcium 6.9 MG/DL (8.5-10.1); Potassium 3.6 MMOL/L (3.5-5.1)
[2021-07-21] MEDS: NYSTATIN OINT 15 GM TUBE TOP SCH ×3 (08:23→23:51)
[2021-07-21] MEDS: PANTOPRAZOLE 40 MG TABLET PO SCH ×2 (08:23→23:51)
[2021-07-21] MEDS: APIXABAN 2.5 MG TABLET PO SCH ×2 (08:23→23:50)
[2021-07-21] MEDS: ASCORBIC ACID 500 MG TABLET PO SCH ×2 (08:23→23:49)
[2021-07-21] MEDS: FOLIC ACID 1 MG TABLET PO SCH (08:23)
[2021-07-21] MEDS: TICAGRELOR 90 MG TABLET PO SCH ×2 (08:23→23:50)
[2021-07-21] MEDS: EZETIMIBE 10 MG TABLET PO SCH (08:23)
[2021-07-21] MEDS: PYRIDOSTIGMINE 60 MG TABLET PO SCH ×3 (08:23→23:50)
[2021-07-21] MEDS: AMIODARONE 200 MG TABLET PO SCH ×2 (08:23→23:51)
[2021-07-21] MEDS: TOPIRAMATE 100 MG TABLET PO SCH ×2 (08:23→23:50)
[2021-07-21] MEDS: POTASSIUM PHOS/SOD PHOS POWDER 250 MG PACK PO SCH ×3 (08:23→16:45)
[2021-07-21] MEDS: ZINC OXIDE 16% PASTE 57 GM TUBE TOP SCH ×2 (08:23→23:52)
[2021-07-21] MEDS: ASPIRIN EC 81 MG TABLET PO SCH (08:23)
[2021-07-21] MEDS: DEXTROSE 5% NACL 0.45% 1,000 ML IV SCH (09:10)
[2021-07-21] MEDS: ONDANSETRON 4 MG/2 ML VIAL IV PRN (09:10)
[2021-07-21] MEDS: FERRIC GLUCONATE COMPLEX 125 MG in SODIUM CHLORIDE 0.9% 100 ML IV SCH (12:40)
[2021-07-21] MEDS ORDERED: MAGNESIUM SULF RIDER 2 GM/50 ML PREMIX IV ONE (15:00)
[2021-07-21] MEDS: ATORVASTATIN 40 MG TABLET PO SCH (23:50)
[2021-07-22] MEDS: ONDANSETRON 4 MG/2 ML VIAL IV PRN ×4 (00:05→22:17)
[2021-07-22] MEDS: VANCOMYCIN 50 MG/ML 60 ML/BOTTLE PO SCH ×5 (00:08→23:21)
[2021-07-22] MEDS: DEXTROSE 5% NACL 0.45% 1,000 ML IV SCH (03:30)
[2021-07-22 05:05] LABS: Basophils # 0.1 10*3/uL (0.0-0.2); Basophils % 0.5 % (0.0-0.8); Eosinophils # 0.1 10*3/uL (0.0-0.87); Eosinophils % 1.4 % (0.00-10.9); Hematocrit 26.7 VOL% (35.7-47.0); Hemoglobin 8.5 GM/DL (12.0-16.0); Immature Granulocytes % 1.8 %; Immature Granulocytes Absolute 0.18 #; Lymphocytes # 1.4 10*3/uL (1.4-4.0); Lymphocytes % 13.5 % (21.3-54.2); Mean Corpuscular HGB Conc 31.8 GM/DL (32-36); Mean Corpuscular Volume 87.3 FL (87-102); Mean Platelet Volume 11.3 FL (9.6-12.0); Monocytes % 18.8 % (1.7-12.7); Platelet Count 198 T/CUMM (130-400); Red Blood Count 3.06 MC/CUMM (3.8-5.5); Red Cell Distribution Width 16.4 % (9.3-17.3); White Blood Count 10.2 T/CUMM (4-12)
[2021-07-22 05:31] LABS: Eosinophils 2 % (0-10); Hypochromia Slight; Lymphocytes 7 % (20-55); Platelet Estimate Normal; Segmented Neutrophils 79 % (50-85); Total Cells Counted 100
[2021-07-22 05:45] LABS: Calcium 7.2 MG/DL (8.5-10.1); Osmolality,Calculated 270.1 MOS/KG (273-304); Potassium 3.9 MMOL/L (3.5-5.1)
[2021-07-22] MEDS: TICAGRELOR 90 MG TABLET PO SCH ×2 (08:00→22:15)
[2021-07-22] MEDS: ZINC OXIDE 16% PASTE 57 GM TUBE TOP SCH ×2 (08:00→22:16)
[2021-07-22] MEDS: POTASSIUM PHOS/SOD PHOS POWDER 250 MG PACK PO SCH (08:00)
[2021-07-22] MEDS: AMIODARONE 200 MG TABLET PO SCH ×2 (08:01→22:14)
[2021-07-22] MEDS: APIXABAN 2.5 MG TABLET PO SCH ×2 (08:01→22:14)
[2021-07-22] MEDS: PANTOPRAZOLE 40 MG TABLET PO SCH ×2 (08:02→22:15)
[2021-07-22] MEDS: ASCORBIC ACID 500 MG TABLET PO SCH ×2 (08:02→22:15)
[2021-07-22] MEDS: EZETIMIBE 10 MG TABLET PO SCH (08:02)
[2021-07-22] MEDS: TOPIRAMATE 100 MG TABLET PO SCH ×2 (08:02→22:15)
[2021-07-22] MEDS: ASPIRIN EC 81 MG TABLET PO SCH (08:02)
[2021-07-22] MEDS: NYSTATIN OINT 15 GM TUBE TOP SCH ×3 (08:02→22:17)
[2021-07-22] MEDS: FOLIC ACID 1 MG TABLET PO SCH (08:02)
[2021-07-22] MEDS: PYRIDOSTIGMINE 60 MG TABLET PO SCH ×3 (08:02→22:16)
[2021-07-22] MEDS: FERRIC GLUCONATE COMPLEX 125 MG in SODIUM CHLORIDE 0.9% 100 ML IV SCH (08:58)
[2021-07-22] MEDS ORDERED: FUROSEMIDE 40 MG/4 ML VIAL ONE (11:11)
[2021-07-22] MEDS ORDERED: FUROSEMIDE 40 MG/4 ML VIAL IV ONE (12:00)
[2021-07-22] MEDS ORDERED: MORPHINE 2 MG/1 ML SYRINGE IV ONE (12:30)
[2021-07-22] MEDS: ACETYLCYSTEINE 20% 800 MG/4 ML VIAL RESP TX SCH (13:22)
[2021-07-22] MEDS: ALBUTEROL/IPRATROPIUM 3 ML NEB RESP TX SCH ×2 (13:22→20:21)
[2021-07-22] MEDS: ATORVASTATIN 40 MG TABLET PO SCH (22:15)
[2021-07-22] MEDS: ACETAMINOPHEN 325 MG TABLET PO PRN (22:15)
[2021-07-23] MEDS: ACETYLCYSTEINE 20% 800 MG/4 ML VIAL RESP TX SCH ×3 (00:42→16:09)
[2021-07-23] MEDS: ALBUTEROL/IPRATROPIUM 3 ML NEB RESP TX SCH ×4 (00:42→19:02)
[2021-07-23 04:33] LABS: Basophils # 0.1 10*3/uL (0.0-0.2); Basophils % 0.6 % (0.0-0.8); Eosinophils # 0.2 10*3/uL (0.0-0.87); Eosinophils % 2.1 % (0.00-10.9); Hematocrit 24.3 VOL% (35.7-47.0); Hemoglobin 7.6 GM/DL (12.0-16.0); Immature Granulocytes % 3.7 %; Lymphocytes # 1.2 10*3/uL (1.4-4.0); Lymphocytes % 15.4 % (21.3-54.2); Mean Corpuscular HGB Conc 31.3 GM/DL (32-36); Mean Corpuscular Volume 87.1 FL (87-102); Mean Platelet Volume 11.6 FL (9.6-12.0); Monocytes % 22.5 % (1.7-12.7); Neutrophils % 55.7 % (38.7-73.9); Platelet Count 207 T/CUMM (130-400); Red Blood Count 2.79 MC/CUMM (3.8-5.5); Red Cell Distribution Width 16.3 % (9.3-17.3); White Blood Count 8.1 T/CUMM (4-12)
[2021-07-23 04:52] LABS: Calcium 7.2 MG/DL (8.5-10.1); Osmolality,Calculated 271.8 MOS/KG (273-304); Potassium 3.2 MMOL/L (3.5-5.1)
[2021-07-23] MEDS: POTASSIUM BICARB EFFERVESCENT 20 MEQ TAB.EFF PER TUBE PRN ×3 (05:36→12:44)
[2021-07-23] MEDS: VANCOMYCIN 50 MG/ML 60 ML/BOTTLE PO SCH ×3 (05:36→17:19)
[2021-07-23 05:43] LABS: Anisocytosis 1+; Band Neutrophils 4 % (0-10); Eosinophils 3 % (0-10); Lymphocytes 10 % (20-55); Platelet Estimate Normal; Segmented Neutrophils 60 % (50-85); Smudge Cells Few; Total Cells Counted 100
[2021-07-23 05:44] LABS: Macrocytosis Slight
[2021-07-23] MEDS: PYRIDOSTIGMINE 60 MG TABLET PO SCH ×3 (10:04→20:55)
[2021-07-23] MEDS: ASCORBIC ACID 500 MG TABLET PO SCH ×2 (10:04→20:55)
[2021-07-23] MEDS: FERRIC GLUCONATE COMPLEX 125 MG in SODIUM CHLORIDE 0.9% 100 ML IV SCH (10:04)
[2021-07-23] MEDS: PANTOPRAZOLE 40 MG TABLET PO SCH ×3 (10:04→20:55)
[2021-07-23] MEDS: ASPIRIN EC 81 MG TABLET PO SCH (10:05)
[2021-07-23] MEDS: FOLIC ACID 1 MG TABLET PO SCH (10:05)
[2021-07-23] MEDS: APIXABAN 2.5 MG TABLET PO SCH ×2 (10:05→20:56)
[2021-07-23] MEDS: TOPIRAMATE 100 MG TABLET PO SCH ×2 (10:05→20:55)
[2021-07-23] MEDS: TICAGRELOR 90 MG TABLET PO SCH ×2 (10:05→20:55)
[2021-07-23] MEDS: AMIODARONE 200 MG TABLET PO SCH ×3 (10:05→20:55)
[2021-07-23] MEDS: EZETIMIBE 10 MG TABLET PO SCH (10:05)
[2021-07-23] MEDS: ONDANSETRON 4 MG/2 ML VIAL IV PRN (10:20)
[2021-07-23] MEDS: NYSTATIN OINT 15 GM TUBE TOP SCH ×3 (13:51→21:22)
[2021-07-23] MEDS: ZINC OXIDE 16% PASTE 57 GM TUBE TOP SCH ×2 (13:51→21:22)
[2021-07-23] MEDS ORDERED: FUROSEMIDE 20 MG/2 ML VIAL IV ONE ×2 (14:35→15:50)
[2021-07-23] MEDS: hydrOXYzine HCL 25 MG TABLET PO PRN (14:47)
[2021-07-23 15:33] LABS: ABG Base Excess -7.9 MMOL/L (-2.5-2.5); ABG HCO3 17.6 MMOL/L (20-26); ABG Oxygen Saturation 70.9 % (95-100); ABG PCO2 43.4 MM HG (35-48); ABG PH 7.249 (7.35-7.45); ABG PO2 46.4 MM HG (80-95); ABG TCO2 17.9 MMOL/L (23-27)
[2021-07-23] MEDS ORDERED: ALBUTEROL/IPRATROPIUM 3 ML NEB RESP TX ONE (15:54)
[2021-07-23] MEDS: FUROSEMIDE 20 MG/2 ML VIAL IV SCH (20:54)
[2021-07-23] MEDS: ATORVASTATIN 40 MG TABLET PO SCH (20:55)
[2021-07-24] MEDS: ALBUTEROL/IPRATROPIUM 3 ML NEB RESP TX SCH ×3 (00:09→14:00)
[2021-07-24] MEDS: ACETYLCYSTEINE 20% 800 MG/4 ML VIAL RESP TX SCH ×3 (00:09→14:00)
[2021-07-24] MEDS: VANCOMYCIN 50 MG/ML 60 ML/BOTTLE PO SCH ×4 (00:40→17:36)
[2021-07-24] MEDS: hydrOXYzine HCL 25 MG TABLET PO PRN ×2 (01:37→22:46)
[2021-07-24 04:23] LABS: Basophils # 0.1 10*3/uL (0.0-0.2); Basophils % 0.5 % (0.0-0.8); Eosinophils # 0.1 10*3/uL (0.0-0.87); Eosinophils % 0.5 % (0.00-10.9); Hematocrit 25.2 VOL% (35.7-47.0); Hemoglobin 8.1 GM/DL (12.0-16.0); Immature Granulocytes % 3.1 %; Immature Granulocytes Absolute 0.34 #; Lymphocytes # 1.6 10*3/uL (1.4-4.0); Lymphocytes % 14.8 % (21.3-54.2); Mean Corpuscular HGB Conc 32.1 GM/DL (32-36); Mean Corpuscular Volume 87.2 FL (87-102); Monocytes % 17.7 % (1.7-12.7); Neutrophils % 63.4 % (38.7-73.9); Platelet Count 299 T/CUMM (130-400); Red Blood Count 2.89 MC/CUMM (3.8-5.5); Red Cell Distribution Width 16.1 % (9.3-17.3)
[2021-07-24 04:55] LABS: Calcium 7.7 MG/DL (8.5-10.1); Potassium 3.4 MMOL/L (3.5-5.1)
[2021-07-24 04:56] LABS: Anisocytosis 1+; Band Neutrophils 1 % (0-10); Eosinophils 4 % (0-10); Hypochromia 1+; Lymphocytes 11 % (20-55); Metamyelocytes 1 %; Platelet Estimate Normal; Segmented Neutrophils 78 % (50-85); Total Cells Counted 100
[2021-07-24] MEDS: POTASSIUM BICARB EFFERVESCENT 20 MEQ TAB.EFF PER TUBE PRN ×2 (05:57→08:03)
[2021-07-24] MEDS: ASCORBIC ACID 500 MG TABLET PO SCH ×2 (08:03→20:44)
[2021-07-24] MEDS: ASPIRIN EC 81 MG TABLET PO SCH (08:03)
[2021-07-24] MEDS: PANTOPRAZOLE 40 MG TABLET PO SCH ×2 (08:03→20:44)
[2021-07-24] MEDS: EZETIMIBE 10 MG TABLET PO SCH (08:03)
[2021-07-24] MEDS: TICAGRELOR 90 MG TABLET PO SCH ×2 (08:03→20:44)
[2021-07-24] MEDS: FUROSEMIDE 20 MG/2 ML VIAL IV SCH ×2 (08:04→20:45)
[2021-07-24] MEDS: TOPIRAMATE 100 MG TABLET PO SCH ×2 (08:04→20:44)
[2021-07-24] MEDS: AMIODARONE 200 MG TABLET PO SCH ×2 (08:04→20:44)
[2021-07-24] MEDS: FOLIC ACID 1 MG TABLET PO SCH (08:04)
[2021-07-24] MEDS: PYRIDOSTIGMINE 60 MG TABLET PO SCH ×3 (08:04→20:44)
[2021-07-24] MEDS: APIXABAN 2.5 MG TABLET PO SCH ×2 (08:04→20:44)
[2021-07-24] MEDS: NYSTATIN OINT 15 GM TUBE TOP SCH ×3 (08:18→22:45)
[2021-07-24] MEDS: ZINC OXIDE 16% PASTE 57 GM TUBE TOP SCH ×2 (08:18→22:45)
[2021-07-24] MEDS: FERRIC GLUCONATE COMPLEX 125 MG in SODIUM CHLORIDE 0.9% 100 ML IV SCH (09:03)
[2021-07-24] MEDS ORDERED: ALBUTEROL/IPRATROPIUM 3 ML NEB RESP TX ONE (12:41)
[2021-07-24] MEDS: ATORVASTATIN 40 MG TABLET PO SCH (20:44)
[2021-07-25] MEDS: VANCOMYCIN 50 MG/ML 60 ML/BOTTLE PO SCH ×4 (00:22→17:53)
[2021-07-25] MEDS: ALBUTEROL/IPRATROPIUM 3 ML NEB RESP TX SCH ×3 (01:30→15:35)
[2021-07-25] MEDS: ACETYLCYSTEINE 20% 800 MG/4 ML VIAL RESP TX SCH ×3 (01:30→15:35)
[2021-07-25] MEDS: ONDANSETRON 4 MG/2 ML VIAL IV PRN ×3 (04:57→22:13)
[2021-07-25] MEDS: ASPIRIN EC 81 MG TABLET PO SCH (09:34)
[2021-07-25] MEDS: TOPIRAMATE 100 MG TABLET PO SCH ×2 (09:34→22:20)
[2021-07-25] MEDS: AMIODARONE 200 MG TABLET PO SCH ×2 (09:34→22:18)
[2021-07-25] MEDS: TICAGRELOR 90 MG TABLET PO SCH ×2 (09:34→22:18)
[2021-07-25] MEDS: FOLIC ACID 1 MG TABLET PO SCH (09:34)
[2021-07-25] MEDS: ASCORBIC ACID 500 MG TABLET PO SCH ×2 (09:34→22:20)
[2021-07-25] MEDS: PYRIDOSTIGMINE 60 MG TABLET PO SCH ×3 (09:35→22:19)
[2021-07-25] MEDS: APIXABAN 2.5 MG TABLET PO SCH ×2 (09:35→22:19)
[2021-07-25] MEDS: FUROSEMIDE 20 MG/2 ML VIAL IV SCH ×2 (09:35→22:14)
[2021-07-25] MEDS: PANTOPRAZOLE 40 MG TABLET PO SCH ×2 (09:35→22:19)
[2021-07-25] MEDS: POTASSIUM BICARB EFFERVESCENT 20 MEQ TAB.EFF PER TUBE PRN (09:35)
[2021-07-25] MEDS: NYSTATIN OINT 15 GM TUBE TOP SCH ×3 (09:35→22:14)
[2021-07-25] MEDS: ZINC OXIDE 16% PASTE 57 GM TUBE TOP SCH ×2 (09:35→22:14)
[2021-07-25] MEDS: EZETIMIBE 10 MG TABLET PO SCH (09:35)
[2021-07-25] MEDS: FERRIC GLUCONATE COMPLEX 125 MG in SODIUM CHLORIDE 0.9% 100 ML IV SCH (09:35)
[2021-07-25 11:06] LABS: ABG Base Excess 2.1 MMOL/L (-2.5-2.5); ABG HCO3 26.2 MMOL/L (20-26); ABG Oxygen Saturation 93.8 % (95-100); ABG PH 7.472 (7.35-7.45); ABG PO2 68.4 MM HG (80-95); ABG TCO2 23.8 MMOL/L (23-27); Allen Test Positive; Pt O2 Delivery Device Venturi Mask
[2021-07-25] MEDS: ATORVASTATIN 40 MG TABLET PO SCH (22:19)
[2021-07-26] MEDS: ALBUTEROL/IPRATROPIUM 3 ML NEB RESP TX SCH ×4 (00:20→23:35)
[2021-07-26] MEDS: ACETYLCYSTEINE 20% 800 MG/4 ML VIAL RESP TX SCH ×4 (00:20→23:35)
[2021-07-26] MEDS: VANCOMYCIN 50 MG/ML 60 ML/BOTTLE PO SCH (00:31)
[2021-07-26] MEDS: ONDANSETRON 4 MG/2 ML VIAL IV PRN ×3 (02:56→16:15)
[2021-07-26 06:33] LABS: Basophils # 0.1 10*3/uL (0.0-0.2); Basophils % 0.4 % (0.0-0.8); Eosinophils # 0.1 10*3/uL (0.0-0.87); Eosinophils % 0.3 % (0.00-10.9); Hematocrit 22.8 VOL% (35.7-47.0); Hemoglobin 7.1 GM/DL (12.0-16.0); Immature Granulocytes % 1.4 %; Immature Granulocytes Absolute 0.22 #; Lymphocytes # 1.7 10*3/uL (1.4-4.0); Mean Corpuscular HGB Conc 31.1 GM/DL (32-36); Mean Corpuscular Volume 88.7 FL (87-102); Mean Platelet Volume 10.6 FL (9.6-12.0); Monocytes % 10.3 % (1.7-12.7); Neutrophils % 76.6 % (38.7-73.9); Platelet Count 342 T/CUMM (130-400); Red Blood Count 2.57 MC/CUMM (3.8-5.5); Red Cell Distribution Width 16.3 % (9.3-17.3); White Blood Count 15.4 T/CUMM (4-12)
[2021-07-26 07:03] LABS: Calcium 7.6 MG/DL (8.5-10.1); Osmolality,Calculated 273.7 MOS/KG (273-304)
[2021-07-26] MEDS ORDERED: POTASSIUM CHLORIDE RIDER 10 MEQ/100 ML PREMIX IV PRN (07:39)
[2021-07-26] MEDS ORDERED: SODIUM CHLORIDE 0.9% 1,000 ML IV PRN (07:42)
[2021-07-26 10:30] LABS: ABG Base Excess 1.7 MMOL/L (-2.5-2.5); ABG HCO3 25.9 MMOL/L (20-26); ABG Oxygen Saturation 95.2 % (95-100); ABG PH 7.457 (7.35-7.45); ABG PO2 75.2 MM HG (80-95)
[2021-07-26] MEDS: EZETIMIBE 10 MG TABLET PO SCH (11:08)
[2021-07-26] MEDS: FOLIC ACID 1 MG TABLET PO SCH (11:08)
[2021-07-26] MEDS: ASCORBIC ACID 500 MG TABLET PO SCH ×2 (11:08→21:53)
[2021-07-26] MEDS: TOPIRAMATE 100 MG TABLET PO SCH ×2 (11:08→21:53)
[2021-07-26] MEDS: TICAGRELOR 90 MG TABLET PO SCH ×2 (11:08→21:52)
[2021-07-26] MEDS: PYRIDOSTIGMINE 60 MG TABLET PO SCH ×3 (11:09→21:52)
[2021-07-26] MEDS: AMIODARONE 200 MG TABLET PO SCH ×2 (11:09→21:52)
[2021-07-26] MEDS: PANTOPRAZOLE 40 MG TABLET PO SCH ×2 (11:09→21:53)
[2021-07-26] MEDS: ASPIRIN EC 81 MG TABLET PO SCH (11:09)
[2021-07-26] MEDS: ZINC OXIDE 16% PASTE 57 GM TUBE TOP SCH ×2 (11:10→21:52)
[2021-07-26] MEDS: FUROSEMIDE 20 MG/2 ML VIAL IV SCH ×2 (11:10→21:00)
[2021-07-26] MEDS: NYSTATIN OINT 15 GM TUBE TOP SCH ×3 (11:10→21:52)
[2021-07-26] MEDS: POTASSIUM CHLORIDE RIDER 10 MEQ/100 ML PREMIX IV SCH ×4 (11:11→16:00)
[2021-07-26] MEDS: FERRIC GLUCONATE COMPLEX 125 MG in SODIUM CHLORIDE 0.9% 100 ML IV SCH (18:29)
[2021-07-26] MEDS ORDERED: FUROSEMIDE 40 MG/4 ML VIAL IV ONE (19:02)
[2021-07-26 19:17] LABS: ABG Base Excess -4.3 MMOL/L (-2.5-2.5); ABG HCO3 20.8 MMOL/L (20-26); ABG Oxygen Saturation 91.9 % (95-100); ABG PCO2 34.9 MM HG (35-48); ABG PH 7.373 (7.35-7.45); ABG TCO2 18.5 MMOL/L (23-27)
[2021-07-26] MEDS: ATORVASTATIN 40 MG TABLET PO SCH (21:52)
[2021-07-26] MEDS: APIXABAN 2.5 MG TABLET PO SCH (21:52)
[2021-07-27 05:11] LABS: Basophils # 0.1 10*3/uL (0.0-0.2); Basophils % 0.3 % (0.0-0.8); Eosinophils % 0.2 % (0.00-10.9); Hematocrit 29.3 VOL% (35.7-47.0); Immature Granulocytes % 1.5 %; Immature Granulocytes Absolute 0.25 #; Lymphocytes # 1.3 10*3/uL (1.4-4.0); Mean Corpuscular HGB Conc 31.1 GM/DL (32-36); Mean Corpuscular Volume 89.6 FL (87-102); Mean Platelet Volume 10.5 FL (9.6-12.0); Monocytes % 7.2 % (1.7-12.7); Neutrophils % 82.8 % (38.7-73.9); Platelet Count 343 T/CUMM (130-400); Red Cell Distribution Width 15.9 % (9.3-17.3)
[2021-07-27 05:28] LABS: Red Blood Count 3.27 MC/CUMM (3.8-5.5); White Blood Count 16.8 T/CUMM (4-12)
[2021-07-27 05:29] LABS: Hemoglobin 9.1 GM/DL (12.0-16.0)
[2021-07-27 05:32] LABS: Calcium 7.5 MG/DL (8.5-10.1); Osmolality,Calculated 273.7 MOS/KG (273-304); Potassium 3.5 MMOL/L (3.5-5.1)
[2021-07-27 05:42] LABS: Calcium 7.7 MG/DL (8.5-10.1); Osmolality,Calculated 275.5 MOS/KG (273-304); Potassium 3.3 MMOL/L (3.5-5.1)
[2021-07-27] MEDS: ACETYLCYSTEINE 20% 800 MG/4 ML VIAL RESP TX SCH ×3 (07:14→23:25)
[2021-07-27] MEDS: ALBUTEROL/IPRATROPIUM 3 ML NEB RESP TX SCH ×3 (07:14→23:25)
[2021-07-27] MEDS: TICAGRELOR 90 MG TABLET PO SCH ×2 (09:32→20:51)
[2021-07-27] MEDS: FOLIC ACID 1 MG TABLET PO SCH (09:32)
[2021-07-27] MEDS: ASCORBIC ACID 500 MG TABLET PO SCH ×2 (09:32→20:52)
[2021-07-27] MEDS: EZETIMIBE 10 MG TABLET PO SCH (09:32)
[2021-07-27] MEDS: PYRIDOSTIGMINE 60 MG TABLET PO SCH ×3 (09:32→20:52)
[2021-07-27] MEDS: AMIODARONE 200 MG TABLET PO SCH ×2 (09:32→20:51)
[2021-07-27] MEDS: APIXABAN 2.5 MG TABLET PO SCH ×2 (09:32→20:51)
[2021-07-27] MEDS: TOPIRAMATE 100 MG TABLET PO SCH ×2 (09:32→20:52)
[2021-07-27] MEDS: ASPIRIN EC 81 MG TABLET PO SCH (09:32)
[2021-07-27] MEDS: ZINC OXIDE 16% PASTE 57 GM TUBE TOP SCH ×2 (09:34→20:51)
[2021-07-27] MEDS: HYDROCORTISONE 100 MG VIAL IV SCH ×3 (09:36→20:51)
[2021-07-27] MEDS: FUROSEMIDE 20 MG/2 ML VIAL IV SCH ×2 (09:39→20:51)
[2021-07-27] MEDS: NYSTATIN OINT 15 GM TUBE TOP SCH ×3 (10:00→20:52)
[2021-07-27] MEDS: POTASSIUM BICARB EFFERVESCENT 20 MEQ TAB.EFF PER TUBE PRN ×3 (10:00→13:53)
[2021-07-27] MEDS: OMEPRAZOLE ODT 20 MG TABLET PO SCH ×2 (10:01→20:52)
[2021-07-27] MEDS: PANTOPRAZOLE 40 MG TABLET PO SCH (10:14)
[2021-07-27] MEDS: FERRIC GLUCONATE COMPLEX 125 MG in SODIUM CHLORIDE 0.9% 100 ML IV SCH (10:21)
[2021-07-27] MEDS: MORPHINE 2 MG/1 ML SYRINGE IV PRN (15:27)
[2021-07-27] MEDS: ONDANSETRON 4 MG/2 ML VIAL IV PRN ×2 (15:59→20:35)
[2021-07-27] MEDS: ATORVASTATIN 40 MG TABLET PO SCH (20:52)
[2021-07-27] MEDS: hydrOXYzine HCL 25 MG TABLET PO PRN (23:16)
[2021-07-28] MEDS: HYDROCORTISONE 100 MG VIAL IV SCH ×4 (03:30→21:10)
[2021-07-28] MEDS ORDERED: SODIUM CHLORIDE 0.9% 250 ML IV ONE (04:32)
[2021-07-28 05:05] LABS: Basophils % 0.1 % (0.0-0.8); Hematocrit 27.4 VOL% (35.7-47.0); Hemoglobin 8.9 GM/DL (12.0-16.0); Immature Granulocytes Absolute 0.16 #; Lymphocytes # 0.3 10*3/uL (1.4-4.0); Lymphocytes % 2.1 % (21.3-54.2); Mean Corpuscular HGB Conc 32.5 GM/DL (32-36); Mean Corpuscular Volume 88.1 FL (87-102); Mean Platelet Volume 10.1 FL (9.6-12.0); Monocytes % 2.4 % (1.7-12.7); Neutrophils % 94.4 % (38.7-73.9); Platelet Count 377 T/CUMM (130-400); Red Blood Count 3.11 MC/CUMM (3.8-5.5); Red Cell Distribution Width 16.3 % (9.3-17.3); White Blood Count 16.1 T/CUMM (4-12)
[2021-07-28 05:18] LABS: Calcium 7.6 MG/DL (8.5-10.1); Osmolality,Calculated 276.2 MOS/KG (273-304); Potassium 3.5 MMOL/L (3.5-5.1)
[2021-07-28 05:32] LABS: Lymphocytes 2 % (20-55); Platelet Estimate Adequate; Segmented Neutrophils 94 % (50-85); Total Cells Counted 100
[2021-07-28 05:33] LABS: Hypochromia 1+; Microcytosis 1+
[2021-07-28] MEDS: ONDANSETRON 4 MG/2 ML VIAL IV PRN ×4 (06:05→21:41)
[2021-07-28] MEDS: ACETYLCYSTEINE 20% 800 MG/4 ML VIAL RESP TX SCH ×2 (07:44→14:05)
[2021-07-28] MEDS: ALBUTEROL/IPRATROPIUM 3 ML NEB RESP TX SCH ×2 (07:44→14:05)
[2021-07-28] MEDS: ASPIRIN EC 81 MG TABLET PO SCH (10:01)
[2021-07-28] MEDS: AMIODARONE 200 MG TABLET PO SCH ×2 (10:01→21:11)
[2021-07-28] MEDS: TOPIRAMATE 100 MG TABLET PO SCH ×2 (10:01→21:12)
[2021-07-28] MEDS: TICAGRELOR 90 MG TABLET PO SCH ×2 (10:01→21:11)
[2021-07-28] MEDS: POTASSIUM BICARB EFFERVESCENT 20 MEQ TAB.EFF PER TUBE PRN ×2 (10:01→15:18)
[2021-07-28] MEDS: ASCORBIC ACID 500 MG TABLET PO SCH ×2 (10:01→21:12)
[2021-07-28] MEDS: EZETIMIBE 10 MG TABLET PO SCH (10:01)
[2021-07-28] MEDS: OMEPRAZOLE ODT 20 MG TABLET PO SCH ×2 (10:02→21:13)
[2021-07-28] MEDS: hydrOXYzine HCL 25 MG TABLET PO PRN ×2 (10:02→16:50)
[2021-07-28] MEDS: FOLIC ACID 1 MG TABLET PO SCH (10:02)
[2021-07-28] MEDS: APIXABAN 2.5 MG TABLET PO SCH ×2 (10:03→21:11)
[2021-07-28] MEDS: PYRIDOSTIGMINE 60 MG TABLET PO SCH ×3 (10:03→21:13)
[2021-07-28] MEDS: NYSTATIN OINT 15 GM TUBE TOP SCH ×3 (10:03→21:13)
[2021-07-28] MEDS: ZINC OXIDE 16% PASTE 57 GM TUBE TOP SCH ×2 (10:03→21:12)
[2021-07-28] MEDS: FUROSEMIDE 20 MG/2 ML VIAL IV SCH ×2 (10:15→21:10)
[2021-07-28] MEDS: FERRIC GLUCONATE COMPLEX 125 MG in SODIUM CHLORIDE 0.9% 100 ML IV SCH (10:19)
[2021-07-28] MEDS: MORPHINE 2 MG/1 ML SYRINGE IV PRN ×2 (10:55→12:33)
[2021-07-28] MEDS ORDERED: SODIUM CHLORIDE 0.9% 500 ML IV ONE (11:39)
[2021-07-28] MEDS ORDERED: DIGOXIN 0.5 MG/2 ML AMP IV ONE (16:07)
[2021-07-28] MEDS ORDERED: MORPHINE 2 MG/1 ML SYRINGE IV STA (17:55)
[2021-07-28] MEDS: ATORVASTATIN 40 MG TABLET PO SCH (21:12)
[2021-07-29] MEDS: ACETYLCYSTEINE 20% 800 MG/4 ML VIAL RESP TX SCH ×3 (00:50→14:30)
[2021-07-29] MEDS: ALBUTEROL/IPRATROPIUM 3 ML NEB RESP TX SCH ×3 (00:50→14:30)
[2021-07-29] MEDS: HYDROCORTISONE 100 MG VIAL IV SCH ×4 (02:58→21:13)
[2021-07-29 04:23] LABS: Basophils % 0.1 % (0.0-0.8); Hematocrit 28.2 VOL% (35.7-47.0); Hemoglobin 8.9 GM/DL (12.0-16.0); Immature Granulocytes % 2.1 %; Lymphocytes # 0.4 10*3/uL (1.4-4.0); Lymphocytes % 1.5 % (21.3-54.2); Mean Corpuscular HGB Conc 31.6 GM/DL (32-36); Mean Corpuscular Volume 89.8 FL (87-102); Mean Platelet Volume 10.4 FL (9.6-12.0); Monocytes % 2.7 % (1.7-12.7); Neutrophils % 93.6 % (38.7-73.9); Platelet Count 378 T/CUMM (130-400); Red Blood Count 3.14 MC/CUMM (3.8-5.5); Red Cell Distribution Width 16.6 % (9.3-17.3); White Blood Count 28.8 T/CUMM (4-12)
[2021-07-29 04:45] LABS: Calcium 7.5 MG/DL (8.5-10.1); Osmolality,Calculated 281.5 MOS/KG (273-304); Potassium 3.7 MMOL/L (3.5-5.1)
[2021-07-29] MEDS: POTASSIUM BICARB EFFERVESCENT 20 MEQ TAB.EFF PER TUBE PRN (06:22)
[2021-07-29 06:52] LABS: Segmented Neutrophils 97 % (50-85); Total Cells Counted 100
[2021-07-29 06:53] LABS: Lymphocytes 1 % (20-55)
[2021-07-29 06:54] LABS: Hypochromia 1+; Microcytosis Slight; Polychromasia Slight
[2021-07-29 06:55] LABS: Platelet Estimate Normal
[2021-07-29] MEDS: EZETIMIBE 10 MG TABLET PO SCH (09:36)
[2021-07-29] MEDS: ASCORBIC ACID 500 MG TABLET PO SCH ×2 (09:36→21:13)
[2021-07-29] MEDS: APIXABAN 2.5 MG TABLET PO SCH ×2 (09:37→21:14)
[2021-07-29] MEDS: AMIODARONE 200 MG TABLET PO SCH ×2 (09:37→21:14)
[2021-07-29] MEDS: TOPIRAMATE 100 MG TABLET PO SCH ×2 (09:37→21:13)
[2021-07-29] MEDS: DIGOXIN 0.5 MG/2 ML AMP IV SCH (09:37)
[2021-07-29] MEDS: TICAGRELOR 90 MG TABLET PO SCH ×2 (09:38→21:13)
[2021-07-29] MEDS: ASPIRIN EC 81 MG TABLET PO SCH (09:38)
[2021-07-29] MEDS: PYRIDOSTIGMINE 60 MG TABLET PO SCH ×3 (09:38→21:14)
[2021-07-29] MEDS: FOLIC ACID 1 MG TABLET PO SCH (09:38)
[2021-07-29] MEDS: FERRIC GLUCONATE COMPLEX 125 MG in SODIUM CHLORIDE 0.9% 100 ML IV SCH (10:11)
[2021-07-29] MEDS: OMEPRAZOLE ODT 20 MG TABLET PO SCH ×2 (10:11→21:13)
[2021-07-29] MEDS ORDERED: cefTRIAXone 1,000 MG in SODIUM CHLORIDE 0.9% 100 ML IV SCH (13:00)
[2021-07-29] MEDS: ZINC OXIDE 16% PASTE 57 GM TUBE TOP SCH ×2 (13:10→21:14)
[2021-07-29] MEDS: NYSTATIN OINT 15 GM TUBE TOP SCH ×3 (13:11→21:14)
[2021-07-29] MEDS: ATORVASTATIN 40 MG TABLET PO SCH (21:14)
[2021-07-29] MEDS: cefTRIAXone 1,000 MG in SODIUM CHLORIDE 0.9% 100 ML IV SCH (21:36)
[2021-07-29] MEDS: MORPHINE 2 MG/1 ML SYRINGE IV PRN (23:16)
[2021-07-30] MEDS: ONDANSETRON 4 MG/2 ML VIAL IV PRN ×5 (02:13→21:42)
[2021-07-30] MEDS: HYDROCORTISONE 100 MG VIAL IV SCH ×4 (02:15→21:36)
[2021-07-30 06:16] LABS: Basophils % 0.1 % (0.0-0.8); Hematocrit 26.8 VOL% (35.7-47.0); Hemoglobin 8.4 GM/DL (12.0-16.0); Immature Granulocytes % 1.4 %; Immature Granulocytes Absolute 0.24 #; Lymphocytes # 0.3 10*3/uL (1.4-4.0); Lymphocytes % 1.5 % (21.3-54.2); Mean Corpuscular HGB Conc 31.3 GM/DL (32-36); Mean Corpuscular Volume 90.8 FL (87-102); Mean Platelet Volume 10.8 FL (9.6-12.0); Monocytes % 3.1 % (1.7-12.7); Neutrophils % 93.9 % (38.7-73.9); Platelet Count 345 T/CUMM (130-400); Red Blood Count 2.95 MC/CUMM (3.8-5.5); Red Cell Distribution Width 16.6 % (9.3-17.3); White Blood Count 16.9 T/CUMM (4-12)
[2021-07-30 06:43] LABS: Calcium 7.6 MG/DL (8.5-10.1); Osmolality,Calculated 287.3 MOS/KG (273-304); Potassium 3.4 MMOL/L (3.5-5.1)
[2021-07-30 06:45] LABS: Hypochromia 1+; Microcytosis 1+; Platelet Estimate Adequate; Segmented Neutrophils 95 % (50-85); Total Cells Counted 100
[2021-07-30] MEDS: ACETYLCYSTEINE 20% 800 MG/4 ML VIAL RESP TX SCH (07:00)
[2021-07-30] MEDS: ALBUTEROL/IPRATROPIUM 3 ML NEB RESP TX SCH ×2 (07:00→15:42)
[2021-07-30] MEDS: PYRIDOSTIGMINE 60 MG TABLET PO SCH ×3 (08:23→21:37)
[2021-07-30] MEDS: ASPIRIN EC 81 MG TABLET PO SCH (08:24)
[2021-07-30] MEDS: FOLIC ACID 1 MG TABLET PO SCH (08:24)
[2021-07-30] MEDS: TOPIRAMATE 100 MG TABLET PO SCH ×2 (08:24→21:37)
[2021-07-30] MEDS: ASCORBIC ACID 500 MG TABLET PO SCH ×2 (08:24→21:37)
[2021-07-30] MEDS: AMIODARONE 200 MG TABLET PO SCH ×2 (08:24→21:37)
[2021-07-30] MEDS: TICAGRELOR 90 MG TABLET PO SCH ×2 (08:24→21:37)
[2021-07-30] MEDS: APIXABAN 2.5 MG TABLET PO SCH ×2 (08:24→21:36)
[2021-07-30] MEDS: POTASSIUM BICARB EFFERVESCENT 20 MEQ TAB.EFF PER TUBE PRN ×3 (08:25→18:47)
[2021-07-30] MEDS: MORPHINE 2 MG/1 ML SYRINGE IV PRN ×3 (08:31→22:40)
[2021-07-30] MEDS: ZINC OXIDE 16% PASTE 57 GM TUBE TOP SCH ×2 (10:00→21:42)
[2021-07-30] MEDS: OMEPRAZOLE ODT 20 MG TABLET PO SCH ×2 (10:00→21:38)
[2021-07-30] MEDS: NYSTATIN OINT 15 GM TUBE TOP SCH ×3 (10:00→22:03)
[2021-07-30] MEDS: FERRIC GLUCONATE COMPLEX 125 MG in SODIUM CHLORIDE 0.9% 100 ML IV SCH (10:00)
[2021-07-30] MEDS: EZETIMIBE 10 MG TABLET PO SCH (10:01)
[2021-07-30] MEDS: DIGOXIN 0.5 MG/2 ML AMP IV SCH (10:17)
[2021-07-30] MEDS: VANCOMYCIN 50 MG/ML 60 ML/BOTTLE PO SCH ×2 (14:39→22:46)
[2021-07-30] MEDS: cefTRIAXone 1,000 MG in SODIUM CHLORIDE 0.9% 100 ML IV SCH (21:36)
[2021-07-30] MEDS: ATORVASTATIN 40 MG TABLET PO SCH (21:37)
[2021-07-31] MEDS: HYDROCORTISONE 100 MG VIAL IV SCH ×4 (01:43→22:10)
[2021-07-31] MEDS: ONDANSETRON 4 MG/2 ML VIAL IV PRN ×4 (03:16→22:20)
[2021-07-31] MEDS: MORPHINE 2 MG/1 ML SYRINGE IV PRN ×3 (03:19→22:20)
[2021-07-31] MEDS: POTASSIUM BICARB EFFERVESCENT 20 MEQ TAB.EFF PER TUBE PRN ×2 (03:21→05:56)
[2021-07-31] MEDS: ACETYLCYSTEINE 20% 800 MG/4 ML VIAL RESP TX SCH ×5 (03:40→15:09)
[2021-07-31] MEDS: ALBUTEROL/IPRATROPIUM 3 ML NEB RESP TX SCH ×4 (03:41→15:09)
[2021-07-31] MEDS: VANCOMYCIN 50 MG/ML 60 ML/BOTTLE PO SCH ×3 (05:05→22:23)
[2021-07-31 05:33] LABS: Basophils % 0.1 % (0.0-0.8); Hematocrit 25.5 VOL% (35.7-47.0); Hemoglobin 7.9 GM/DL (12.0-16.0); Immature Granulocytes % 1.5 %; Lymphocytes # 0.4 10*3/uL (1.4-4.0); Lymphocytes % 2.2 % (21.3-54.2); Mean Corpuscular Volume 91.7 FL (87-102); Mean Platelet Volume 10.9 FL (9.6-12.0); Monocytes % 3.7 % (1.7-12.7); Neutrophils % 92.5 % (38.7-73.9); Platelet Count 368 T/CUMM (130-400); Red Blood Count 2.78 MC/CUMM (3.8-5.5); White Blood Count 19.7 T/CUMM (4-12)
[2021-07-31 05:57] LABS: Calcium 7.8 MG/DL (8.5-10.1); Osmolality,Calculated 294.1 MOS/KG (273-304); Potassium 3.4 MMOL/L (3.5-5.1)
[2021-07-31 06:11] LABS: Hypochromia 1+; Lymphocytes 2 % (20-55); Segmented Neutrophils 96 % (50-85); Total Cells Counted 100
[2021-07-31 06:12] LABS: Microcytosis 1+; Ovalocytes Slight; Platelet Estimate Normal
[2021-07-31] MEDS ORDERED: FUROSEMIDE 40 MG/4 ML VIAL IV ONE (10:34)
[2021-07-31] MEDS: EZETIMIBE 10 MG TABLET PO SCH (11:44)
[2021-07-31] MEDS: PYRIDOSTIGMINE 60 MG TABLET PO SCH ×3 (11:44→22:09)
[2021-07-31] MEDS: AMIODARONE 200 MG TABLET PO SCH ×2 (11:44→22:09)
[2021-07-31] MEDS: ASCORBIC ACID 500 MG TABLET PO SCH ×2 (11:44→22:09)
[2021-07-31] MEDS: APIXABAN 2.5 MG TABLET PO SCH ×2 (11:45→22:10)
[2021-07-31] MEDS: DIGOXIN 0.5 MG/2 ML AMP IV SCH (11:45)
[2021-07-31] MEDS: ASPIRIN EC 81 MG TABLET PO SCH (11:45)
[2021-07-31] MEDS: TICAGRELOR 90 MG TABLET PO SCH ×2 (11:45→22:09)
[2021-07-31] MEDS: TOPIRAMATE 100 MG TABLET PO SCH ×2 (11:45→22:09)
[2021-07-31] MEDS: FOLIC ACID 1 MG TABLET PO SCH (11:45)
[2021-07-31] MEDS: ZINC OXIDE 16% PASTE 57 GM TUBE TOP SCH ×2 (11:46→22:21)
[2021-07-31] MEDS: FERRIC GLUCONATE COMPLEX 125 MG in SODIUM CHLORIDE 0.9% 100 ML IV SCH (11:48)
[2021-07-31] MEDS: OMEPRAZOLE ODT 20 MG TABLET PO SCH ×2 (12:20→22:09)
[2021-07-31] MEDS: NYSTATIN OINT 15 GM TUBE TOP SCH ×3 (12:20→23:58)
[2021-07-31] MEDS: cefTRIAXone 1,000 MG in SODIUM CHLORIDE 0.9% 100 ML IV SCH (22:08)
[2021-07-31] MEDS: ATORVASTATIN 40 MG TABLET PO SCH (22:09)
[2021-08-01] MEDS: ACETYLCYSTEINE 20% 800 MG/4 ML VIAL RESP TX SCH ×4 (02:11→23:45)
[2021-08-01] MEDS: ALBUTEROL/IPRATROPIUM 3 ML NEB RESP TX SCH ×4 (02:13→23:45)
[2021-08-01] MEDS: HYDROCORTISONE 100 MG VIAL IV SCH ×4 (02:36→22:24)
[2021-08-01] MEDS: VANCOMYCIN 50 MG/ML 60 ML/BOTTLE PO SCH ×3 (05:19→22:27)
[2021-08-01 06:17] LABS: Basophils % 0.1 % (0.0-0.8); Eosinophils # 0.1 10*3/uL (0.0-0.87); Eosinophils % 0.4 % (0.00-10.9); Hematocrit 24.2 VOL% (35.7-47.0); Hemoglobin 7.4 GM/DL (12.0-16.0); Immature Granulocytes % 2.7 %; Immature Granulocytes Absolute 0.48 #; Lymphocytes # 0.6 10*3/uL (1.4-4.0); Lymphocytes % 3.5 % (21.3-54.2); Mean Corpuscular HGB Conc 30.6 GM/DL (32-36); Mean Corpuscular Volume 93.1 FL (87-102); Monocytes % 5.5 % (1.7-12.7); NRBC # 0.07 10*3/uL; Neutrophils % 87.8 % (38.7-73.9); Platelet Count 304 T/CUMM (130-400); Red Cell Distribution Width 17.5 % (9.3-17.3); White Blood Count 17.9 T/CUMM (4-12)
[2021-08-01 06:40] LABS: Band Neutrophils 1 % (0-10); Hypochromia 1+; Lymphocytes 2 % (20-55); Microcytosis 1+; Platelet Estimate Adequate; Segmented Neutrophils 93 % (50-85); Total Cells Counted 100
[2021-08-01 06:51] LABS: Calcium 7.8 MG/DL (8.5-10.1); Osmolality,Calculated 292.1 MOS/KG (273-304); Potassium 3.1 MMOL/L (3.5-5.1)
[2021-08-01] MEDS: ONDANSETRON 4 MG/2 ML VIAL IV PRN ×4 (07:24→22:33)
[2021-08-01] MEDS ORDERED: POTASSIUM CHLORIDE 20 MEQ PACK PO ONE (08:07)
[2021-08-01] MEDS: PYRIDOSTIGMINE 60 MG TABLET PO SCH ×3 (08:21→22:26)
[2021-08-01] MEDS: FOLIC ACID 1 MG TABLET PO SCH (08:22)
[2021-08-01] MEDS: EZETIMIBE 10 MG TABLET PO SCH (08:22)
[2021-08-01] MEDS: TOPIRAMATE 100 MG TABLET PO SCH ×2 (08:22→22:27)
[2021-08-01] MEDS: APIXABAN 2.5 MG TABLET PO SCH ×2 (08:22→22:26)
[2021-08-01] MEDS: AMIODARONE 200 MG TABLET PO SCH ×2 (08:22→22:26)
[2021-08-01] MEDS: ASCORBIC ACID 500 MG TABLET PO SCH ×2 (08:22→22:25)
[2021-08-01] MEDS: TICAGRELOR 90 MG TABLET PO SCH ×2 (08:22→22:26)
[2021-08-01] MEDS: ASPIRIN EC 81 MG TABLET PO SCH (08:22)
[2021-08-01] MEDS: OMEPRAZOLE ODT 20 MG TABLET PO SCH ×2 (08:22→22:25)
[2021-08-01] MEDS: DIGOXIN 0.5 MG/2 ML AMP IV SCH (08:23)
[2021-08-01] MEDS: FERRIC GLUCONATE COMPLEX 125 MG in SODIUM CHLORIDE 0.9% 100 ML IV SCH (08:23)
[2021-08-01] MEDS: ZINC OXIDE 16% PASTE 57 GM TUBE TOP SCH ×2 (08:23→22:28)
[2021-08-01] MEDS: NYSTATIN OINT 15 GM TUBE TOP SCH ×3 (08:24→22:28)
[2021-08-01] MEDS: MORPHINE 2 MG/1 ML SYRINGE IV PRN ×3 (09:03→23:43)
[2021-08-01] MEDS ORDERED: GLUCAGON 1 MG VIAL IM PRN (11:14)
[2021-08-01] MEDS ORDERED: DEXTROSE 50% 25 GM/50 ML VIAL IV PRN (11:14)
[2021-08-01] MEDS: INSULIN REGULAR 100 UNIT/ML SUBCUT SCH ×3 (11:56→22:26)
[2021-08-01] MEDS: SODIUM HYPOCHLORITE 0.25% IRRIG 473 ML BOTTLE TOP SCH (11:56)
[2021-08-01] MEDS ORDERED: FUROSEMIDE 20 MG/2 ML VIAL IV ONE (14:51)
[2021-08-01] MEDS: POTASSIUM CHLORIDE RIDER 10 MEQ/100 ML PREMIX IV SCH ×2 (15:46→17:44)
[2021-08-01] MEDS: ACETAMINOPHEN 325 MG TABLET PO PRN (16:29)
[2021-08-01] MEDS: cefTRIAXone 1,000 MG in SODIUM CHLORIDE 0.9% 100 ML IV SCH (22:25)
[2021-08-01] MEDS: ATORVASTATIN 40 MG TABLET PO SCH (22:26)
[2021-08-01] MEDS: hydrOXYzine HCL 25 MG TABLET PO PRN (23:43)
[2021-08-02] MEDS ORDERED: FUROSEMIDE 40 MG/4 ML VIAL IV ONE (00:17)
[2021-08-02] MEDS ORDERED: LORazepam 1 MG TABLET ONE (00:23)
[2021-08-02] MEDS: LORazepam 1 MG TABLET PO PRN ×2 (00:28→17:51)
[2021-08-02] MEDS: HYDROCORTISONE 100 MG VIAL IV SCH ×4 (03:13→21:25)
[2021-08-02] MEDS: VANCOMYCIN 50 MG/ML 60 ML/BOTTLE PO SCH ×3 (05:07→21:29)
[2021-08-02 05:25] LABS: Basophils % 0.1 % (0.0-0.8); Hematocrit 21.3 VOL% (35.7-47.0); Hemoglobin 6.5 GM/DL (12.0-16.0); Immature Granulocytes % 4.3 %; Immature Granulocytes Absolute 0.84 #; Lymphocytes # 0.5 10*3/uL (1.4-4.0); Lymphocytes % 2.4 % (21.3-54.2); Mean Corpuscular HGB Conc 30.5 GM/DL (32-36); Mean Corpuscular Volume 95.5 FL (87-102); Mean Platelet Volume 11.2 FL (9.6-12.0); Monocytes % 6.9 % (1.7-12.7); NRBC # 0.09 10*3/uL; Neutrophils % 86.3 % (38.7-73.9); Platelet Count 268 T/CUMM (130-400); Red Blood Count 2.23 MC/CUMM (3.8-5.5); Red Cell Distribution Width 18.5 % (9.3-17.3); White Blood Count 19.5 T/CUMM (4-12)
[2021-08-02 05:49] LABS: Anisocytosis 1+; Lymphocytes 5 % (20-55); Platelet Estimate Normal; Segmented Neutrophils 86 % (50-85); Total Cells Counted 100
[2021-08-02 05:50] LABS: Macrocytosis Slight
[2021-08-02 06:02] LABS: Calcium 7.5 MG/DL (8.5-10.1); Potassium 3.4 MMOL/L (3.5-5.1)
[2021-08-02] MEDS: ALBUTEROL/IPRATROPIUM 3 ML NEB RESP TX SCH ×2 (07:40→14:10)
[2021-08-02] MEDS: ACETYLCYSTEINE 20% 800 MG/4 ML VIAL RESP TX SCH ×2 (07:40→14:10)
[2021-08-02] MEDS: INSULIN REGULAR 100 UNIT/ML SUBCUT SCH ×4 (08:28→21:06)
[2021-08-02] MEDS ORDERED: SODIUM CHLORIDE 0.9% 1,000 ML IV PRN (08:53)
[2021-08-02] MEDS: DIGOXIN 0.5 MG/2 ML AMP IV SCH (09:57)
[2021-08-02] MEDS: FOLIC ACID 1 MG TABLET PO SCH (09:57)
[2021-08-02] MEDS: TOPIRAMATE 100 MG TABLET PO SCH ×2 (09:57→21:30)
[2021-08-02] MEDS: ZINC OXIDE 16% PASTE 57 GM TUBE TOP SCH ×2 (09:58→21:29)
[2021-08-02] MEDS: ASPIRIN EC 81 MG TABLET PO SCH (09:58)
[2021-08-02] MEDS: FERRIC GLUCONATE COMPLEX 125 MG in SODIUM CHLORIDE 0.9% 100 ML IV SCH (09:58)
[2021-08-02] MEDS: SODIUM HYPOCHLORITE 0.25% IRRIG 473 ML BOTTLE TOP SCH (09:58)
[2021-08-02] MEDS: AMIODARONE 200 MG TABLET PO SCH ×2 (09:58→21:31)
[2021-08-02] MEDS: TICAGRELOR 90 MG TABLET PO SCH ×2 (09:58→21:30)
[2021-08-02] MEDS: PYRIDOSTIGMINE 60 MG TABLET PO SCH ×3 (09:58→21:30)
[2021-08-02] MEDS: EZETIMIBE 10 MG TABLET PO SCH (09:58)
[2021-08-02] MEDS: OMEPRAZOLE ODT 20 MG TABLET PO SCH ×2 (09:58→21:30)
[2021-08-02] MEDS: APIXABAN 2.5 MG TABLET PO SCH ×2 (09:58→21:31)
[2021-08-02] MEDS: ASCORBIC ACID 500 MG TABLET PO SCH ×2 (09:59→21:30)
[2021-08-02] MEDS: NYSTATIN OINT 15 GM TUBE TOP SCH ×3 (09:59→21:29)
[2021-08-02] MEDS ORDERED: POTASSIUM CHLORIDE 20 MEQ PACK PO ONE (11:00)
[2021-08-02] MEDS: cefTRIAXone 1,000 MG in SODIUM CHLORIDE 0.9% 100 ML IV SCH (21:25)
[2021-08-02] MEDS: MORPHINE 2 MG/1 ML SYRINGE IV PRN (21:28)
[2021-08-02] MEDS: ATORVASTATIN 40 MG TABLET PO SCH (21:30)
[2021-08-02] MEDS: hydrOXYzine HCL 25 MG TABLET PO PRN (21:30)
[2021-08-02 22:19] LABS: Hematocrit 32.1 VOL% (35.7-47.0)
[2021-08-02 22:23] LABS: Hemoglobin 10.1 GM/DL (12.0-16.0)
[2021-08-03] MEDS: LORazepam 1 MG TABLET PO PRN (00:31)
[2021-08-03] MEDS: ACETYLCYSTEINE 20% 800 MG/4 ML VIAL RESP TX SCH ×3 (00:45→15:34)
[2021-08-03] MEDS: ALBUTEROL/IPRATROPIUM 3 ML NEB RESP TX SCH ×3 (00:45→15:34)
[2021-08-03] MEDS: HYDROCORTISONE 100 MG VIAL IV SCH ×4 (03:58→22:40)
[2021-08-03] MEDS: VANCOMYCIN 50 MG/ML 60 ML/BOTTLE PO SCH ×3 (05:50→22:41)
[2021-08-03] MEDS: INSULIN REGULAR 100 UNIT/ML SUBCUT SCH ×4 (08:20→22:43)
[2021-08-03] MEDS: TOPIRAMATE 100 MG TABLET PO SCH ×2 (09:11→22:40)
[2021-08-03] MEDS: ASPIRIN EC 81 MG TABLET PO SCH (09:11)
[2021-08-03] MEDS: OMEPRAZOLE ODT 20 MG TABLET PO SCH ×2 (09:13→22:40)
[2021-08-03] MEDS: APIXABAN 2.5 MG TABLET PO SCH ×2 (09:13→22:39)
[2021-08-03] MEDS: TICAGRELOR 90 MG TABLET PO SCH ×2 (09:13→22:39)
[2021-08-03] MEDS: AMIODARONE 200 MG TABLET PO SCH ×2 (09:13→22:40)
[2021-08-03] MEDS: PYRIDOSTIGMINE 60 MG TABLET PO SCH ×3 (09:13→22:39)
[2021-08-03] MEDS: ASCORBIC ACID 500 MG TABLET PO SCH ×2 (09:13→22:39)
[2021-08-03] MEDS: EZETIMIBE 10 MG TABLET PO SCH (09:13)
[2021-08-03] MEDS: NYSTATIN OINT 15 GM TUBE TOP SCH ×3 (09:14→22:43)
[2021-08-03] MEDS: SODIUM HYPOCHLORITE 0.25% IRRIG 473 ML BOTTLE TOP SCH (09:14)
[2021-08-03] MEDS: FOLIC ACID 1 MG TABLET PO SCH (09:14)
[2021-08-03] MEDS: ZINC OXIDE 16% PASTE 57 GM TUBE TOP SCH ×2 (09:14→22:38)
[2021-08-03] MEDS: FERRIC GLUCONATE COMPLEX 125 MG in SODIUM CHLORIDE 0.9% 100 ML IV SCH (09:15)
[2021-08-03 09:43] LABS: Basophils % 0.1 % (0.0-0.8); Hematocrit 29.6 VOL% (35.7-47.0); Hemoglobin 9.3 GM/DL (12.0-16.0); Immature Granulocytes % 2.7 %; Immature Granulocytes Absolute 0.46 #; Lymphocytes # 0.5 10*3/uL (1.4-4.0); Lymphocytes % 2.8 % (21.3-54.2); Mean Corpuscular HGB Conc 31.4 GM/DL (32-36); Mean Corpuscular Volume 92.5 FL (87-102); Mean Platelet Volume 11.2 FL (9.6-12.0); Monocytes % 7.8 % (1.7-12.7); NRBC # 0.12 10*3/uL; Neutrophils % 86.6 % (38.7-73.9); Platelet Count 221 T/CUMM (130-400); Red Cell Distribution Width 17.4 % (9.3-17.3); White Blood Count 16.7 T/CUMM (4-12)
[2021-08-03 10:06] LABS: Lymphocytes 3 % (20-55); Nucleated Red Blood Cells 1 (0-5); Segmented Neutrophils 91 % (50-85); Total Cells Counted 100
[2021-08-03 10:07] LABS: Hypochromia 1+; Microcytosis 1+; Platelet Estimate Adequate
[2021-08-03 10:13] LABS: Alanine Aminotransferase 146 U/L (13-56); Albumin 1.8 G/DL (3.4-5.0); Alkaline Phosphatase 162 U/L (45-117); Aspartate Amino Transferase 136 U/L (0-37); Bilirubin,Total < 0.39 MG/DL (0.20-1.00); Blood Urea Nitrogen 54 MG/DL (7-18); Calcium 7.9 MG/DL (8.5-10.1); Carbon Dioxide 22 MMOL/L (21-32); Estimated Glom Filtration Rate 39 ML/MIN; Glucose 119 MG/DL (74-106); Osmolality,Calculated 303.7 MOS/KG (273-304); Potassium 3.3 MMOL/L (3.5-5.1); Sodium 145 MMOL/L (136-145); Total Protein 4.6 G/DL (6.4-8.2)
[2021-08-03] MEDS ORDERED: FUROSEMIDE 40 MG/4 ML VIAL IV ONE (11:00)
[2021-08-03] MEDS: DIGOXIN 0.5 MG/2 ML AMP IV SCH (13:13)
[2021-08-03] MEDS: ATORVASTATIN 40 MG TABLET PO SCH (22:39)
[2021-08-03] MEDS: cefTRIAXone 1,000 MG in SODIUM CHLORIDE 0.9% 100 ML IV SCH (22:41)
[2021-08-04] MEDS: ALBUTEROL/IPRATROPIUM 3 ML NEB RESP TX SCH ×3 (00:35→14:52)
[2021-08-04] MEDS: ACETYLCYSTEINE 20% 800 MG/4 ML VIAL RESP TX SCH ×3 (00:35→14:52)
[2021-08-04] MEDS: HYDROCORTISONE 100 MG VIAL IV SCH ×4 (05:57→22:38)
[2021-08-04] MEDS: VANCOMYCIN 50 MG/ML 60 ML/BOTTLE PO SCH ×3 (05:57→22:41)
[2021-08-04 06:18] LABS: Basophils % 0.1 % (0.0-0.8); Hemoglobin 8.6 GM/DL (12.0-16.0); Immature Granulocytes % 2.2 %; Lymphocytes # 0.3 10*3/uL (1.4-4.0); Lymphocytes % 2.2 % (21.3-54.2); Mean Corpuscular HGB Conc 30.7 GM/DL (32-36); Mean Corpuscular Volume 94.6 FL (87-102); NRBC # 0.07 10*3/uL; Neutrophils % 88.5 % (38.7-73.9); Platelet Count 206 T/CUMM (130-400); Red Blood Count 2.96 MC/CUMM (3.8-5.5); Red Cell Distribution Width 18.5 % (9.3-17.3); White Blood Count 13.3 T/CUMM (4-12)
[2021-08-04 06:37] LABS: Alanine Aminotransferase 89 U/L (13-56); Albumin 1.6 G/DL (3.4-5.0); Alkaline Phosphatase 117 U/L (45-117); Aspartate Amino Transferase 52 U/L (0-37); Bilirubin,Total < 0.39 MG/DL (0.20-1.00); Blood Urea Nitrogen 48 MG/DL (7-18); Calcium 7.9 MG/DL (8.5-10.1); Carbon Dioxide 23 MMOL/L (21-32); Estimated Glom Filtration Rate 43 ML/MIN; Glucose 93 MG/DL (74-106); Osmolality,Calculated 304.4 MOS/KG (273-304); Potassium 2.7 MMOL/L (3.5-5.1); Sodium 147 MMOL/L (136-145); Total Protein 4.4 G/DL (6.4-8.2)
[2021-08-04 06:39] LABS: Band Neutrophils 6 % (0-10); Basophilic Stippling Slight; Lymphocytes 3 % (20-55); Platelet Estimate Normal; Segmented Neutrophils 86 % (50-85); Total Cells Counted 100
[2021-08-04 06:40] LABS: Anisocytosis 2+; Macrocytosis Slight; Polychromasia Slight
[2021-08-04] MEDS: INSULIN REGULAR 100 UNIT/ML SUBCUT SCH ×4 (07:02→22:40)
[2021-08-04] MEDS: OMEPRAZOLE ODT 20 MG TABLET PO SCH ×2 (09:27→22:39)
[2021-08-04] MEDS: PYRIDOSTIGMINE 60 MG TABLET PO SCH ×3 (09:27→22:39)
[2021-08-04] MEDS: TICAGRELOR 90 MG TABLET PO SCH ×2 (09:27→22:39)
[2021-08-04] MEDS: DIGOXIN 0.5 MG/2 ML AMP IV SCH (09:27)
[2021-08-04] MEDS: ASPIRIN EC 81 MG TABLET PO SCH (09:27)
[2021-08-04] MEDS: FOLIC ACID 1 MG TABLET PO SCH (09:27)
[2021-08-04] MEDS: TOPIRAMATE 100 MG TABLET PO SCH ×2 (09:27→22:39)
[2021-08-04] MEDS: APIXABAN 2.5 MG TABLET PO SCH ×2 (09:28→22:39)
[2021-08-04] MEDS: ASCORBIC ACID 500 MG TABLET PO SCH (09:28)
[2021-08-04] MEDS: EZETIMIBE 10 MG TABLET PO SCH (09:28)
[2021-08-04] MEDS: ZINC OXIDE 16% PASTE 57 GM TUBE TOP SCH ×2 (09:28→22:55)
[2021-08-04] MEDS: AMIODARONE 200 MG TABLET PO SCH ×2 (09:28→22:39)
[2021-08-04] MEDS: POTASSIUM CHLORIDE 20 MEQ PACK PO SCH ×2 (09:29→22:40)
[2021-08-04] MEDS: NYSTATIN OINT 15 GM TUBE TOP SCH ×3 (09:29→22:55)
[2021-08-04] MEDS: SODIUM HYPOCHLORITE 0.25% IRRIG 473 ML BOTTLE TOP SCH (09:29)
[2021-08-04] MEDS: FERRIC GLUCONATE COMPLEX 125 MG in SODIUM CHLORIDE 0.9% 100 ML IV SCH (09:29)
[2021-08-04] MEDS: ONDANSETRON 4 MG/2 ML VIAL IV PRN (16:21)
[2021-08-04] MEDS: ATORVASTATIN 40 MG TABLET PO SCH (22:39)
[2021-08-04] MEDS: LORazepam 1 MG TABLET PO PRN (23:04)
[2021-08-05] MEDS: ALBUTEROL/IPRATROPIUM 3 ML NEB RESP TX SCH ×3 (00:35→14:25)
[2021-08-05] MEDS: ACETYLCYSTEINE 20% 800 MG/4 ML VIAL RESP TX SCH ×3 (00:35→14:25)
[2021-08-05 05:30] LABS: Basophils % 0.2 % (0.0-0.8); Hematocrit 26.6 VOL% (35.7-47.0); Immature Granulocytes Absolute 0.25 #; Lymphocytes # 0.3 10*3/uL (1.4-4.0); Lymphocytes % 2.1 % (21.3-54.2); Mean Corpuscular HGB Conc 30.1 GM/DL (32-36); Mean Platelet Volume 11.5 FL (9.6-12.0); Monocytes % 5.7 % (1.7-12.7); NRBC # 0.04 10*3/uL; Platelet Count 220 T/CUMM (130-400); Red Blood Count 2.77 MC/CUMM (3.8-5.5); Red Cell Distribution Width 19.1 % (9.3-17.3); White Blood Count 12.4 T/CUMM (4-12)
[2021-08-05 05:58] LABS: Albumin 1.5 G/DL (3.4-5.0); Bilirubin,Total 0.9 MG/DL (0.20-1.00); Calcium 8.1 MG/DL (8.5-10.1); Osmolality,Calculated 312.7 MOS/KG (273-304); Potassium 3.7 MMOL/L (3.5-5.1); Total Protein 4.6 G/DL (6.4-8.2)
[2021-08-05 06:03] LABS: Anisocytosis 1+; Lymphocytes 1 % (20-55); Macrocytosis Slight; Platelet Estimate Normal; Segmented Neutrophils 96 % (50-85); Total Cells Counted 100
[2021-08-05] MEDS: HYDROCORTISONE 100 MG VIAL IV SCH ×4 (06:45→21:11)
[2021-08-05] MEDS: VANCOMYCIN 50 MG/ML 60 ML/BOTTLE PO SCH ×3 (06:45→21:12)
[2021-08-05] MEDS: ASPIRIN CHEW 81 MG TABLET PO SCH (09:08)
[2021-08-05] MEDS: INSULIN REGULAR 100 UNIT/ML SUBCUT SCH ×4 (09:08→21:11)
[2021-08-05] MEDS: APIXABAN 2.5 MG TABLET PO SCH ×2 (09:08→21:10)
[2021-08-05] MEDS: AMIODARONE 200 MG TABLET PO SCH ×2 (09:08→21:10)
[2021-08-05] MEDS: TICAGRELOR 90 MG TABLET PO SCH ×2 (09:08→21:10)
[2021-08-05] MEDS: EZETIMIBE 10 MG TABLET PO SCH (09:08)
[2021-08-05] MEDS: ZINC OXIDE 16% PASTE 57 GM TUBE TOP SCH ×2 (09:09→21:11)
[2021-08-05] MEDS: OMEPRAZOLE ODT 20 MG TABLET PO SCH ×2 (09:09→21:10)
[2021-08-05] MEDS: TOPIRAMATE 100 MG TABLET PO SCH ×2 (09:09→21:10)
[2021-08-05] MEDS: PYRIDOSTIGMINE 60 MG TABLET PO SCH ×3 (09:09→21:10)
[2021-08-05] MEDS: SODIUM HYPOCHLORITE 0.25% IRRIG 473 ML BOTTLE TOP SCH (09:09)
[2021-08-05] MEDS: FOLIC ACID 1 MG TABLET PO SCH (09:09)
[2021-08-05] MEDS: NYSTATIN OINT 15 GM TUBE TOP SCH ×3 (09:10→21:12)
[2021-08-05] MEDS: DIGOXIN 0.5 MG/2 ML AMP IV SCH (09:18)
[2021-08-05] MEDS: POTASSIUM CHLORIDE 20 MEQ PACK PO SCH ×2 (09:18→21:12)
[2021-08-05] MEDS: DEXTROSE 5% 1,000 ML IV SCH (12:52)
[2021-08-05] MEDS: ATORVASTATIN 40 MG TABLET PO SCH (21:10)
[2021-08-05] MEDS: LORazepam 1 MG TABLET PO PRN (21:10)
[2021-08-06] MEDS: ALBUTEROL/IPRATROPIUM 3 ML NEB RESP TX SCH ×3 (00:36→14:05)
[2021-08-06] MEDS: ACETYLCYSTEINE 20% 800 MG/4 ML VIAL RESP TX SCH ×3 (00:37→14:05)
[2021-08-06] MEDS: ACETAMINOPHEN 325 MG TABLET PO PRN ×2 (01:23→05:54)
[2021-08-06] MEDS: HYDROCORTISONE 100 MG VIAL IV SCH ×3 (03:13→18:59)
[2021-08-06 05:38] LABS: Basophils % 0.1 % (0.0-0.8); Hematocrit 23.1 VOL% (35.7-47.0); Hemoglobin 6.9 GM/DL (12.0-16.0); Immature Granulocytes % 5.9 %; Immature Granulocytes Absolute 1.16 #; Lymphocytes # 0.3 10*3/uL (1.4-4.0); Lymphocytes % 1.3 % (21.3-54.2); Mean Corpuscular HGB Conc 29.9 GM/DL (32-36); Mean Corpuscular Volume 96.3 FL (87-102); Mean Platelet Volume 11.6 FL (9.6-12.0); Monocytes % 5.6 % (1.7-12.7); NRBC # 0.16 10*3/uL; Neutrophils % 87.1 % (38.7-73.9); Platelet Count 222 T/CUMM (130-400); Red Cell Distribution Width 20.3 % (9.3-17.3); White Blood Count 19.7 T/CUMM (4-12)
[2021-08-06] MEDS: VANCOMYCIN 50 MG/ML 60 ML/BOTTLE PO SCH ×2 (05:54→13:58)
[2021-08-06 06:04] LABS: Alanine Aminotransferase 67 U/L (13-56); Albumin 1.4 G/DL (3.4-5.0); Alkaline Phosphatase 115 U/L (45-117); Aspartate Amino Transferase 69 U/L (0-37); Bilirubin,Total < 0.39 MG/DL (0.20-1.00); Blood Urea Nitrogen 48 MG/DL (7-18); Calcium 8.1 MG/DL (8.5-10.1); Carbon Dioxide 21 MMOL/L (21-32); Estimated Glom Filtration Rate 39 ML/MIN; Glucose 324 MG/DL (74-106); Osmolality,Calculated 317.4 MOS/KG (273-304); Potassium 4.2 MMOL/L (3.5-5.1); Sodium 147 MMOL/L (136-145); Total Protein 4.4 G/DL (6.4-8.2)
[2021-08-06 06:51] LABS: Hypochromia Slight; Nucleated Red Blood Cells 2 (0-5); Ovalocytes Few; Platelet Estimate Normal; Polychromasia Slight; Segmented Neutrophils 93 % (50-85); Total Cells Counted 100
[2021-08-06] MEDS ORDERED: SODIUM CHLORIDE 0.9% 1,000 ML IV PRN (08:10)
[2021-08-06] MEDS: INSULIN REGULAR 100 UNIT/ML SUBCUT SCH ×3 (10:50→18:59)
[2021-08-06] MEDS: EZETIMIBE 10 MG TABLET PO SCH (10:51)
[2021-08-06] MEDS: PYRIDOSTIGMINE 60 MG TABLET PO SCH ×3 (10:51→21:18)
[2021-08-06] MEDS: TICAGRELOR 90 MG TABLET PO SCH ×2 (10:51→21:11)
[2021-08-06] MEDS: DIGOXIN 0.125 MG TABLET NG SCH (10:51)
[2021-08-06] MEDS: TOPIRAMATE 100 MG TABLET PO SCH ×2 (10:51→21:18)
[2021-08-06] MEDS: AMIODARONE 200 MG TABLET PO SCH ×2 (10:52→21:11)
[2021-08-06] MEDS: ZINC OXIDE 16% PASTE 57 GM TUBE TOP SCH ×2 (10:52→21:10)
[2021-08-06] MEDS: NYSTATIN OINT 15 GM TUBE TOP SCH ×3 (10:52→21:10)
[2021-08-06] MEDS: FOLIC ACID 1 MG TABLET PO SCH (10:52)
[2021-08-06] MEDS: SODIUM HYPOCHLORITE 0.25% IRRIG 473 ML BOTTLE TOP SCH (10:52)
[2021-08-06] MEDS: OMEPRAZOLE ODT 20 MG TABLET PO SCH ×2 (10:52→21:18)
[2021-08-06] MEDS: APIXABAN 2.5 MG TABLET PO SCH ×2 (13:52→21:11)
[2021-08-06] MEDS: ASPIRIN CHEW 81 MG TABLET PO SCH (13:52)
[2021-08-06] MEDS ORDERED: FUROSEMIDE 40 MG/4 ML VIAL IV ONE (16:18)
[2021-08-06] MEDS ORDERED: FUROSEMIDE 40 MG/4 ML VIAL IV SCH (16:37)
[2021-08-06] MEDS: DEXTROSE 5% 1,000 ML IV SCH (18:59)
[2021-08-06] MEDS ORDERED: CEFEPIME 1,000 MG in SODIUM CHLORIDE 0.9% 100 ML IV SCH (19:00)
[2021-08-06] MEDS ORDERED: fentaNYL 25 MCG/HR PATCH TRANSDERM SCH (19:00)
[2021-08-06] MEDS: ATORVASTATIN 40 MG TABLET PO SCH (21:11)
[2021-08-06] MEDS: LORazepam 1 MG TABLET PO PRN (21:48)
[2021-08-06] MEDS: MORPHINE 10 MG/5 ML UDCUP PO PRN (21:48)
[2021-08-06 23:16] VITALS: BP 123/55
[2021-08-07] MEDS: MORPHINE 10 MG/5 ML UDCUP PO PRN ×6 (00:15→17:21)
[2021-08-07] MEDS: ACETYLCYSTEINE 20% 800 MG/4 ML VIAL RESP TX SCH ×2 (00:39→07:10)
[2021-08-07] MEDS: ALBUTEROL/IPRATROPIUM 3 ML NEB RESP TX SCH ×2 (00:39→07:10)
[2021-08-07] MEDS: LORazepam 1 MG TABLET PO PRN ×3 (01:25→17:21)
[2021-08-07] MEDS: ASPIRIN CHEW 81 MG TABLET PO SCH (14:47)
[2021-08-07] MEDS: TICAGRELOR 90 MG TABLET PO SCH (14:47)
[2021-08-07] MEDS: APIXABAN 2.5 MG TABLET PO SCH (14:47)
[2021-08-07] MEDS: SODIUM HYPOCHLORITE 0.25% IRRIG 473 ML BOTTLE TOP SCH (14:47)
[2021-08-07] MEDS: AMIODARONE 200 MG TABLET PO SCH (14:47)
[2021-08-07] MEDS: ZINC OXIDE 16% PASTE 57 GM TUBE TOP SCH (14:47)
[2021-08-07] MEDS: EZETIMIBE 10 MG TABLET PO SCH (14:48)
[2021-08-07] MEDS: DIGOXIN 0.125 MG TABLET NG SCH (14:48)
[2021-08-07] MEDS: PYRIDOSTIGMINE 60 MG TABLET PO SCH (14:48)
[2021-08-07] MEDS: NYSTATIN OINT 15 GM TUBE TOP SCH (14:48)
[2021-08-07] MEDS: TOPIRAMATE 100 MG TABLET PO SCH (14:48)
[2021-08-07] MEDS: FOLIC ACID 1 MG TABLET PO SCH (14:48)
[2021-08-07] MEDS: OMEPRAZOLE ODT 20 MG TABLET PO SCH (14:48)
== END 2021-08-07 13:18 | disposition hospice, inpatient (51) | DRG 871 ==
LOC: N.ED 08:01 → SUATTDRO 11:59 → N.EDINP 11:59 → N.5E 14:02 → N.ICU 07-23 15:44 → N.5E 07-25 17:52 → N.ICU 07-26 18:19 → N.5E 07-30 02:10
PROVIDERS: ADMIT Internal Medicine; ATTEND Internal Medicine

== ENCOUNTER 2021-08-07 13:19 | Inpatient (IN) ==
[2021-08-07] MEDS: MORPHINE 10 MG/5 ML UDCUP PO SCH ×3 (19:30→23:37)
[2021-08-07] MEDS: LORazepam 1 MG TABLET PO SCH ×3 (19:30→23:37)
[2021-08-08] MEDS: LORazepam 1 MG TABLET PO SCH ×11 (01:01→22:40)
[2021-08-08] MEDS: MORPHINE 10 MG/5 ML UDCUP PO SCH ×12 (01:01→22:37)
[2021-08-09] MEDS: LORazepam 1 MG TABLET PO SCH ×13 (00:33→23:51)
[2021-08-09] MEDS: MORPHINE 10 MG/5 ML UDCUP PO SCH ×13 (00:33→23:46)
[2021-08-10] MEDS: LORazepam 1 MG TABLET PO SCH ×11 (01:39→23:37)
[2021-08-10] MEDS: MORPHINE 10 MG/5 ML UDCUP PO SCH ×11 (01:40→22:14)
[2021-08-10 19:58] VITALS: BP 83/36
[2021-08-11] MEDS: MORPHINE 10 MG/5 ML UDCUP PO SCH ×5 (00:38→08:12)
[2021-08-11] MEDS: LORazepam 1 MG TABLET PO SCH ×5 (01:46→09:07)
== END 2021-08-11 10:05 | disposition expired | DRG 951 ==
LOC: N.5E 13:19 → SUATTDRO 13:19
PROVIDERS: ADMIT Internal Medicine; ATTEND Internal Medicine